=== PATIENT | male | born 1950 | race Caucasian/White ===

== ENCOUNTER 2022-05-02 15:22 | Inpatient (IN) ==
[2022-05-02] MEDS ORDERED: SODIUM CHLORIDE 0.9% 500 ML IV ONE (15:41)
[2022-05-02] MEDS ORDERED: methylPREDNISolone 125 MG/2 ML VIAL IV STA (15:41)
--- NOTE | 2022-05-02 15:44 | Emergency Department Note ---
Impression & Plan Pneumonia, Acute respiratory acidosis, Hypoxia, Acute exacerbation of chronic obstructive pulmonary disease, Hypoglycemia, Hypomagnesemia ED Provider Note NAME: JULIA [id number] JC AGE: 72 SEX: M : 1950 ARRIVES VIA: Walk-In INFORMANT: Patient, ED PROVIDER(S): Marvin Leahy DO CHIEF COMPLAINT: Difficulty breathing HPI: The patient is a 72-year-old male who presented to the emergency department from the halfway for an evaluation of generalized weakness and difficulty breathing. The patient states he has a history of COPD. He has not been able to take his oxygen once he was moved to a different block. He states he has been noticing difficulty breathing and coughing over the course the last few days. He was started on Levaquin according to his documentation from the present. He states he has had a dry cough. He denies having any hemoptysis. He denies having any fever. He has had lower extremity swelling which is not new for him. He denies having any recent trauma. He denies having any chest pain but does complain of some difficulty breathing especially with any ambulation. The patient states his symptoms became moderate to severe. He was also noted to have low blood pressure and low glucose prior to arrival. For this reason he was sent to the emergency department for further evaluation. ROS: See above HPI for pertinent positives & negatives. A total of 10 systems reviewed and were otherwise negative. PAST MEDICAL HISTORY: See Below PAST SURGICAL HISTORY: See Below FAMILY HISTORY: See Below SOCIAL HISTORY: See Below HOME MEDICATIONS: See Below ALLERGIES: See Below VITALS: See Below PHYSICAL EXAMINATION: GENERAL: The patient is awake and alert. He is somewhat anxious appearing. EYES: The conjunctivae are clear. The pupils are round and reactive. EARS, NOSE, MOUTH AND THROAT: The nose is without any evidence of any deformity. NECK: The neck is nontender and supple. RESPIRATORY: Diminished breath sounds are noted throughout. There is faint wheezing both upper lung collins. There was conversational dyspnea and mild tachypnea noted. CARDIOVASCULAR: Regular rate and rhythm noted there no murmurs rubs or gallops normal S1 normal S2. GASTROINTESTINAL: The abdomen is soft. Abdomen is nontender. MUSCULOSKELETAL/EXTREMITIES: There is no evidence of gross deformity full range of motion is noted in the hips and shoulders. SKIN: Venous stasis changes are noted in both lower extremities. Skin is warm and dry. There is pedal edema bilaterally. NEUROLOGIC: Patient is awake alert and oriented x3 MEDICAL DECISION MAKING: The patient is a 72-year-old male who presented to the emergency department from the halfway for an evaluation of difficulty breathing. The patient was treated with Levaquin in the halfway over the last few days. He he states he is having significant shortness of breath and dry cough. He describes no chest pain. He was noted to have low blood sugar as well as low blood pressure prior to arrival. He was treated with IV fluids and IV dextrose. He was reevaluated multiple times. He was treated with IV steroids for presumed COPD but also IV antibiotics after chest x-ray revealed signs of pneumonia. The pneumonia does appear to be more in the right upper lobe. He states he has been tested negative for tuberculosis in the past but given his living situation CT of the chest was ordered. I [facility] the [facility] to evaluate the patient in the emergency department for further management and disposition. He was also treated with IV magnesium. Triage Nursing notes reviewed. Prior medical records reviewed Vital Signs: reviewed and remarkable for hypotension and hypoxia. Differential diagnosis: Reactive airway disease, pneumonia, pneumothorax, COPD, CHF, infections, cardiac ischemia, pulmonary embolism, musculoskeletal, gastrointestinal, as well as other pathologies. ER treatment provided: See below Diagnostics interpreted by me: ECG:EKG was obtained in the emergency department. My interpretation is sinus rhythm at 92 bpm. Poor baseline was noted. Poor R wave progression was noted with a left bundle branch block pattern. No previous tracing was available. Cardiac Monitoring: An order was placed for continuous cardiac monitoring. The monitor shows a rate of 85 bpm with sinus rhythm. Laboratory studies: As stated above and show below. Imaging studies: See below Consultation(s): I discussed this case with G[facility] ED COURSE: Procedures: none Critical Care: I have personally spent greater than 55 minutes of critical care time in the direct management of this patient. This includes bedside care, interpretation of diagnostic studies, and testing, discussion with consultants, patient, and family members, and other required patient management activities. This 55 minutes is in excess of all separately billable procedures. Past Med/Surg History Medical History Chronic obstructive pulmonary disease Dyspnea on exertion Obesity Obstructive sleep apnea Social History Smoking Status: Former smoker Home Meds Home Medications Medication Instructions Recorded Confirmed apremilast 30 mg tablet (Otezla) 30 mg PO BID 08/31/21 08/31/21 aspirin 81 mg tablet,delayed 81 mg PO DAILY 08/31/21 08/31/21 release (Adult Low Dose Aspirin) atorvastatin 40 mg tablet 40 mg PO DAILY 08/31/21 08/31/21 ciclesonide 160 mcg/actuation 2 puff INHALATION DAILY 08/31/21 08/31/21 aerosol inhaler (Alvesco) duloxetine 60 mg capsule,delayed 60 mg PO DAILY 08/31/21 08/31/21 release furosemide 20 mg tablet 20 mg PO DAILY 08/31/21 08/31/21 glipizide 5 mg tablet 5 mg PO DAILY 08/31/21 08/31/21 guaifenesin 200 mg tablet 200 mg PO QID 08/31/21 08/31/21 levalbuterol tartrate 45 2 inh INHALATION Q6H 08/31/21 08/31/21 mcg/actuation aerosol inhaler (Xopenex HFA) lisinopril 20 mg tablet 20 mg PO DAILY 08/31/21 08/31/21 metformin 1,000 mg tablet 1,000 mg PO BID 08/31/21 08/31/21 oxcarbazepine 300 mg tablet 300 mg PO BID 08/31/21 08/31/21 ropinirole 2 mg tablet 2 mg PO DAILY 08/31/21 08/31/21 saliva substitute combo no.9 15 ml MUCOUS MEMBRANE 5XD PRN 08/31/21 08/31/21 (Biotene Dry Mouth Oral Rinse) tiotropium bromide 18 mcg capsule 1 cap INHALATION DAILY 08/31/21 08/31/21 with inhalation device (Spiriva with HandiHaler) triamcinolone acetonide 0.1 % 1 applic TOPICAL DAILY 08/31/21 08/31/21 topical cream Results & Data (ED) Vital Signs Vital Signs - 24 hr 05/02/22 15:27 05/02/22 15:42 05/02/22 15:50 Temperature 36.7 C Temperature Source Oral Pulse Rate 88 90 91 H Pulse Rate [Apical] Pulse Rate from SpO2 Sensor 90 91 H Respiratory Rate 18 26 H 31 H Respiratory Effort / Characteristics Respiratory Depth Respiratory Pattern Blood Pressure 65/45 L Blood Pressure [Left Arm] Blood Pressure Mean 51 Blood Pressure Mean [Left Arm] Pulse Oximetry 98 92 91 Oxygen Delivery Method Nasal Cannula Oxygen Flow Rate 2 Fraction of Inspired Oxygen Sepsis Recent Fever Within 48 Hours No Sepsis New/Unexplained Change in Mental Status No Sepsis Action Taken by Nursing No Action Required 05/02/22 16:00 05/02/22 16:01 05/02/22 16:07 Temperature Temperature Source Pulse Rate 83 83 87 Pulse Rate [Apical] Pulse Rate from SpO2 Sensor 82 84 125 H Respiratory Rate 27 H 28 H 22 Respiratory Effort / Characteristics Respiratory Depth Respiratory Pattern Blood Pressure 78/52 L 101/56 L Blood Pressure [Left Arm] Blood Pressure Mean 60 71 Blood Pressure Mean [Left Arm] Pulse Oximetry 90 90 73 L Oxygen Delivery Method Oxygen Flow Rate Fraction of Inspired Oxygen Sepsis Recent Fever Within 48 Hours Sepsis New/Unexplained Change in Mental Status Sepsis Action Taken by Nursing 05/02/22 16:10 05/02/22 16:11 05/02/22 17:03 Temperature Temperature Source Pulse Rate 82 80 85 Pulse Rate [Apical] 82 85 Pulse Rate from SpO2 Sensor Respiratory Rate 25 H 22 22 Respiratory Effort / Characteristics Spontaneous Respiratory Depth Normal Respiratory Pattern Regular Blood Pressure Blood Pressure [Left Arm] 101/56 L Blood Pressure Mean Blood Pressure Mean [Left Arm] 71 Pulse Oximetry 94 99 Oxygen Delivery Method Nasal Cannula BiPAP Oxygen Flow Rate 2 Fraction of Inspired Oxygen 40 Sepsis Recent Fever Within 48 Hours Sepsis New/Unexplained Change in Mental Status Sepsis Action Taken by [facility] Medications Current Medication List: was personally reviewed by me Laboratory Data Attestation: I reviewed the patient's lab results. Result diagrams: 05/02/22 15:55 05/02/22 15:55 Lab Results 05/02/22 05/02/22 05/02/22 Range/Units 15:31 15:55 15:55 WBC 16.64 H (4.8-10.8) K/uL RBC 5.22 (4.7-6.1) M/uL Hgb 16.7 (14.0-18.0) g/dL Hct 49.4 (42-52) % MCV 94.6 (80-100) fL MCH 32.0 (25-34) pg MCHC 33.8 (32-36) g/dL RDW Std Deviation 46.8 H (36.4-46.3) fL RDW Coeff of Cedric 13.6 (11.5-14.5) % Plt Count 198 (130-400) K/uL MPV 10.7 H (7.4-10.4) fL Immature Gran % (Auto) 0.4 % Neut % (Auto) 87.2 % Lymph % (Auto) 5.7 % Wilkin % (Auto) 6.5 % Eos % (Auto) 0.1 % Baso % (Auto) 0.1 % Neut # (Auto) 14.53 H (1.4-6.5) K/uL Lymph # (Auto) 0.95 L (1.2-3.4) K/uL Wilkin # (Auto) 1.08 H (0.11-0.59) K/uL Eos # (Auto) 0.01 (0-0.5) K/uL Baso # (Auto) 0.01 (0-0.2) K/uL Immature Gran # (Auto) 0.06 H (0.00-0.02) K/uL ESR 93 H (0-20) mm/hr PT (9.0-12.0) Seconds INR (0.9-1.1) APTT (21.0-31.0) Seconds PTT Ratio VBG pH (7.36-7.41) VBG pCO2 (38-50) mmHg VBG pO2 mmHg VBG HCO3 mmol/L VBG O2 Saturation % VBG Base Excess mEq/L Barometric Pressure mm/Hg Sodium (136-145) mmol/L Potassium (3.5-5.1) mmol/L Chloride (98-107) mmol/L Carbon Dioxide (21-32) mmol/L Anion Gap (3-11) BUN (6-23) mg/dl Creatinine (0.6-1.4) mg/dl Est Cr Clr Drug Dosing ml/min Est GFR ( Amer) ml/min Est GFR (Non-Af Amer) ml/min BUN/Creatinine Ratio (10-20) Glucose (70-99(Fasting)) mg/dl POC Glucose 99 (70-99) mg/dl Lactate (0.4-2.0) mmol/L Calcium (8.5-10.1) mg/dl Magnesium (1.7-2.4) mg/dl Total Bilirubin (0.2-1.0) mg/dl AST (13-39) U/L ALT (7-52) U/L Alkaline Phosphatase (34-104) U/L Troponin I High Sens (0-20) pg/ml C-Reactive Protein (0-0.5) mg/dl Total Protein (6.0-8.3) gm/dl Albumin (3.4-5.0) gm/dl Globulin (2.5-4.0) gm/dl Albumin/Globulin Ratio (0.9-2) Procalcitonin (0-0.5) ng/ml 05/02/22 05/02/22 05/02/22 Range/Units 15:55 15:55 15:55 WBC (4.8-10.8) K/uL RBC (4.7-6.1) M/uL Hgb (14.0-18.0) g/dL Hct (42-52) % MCV (80-100) fL MCH (25-34) pg MCHC (32-36) g/dL RDW Std Deviation (36.4-46.3) fL RDW Coeff of Cedric (11.5-14.5) % Plt Count (130-400) K/uL MPV (7.4-10.4) fL Immature Gran % (Auto) % Neut % (Auto) % Lymph % (Auto) % Wilkin % (Auto) % Eos % (Auto) % Baso % (Auto) % Neut # (Auto) (1.4-6.5) K/uL Lymph # (Auto) (1.2-3.4) K/uL Wilkin # (Auto) (0.11-0.59) K/uL Eos # (Auto) (0-0.5) K/uL Baso # (Auto) (0-0.2) K/uL Immature Gran # (Auto) (0.00-0.02) K/uL ESR (0-20) mm/hr PT 13.2 H (9.0-12.0) Seconds INR 1.3 H (0.9-1.1) APTT 30.5 (21.0-31.0) Seconds PTT Ratio 1.1 VBG pH (7.36-7.41) VBG pCO2 (38-50) mmHg VBG pO2 mmHg VBG HCO3 mmol/L VBG O2 Saturation % VBG Base Excess mEq/L Barometric Pressure mm/Hg Sodium 140 (136-145) mmol/L Potassium 4.3 (3.5-5.1) mmol/L Chloride 97 L (98-107) mmol/L Carbon Dioxide 34 H (21-32) mmol/L Anion Gap 9 (3-11) BUN 61 H (6-23) mg/dl Creatinine 1.83 H (0.6-1.4) mg/dl Est Cr Clr Drug Dosing 39.8 ml/min Est GFR ( Amer) 41.2 ml/min Est GFR (Non-Af Amer) 35.6 ml/min BUN/Creatinine Ratio 33.3 H (10-20) Glucose 22 L* (70-99(Fasting)) mg/dl POC Glucose (70-99) mg/dl Lactate 2.0 (0.4-2.0) mmol/L Calcium 9.2 (8.5-10.1) mg/dl Magnesium 1.5 L (1.7-2.4) mg/dl Total Bilirubin 0.8 (0.2-1.0) mg/dl AST 30 (13-39) U/L ALT 18 (7-52) U/L Alkaline Phosphatase 190 H (34-104) U/L Troponin I High Sens 28.4 H (0-20) pg/ml C-Reactive Protein 25.16 H (0-0.5) mg/dl Total Protein 7.2 (6.0-8.3) gm/dl Albumin 3.3 L (3.4-5.0) gm/dl Globulin 3.9 (2.5-4.0) gm/dl Albumin/Globulin Ratio 0.8 L (0.9-2) Procalcitonin (0-0.5) ng/ml 05/02/22 05/02/22 05/02/22 Range/Units 15:55 15:55 16:48 WBC (4.8-10.8) K/uL RBC (4.7-6.1) M/uL Hgb (14.0-18.0) g/dL Hct (42-52) % MCV (80-100) fL MCH (25-34) pg MCHC (32-36) g/dL RDW Std Deviation (36.4-46.3) fL RDW Coeff of Cedric (11.5-14.5) % Plt Count (130-400) K/uL MPV (7.4-10.4) fL Immature Gran % (Auto) % Neut % (Auto) % Lymph % (Auto) % Wilkin % (Auto) % Eos % (Auto) % Baso % (Auto) % Neut # (Auto) (1.4-6.5) K/uL Lymph # (Auto) (1.2-3.4) K/uL Wilkin # (Auto) (0.11-0.59) K/uL Eos # (Auto) (0-0.5) K/uL Baso # (Auto) (0-0.2) K/uL Immature Gran # (Auto) (0.00-0.02) K/uL ESR (0-20) mm/hr PT (9.0-12.0) Seconds INR (0.9-1.1) APTT (21.0-31.0) Seconds PTT Ratio VBG pH 7.26 L (7.36-7.41) VBG pCO2 75 H (38-50) mmHg VBG pO2 53 mmHg VBG HCO3 33 mmol/L VBG O2 Saturation 74.9 % VBG Base Excess 3.0 mEq/L Barometric Pressure 733.5 mm/Hg Sodium (136-145) mmol/L Potassium (3.5-5.1) mmol/L Chloride (98-107) mmol/L Carbon Dioxide (21-32) mmol/L Anion Gap (3-11) BUN (6-23) mg/dl Creatinine (0.6-1.4) mg/dl Est Cr Clr Drug Dosing ml/min Est GFR ( Amer) ml/min Est GFR (Non-Af Amer) ml/min BUN/Creatinine Ratio (10-20) Glucose (70-99(Fasting)) mg/dl POC Glucose 37 L* (70-99) mg/dl Lactate (0.4-2.0) mmol/L Calcium (8.5-10.1) mg/dl Magnesium (1.7-2.4) mg/dl Total Bilirubin (0.2-1.0) mg/dl AST (13-39) U/L ALT (7-52) U/L Alkaline Phosphatase (34-104) U/L Troponin I High Sens (0-20) pg/ml C-Reactive Protein (0-0.5) mg/dl Total Protein (6.0-8.3) gm/dl Albumin (3.4-5.0) gm/dl Globulin (2.5-4.0) gm/dl Albumin/Globulin Ratio (0.9-2) Procalcitonin 1.36 H (0-0.5) ng/ml Administered Medications Sodium Chloride (Nss 1000ml) 1,000 mls @ 999 mls/hr IV .Q1H1M ONE Stop: 05/02/22 17:47 Last Admin: 05/02/22 16:56 Dose: 999 mls/hr Documented by: [id number] Discontinued Medications Albuterol (Albut/Ipratrop 3mg/0.5mg Neb 3 Ml Vial) 12 ml NEB ONE ONE; Protocol Stop: 05/02/22 16:48 Last Admin: 05/02/22 17:03 Dose: 12 ml Documented by: [id number] Dextrose (Dextrose 50% 50 Ml Syringe) 50 ml IV NOW STA Stop: 05/02/22 16:51 Last Admin: 05/02/22 16:55 Dose: 50 ml Documented by: [id number] Dextrose (Dextrose 50% 50 Ml Syringe) Confirm Administered Dose 50 ml IV .STK- MED ONE Stop: 05/02/22 16:52 Last Admin: 05/02/22 16:59 Dose: Not Given Documented by: [id number] Sodium Chloride (Nss) 500 mls @ 999 mls/hr IV .Q31M ONE Stop: 05/02/22 16:11 Last Infusion: 05/02/22 16:37 Dose: 0 mls/hr Documented by: [id number] Admin: 05/02/22 15:52 Dose: 999 mls/hr Documented by: [id number] Cefepime HCl (Maxipime) 2,000 mg in 20 mls @ 5 mls/min IV NOW STA; Protocol Stop: 05/02/22 16:50 Last Admin: 05/02/22 16:55 Dose: 5 mls/min Documented by: [id number] Ioversol (Optiray 320 125ml) 119 ml IV ONCE ONE Stop: 05/02/22 17:18 Last Admin: 05/02/22 17:18 Dose: 119 ml Documented by: [id number] Methylprednisolone (Methylprednisolone 125 Mg/2 Ml Vial) 125 mg IV NOW STA Stop: 05/02/22 15:42 Last Admin: 05/02/22 15:58 Dose: 125 mg Documented by: [id number] Imaging Data Radiologist's Impression: Chest X-Ray 05/02/22 15:41 XR chest 1V portable CLINICAL HISTORY: SEPSIS. COMPARISON STUDY: No previous studies for comparison. TECHNIQUE: 1 view of the chest FINDINGS: Single frontal view of the chest demonstrates the heart to be enlarged. There is a confluent alveolar opacity present within the right upper lobe characteristic of pneumonia. The remainder of the lungs are clear. There is no evidence for pleural effusion. There is no evidence for vascular congestion. There is no acute osseous pathology. IMPRESSION: 1. Right upper lobe alveolar opacity most characteristic of the presence of pneumonia. ACT 112: Negative or not required by law. Electronically signed by: Antwan Meadwos M.D. 05/02/2022 4:37 PM Discharge Plan Visit Data Chief Complaint: Hypoglycemia Stated Complaint: HYPOGLYCEMIC ED Provider: Marvin Leahy Discharge Problem: Pneumonia, Acute respiratory acidosis, Hypoxia, Acute exacerbation of chronic obstructive pulmonary disease, Hypoglycemia, Hypomagnesemia Patient Disposition: Being Evaluated by Hospitalist Forms Stand Alone Forms: My [facility] Prescriptions Prescriptions: No Action Spiriva with HandiHaler 18 mcg capsule, w/inhalation device 1 cap inhalation DAILY RF: 0 Alvesco 160 mcg/actuation HFA aerosol inhaler 2 puff inhalation DAILY RF: 0 aspirin [Adult Low Dose Aspirin] 81 mg tablet,delayed release (DR/EC) 81 mg PO DAILY RF: 0 atorvastatin 40 mg tablet 40 mg PO DAILY RF: 0 duloxetine 60 mg capsule,delayed release(DR/EC) 60 mg PO DAILY RF: 0 furosemide 20 mg tablet 20 mg PO DAILY RF: 0 glipizide 5 mg tablet 5 mg PO DAILY RF: 0 lisinopril 20 mg tablet 20 mg PO DAILY RF: 0 metformin 1,000 mg tablet 1,000 mg PO BID RF: 0 oxcarbazepine 300 mg tablet 300 mg PO BID RF: 0 ropinirole 2 mg tablet 2 mg PO DAILY RF: 0 levalbuterol tartrate [Xopenex HFA] 45 mcg/actuation HFA aerosol inhaler 2 inh inhalation Q6H RF: 0 guaifenesin 200 mg tablet 200 mg PO QID RF: 0 triamcinolone acetonide 0.1 % cream 1 applic topical DAILY RF: 0 Biotene Dry Mouth Oral Rinse Mouthwash 15 ml mucous membrane 5XD PRNRF: 0 Otezla 30 mg tablet 30 mg PO BID RF: 0 Referrals Referrals: Sherry PRICE [Primary Care Provider] -
[2022-05-02 16:29] LABS: Basophils # (auto) 0.01 K/uL (0-0.2); Basophils % (auto) 0.1 %; Eosinophils # (auto) 0.01 K/uL (0-0.5); Eosinophils % (auto) 0.1 %; Hematocrit (blood only) 49.4 % (42-52); Hemoglobin 16.7 g/dL (14.0-18.0); Immature Granulocytes # (auto) 0.06 K/uL (0.00-0.02); Immature Granulocytes % (auto) 0.4 %; Lymphocytes # (auto) 0.95 K/uL (1.2-3.4); Lymphocytes % (auto) 5.7 %; Mean Corpuscular Hgb Conc 33.8 g/dL (32-36); Mean Corpuscular Volume 94.6 fL (80-100); Mean Platelet Volume 10.7 fL (7.4-10.4); Monocytes # (auto) 1.08 K/uL (0.11-0.59); Monocytes % (auto) 6.5 %; Neutrophils # (auto) 14.53 K/uL (1.4-6.5); Neutrophils % (auto) 87.2 %; Oxygen Saturation VBG 74.9 %; Platelet Count 198 K/uL (130-400); RDW Coefficient of Variation 13.6 % (11.5-14.5); RDW Standard Deviation 46.8 fL (36.4-46.3); Red Blood Count 5.22 M/uL (4.7-6.1); White Blood Count 16.64 K/uL (4.8-10.8); pH VBG 7.26 (7.36-7.41)
[2022-05-02 16:35] LABS: INR 1.3 (0.9-1.1); Partial Thromboplastin Ratio 1.1; Partial Thromboplastin Time 30.5 Seconds (21.0-31.0); Prothrombin Time 13.2 Seconds (9.0-12.0)
--- NOTE | 2022-05-02 16:38 | XRay Report ---
XR chest 1V portable CLINICAL HISTORY: SEPSIS. COMPARISON STUDY: No previous studies for comparison. TECHNIQUE: 1 view of the chest FINDINGS: Single frontal view of the chest demonstrates the heart to be enlarged. There is a confluent alveolar opacity present within the right upper lobe characteristic of pneumonia. The remainder of the lungs are clear. There is no evidence for pleural effusion. There is no evidence for vascular congestion. T here is no acute osseous pathology. IMPRESSION: 1. Right upper lobe alveolar opacity most characteristic of the presence of pneumonia. ACT 112: Negative or not required by law. Electronically signed by: Antwan Meadows M.D. 05/02/2022 4:37 PM
[2022-05-02 16:42] LABS: Albumin Globulin Ratio 0.8 (0.9-2); Albumin Level 3.3 gm/dl (3.4-5.0); BUN Creatinine Ratio 33.3 (10-20); Bilirubin,Total 0.8 mg/dl (0.2-1.0); C Reactive Protein 25.16 mg/dl (0-0.5); Calcium 9.2 mg/dl (8.5-10.1); Creatinine Clr Calc Pharmacy 39.8 ml/min; Est GFR (African American) 41.2 ml/min; Est GFR (Non-African American) 35.6 ml/min; Globulin 3.9 gm/dl (2.5-4.0); Magnesium 1.5 mg/dl (1.7-2.4); Potassium 4.3 mmol/L (3.5-5.1); Total Protein 7.2 gm/dl (6.0-8.3)
[2022-05-02] MEDS ORDERED: ALBUT/IPRATROP 3MG/0.5MG NEB 3 ML VIAL NEB ONE (16:47)
[2022-05-02] MEDS ORDERED: CEFEPIME 2,000 MG/20 ML VIAL IV STA (16:47)
[2022-05-02] MEDS ORDERED: SODIUM CHLORIDE 0.9% 1000ML 1,000 ML IV ONE (16:47)
[2022-05-02] MEDS ORDERED: DEXTROSE 50% 50 ML SYRINGE IV STA (16:50)
[2022-05-02] MEDS ORDERED: DEXTROSE 50% 50 ML SYRINGE IV ONE ×2 (16:51→19:27)
[2022-05-02 16:59] LABS: Troponin I High Sensitivity 28.4 pg/ml (0-20)
[2022-05-02] MEDS ORDERED: MAGNESIUM SULFATE / D5W 1 GM/100 ML BAG IV STA (17:15)
[2022-05-02] MEDS ORDERED: OPTIRAY 320 125ml IV ONE (17:17)
[2022-05-02 17:36] LABS: Influenza A virus by PCR Negative (Neg); Influenza B virus by PCR Negative (Neg); RSV by PCR Negative (Neg); SARS CoV2 RNA(COVID-19) InHosp NEGATIVE (Negative)
--- NOTE | 2022-05-02 17:46 | History & Physical Report ---
Date of Service May 02, 2022 Assessment & Plan (1) Acute respiratory failure: Plan: Likely related to right hilar mass with post-obstructive collapse in setting of possible COPD exacerbation +/- pneumonia. Pulm consult requested. Cont abx for now empirically. Cont COPD treatment as outlined below. (2) Acute exacerbation of chronic obstructive pulmonary disease: Plan: Some wheezing on exam--poor description of symptoms despite asking him a couple of different times. Cannot tell if sputum changes or worsening cough present. For now, cont BIPAP support as needed (was able to transition off this once on floor), duonebs, steroids and abx. (3) HOMA (acute kidney injury): Plan: 2/2 dehydration vs ATN in setting of hypotension. Trend daily BMP, give IVF. (4) Pneumonia: Plan: possible but thought to be more consistent with R hilar mass as above. Cont empiric abx with elevated procalcitonin and critical appearance on admission. Consult pulm per plan above. (5) Hypotension: Plan: NSS given in ER with good response, cont overnight. Hold antihypertensives. (6) Hypoglycemia: Plan: resolved, now 147 from 37 on arrival. Glipizide use (and otezla) in context of poor PO intake. Hold oral meds. Cover with correction factor insulin while starting to eat and started on higher dose steroids. Increase insulin coverage as needed, preferably using MDD insulin (basal/bolus) in the hospital. (7) Hypomagnesemia: Plan: Given replacement. Repeat level in am. (8) Chronic steroid use: Plan: chronically placed on steroids by the [facility] several years ago. Has been taking recently (9) DVT prophylaxis: Plan: Heparin Full Code Dispo-PCU, pending pulm evaluation. Incarcerated. DO Verónica Mccollum Hospitalist History of Present Illness Chief Complaint: SOB, hypotension, hypoglycemia Primary Care Provider: ALBERT Powell 72 yo incarcerated man with diabetes on glipizide and Otezla presents with hypotension, hypoglycemia and SOB with hypoxia. He cannot accurately tell me when his breathing became worse and reports coughing with respiratory symptoms for the past 12 years. He denies any fevers/chills, chest pain. He reports not eating anything for the past couple of days 2/2 low appetite. He denies any blood per rectum, diarrhea, urinary symptoms, abdominal pain etc. He was having difficulty giving me responses to questions but was able to answer orientation questions accurately. He was just recently treated for severe hypoglycemia and may be having some difficulty because of this. Per field notes his BSG was 43 nd he was given 4 glucose tabs. BP was 82/60. He appears to have become worse over the past 3-4 days with symptoms above. Allergies Allergy/AdvReac Type Severity Reaction Status Date / Time Penicillins Allergy Unknown Verified 05/02/22 19:11 Home Medications Medication Instructions Recorded Confirmed Type Normal Saline Flush 0.9% 1,000 ml IV DAILY PRN 05/02/22 05/02/22 History albuterol sulfate 90 mcg/actuation 1 puff INHALATION QID PRN 05/02/22 05/02/22 History aerosol inhaler apremilast 30 mg tablet (Otezla) 30 mg PO BID 05/02/22 05/02/22 History aspirin 81 mg chewable tablet 81 mg PO DAILY 05/02/22 05/02/22 History (Children's Aspirin) atorvastatin 40 mg tablet 40 mg PO HS 05/02/22 05/02/22 History fluticasone 500 mcg-salmeterol 50 1 inh INHALATION BID 05/02/22 05/02/22 History mcg/dose blistr powdr for inhalation (Wixela Inhub) furosemide 20 mg tablet (Lasix) 20 mg PO DAILY 05/02/22 05/02/22 History glipizide 5 mg tablet 5 mg PO BID 05/02/22 05/02/22 History guaifenesin 600 mg tablet, 600 mg PO Q12H 05/02/22 05/02/22 History extended release 12 hr (Mucinex) ipratropium 0.5 mg-albuterol 3 mg 0 ml INHALATION QID 05/02/22 05/02/22 History (2.5 mg base)/3 mL nebulization soln levofloxacin 750 mg tablet 750 mg PO DAILY 05/02/22 05/02/22 History lisinopril 20 mg tablet 20 mg PO DAILY 05/02/22 05/02/22 History metformin 1,000 mg tablet 1,000 mg PO BID 05/02/22 05/02/22 History metoprolol tartrate 25 mg tablet 25 mg PO BID 05/02/22 05/02/22 History prednisolone 5 mg tablet 15 mg PO DAILY 05/02/22 05/02/22 History (Millipred) ropinirole 2 mg tablet 4 mg PO BID 05/02/22 05/02/22 History simethicone 125 mg chewable tablet 125 mg PO QID PRN 05/02/22 05/02/22 History (Gas-X Extra Strength) Past Med/Surg History Medical History (Updated 05/02/22 @ 20:50 by Keyanna Rodriguez DO) Allergic rhinitis Atherosclerosis Chronic obstructive pulmonary disease DMII (diabetes mellitus, type 2) Dry mouth Dyspnea on exertion HTN (hypertension) Neuropathy Obesity Obstructive sleep apnea Osteoarthrosis Psoriasis RLS (restless legs syndrome) Surgical History No history of previous surgery Family History Mother Lung cancer Father CHF (congestive heart failure) Social History Smoking Status: Former smoker Years Smoked: 30; Number of Years Since Quit: 20; Second Hand Exposure: No; Do You Dip or Chew Tobacco: No; Tobacco Cessation Education Requested by Patient: No Hx Alcohol Use: No Hx Substance Use: No Preferred Language: Omani [employer] Drill Operator Helper Required: No Beliefs That Will Affect Care: None Current Living Situation: Other Current Living Situation Comment: [facility] Other Information That Helps Us Care for You: No Feels Safe at Home: Yes Assistive Devices: Wheelchair Review of Systems Review of Systems: All systems were reviewed and negative except as indicted on HPI above. Physical Exam Physical Exam: CONSTITUTIONAL: obese, vitals as above, BIPAP in place and appears comfortable. EYES: PERRL, normal conjunctivae, no scleral icterus, ENT: external ear and nose normal, NECK: trachea midline, RESPIRATORY: clear to auscultation bilaterally, no crackles, rales or wheezes, normal respiratory effort CARDIOVASCULAR: tachy rate and rhythm, S1 and 2 heard without murmurs, gallops or rubs, no JVD, no peripheral edema, CHEST: inspection of chest was normal GASTROINTESTINAL: soft, nontender, ND, no guarding MUSCULOSKELETAL: strength 5/5 throughout, difficulty bending knees bilaterally 2/2 pain, also has difficulty moving his left arm 2/2 pain. head is normocephalic and atraumatic, SKIN: warm and dry, dark purple chronic coloration to lower extremities. Nails with fungal destruction, toes are red. Extremities are warm and DP pulses are palpable bilaterally. No open wounds noted on feet. PAtient reports sensation intact to soles of feet bilaterally. NEUROLOGIC: patellar DTRs 2+ bilat. CN 2-12 grossly intact, no sensory deficit, normal cognition, normal speech, PSYCHIATRIC: alert cooperative and oriented to person, place and time. Results & Data Results & Data ([facility]) Vital Signs (Past 12 Hours) Vital Signs Temp Pulse Pulse Resp BP BP Pulse Ox 05/02/22 17:26 37 C 98 H 18 101/68 96 05/02/22 17:03 85 85 22 99 05/02/22 16:41 22 94 05/02/22 16:11 80 82 22 101/56 L 94 05/02/22 16:10 82 25 H 05/02/22 16:07 87 22 101/56 L 73 L 05/02/22 16:01 83 28 H 78/52 L 90 05/02/22 16:00 83 27 H 90 05/02/22 15:50 91 H 31 H 91 05/02/22 15:42 90 26 H 92 05/02/22 15:27 36.7 C 88 18 65/45 L 98 Laboratory Results Short CBC 05/02/22 Range/Units 15:55 WBC 16.64 H (4.8-10.8) K/uL Hgb 16.7 (14.0-18.0) g/dL Hct 49.4 (42-52) % Plt Count 198 (130-400) K/uL BMP 05/02/22 15:55 Sodium 140 Potassium 4.3 Chloride 97 L Carbon Dioxide 34 H BUN 61 H Creatinine 1.83 H Glucose 22 L* Calcium 9.2 Liver Function 05/02/22 Range/Units 15:55 Total Bilirubin 0.8 (0.2-1.0) mg/dl AST 30 (13-39) U/L ALT 18 (7-52) U/L Alkaline Phosphatase 190 H (34-104) U/L Albumin 3.3 L (3.4-5.0) gm/dl Diagnostic Findings Chest X-Ray 05/02/22 15:41 XR chest 1V portable CLINICAL HISTORY: SEPSIS. COMPARISON STUDY: No previous studies for comparison. TECHNIQUE: 1 view of the chest FINDINGS: Single frontal view of the chest demonstrates the heart to be enlarged. There is a confluent alveolar opacity present within the right upper lobe characteristic of pneumonia. The remainder of the lungs are clear. There is no evidence for pleural effusion. There is no evidence for vascular congestion. There is no acute osseous pathology. IMPRESSION: 1. Right upper lobe alveolar opacity most characteristic of the presence of pneumonia. ACT 112: Negative or not required by law. Electronically signed by: Antwan Maedows M.D. 05/02/2022 4:37 PM Medications Administered Current Inpatient Medications Sodium Chloride (Nss 1000ml) 1,000 mls @ 999 mls/hr IV .Q1H1M ONE Stop: 05/02/22 17:47 Last Admin: 05/02/22 16:56 Dose: 999 mls/hr Documented by: Magnesium Sulfate/Dextrose (Magnesium Sulfate / D5w) 1 gm in 100 mls @ 100 mls/hr IV NOW STA Stop: 05/02/22 18:14 Code Status & VTE Plan VTE Prophylaxis Plan VTE Prophylaxis will be ordered: Yes (1) Pneumonia Laterality: right Lung location: upper lobe of lung Pneumonia type: due to unspecified organism Qualified Code(s): J18.9 - Pneumonia, unspecified organism
--- NOTE | 2022-05-02 18:02 | CT Scan Report ---
CT angio chest PE protocol CLINICAL HISTORY: Shortness of breath COMPARISON STUDY: Portable chest from 05/02/2022 CT DOSE: 1050.00 mGy.cm TECHNIQUE: CT Angio of the chest was performed.followed by image post processing with coronal, and s agittal MIP reformats. Contrast Volume: Optiray 320, 119 ml FINDINGS: Vasculature: There is homogeneous perfusion of the pulmonary vasculature bilaterally. No intraluminal filling defects or evidence for pulmonary embolus is seen. Airway: The airway is clear. No endobronchial lesion is identified. Lungs: CT confirms the presence of a large confluent alveolar opacity within the right upper lobe whi ch extends centrally to the right hilum. It is indistinct with the right hilum and the presence of a right hilar mass with postobstructive atelectasis/collapse is suggested. Additionally, there are 3 baker bcentimeter pulmonary nodules within the right lung. Only a few air bronchograms are present and luis e dard pneumonia is considered less likely. However, follow-up will be necessary for further evaluation . The right hemithorax is clear. No pulmonary nodules or alveolar opacities are identified. Pleura: There is no evidence for pleural effusion. There is no evidence for pneumothorax. Mediastinum: There is evidence for paratracheal adenopathy on the right as well with largest measurin g 1.7 x 1.3 cm. There is also right hilar adenopathy measuring 2.1 x 1.7 cm. The heart is enlarged. There is coronary artery calcification The thoracic aorta is within normal li mits. There is no evidence for pericardial effusion. Upper abdomen:The adrenal glands are normal bilaterally. Osseous structures: There is no acute osseous pathology. Impression: 1. No CTA evidence for pulmonary embolus. 2. CT confirms a confluent alveolar opacity involving the right upper lobe extending to the right hil um and indistinct from the right hilum. The findings are more characteristic of right hilar mass with postobstructive atelectasis/collapse rather than pneumonia as described above. 3. 3 subcentimeter pulmonary nodules are also seen within the right lung. 4. Right paratracheal and right hilar adenopathy is present. ACT 112: Negative or not required by law. Electronically signed by: Antwan Meadows M.D. 05/02/2022 6:00 PM
[2022-05-02] MEDS ORDERED: GLUCAGON FOR INJ 1 MG VIAL SQ PRN (20:56)
[2022-05-02] MEDS ORDERED: CARBOHYDRATES FOR HYPOGLYCEMIA PO PRN (20:56)
[2022-05-02] MEDS ORDERED: DEXTROSE 50% 50 ML SYRINGE IV PRN (20:56)
[2022-05-02] MEDS ORDERED: GLUCOSE 10 TAB/TUBE PO PRN (20:56)
[2022-05-02] MEDS ORDERED: ONDANSETRON INJ 2 MG/ML 2 ML VIAL IV PRN (20:56)
[2022-05-02] MEDS ORDERED: GLUCOSE 40% GEL 15 GM TUBE PO PRN (20:56)
[2022-05-02] MEDS ORDERED: FLUTICASONE/SALMETEROL (ADVAIR) 500/50 INH 14 PUFF INH SCH (21:00)
[2022-05-02] MEDS: SODIUM CHLORIDE 0.9% 1000ML 1,000 ML IV SCH (21:13)
[2022-05-02] MEDS ORDERED: AZITHROMYCIN 500 MG in DEXTROSE 5% 250 ML IV ONE (21:15)
[2022-05-02] MEDS: METOPROLOL TARTRATE 25 MG TAB PO SCH (21:23)
[2022-05-02] MEDS: HEPARIN SOD 5,000 UNIT/0.5 ML VIAL SQ SCH (21:24)
[2022-05-02] MEDS: INSULIN ASPART PER UNIT SC SCH (21:24)
[2022-05-02] MEDS: ATORVASTATIN 40 MG TAB PO SCH (21:24)
[2022-05-02] MEDS: rOPINIRole HCL 2 MG TABLET PO SCH (21:38)
[2022-05-03] MEDS ORDERED: cefTRIAXone SODIUM 2,000 MG in DEXTROSE 5% 50 ML IV SCH
[2022-05-03] MEDS: methylPREDNISolone 40 MG in SYRINGE 0 ML IV SCH ×4 (00:30→23:40)
[2022-05-03 01:32] LABS: Appearance Urine Clear (Clear); Bilirubin Urine Negative (Negative); Blood Urine Negative (Negative); Color Urine Yellow; Glucose Urine UA Negative (Negative); Ketones Urine Negative (Negative); Leukocyte Esterase Urine Negative (Negative); Nitrite Urine Negative (Negative); Protein Urine Negative (Negative); Specific Gravity Urine > 1.045 (1.000-1.030); Urobilinogen Urine Negative (Negative)
[2022-05-03 04:01] LABS: Est GFR (African American) 54.6 ml/min; Potassium 5.1 mmol/L (3.5-5.1)
[2022-05-03 04:02] LABS: BUN Creatinine Ratio 41.4 (10-20); Calcium 7.9 mg/dl (8.5-10.1); Creatinine Clr Calc Pharmacy 49.8 ml/min; Est GFR (Non-African American) 47.1 ml/min; Magnesium 1.7 mg/dl (1.7-2.4)
[2022-05-03 04:10] LABS: Hematocrit (blood only) 43.8 % (42-52); Hemoglobin 13.9 g/dL (14.0-18.0); Mean Corpuscular Hgb Conc 31.7 g/dL (32-36); Mean Corpuscular Volume 94.4 fL (80-100); Mean Platelet Volume 11.1 fL (7.4-10.4); Platelet Count 159 K/uL (130-400); RDW Coefficient of Variation 13.7 % (11.5-14.5); RDW Standard Deviation 47.2 fL (36.4-46.3); Red Blood Count 4.64 M/uL (4.7-6.1); White Blood Count 12.02 K/uL (4.8-10.8)
[2022-05-03] MEDS: ACETAMINOPHEN 325 MG TAB PO PRN (05:23)
[2022-05-03] MEDS: SODIUM CHLORIDE 0.9% 1000ML 1,000 ML IV SCH (05:47)
[2022-05-03] MEDS: ALBUT/IPRATROP 3MG/0.5MG NEB 3 ML VIAL NEB SCH ×4 (07:07→19:10)
[2022-05-03 08:07] LABS: Estimated Average Glucose 223 mg/dl; Hemoglobin A1C 9.4 % (4.5-5.6)
[2022-05-03] MEDS: INSULIN ASPART PER UNIT SC SCH ×4 (08:22→21:08)
[2022-05-03] MEDS: rOPINIRole HCL 2 MG TABLET PO SCH ×2 (08:28→21:09)
[2022-05-03] MEDS: ASPIRIN 81 MG CHEW PO SCH (08:28)
[2022-05-03] MEDS: HEPARIN SOD 5,000 UNIT/0.5 ML VIAL SQ SCH ×2 (08:28→15:20)
[2022-05-03] MEDS: METOPROLOL TARTRATE 25 MG TAB PO SCH ×2 (08:28→21:10)
[2022-05-03] MEDS: FLUTICASONE/VILANTEROL 100/25MCG 14 PUFFS/INHALER INH SCH (08:28)
--- NOTE | 2022-05-03 10:29 | Pulmonary Consultation ---
Date of Consultation May 03, 2022 Assessment & Plan (1) Mass of upper lobe of right lung: There appears to be a large necrotic right upper lobe mass with hilar adenopathy. This is highly concerning for malignancy and also formation of an early pulmonary abscess. MRSA screen was negative. We will transition ceftriaxone to meropenem. We will need to obtain cultures either from sputum or bronchoscopy cultures. Unable to do bronchoscopy unless the patient is intubated given his altered mental status and his high risk for decompensation (2) History of tobacco abuse: He has extensive tobacco abuse history. He is certainly at risk for lung cancer. (3) COPD with acute exacerbation: Continue Solu-Medrol and duo nebs. Continue broad-spectrum antibiotics. (4) Acute respiratory acidosis: We will place the patient on BiPAP and obtain an ABG now. (5) Hypoxia: Maintain saturations of 88 to 92%. (6) Altered mental status: Likely secondary to hypercapnic respiratory failure and pneumonia. We will obtain a CT of his head to evaluate for intracranial pathology. Thank you for allowing us participate in care of this patient. History of Present Illness Reason for Consultation: Right upper lobe masslike consolidation Attending Physician: Keyanna Rodriguez, DO History of Present Illness 72-year-old male with a past medical history of tobacco abuse, COPD, hypertension, JEREMI and diabetes mellitus type 2 presenting to the hospital 05/02/2022 due to increasing shortness of breath and cough. Patient was previously seen by me in the pulmonary clinic 08/31/2021. He had PFTs completed 03/03/2022 which revealed an FEV1 of 37%. Air-trapping was noted with an RV of 151%. DLCO was normal. He is currently on Rocephin, azithromycin and methylprednisolone 40 mg every 8 hours. He is also receiving sodium chloride at a rate of 125 cc/h. He had a chest CTA completed yesterday which revealed right upper lobe masslike consolidation and a right paratracheal and right hilar adenopathy. This is compared to an outside CT chest completed 10/14/2021 which revealed findings concerning for possible pneumonitis subpleural pleural-based pulmonary nodule seen with a repeat CT chest recommended in 3 to 6 months. Mild bibasilar cylindrical bronchiectasis was noted. ABG completed yesterday revealed a pH of 7.26. PCO2 of 75. Patient is requiring 4 to 5 L of oxygen with saturations in the low 90s. Patient is unable to participate in the review of systems. He occasionally moans to painful stimuli. Detention guards at bedside noted that he has been largely incoherent today. He appears to be maintaining his airway. Allergies Allergy/AdvReac Type Severity Reaction Status Date / Time Penicillins Allergy Unknown Verified 05/02/22 19:11 Home Medications Medication Instructions Recorded Confirmed Type Normal Saline Flush 0.9% 1,000 ml IV DAILY PRN 05/02/22 05/02/22 History albuterol sulfate 90 mcg/actuation 1 puff INHALATION QID PRN 05/02/22 05/02/22 History aerosol inhaler apremilast 30 mg tablet (Otezla) 30 mg PO BID 05/02/22 05/02/22 History aspirin 81 mg chewable tablet 81 mg PO DAILY 05/02/22 05/02/22 History (Children's Aspirin) atorvastatin 40 mg tablet 40 mg PO HS 05/02/22 05/02/22 History fluticasone 500 mcg-salmeterol 50 1 inh INHALATION BID 05/02/22 05/02/22 History mcg/dose blistr powdr for inhalation (Wixela Inhub) furosemide 20 mg tablet (Lasix) 20 mg PO DAILY 05/02/22 05/02/22 History glipizide 5 mg tablet 5 mg PO BID 05/02/22 05/02/22 History guaifenesin 600 mg tablet, 600 mg PO Q12H 05/02/22 05/02/22 History extended release 12 hr (Mucinex) ipratropium 0.5 mg-albuterol 3 mg 0 ml INHALATION QID 05/02/22 05/02/22 History (2.5 mg base)/3 mL nebulization soln levofloxacin 750 mg tablet 750 mg PO DAILY 05/02/22 05/02/22 History lisinopril 20 mg tablet 20 mg PO DAILY 05/02/22 05/02/22 History metformin 1,000 mg tablet 1,000 mg PO BID 05/02/22 05/02/22 History metoprolol tartrate 25 mg tablet 25 mg PO BID 05/02/22 05/02/22 History prednisolone 5 mg tablet 15 mg PO DAILY 05/02/22 05/02/22 History (Millipred) ropinirole 2 mg tablet 4 mg PO BID 05/02/22 05/02/22 History simethicone 125 mg chewable tablet 125 mg PO QID PRN 05/02/22 05/02/22 History (Gas-X Extra Strength) Patient History Medical History (Updated 05/03/22 @ 10:47 by Lb Plasencia MD) Allergic rhinitis Altered mental status Atherosclerosis Chronic obstructive pulmonary disease COPD with acute exacerbation DMII (diabetes mellitus, type 2) Dry mouth Dyspnea on exertion History of tobacco abuse HTN (hypertension) Mass of upper lobe of right lung Neuropathy Obesity Obstructive sleep apnea Osteoarthrosis Psoriasis RLS (restless legs syndrome) Surgical History No history of previous surgery Family History Mother Lung cancer Father CHF (congestive heart failure) Social History Smoking Status: Former smoker Years Smoked: 30; Number of Years Since Quit: 20; Second Hand Exposure: No; Do You Dip or Chew Tobacco: No; Tobacco Cessation Education Requested by Patient: No Hx Alcohol Use: No Hx Substance Use: No Preferred Language: Burkinan Methods Specialist Required: No Beliefs That Will Affect Care: None Current Living Situation: Other Current Living Situation Comment: [facility] Other Information That Helps Us Care for You: No Feels Safe at Home: Yes Assistive Devices: Wheelchair Review of Systems Review of Systems: All systems reviewed & are unremarkable except as noted in HPI & below Physical Exam Physical Exam: Constitutional: Obese appearing male with nasal cannula in place. Appears encephalopathic. Eyes: Pupils are equal round and reactive to light. Conjunctivae are normal. Anicteric sclera. Ears nose, mouth and throat: Mallampati class 2. Normal posterior oropharynx. Uvula is midline. Neck: Trachea is midline. Visual inspection is normal. Respiratory: Diminished lung sounds bilaterally. No expiratory wheeze heard. Coarse rhonchi in the right upper lobe. Cardiovascular: Regular rate and rhythm. No murmurs. No edema. Gastrointestinal: Normal bowel sounds, soft, nontender and nondistended. No hepatosplenomegaly noted. Musculoskeletal: No cyanosis. Patient is able to move all extremities. Skin: No rashes, warm dry and intact. Neurologic: Moaning. Appears to move all limbs spontaneously. Psychiatric: Unable to assess due to altered mental status. Results & Data Results & Data ([facility]) Vital Signs (Past 12 Hours) Vital Signs Temp Pulse Resp BP Pulse Ox 05/03/22 08:40 37.5 C 75 22 103/65 95 05/03/22 07:07 78 18 95 05/03/22 04:00 36.5 C 79 20 106/67 93 05/03/22 00:00 36.8 C 77 94/50 L 94 PG Care Time/CCT Total # of Minutes Spent Total Time Spent with Patient: Total time spent is greater than 50% in coordination of care (as documented) at patient's floor/unit and/or counseling patient: Coding Level of Care Code 41195 Initial Inpt Care Lvl 3 Diagnoses Mass of upper lobe of right lung R91.8 History of tobacco abuse Z87.891 COPD with acute exacerbation J44.1 Acute respiratory acidosis E87.2 Hypoxia R09.02 Altered mental status R41.82
[2022-05-03 11:19] LABS: iSTAT Allen Test Pass; iSTAT Arterial Blood Gas HCO3 30 meg/L (19-24); iSTAT Arterial Blood Gas pCO2 64 mmHg (35-46); iSTAT Arterial Blood Gas pH 7.28 (7.35-7.45); iSTAT Arterial Blood Gas pO2 54 mmHg (80-95); iSTAT Carbon Dioxide 32 mmol/L (24-31); iSTAT Site L Radial
--- NOTE | 2022-05-03 11:23 | CT Scan Report ---
CT OF THE HEAD WITHOUT CONTRAST CLINICAL HISTORY: Altered mental status. COMPARISON STUDY: No previous studies for comparison. CT DOSE: 906.34 mGycm TECHNIQUE: Helical axial images of the head were obtained without IV contrast. Automated exposure con trol was utilized for the study. A dose lowering technique was utilized adhering to the principles o f ALARA. FINDINGS: This study is mildly compromised by motion artifact. No acute intracranial hemorrhage, midl ine shift or mass effect is present. The ventricular system is unremarkable. The basal cisterns are p atent. No extra-axial collections are present. There are no findings to suggest acute dural sinus thr ombosis or acute territorial infarct. No significant calvarial abnormalities are present. Probable os teoma within the right frontal sinus is incidentally noted. IMPRESSION: No acute intracranial findings. ACT 112: Negative or not required by law. Electronically signed by: Rito Chatterjee M.D. 05/03/2022 11:21 AM
--- NOTE | 2022-05-03 13:38 | Electrocardiogram Report ---
Test Reason : Blood Pressure : / mmHG Vent. Rate : 092 BPM Atrial Rate : 092 BPM P-R Int : 158 ms QRS Dur : 142 ms QT Int : 408 ms P-R-T Axes : 073 159 052 degrees QTc Int : 504 ms Sinus rhythm with occasional Premature ventricular complexes Non-specific intra-ventricular conduction block Possible Anterolateral infarct , age undetermined Abnormal ECG No previous ECGs available Confirmed by Marvin Parada ([id number]) on 05/03/2022 1:37:48 PM Referred By: Sherry PRICE Confirmed By:Marvin Parada
--- NOTE | 2022-05-03 13:59 | Hospitalist Progress Note ---
Date of Service May 03, 2022 Assessment & Plan (1) Acute respiratory failure: Plan: Likely related to right hilar mass that is necrotic with post-obstructive collapse in setting of possible COPD exacerbation. Pulmonology added meropenem to azithromycin this morning to expand coverage. Sputum culture pending however patient is unable to expectorate any sputum. With BiPAP it is hopeful that he will become more clear and be able to consent for bronchoscopy. May need to intubate him for bronchoscopy for purpose of diagnosing pulmonary mass. (2) Acute exacerbation of chronic obstructive pulmonary disease: Plan: No wheezing on exam but exam is poor as patient unable to sit up due to weakness. Continue BiPAP with hypercarbia and respiratory acidosis noted on ABG this morning. Continue steroids, duo nebs, antibiotics. (3) HOMA (acute kidney injury): Plan: 2/2 dehydration vs ATN in setting of hypotension. Creatinine improved to 1.45 from 1.8 after IVF. He is off IVF but is able to eat and drink after some mino miranda the bipap today. Trend daily BMP (4) Pneumonia: Plan: possible but thought to be more consistent with R hilar mass as above. Cont meropenem and azithromycin as above. Noted elevated procalcitonin and critical appearance on admission, now improved. Plan for bronchoscopy per pulmonology in a.m. (5) Hypotension: Plan: Hold antihypertensives as blood pressure still low normal. Patient responded well to IV fluid resuscitation. Continue to monitor on telemetry. (6) Hypoglycemia: Plan: resolved, now 147 from 37 on arrival. Glipizide use (and otezla) in context of poor PO intake. Hold oral meds. Cover with correction factor insulin while starting to eat and started on higher dose steroids. Increase insulin coverage as needed, preferably using MDD insulin (basal/bolus) in the hospital. (7) Hypomagnesemia: Plan: Given replacement. Repeat level in am. (8) Chronic steroid use: Plan: chronically placed on steroids by the [facility] several years ago. Has been taking recently. Cont Solumedrol and wean down to home dose without stopping completely (9) DVT prophylaxis: Plan: Heparin Full Code Dispo-PCU, pending bronch results and clinical recovery Incarcerated. Keyanna Rodriguez DO [facility] Hospitalist Admission and Anticipated Discharge Date Admission Date: May 02, 2022 Subjective 72-year-old man admitted for acute respiratory failure Patient was found to be acidotic and hypercarbic this morning as well as confused by pulmonology Although he is oriented after a couple hours of BiPAP, he does admit to some confusion He denies any chest pain He denies any coughing and if there is any coughing is very dry He reports his mouth is dry and this is bothering him He had some acute urinary retention status post straight cath for 700 cc of urine He has not urinated yet but is reporting having urgency to go Remains generally weak but denies pain in arms or legs today. The assessment and plan was discussed with the patient including the need to consent him for possible bronchoscopy for accurate diagnosis of necrotic mass in his chest. He verbalized understanding Review of Systems Review of Systems: All systems reviewed negative except as indicated above. Physical Exam Physical Exam: CONSTITUTIONAL: obese, vitals as above, BIPAP in place and appears comfortable. EYES: normal conjunctivae, no scleral icterus, ENT: external ear and nose normal, mucous membranes are dry NECK: trachea midline, RESPIRATORY: clear to auscultation bilaterally, no crackles, rales or wheezes, normal respiratory effort CARDIOVASCULAR: Tachycardia has resolved, regular rate and rhythm, S1 and 2 heard without murmurs, gallops or rubs, no JVD, no peripheral edema, CHEST: inspection of chest was normal GASTROINTESTINAL: soft, nontender, ND, no guarding MUSCULOSKELETAL: Generalized weakness SKIN: warm and dry, dark purple chronic coloration to lower extremities. Nails with fungal destruction, toes are red. Extremities are warm and DP pulses are palpable bilaterally. No open wounds noted on feet. NEUROLOGIC: CN 2-12 grossly intact, no sensory deficit, normal cognition, normal speech, PSYCHIATRIC: alert cooperative and answering questions appropriately Results & Data Results & Data ([facility]) Vital Signs (Past 12 Hours) Vital Signs Temp Pulse Pulse Resp BP BP Pulse Ox 05/03/22 13:20 72 21 96/61 L 100 05/03/22 13:10 72 18 100 05/03/22 13:01 71 21 96/61 L 100 05/03/22 13:00 72 19 97 05/03/22 12:30 69 18 100 05/03/22 12:26 66 05/03/22 12:00 66 20 100 05/03/22 11:35 70 25 H 97 05/03/22 11:33 70 25 H 97 05/03/22 11:30 70 19 93 05/03/22 11:26 73 20 89/41 L 05/03/22 11:25 71 29 H 76/48 L 05/03/22 11:00 72 27 H 93 05/03/22 10:30 72 16 93 05/03/22 10:00 73 24 93 05/03/22 08:40 37.5 C 75 22 103/65 95 05/03/22 08:00 75 23 101/63 89 L 05/03/22 07:07 78 18 95 05/03/22 07:00 90 18 108/53 L 94 05/03/22 06:00 75 31 H 106/67 91 05/03/22 05:00 85 29 H 99/54 L 91 05/03/22 04:00 36.5 C 92 H 79 20 106/67 93 05/03/22 03:02 104/50 L 05/03/22 02:00 23 101/77 94 Laboratory Results Short CBC 05/02/22 05/03/22 Range/Units 15:55 03:23 WBC 16.64 H 12.02 H (4.8-10.8) K/uL Hgb 16.7 13.9 L (14.0-18.0) g/dL Hct 49.4 43.8 (42-52) % Plt Count 198 159 (130-400) K/uL BMP 05/02/22 05/03/22 15:55 03:23 Sodium 140 136 Potassium 4.3 5.1 Chloride 97 L 101 Carbon Dioxide 34 H 30 BUN 61 H 60 H Creatinine 1.83 H 1.45 H D Glucose 22 L* 142 H Calcium 9.2 7.9 L Liver Function 05/02/22 Range/Units 15:55 Total Bilirubin 0.8 (0.2-1.0) mg/dl AST 30 (13-39) U/L ALT 18 (7-52) U/L Alkaline Phosphatase 190 H (34-104) U/L Albumin 3.3 L (3.4-5.0) gm/dl Urine 05/03/22 Range/Units 01:15 Urine Color Yellow Urine Appearance Clear (Clear) Urine pH 5.0 (4.5-7.5) Ur Specific [place] > 1.045 H (1.000-1.030) Urine Protein Negative (Negative) Urine Glucose (UA) Negative (Negative) Diagnostic Findings Head CT 05/03/22 10:41 CT OF THE HEAD WITHOUT CONTRAST CLINICAL HISTORY: Altered mental status. COMPARISON STUDY: No previous studies for comparison. CT DOSE: 906.34 mGycm TECHNIQUE: Helical axial images of the head were obtained without IV contrast. Automated exposure control was utilized for the study. A dose lowering technique was utilized adhering to the principles of ALARA. FINDINGS: This study is mildly compromised by motion artifact. No acute intracranial hemorrhage, midline shift or mass effect is present. The ventricular system is unremarkable. The basal cisterns are patent. No extra- axial collections are present. There are no findings to suggest acute dural sinus thrombosis or acute territorial infarct. No significant calvarial abnormalities are present. 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 IMPRESSION: No acute intracranial findings. ACT 112: Negative or not required by law. Electronically signed by: Rito Chatterjee M.D. 05/03/2022 11:21 AM Medications Administered Current Inpatient Medications Acetaminophen (Acetaminophen 325 Mg Tab) 650 mg PO Q6H PRN PRN Reason: fever, headache, pain Stop: 06/01/22 20:55 Last Admin: 05/03/22 05:23 Dose: 650 mg Documented by: Albuterol (Albut/Ipratrop 3mg/0.5mg Neb 3 Ml Vial) 3 ml NEB QIDR JULIA; Protocol Stop: 06/02/22 06:59 Last Admin: 05/03/22 11:33 Dose: 3 ml Documented by: Albuterol (Albut/Ipratrop 3mg/0.5mg Neb 3 Ml Vial) 3 ml NEB Q2H PRN; Protocol PRN Reason: SOB/WHEEZING Stop: 06/01/22 21:05 Aspirin (Aspirin 81 Mg Chew) 81 mg PO DAILY JULIA Stop: 06/02/22 08:59 Last Admin: 05/03/22 08:28 Dose: 81 mg Documented by: Atorvastatin Calcium (Atorvastatin 40 Mg Tab) 40 mg PO HS JULIA Stop: 06/01/22 20:59 Last Admin: 05/02/22 21:24 Dose: 40 mg Documented by: Dextrose (Dextrose 50% 50 Ml Syringe) 25 - 50 ml IV UD PRN; Protocol PRN Reason: Hypoglycemia Protocol Stop: 06/01/22 20:55 Fluticasone/Vilanterol (Fluticasone/Vilanterol 100/25mcg 14 Puffs/Inhaler) 1 puffs INH DAILY [facility] Stop: 06/02/22 08:59 Last Admin: 05/03/22 08:28 Dose: 1 puffs Documented by: Glucagon (Glucagon For Inj 1 Mg Vial) 1 mg SQ UD PRN; Protocol PRN Reason: Hypoglycemia Protocol Stop: 06/01/22 20:55 Glucose (Glucose 10 Tabs/Tube) 4 - 8 tabs PO UD PRN; Protocol PRN Reason: Hypoglycemia Protocol Stop: 06/01/22 20:55 Glucose (Glucose 40% Gel 15 Gm Tube) 15 - 30 gm PO UD PRN; Protocol PRN Reason: Hypoglycemia Protocol Stop: 06/01/22 20:55 Heparin Sodium (Porcine) (Heparin Sod 5,000 Unit/0.5 Ml Vial) 5,000 units SQ Q8 [facility] Stop: 06/01/22 21:59 Last Admin: 05/03/22 08:28 Dose: 5,000 units Documented by: Azithromycin 250 mg/ Dextrose 252.5 mls @ 125 mls/hr IV Q24H [facility] Stop: 05/10/22 20:59 Methylprednisolone 40 mg/ (Syringe) 0.64 mls @ 1.5 mls/min IV Q8H [facility] Stop: 06/02/22 00:00 Last Admin: 05/03/22 08:28 Dose: 1.5 mls/min Documented by: Meropenem 500 mg/ Syringe 10 mls @ 2 mls/min IV Q8H [facility]; Protocol Stop: 05/10/22 11:59 Insulin Aspart (Insulin Aspart Per Unit) 0 units SC ACHS [facility] Stop: 06/01/22 20:59 Last Admin: 05/03/22 11:54 Dose: Not Given Documented by: Metoprolol Tartrate (Metoprolol Tartrate 25 Mg Tab) 25 mg PO BID [facility] Stop: 06/01/22 20:59 Last Admin: 05/03/22 08:28 Dose: 25 mg Documented by: Miscellaneous (Carbohydrates For Hypoglycemia ) 15 - 30 gm PO UD PRN PRN Reason: Hypoglycemia Protocol Stop: 06/01/22 20:55 Ondansetron HCl (Ondansetron Inj 2 Mg/Ml 2 Ml Vial) 4 mg IV Q6H PRN PRN Reason: Nausea Stop: 06/01/22 20:55 Ropinirole HCl (Ropinirole Hcl 2 Mg Tablet) 4 mg PO BID [facility] Stop: 06/01/22 20:59 Last Admin: 05/03/22 08:28 Dose: 4 mg Documented by: (1) Pneumonia Laterality: right Lung location: upper lobe of lung Pneumonia type: due to unspecified organism Qualified Code(s): J18.9 - Pneumonia, unspecified organism
[2022-05-03] MEDS: MEROPENEM 500 MG in SYRINGE 0 ML IV SCH ×2 (14:30→21:07)
[2022-05-03] MEDS: ATORVASTATIN 40 MG TAB PO SCH (21:07)
[2022-05-03] MEDS: AZITHROMYCIN 250 MG in DEXTROSE 5% 250 ML IV SCH (21:07)
[2022-05-04] MEDS: MEROPENEM 500 MG in SYRINGE 0 ML IV SCH ×3 (03:33→21:55)
[2022-05-04 06:03] LABS: Base Excess ABG 5.6 mEq/L (-9-1.8); HCO3 ABG 34 mmol/L (19-24); Oxygen Saturation ABG 97.4 % (90-95); PCO2 ABG 68 mmHg (35-46); PO2 ABG 79 mmHg (80-95); pH ABG 7.31 (7.35-7.45)
[2022-05-04 06:08] LABS: Hematocrit (blood only) 44.7 % (42-52); Hemoglobin 14.4 g/dL (14.0-18.0); Mean Corpuscular Hemoglobin 30.6 pg (25-34); Mean Corpuscular Hgb Conc 32.2 g/dL (32-36); Mean Corpuscular Volume 94.9 fL (80-100); Mean Platelet Volume 10.9 fL (7.4-10.4); Platelet Count 180 K/uL (130-400); RDW Coefficient of Variation 13.7 % (11.5-14.5); RDW Standard Deviation 47.5 fL (36.4-46.3); Red Blood Count 4.71 M/uL (4.7-6.1); White Blood Count 13.35 K/uL (4.8-10.8)
[2022-05-04 06:09] LABS: Allen Test Pos (Pos)
[2022-05-04 06:35] LABS: BUN Creatinine Ratio 53.5 (10-20); Calcium 8.6 mg/dl (8.5-10.1); Est GFR (African American) 49.6 ml/min; Est GFR (Non-African American) 42.8 ml/min; Phosphorus 4.2 mg/dl (2.5-4.9); Potassium 5.5 mmol/L (3.5-5.1)
[2022-05-04] MEDS: ALBUT/IPRATROP 3MG/0.5MG NEB 3 ML VIAL NEB SCH ×3 (06:50→14:50)
[2022-05-04] MEDS: INSULIN ASPART PER UNIT SC SCH ×4 (06:55→22:06)
[2022-05-04] MEDS: FLUTICASONE/VILANTEROL 100/25MCG 14 PUFFS/INHALER INH SCH (08:35)
[2022-05-04] MEDS: METOPROLOL TARTRATE 25 MG TAB PO SCH ×2 (08:35→21:55)
[2022-05-04] MEDS: methylPREDNISolone 40 MG in SYRINGE 0 ML IV SCH ×2 (08:35→17:10)
[2022-05-04] MEDS: ASPIRIN 81 MG CHEW PO SCH (08:35)
[2022-05-04] MEDS: rOPINIRole HCL 2 MG TABLET PO SCH ×2 (08:36→21:56)
--- NOTE | 2022-05-04 10:07 | Pulmonology Progress Note ---
Date of Service May 04, 2022 Assessment & Plan (1) Mass of upper lobe of right lung: Plan: There appears to be a large necrotic right upper lobe mass with hilar adenopathy. This is highly concerning for malignancy and also formation of an early pulmonary abscess. MRSA screen was negative. We will transition ceftriaxone to meropenem. His mentation appears improved compared to yesterday. However, he is not able to consent for bronchoscopy today. We will continue to evaluate the situation and reevaluate tomorrow. (2) History of tobacco abuse: Plan: He has extensive tobacco abuse history. He is certainly at risk for lung cancer. (3) COPD with acute exacerbation: Plan: Continue Solu-Medrol and duo nebs. Continue broad-spectrum antibiotics. (4) Acute respiratory acidosis: Plan: Continue with BiPAP as needed throughout the day and anytime he is sleeping. ABG from this morning reviewed with a pH of 7.31 and a PCO2 of 68. (5) Hypoxia: Plan: Maintain saturations of 88 to 92%. (6) Altered mental status: Plan: Likely secondary to hypercapnic respiratory failure and pneumonia. CT head negative. Plan: Thank you for allowing us participate in care of this patient. Admission and Anticipated Discharge Date Admission Date: May 02, 2022 Subjective Patient seen and examined. He is more alert today, but remains confused. He is not able to tell me where he currently is or his date of . He also goes on tangents quite frequently. He is lethargic, but more arousable than yesterday. Review of Systems Review of Systems: All systems reviewed & are unremarkable except as noted in HPI & below Physical Exam Physical Exam: Constitutional: Obese appearing male with nasal cannula in place. Appears encephalopathic. Eyes: Pupils are equal round and reactive to light. Conjunctivae are normal. Anicteric sclera. Ears nose, mouth and throat: Mallampati class 2. Normal posterior oropharynx. Uvula is midline. Neck: Trachea is midline. Visual inspection is normal. Respiratory: Diminished lung sounds bilaterally. No expiratory wheeze heard. Coarse rhonchi in the right upper lobe. Cardiovascular: Regular rate and rhythm. No murmurs. No edema. Gastrointestinal: Normal bowel sounds, soft, nontender and nondistended. No hepatosplenomegaly noted. Musculoskeletal: No cyanosis. Patient is able to move all extremities. Skin: No rashes, warm dry and intact. Neurologic: Moaning. Appears to move all limbs spontaneously. Psychiatric: Unable to assess due to altered mental status. Results & Data Results & Data ([facility]) Vital Signs (Past 12 Hours) Vital Signs Temp Pulse Pulse Resp BP Pulse Ox 05/04/22 08:00 67 05/04/22 07:00 36.5 C 69 20 92/54 L 91 05/04/22 06:50 78 18 95 05/04/22 03:35 36.6 C 79 24 95/53 L 94 05/03/22 23:41 36.8 C 76 18 85/56 L 94 05/03/22 23:10 72 21 93 PG Care Time/CCT Total # of Minutes Spent Total Time Spent with Patient: Total time spent is greater than 50% in coordination of care (as documented) at patient's floor/unit and/or counseling patient: Coding Level of Care Code 40401 Subseq Hosp Care Lvl 2 Diagnoses Mass of upper lobe of right lung R91.8 History of tobacco abuse Z87.891 COPD with acute exacerbation J44.1 Acute respiratory acidosis E87.2 Hypoxia R09.02 Altered mental status R41.82
[2022-05-04] MEDS: INSULIN GLARGINE SOLOSTAR 100 UNITS/ML 3 ML PEN SC SCH ×2 (11:50→22:06)
[2022-05-04] MEDS: HEPARIN SOD 5,000 UNIT/0.5 ML VIAL SQ SCH ×2 (13:24→21:56)
--- NOTE | 2022-05-04 14:00 | Hospitalist Progress Note ---
Date of Service May 04, 2022 Assessment & Plan (1) Acute respiratory failure: Plan: Likely related to right hilar mass that is necrotic with post-obstructive collapse in setting of possible COPD exacerbation. Cont merrem and azithro. Bronch pending but patient too confused to consent this am. May need to intubate him for bronchoscopy for purpose of diagnosing pulmonary mass. (2) Acute exacerbation of chronic obstructive pulmonary disease: Plan: No wheezing on exam but exam is poor as patient unable to sit up due to weakness. Continue BiPAP with hypercarbia and respiratory acidosis noted on ABG this morning. Continue steroids, duo nebs, antibiotics. Change IV steroids to oral prednisone. Cont to monitor for confusion/delirium (3) HOMA (acute kidney injury): Plan: 2/2 dehydration vs ATN in setting of hypotension. Creatinine improved to 1.5 from 1.8 after IVF. Uncertain baseline. Encourage hydration. (4) Pneumonia: Plan: possible but thought to be more consistent with R hilar mass as above. Cont meropenem and azithromycin as above. Noted elevated procalcitonin and critical appearance on admission, now improved. Plan for bronchoscopy per pulmonology in a.m. (5) Hypotension: Plan: Hold antihypertensives as blood pressure still low normal. Patient responded well to IV fluid resuscitation. Will add additional LR now. BP seems to be responding. Cont overnight. (6) Hypoglycemia: Plan: resolved, 37 on arrival. Glipizide use (and otezla) in context of poor PO intake. Hold oral meds. Now hyperglycemic, added glargine. Cont basal bolus insulin and adjust as needed. (7) Hypomagnesemia: Plan: resolved. (8) Chronic steroid use: Plan: chronically placed on steroids by the [facility] several years ago. Has been taking recently. Cont Solumedrol and wean down to home dose without stopping completely (9) DVT prophylaxis: Plan: Heparin Full Code Dispo-PCU, pending bronch results and clinical recovery Incarcerated. [facility]tic[facility]ated Discharge Date Admission Date: May 02, 2022 Subjective 72-year-old man admitted for acute respiratory failure doing "ok" hungry and asking for food bronch not completed as patient confused and unable to consent I am concerned that steroids are contributing and have switch to PO prednisone Hyperglycemia present--tightened insulin and added glargine this am. Review of Systems Review of Systems: All systems reviewed negative except as indicated above. Physical Exam Physical Exam: CONSTITUTIONAL: obese, vitals as above, BIPAP in place and appears comfortable. EYES: normal conjunctivae, no scleral icterus, ENT: external ear and nose normal, mucous membranes are dry NECK: trachea midline, RESPIRATORY: clear to auscultation bilaterally, no crackles, rales or wheezes, normal respiratory effort CARDIOVASCULAR: regular rate and rhythm, S1 and 2 heard without murmurs, gallops or rubs, no JVD, no peripheral edema, CHEST: inspection of chest was normal GASTROINTESTINAL: soft, nontender, ND, no guarding MUSCULOSKELETAL: Generalized weakness SKIN: warm and dry, dark purple chronic coloration to lower extremities. Nails with fungal destruction, toes are red. Extremities are warm and DP pulses are palpable bilaterally. No open wounds noted on feet. NEUROLOGIC: CN 2-12 grossly intact, no sensory deficit, normal cognition, normal speech, PSYCHIATRIC: alert cooperative and answering questions appropriately Results & Data Results & Data ([facility]) Vital Signs (Past 12 Hours) Vital Signs Temp Pulse Pulse Resp BP Pulse Ox 05/04/22 11:00 36.6 C 62 24 92/46 L 94 05/04/22 10:38 65 18 96 05/04/22 08:00 67 05/04/22 07:00 36.5 C 69 20 92/54 L 91 05/04/22 06:50 78 18 95 05/04/22 03:35 36.6 C 79 24 95/53 L 94 Laboratory Results Short CBC 05/04/22 Range/Units 05:44 WBC 13.35 H (4.8-10.8) K/uL Hgb 14.4 (14.0-18.0) g/dL Hct 44.7 (42-52) % Plt Count 180 (130-400) K/uL BMP 05/04/22 05:33 Sodium 134 L Potassium 5.5 H Chloride 99 Carbon Dioxide 29 BUN 84 H D Creatinine 1.57 H Glucose 303 H* Calcium 8.6 Medications Administered Current Inpatient Medications Acetaminophen (Acetaminophen 325 Mg Tab) 650 mg PO Q6H PRN PRN Reason: fever, headache, pain Stop: 06/01/22 20:55 Last Admin: 05/03/22 05:23 Dose: 650 mg Documented by: Albuterol (Albut/Ipratrop 3mg/0.5mg Neb 3 Ml Vial) 3 ml NEB QIDR [facility]UL[facility]; Protocol Stop: 06/02/22 06:59 Last Admin: 05/04/22 10:37 Dose: 3 ml Documented by: Albuterol (Albut/Ipratrop 3mg/0.5mg Neb 3 Ml Vial) 3 ml NEB Q2H PRN; Protocol PRN Reason: SOB/WHEEZING Stop: 06/01/22 21:05 Aspirin (Aspirin 81 Mg Chew) 81 mg PO DAILY [facility] Stop: 06/02/22 08:59 Last Admin: 05/04/22 08:35 Dose: 81 mg Documented by: Atorvastatin Calcium (Atorvastatin 40 Mg Tab) 40 mg PO HS [facility] Stop: 06/01/22 20:59 Last Admin: 05/03/22 21:07 Dose: 40 mg Documented by: Dextrose (Dextrose 50% 50 Ml Syringe) 25 - 50 ml IV UD PRN; Protocol PRN Reason: Hypoglycemia Protocol Stop: 06/01/22 20:55 Fluticasone/Vilanterol (Fluticasone/Vilanterol 100/25mcg 14 Puffs/Inhaler) 1 puffs INH DAILY [facility] Stop: 06/02/22 08:59 Last Admin: 05/04/22 08:35 Dose: 1 puffs Documented by: Glucagon (Glucagon For Inj 1 Mg Vial) 1 mg SQ UD PRN; Protocol PRN Reason: Hypoglycemia Protocol Stop: 06/01/22 20:55 Glucose (Glucose 10 Tabs/Tube) 4 - 8 tabs PO UD PRN; Protocol PRN Reason: Hypoglycemia Protocol Stop: 06/01/22 20:55 Glucose (Glucose 40% Gel 15 Gm Tube) 15 - 30 gm PO UD PRN; Protocol PRN Reason: Hypoglycemia Protocol Stop: 06/01/22 20:55 Heparin Sodium (Porcine) (Heparin Sod 5,000 Unit/0.5 Ml Vial) 5,000 units SQ Q8 [facility] Stop: 06/01/22 21:59 Last Admin: 05/04/22 13:24 Dose: 5,000 units Documented by: Azithromycin 250 mg/ Dextrose 252.5 mls @ 125 mls/hr IV Q24H [facility] Stop: 05/10/22 20:59 Last Infusion: 05/03/22 23:12 Dose: Infused Documented by: Methylprednisolone 40 mg/ (Syringe) 0.64 mls @ 1.5 mls/min IV Q8H [facility] Stop: 06/02/22 00:00 Last Admin: 05/04/22 08:35 Dose: 1.5 mls/min Documented by: Meropenem 500 mg/ Syringe 10 mls @ 2 mls/min IV Q8H [facility]; Protocol Stop: 05/10/22 11:59 Last Admin: 05/04/22 13:24 Dose: 2 mls/min Documented by: Insulin Aspart (Insulin Aspart Per Unit) 0 units SC ACHS [facility] Stop: 06/01/22 20:59 Last Admin: 05/04/22 11:51 Dose: 1 units Documented by: Insulin Glargine (Insulin Glargine Solostar 100 Units/Ml 3 Ml Pen) 15 units SC BID [facility] Stop: 06/03/22 08:59 Last Admin: 05/04/22 11:50 Dose: 15 units Documented by: Metoprolol Tartrate (Metoprolol Tartrate 25 Mg Tab) 25 mg PO BID [facility] Stop: 06/01/22 20:59 Last Admin: 05/04/22 08:35 Dose: 25 mg Documented by: Miscellaneous (Carbohydrates For Hypoglycemia ) 15 - 30 gm PO UD PRN PRN Reason: Hypoglycemia Protocol Stop: 06/01/22 20:55 Ondansetron HCl (Ondansetron Inj 2 Mg/Ml 2 Ml Vial) 4 mg IV Q6H PRN PRN Reason: Nausea Stop: 06/01/22 20:55 Ropinirole HCl (Ropinirole Hcl 2 Mg Tablet) 4 mg PO BID [facility] Stop: 06/01/22 20:59 Last Admin: 05/04/22 08:36 Dose: 4 mg Documented by: (1) Pneumonia Laterality: right Lung location: upper lobe of lung Pneumonia type: due to unspecified organism Qualified Code(s): J18.9 - Pneumonia, unspecified organism
[2022-05-04] MEDS ORDERED: ALBUT/IPRATROP 3MG/0.5MG NEB 3 ML VIAL NEB PRN (16:15)
[2022-05-04] MEDS ORDERED: LACTATED RINGER'S 1,000 ML IV SCH (16:30)
[2022-05-04] MEDS: ATORVASTATIN 40 MG TAB PO SCH (21:55)
[2022-05-04] MEDS: AZITHROMYCIN 250 MG in DEXTROSE 5% 250 ML IV SCH (22:04)
[2022-05-05] MEDS: MEROPENEM 500 MG in SYRINGE 0 ML IV SCH ×3 (03:07→21:37)
[2022-05-05] MEDS: HEPARIN SOD 5,000 UNIT/0.5 ML VIAL SQ SCH ×3 (06:03→21:43)
[2022-05-05] MEDS ORDERED: ROCURONIUM BROMIDE 10 MG/ML 5 ML VIAL IV ONE (06:25)
[2022-05-05] MEDS ORDERED: ETOMIDATE 2 MG/ML 20 ML VIAL IV ONE ×2 (06:25→18:55)
[2022-05-05 06:59] LABS: Hematocrit (blood only) 46.3 % (42-52); Hemoglobin 14.4 g/dL (14.0-18.0); Mean Corpuscular Hemoglobin 29.9 pg (25-34); Mean Corpuscular Hgb Conc 31.1 g/dL (32-36); Mean Corpuscular Volume 96.3 fL (80-100); Mean Platelet Volume 10.5 fL (7.4-10.4); Platelet Count 172 K/uL (130-400); RDW Coefficient of Variation 13.8 % (11.5-14.5); RDW Standard Deviation 48.9 fL (36.4-46.3); Red Blood Count 4.81 M/uL (4.7-6.1); White Blood Count 12.04 K/uL (4.8-10.8)
[2022-05-05 07:22] LABS: BUN Creatinine Ratio 61.8 (10-20); Creatinine Clr Calc Pharmacy 47.5 ml/min; Est GFR (African American) 51.6 ml/min; Est GFR (Non-African American) 44.5 ml/min; Potassium 5.8 mmol/L (3.5-5.1)
[2022-05-05] MEDS: predniSONE 20 MG TAB PO SCH (08:06)
[2022-05-05] MEDS: FLUTICASONE/VILANTEROL 100/25MCG 14 PUFFS/INHALER INH SCH (08:06)
[2022-05-05] MEDS: INSULIN GLARGINE SOLOSTAR 100 UNITS/ML 3 ML PEN SC SCH ×2 (08:06→21:42)
[2022-05-05] MEDS: rOPINIRole HCL 2 MG TABLET PO SCH ×2 (08:06→21:36)
[2022-05-05] MEDS: METOPROLOL TARTRATE 25 MG TAB PO SCH ×2 (08:06→21:36)
[2022-05-05] MEDS: ASPIRIN 81 MG CHEW PO SCH (08:07)
[2022-05-05] MEDS: INSULIN ASPART PER UNIT SC SCH ×4 (08:10→21:47)
--- NOTE | 2022-05-05 08:36 | XRay Report ---
XR chest 1V portable CLINICAL HISTORY: follow up rul infiltrate TECHNIQUE: Single frontal radiograph of the chest was obtained. Comparison: Comparison is made to chest radiograph 05/02/2022 FINDINGS: No lines and tubes are seen. Cardiomegaly is noted. Prominence and cephalization of the vasculature i s seen. Redemonstration of right upper lung airspace opacity. No evidence of pleural effusion or pneu mothorax. IMPRESSION: 1. Redemonstration right upper lung airspace opacity, compatible with pneumonia. 2. Mild pulmonary edema. ACT 112: Negative or not required by law. Electronically signed by: uJde English M.D. 05/05/2022 8:34 AM
[2022-05-05] MEDS ORDERED: INSULIN HUMAN REGULAR PER UNIT 10 UNITS in SYRINGE 9.9 ML IV STA (08:53)
--- NOTE | 2022-05-05 08:57 | Pulmonology Progress Note ---
Date of Service May 05, 2022 Assessment & Plan (1) Mass of upper lobe of right lung: Plan: There appears to be a large necrotic right upper lobe mass with hilar adenopathy. This is highly concerning for malignancy and also formation of an early pulmonary abscess. MRSA screen was negative. Chest x-ray from today reviewed which reveals a persistent right upper lobe opacity that does appear slightly less dense compared to the admission x-ray. Continue meropenem. We will tentatively plan for bronchoscopy Tuesday. (2) History of tobacco abuse: Plan: He has extensive tobacco abuse history. He is certainly at risk for lung cancer. (3) COPD with acute exacerbation: Plan: Continue prednisone and meropenem. (4) Acute respiratory acidosis: Plan: Continue with BiPAP as needed throughout the day and anytime he is sleeping. (5) Hypoxia: Plan: Maintain saturations of 88 to 92%. (6) Altered mental status: Plan: Likely secondary to hypercapnic respiratory failure and pneumonia. CT head negative. (7) Weakness generalized: Plan: The patient is profoundly weak and has difficulty sitting up in bed. I have placed an order for PT and OT consultation. We will also check a CK level to screen for myopathy. Additionally, his BUN is severely elevated which may be contributing to his weakness and encephalopathy. Agree with decreasing from IV steroids to p.o. prednisone. (8) Hyperkalemia: Plan: Defer treatment to primary service. Plan: Thank you for allowing us participate in care of this patient. Admission and Anticipated Discharge Date Admission Date: May 02, 2022 Subjective Patient seen and examined today. He is definitely more alert and awake, but remains very weak and slow to respond to questions. He notes that he wants to get out of bed and get into a chair. Review of Systems Review of Systems: All systems reviewed & are unremarkable except as noted in HPI & below Physical Exam Physical Exam: Constitutional: Obese appearing male with nasal cannula in place. More alert and awake today. Eyes: Pupils are equal round and reactive to light. Conjunctivae are normal. Anicteric sclera. Ears nose, mouth and throat: Mallampati class 2. Normal posterior oropharynx. Uvula is midline. Neck: Trachea is midline. Visual inspection is normal. Respiratory: Diminished lung sounds bilaterally. No expiratory wheeze heard. Coarse rhonchi in the right upper lobe. Conversational dyspnea. Cardiovascular: Regular rate and rhythm. No murmurs. No edema. Gastrointestinal: Normal bowel sounds, soft, nontender and nondistended. No hepatosplenomegaly noted. Musculoskeletal: No cyanosis. Patient is able to move all extremities. Skin: No rashes, warm dry and intact. Neurologic: Moaning. Appears to move all limbs spontaneously. Psychiatric: Mildly anxious. Alert and oriented. Results & Data Results & Data ([facility]) Vital Signs (Past 12 Hours) Vital Signs Temp Pulse Pulse Resp BP Pulse Ox 05/05/22 07:00 36.8 C 60 18 100/57 L 90 05/05/22 03:08 36.8 C 63 24 96/56 L 95 05/04/22 23:41 68 05/04/22 23:29 36.8 C 64 20 93/46 L 94 PG Care Time/CCT Total # of Minutes Spent Total Time Spent with Patient: Total time spent is greater than 50% in coordination of care (as documented) at patient's floor/unit and/or counseling patient: Coding Level of Care Code 70782 Subseq Hosp Care Lvl 3 Diagnoses Mass of upper lobe of right lung R91.8 History of tobacco abuse Z87.891 COPD with acute exacerbation J44.1 Acute respiratory acidosis E87.2 Hypoxia R09.02 Altered mental status R41.82 Weakness generalized R53.1 Hyperkalemia E87.5
[2022-05-05] MEDS ORDERED: SODIUM POLYSTYRENE SULFONATE 15G/60ML SUSP PO STA (08:58)
[2022-05-05] MEDS ORDERED: DEXTROSE 50% 50 ML SYRINGE IV STA (08:58)
[2022-05-05 09:59] LABS: iSTAT Allen Test Pass; iSTAT Art Bld Gas pCO2 Correct 77 mmHg (35-46); iSTAT Art Bld Gas pH Corrected 7.262 (7.35-7.45); iSTAT Arterial Blood Gas HCO3 34 meg/L (19-24); iSTAT Arterial Blood Gas pCO2 74 mmHg (35-46); iSTAT Arterial Blood Gas pH 7.28 (7.35-7.45); iSTAT Arterial Blood Gas pO2 100 mmHg (80-95); iSTAT Arterial Blood Gas pO2 C 106; iSTAT Carbon Dioxide 36 mmol/L (24-31); iSTAT Hematocrit 46 % (42-52); iSTAT Hemoglobin 15.6 g/dl (14.0-18.0); iSTAT Potassium 5.5 mmol/L (3.3-5.0); iSTAT Site R Radial; iSTAT Sodium 136 mmol/L (135-144)
--- NOTE | 2022-05-05 12:44 | Electrocardiogram Report ---
Test Reason : Blood Pressure : / mmHG Vent. Rate : 059 BPM Atrial Rate : 059 BPM P-R Int : 144 ms QRS Dur : 152 ms QT Int : 472 ms P-R-T Axes : 021 006 118 degrees QTc Int : 467 ms Poor data quality, interpretation may be adversely affected Sinus bradycardia Non-specific intra-ventricular conduction delay Abnormal ECG When compared with ECG of 02-MAY-2022 15:44, Premature ventricular complexes are no longer Present Vent. rate has decreased BY 33 BPM QRS axis Shifted left T wave inversion now evident in Lateral leads Confirmed by Marvin Parada ([id number]) on 05/05/2022 12:43:43 PM Referred By: [facility] Confirmed By:Marvin Parada
--- NOTE | 2022-05-05 13:33 | Hospitalist Progress Note ---
Date of Service May 05, 2022 Assessment & Plan (1) Acute respiratory failure: Plan: Likely related to right hilar mass that is necrotic with post-obstructive collapse in setting of possible COPD exacerbation. Cont merrem. Bronch pending but patient too confused to consent this am. May need to intubate him for bronchoscopy for purpose of diagnosing pulmonary mass. Considering bronch for Tuesday of this week. (2) Acute exacerbation of chronic obstructive pulmonary disease: Plan: No wheezing on exam but exam is poor as patient unable to sit up due to weakness. Continue BiPAP with hypercarbia and respiratory acidosis noted on ABG this morning. He has notably been noncompliant with the BIPAP and now has hyperkalemia likely associated with respiratory acidosis. Continue prednisone, duo nebs, antibiotics. (3) Mass of upper lobe of right lung: Plan: With necrosis-high possibility for malignancy. Awaiting bronch for definitive diagnosis. Cont Merrem. (4) Pneumonia: Plan: possible but thought to be more consistent with R hilar mass as above. Cont meropenem. Noted elevated procalcitonin and critical appearance on admission, now improved. Plan for bronchoscopy per pulmonology in a.m. (5) HOMA (acute kidney injury): Plan: 2/2 dehydration vs ATN in setting of hypotension. Remains around 1.5Uncertain baseline. Encourage hydration. (6) Hypotension: Plan: Hold antihypertensives as blood pressure still low normal. Patient responded well to IV fluid resuscitation. Will add additional LR now. BP seems to be responding. Cont overnight. (7) Hypoglycemia: Plan: resolved, 37 on arrival. Glipizide use (and otezla) in context of poor PO intake. Hold oral meds. Now hyperglycemic, added glargine. Cont basal bolus insulin and adjust as needed. (8) Hypomagnesemia: Plan: resolved. (9) Chronic steroid use: Plan: chronically placed on steroids by the [facility] several years ago. Has been taking recently. Cont Solumedrol and wean down to home dose without stopping completely (10) DVT prophylaxis: Plan: Heparin Full Code Dispo-PCU, pending bronch results and clinical recovery Incarcerated. Keyanna Rodriguez DO [facility] Hospitalist Admission and Anticipated Discharge Date Admission Date: May 02, 2022 Subjective 72-year-old man admitted for acute respiratory failure hungry and asking for food tearful because he loves and misses his family. worsening K likely secondary to acidosis -noncompliance wt BIPAP gave insulin/dextrose/kayexalate for K 5.8 this am. tangential speech--poor insight into his own issues but able to articulate and follow commands. Review of Systems Review of Systems: All systems reviewed negative except as indicated above. Physical Exam Physical Exam: CONSTITUTIONAL: obese, vitals as above, BIPAP in place , NAD EYES: normal conjunctivae, no scleral icterus, ENT: external ear and nose normal, mucous membranes are dry NECK: trachea midline, RESPIRATORY: clear to auscultation bilaterally, no crackles, rales or wheezes, normal respiratory effort CARDIOVASCULAR: regular rate and rhythm, S1 and 2 heard without murmurs, gallops or rubs, no JVD, no peripheral edema, CHEST: inspection of chest was normal GASTROINTESTINAL: soft, nontender, ND, no guarding MUSCULOSKELETAL: Generalized weakness SKIN: warm and dry, dark purple chronic coloration to lower extremities. Nails with fungal destruction, toes are red. Extremities are warm and DP pulses are palpable bilaterally. No open wounds noted on feet. NEUROLOGIC: CN 2-12 grossly intact, no sensory deficit, normal cognition, normal speech, PSYCHIATRIC: alert cooperative and answering questions appropriately Results & Data Results & Data ([facility]) Vital Signs (Past 12 Hours) Vital Signs Temp Pulse Pulse Resp BP Pulse Ox 05/05/22 11:46 36.0 C L 56 L 24 104/61 98 05/05/22 10:12 57 L 20 94 05/05/22 08:52 59 L 05/05/22 07:00 36.8 C 60 18 100/57 L 90 05/05/22 03:08 36.8 C 63 24 96/56 L 95 Laboratory Results Short CBC 05/05/22 Range/Units 06:30 WBC 12.04 H (4.8-10.8) K/uL Hgb 14.4 (14.0-18.0) g/dL Hct 46.3 (42-52) % Plt Count 172 (130-400) K/uL BMP 05/05/22 06:30 Sodium 137 Potassium 5.8 H Chloride 103 Carbon Dioxide 29 BUN 94 H Creatinine 1.52 H Glucose 126 H Calcium 9.0 Cardiac Enzymes 05/05/22 Range/Units 09:37 Total Creatine Kinase 34 (30-223) U/L Diagnostic Findings Chest X-Ray 05/05/22 08:10 XR chest 1V portable CLINICAL HISTORY: follow up rul infiltrate TECHNIQUE: Single frontal radiograph of the chest was obtained. Comparison: Comparison is made to chest radiograph 05/02/2022 FINDINGS: No lines and tubes are seen. Cardiomegaly is noted. Prominence and cephalization of the vasculature is seen. Redemonstration of right upper lung airspace opacity. No evidence of pleural effusion or pneumothorax. IMPRESSION: 1. Redemonstration right upper lung airspace opacity, compatible with pneumonia. 2. Mild pulmonary edema. ACT 112: Negative or not required by law. Electronically signed by: Jude English M.D. 05/05/2022 8:34 AM Medications Administered Current Inpatient Medications Acetaminophen (Acetaminophen 325 Mg Tab) 650 mg PO Q6H PRN PRN Reason: fever, headache, pain Stop: 06/01/22 20:55 Last Admin: 05/03/22 05:23 Dose: 650 mg Documented by: Albuterol (Albut/Ipratrop 3mg/0.5mg Neb 3 Ml Vial) 3 ml NEB Q2H PRN; Protocol PRN Reason: SOB/WHEEZING Stop: 06/01/22 21:05 Aspirin (Aspirin 81 Mg Chew) 81 mg PO DAILY JULIA Stop: 06/02/22 08:59 Last Admin: 05/05/22 08:07 Dose: 81 mg Documented by: Atorvastatin Calcium (Atorvastatin 40 Mg Tab) 40 mg PO HS JULIA Stop: 06/01/22 20:59 Last Admin: 05/04/22 21:55 Dose: 40 mg Documented by: Dextrose (Dextrose 50% 50 Ml Syringe) 25 - 50 ml IV UD PRN; Protocol PRN Reason: Hypoglycemia Protocol Stop: 06/01/22 20:55 Fluticasone/Vilanterol (Fluticasone/Vilanterol 100/25mcg 14 Puffs/Inhaler) 1 puffs INH DAILY JULIA Stop: 06/02/22 08:59 Last Admin: 05/05/22 08:06 Dose: 1 puffs Documented by: Glucagon (Glucagon For Inj 1 Mg Vial) 1 mg SQ UD PRN; Protocol PRN Reason: Hypoglycemia Protocol Stop: 06/01/22 20:55 Glucose (Glucose 10 Tabs/Tube) 4 - 8 tabs PO UD PRN; Protocol PRN Reason: Hypoglycemia Protocol Stop: 06/01/22 20:55 Glucose (Glucose 40% Gel 15 Gm Tube) 15 - 30 gm PO UD PRN; Protocol PRN Reason: Hypoglycemia Protocol Stop: 06/01/22 20:55 Heparin Sodium (Porcine) (Heparin Sod 5,000 Unit/0.5 Ml Vial) 5,000 units SQ Q8 JULIA Stop: 06/01/22 21:59 Last Admin: 05/05/22 06:03 Dose: 5,000 units Documented by: Azithromycin 250 mg/ Dextrose 252.5 mls @ 125 mls/hr IV Q24H JULIA Stop: 05/10/22 20:59 Last Infusion: 05/05/22 00:12 Dose: Infused Documented by: Meropenem 500 mg/ Syringe 10 mls @ 2 mls/min IV Q8H [facility]; Protocol Stop: 05/10/22 11:59 Last Admin: 05/05/22 13:03 Dose: 2 mls/min Documented by: Insulin Aspart (Insulin Aspart Per Unit) 0 units SC ACHS JULIA Stop: 06/01/22 20:59 Last Admin: 05/05/22 12:18 Dose: Not Given Documented by: Insulin Glargine (Insulin Glargine Solostar 100 Units/Ml 3 Ml Pen) 15 units SC BID JULIA Stop: 06/03/22 08:59 Last Admin: 05/05/22 08:06 Dose: 15 units Documented by: Metoprolol Tartrate (Metoprolol Tartrate 25 Mg Tab) 25 mg PO BID JULIA Stop: 06/01/22 20:59 Last Admin: 05/05/22 08:06 Dose: 25 mg Documented by: Miscellaneous (Carbohydrates For Hypoglycemia ) 15 - 30 gm PO UD PRN PRN Reason: Hypoglycemia Protocol Stop: 06/01/22 20:55 Ondansetron HCl (Ondansetron Inj 2 Mg/Ml 2 Ml Vial) 4 mg IV Q6H PRN PRN Reason: Nausea Stop: 06/01/22 20:55 Prednisone (Prednisone 20 Mg Tab) 40 mg PO DAILY JULIA Stop: 06/04/22 08:59 Last Admin: 05/05/22 08:06 Dose: 40 mg Documented by: Ropinirole HCl (Ropinirole Hcl 2 Mg Tablet) 4 mg PO BID [facility] Stop: 06/01/22 20:59 Last Admin: 05/05/22 08:06 Dose: 4 mg Documented by: (1) Pneumonia Laterality: right Lung location: upper lobe of lung Pneumonia type: due to unspecified organism Qualified Code(s): J18.9 - Pneumonia, unspecified organism
[2022-05-05 15:24] LABS: Base Excess ABG 5.4 mEq/L (-9-1.8); HCO3 ABG 36 mmol/L (19-24); Oxygen Saturation ABG > 100.0 % (90-95); PCO2 ABG 81 mmHg (35-46); PO2 ABG 108 mmHg (80-95); pH ABG 7.25 (7.35-7.45)
[2022-05-05 15:52] LABS: BUN Creatinine Ratio 71.9 (10-20); Calcium 9.1 mg/dl (8.5-10.1); Est GFR (African American) 57.5 ml/min; Est GFR (Non-African American) 49.6 ml/min; Potassium 5.9 mmol/L (3.5-5.1)
[2022-05-05 17:07] LABS: Allen Test Pos (Pos)
[2022-05-05] MEDS ORDERED: RAPID SEQUENCE INDUCTION BAG ONE (18:53)
[2022-05-05] MEDS ORDERED: ROCURONIUM BROMIDE 10 MG/ML 5 ML VIAL IV STA (18:55)
[2022-05-05] MEDS ORDERED: PROPOFOL BOLUS FROM BAG IV PRN (18:56)
[2022-05-05] MEDS ORDERED: STAT IV Infusion **Titration per Protocol STA ×2 (18:56→19:49)
[2022-05-05] MEDS ORDERED: ATROPINE SULFATE 0.1 MG/ML 10ML SYR IV ONE (18:58)
[2022-05-05] MEDS ORDERED: propofoL 1,000 MG/100 ML VIAL IV SCH (19:00)
--- NOTE | 2022-05-05 19:02 | Critical Care Consultation ---
Date of Consultation May 05, 2022 Assessment & Plan (1) COPD with acute exacerbation: (2) Altered mental status: (3) Acute hypercapnic respiratory failure: (4) Chronic steroid use: 72-year-old male with a history of COPD presenting to the hospital with altered mental status found to have worsening hypercapnic respiratory failure. Transferred to the ICU 05/05/2022. Neurologic: CTH earlier this admission negative. AMS like from uremic enceph and hypercapnia. Will initiate Versed and fentanyl for sedation purposes. Pulmonary: We will proceed with emergent intubation given the patient's worsening mental status and hypercapnic respiratory failure. Emergency bronchoscopy performed at bedside due to necrotic mass on the right lung. Cultures will be sent. Repeat ABG will be obtained post intubation. Continue with broad-spectrum antibiotics. Will initiate lung protective ventilation strategy. Cardiovascular: Maintain mean arterial pressures above 65. Patient had a brief episode of ventricular tachycardia during the intubation which resolved. We will check an EKG given his hyperkalemia. Troponins will be ordered as well. Gastrointestinal: NPO. Initiate PPI. Renal: Hyperkalemia possibly related to obstructive uropathy. Gay catheter in place. We will repeat a CMP. Infectious disease: Continue meropenem. Bronchial wash culture sent from the right lower lobe. Hematologic: Continue heparin 5000 units 3 times daily. Repeat CBC. Endocrine: Maintain euglycemia. CODE STATUS: Full code Disposition: ICU I have personally spent 39 minutes of critical care time in the direct management of this patient. This is a life/limb threatening event. This includes time spent evaluating patient, direct bedside care, chart review, placing orders, interpretation of diagnostic studies, discussion with consultants, patient, and family members, as well as other required patient management activities. This time is exclusive of all separately billable procedures, and teaching time and separate from and in addition to any other critical care service time. Thank you for allowing us to participate in the care of this patient. History of Present Illness Reason for Consultation: Acute hypercapnic respiratory failure Attending Physician: Keyanna Rodriguez DO History of Present Illness 72-year-old male with a history of COPD, diabetes mellitus type 2 and JEREMI who presented to the hospital several days ago due to worsening mental status and hypoxemic respiratory failure. I was following the patient on the pulmonary service and I was called by the hospitalist this evening due to worsening hypercapnic respiratory failure. The patient was transferred down to the ICU. Upon my evaluation, the patient appears to be in altered mental status and has an increased work of breathing. He has been on BiPAP since 10 AM. Unfortunately, there has been minimal improvement in his ABGs. His most recent gas suggest a worsening hypercapnic respiratory failure with a pH of 7.25 and a PCO2 81. Chest x-ray from earlier today continues to demonstrate right upper lobe collapse/consolidation. Labs from this morning suggest hyperkalemia. CK checked this morning was normal. Allergies Allergy/AdvReac Type Severity Reaction Status Date / Time Penicillins Allergy Unknown Verified 05/02/22 19:11 Home Medications Medication Instructions Recorded Confirmed Type Normal Saline Flush 0.9% 1,000 ml IV DAILY PRN 05/02/22 05/02/22 History albuterol sulfate 90 mcg/actuation 1 puff INHALATION QID PRN 05/02/22 05/02/22 History aerosol inhaler apremilast 30 mg tablet (Otezla) 30 mg PO BID 05/02/22 05/02/22 History aspirin 81 mg chewable tablet 81 mg PO DAILY 05/02/22 05/02/22 History (Children's Aspirin) atorvastatin 40 mg tablet 40 mg PO HS 05/02/22 05/02/22 History fluticasone 500 mcg-salmeterol 50 1 inh INHALATION BID 05/02/22 05/02/22 History mcg/dose blistr powdr for inhalation (Wixela Inhub) furosemide 20 mg tablet (Lasix) 20 mg PO DAILY 05/02/22 05/02/22 History glipizide 5 mg tablet 5 mg PO BID 05/02/22 05/02/22 History guaifenesin 600 mg tablet, 600 mg PO Q12H 05/02/22 05/02/22 History extended release 12 hr (Mucinex) ipratropium 0.5 mg-albuterol 3 mg 0 ml INHALATION QID 05/02/22 05/02/22 History (2.5 mg base)/3 mL nebulization soln levofloxacin 750 mg tablet 750 mg PO DAILY 05/02/22 05/02/22 History lisinopril 20 mg tablet 20 mg PO DAILY 05/02/22 05/02/22 History metformin 1,000 mg tablet 1,000 mg PO BID 05/02/22 05/02/22 History metoprolol tartrate 25 mg tablet 25 mg PO BID 05/02/22 05/02/22 History prednisolone 5 mg tablet 15 mg PO DAILY 05/02/22 05/02/22 History (Millipred) ropinirole 2 mg tablet 4 mg PO BID 05/02/22 05/02/22 History simethicone 125 mg chewable tablet 125 mg PO QID PRN 05/02/22 05/02/22 History (Gas-X Extra Strength) Patient History Medical History (Updated 05/05/22 @ 19:01 by Lb Plasencia MD) Acute hypercapnic respiratory failure Allergic rhinitis Altered mental status Atherosclerosis Chronic obstructive pulmonary disease COPD with acute exacerbation DMII (diabetes mellitus, type 2) Dry mouth Dyspnea on exertion History of tobacco abuse HTN (hypertension) Hyperkalemia Mass of upper lobe of right lung Neuropathy Obesity Obstructive sleep apnea Osteoarthrosis Psoriasis RLS (restless legs syndrome) Weakness generalized Surgical History No history of previous surgery Family History Mother Lung cancer Father CHF (congestive heart failure) Social History Smoking Status: Former smoker Years Smoked: 30; Number of Years Since Quit: 20; Second Hand Exposure: No; Do You Dip or Chew Tobacco: No; Tobacco Cessation Education Requested by Patient: No Hx Alcohol Use: No Hx Substance Use: No Preferred Language: Frisian Unit Receptionist Required: No Beliefs That Will Affect Care: None Current Living Situation: Other Current Living Situation Comment: [facility] Other Information That Helps Us Care for You: No Feels Safe at Home: Yes Assistive Devices: Wheelchair Review of Systems Review of Systems: Unobtainable due to cognitive status Physical Exam Physical Exam: Constitutional: Obese appearing male in moderate respiratory distress. Eyes: Pupils are equal round and reactive to light. Conjunctivae are normal. Anicteric sclera. Ears nose, mouth and throat: Mallampati class 2. Normal posterior oropharynx. Uvula is midline. Neck: Trachea is midline. Visual inspection is normal. Respiratory: Diminished lung sounds bilaterally. Increased work of breathing. On BiPAP. Prolonged phase of exhalation. Cardiovascular: Regular rate and rhythm. No murmurs. No edema. Gastrointestinal: Normal bowel sounds, soft, nontender and nondistended. No hepatosplenomegaly noted. Musculoskeletal: No cyanosis. Patient is able to move all extremities. Skin: No rashes, warm dry and intact. Neurologic: Nonfocal, but lethargic. Psychiatric: Difficult to ascertain given altered mental status. Results & Data Results & Data ([facility]) Vital Signs (Past 12 Hours) Vital Signs Temp Pulse Pulse Resp BP Pulse Ox 05/05/22 15:47 36.6 C 55 L 21 114/62 97 05/05/22 14:12 58 L 16 94 05/05/22 11:46 36.0 C L 56 L 24 104/61 98 05/05/22 10:12 57 L 20 94 05/05/22 08:52 59 L 05/05/22 07:00 36.8 C 60 18 100/57 L 90 Coding Level of Care Code Critical Care 1st 30-74 mins Diagnoses COPD with acute exacerbation J44.1 Altered mental status R41.82 Acute hypercapnic respiratory failure J96.02 Chronic steroid use Time Spent (min) 39
[2022-05-05] MEDS ORDERED: MIDAZOLAM HCL 125MG/250ML D5W ONE (19:14)
--- NOTE | 2022-05-05 19:18 | Procedure Note ---
Procedure Note Date of Service May 05, 2022 Note INTUBATION PROCEDURE NOTE: Dr. Lb Plasencia A time-out was completed verifying correct patient, procedure, site, positioning. Patient was evaluated and required intubation for worsening mental status and acute hypercapnic respiratory failure. Sedative agent used: 25 mg etomidate Paralysis agent used: 40 mg of rocuronium Emergent consent was implied given patients rapidly declining clinical status and need for airway protection. Number of attempts: 1 The patient was prepared in the appropriate fashion. Sedation was achieved utilizing etomidate and rocuronium. The patient was easily ventilated using [id number] to achieve adequate oxygenation. A 8.0 Indonesian endotracheal tube was placed under video laryngoscope guidance to 23 cm at the lip. The stylette was removed and balloon was inflated with 10mL of air. Appropriate Colorimetric change was appreciated. Bilateral breath sounds were heard without air sounds in the abdomen. Post Intubation Chest X-ray ordered. Patient tolerated the procedure well and there were no immediate complications. Coding CPT Codes Resuscitation - Resuscitation: 54257 Endotracheal Intubation, emergency ([id number]) [facility] [place] Procedure Codes (Charges) Resuscitation Resuscitation: 29091 Endotracheal Intubation, emergency
[2022-05-05] MEDS: fentaNYL citrate 2,500 MCG/250 ML BAG IV SCH (19:45)
[2022-05-05 19:51] LABS: Hematocrit (blood only) 49.1 % (42-52); Hemoglobin 15.8 g/dL (14.0-18.0); Immature Granulocytes # (auto) 0.04 K/uL (0.00-0.02); Immature Granulocytes % (auto) 0.4 %; Lymphocytes # (auto) 0.32 K/uL (1.2-3.4); Lymphocytes % (auto) 3.4 %; Mean Corpuscular Hemoglobin 31.5 pg (25-34); Mean Corpuscular Volume 97.8 fL (80-100); Mean Platelet Volume 11.2 fL (7.4-10.4); Monocytes # (auto) 0.45 K/uL (0.11-0.59); Monocytes % (auto) 4.8 %; Neutrophils # (auto) 8.52 K/uL (1.4-6.5); Neutrophils % (auto) 91.4 %; Platelet Count 182 K/uL (130-400); RDW Coefficient of Variation 13.7 % (11.5-14.5); RDW Standard Deviation 48.7 fL (36.4-46.3); Red Blood Count 5.02 M/uL (4.7-6.1); White Blood Count 9.33 K/uL (4.8-10.8)
[2022-05-05 19:52] LABS: Mean Corpuscular Hgb Conc 32.2 g/dL (32-36)
--- NOTE | 2022-05-05 19:52 | Procedure Note ---
Procedure Note Date of Service May 05, 2022 Note Bronchoscopy was performed emergently postintubation due to right upper lobe collapse, hypoxemia and hypercapnia. Emergent consent was implied. The bronchoscope was inserted via the ET tube adapter. Patient was on the ventilator during the procedure. Bilateral tracheobronchial tree inspection was performed. Significant secretions were noted emanating from the right upper lobe and right lower lobe. These were suctioned clear with the aid of saline. Approximately 60 cc of saline was instilled into the right lower lobe and approximately 30 cc of fluid was aspirated back. This will be sent for culture. No obvious lesions or evidence of bleeding was seen. The scope was then completely withdrawn. Patient tolerated the procedure well. Follow cultures and cytology from bronchoscopy. Coding CPT Codes Pulmonary/Thoracic - Pulmonary and Thoracic: 42659 Dx bronchoscopy/wash ([id number]) [facility] [place]odes (Charges) Pulmonary/Thoracic Procedure 1: Pulmonary and Thoracic: 42139 Dx bronchoscopy/wash
--- NOTE | 2022-05-05 19:56 | XRay Report ---
XR chest 1V portable at 7:39 PM CLINICAL HISTORY: follow up intubation and bronch. COMPARISON STUDY: 620 01/05/2020 1:00 AM TECHNIQUE: 1 view of the chest FINDINGS: Single frontal view of the chest demonstrates the heart to again be enlarged. Endotracheal tube has b een placed with its tip approximately 2.8 cm above the peng. There is again asymmetric opacity in t he right upper lobe extending to the right superior hilum. There is no evidence for interval pneumoth orax. There is no evidence for pleural effusion. There is no evidence for vascular congestion. There is no acute osseous pathology. IMPRESSION: 1. Status post intubation with no evidence for pneumothorax. 2. No change in right upper lobe alveolar opacity extending to the superior right hilum. ACT 112: Negative or not required by law. Electronically signed by: Antwan Meadows M.D. 05/05/2022 7:55 PM
[2022-05-05] MEDS: MIDAZOLAM HCL 125 MG/250 ML BAG IV SCH (20:00)
[2022-05-05 20:19] LABS: iSTAT Allen Test Pass; iSTAT Art Bld Gas pCO2 Correct 76 mmHg (35-46); iSTAT Art Bld Gas pH Corrected 7.305 (7.35-7.45); iSTAT Arterial Blood Gas HCO3 38 meg/L (19-24); iSTAT Arterial Blood Gas pCO2 78 mmHg (35-46); iSTAT Arterial Blood Gas pO2 68 mmHg (80-95); iSTAT Arterial Blood Gas pO2 C 66; iSTAT Carbon Dioxide > 40 mmol/L (24-31); iSTAT FiO2 50 %; iSTAT Hematocrit 44 % (42-52); iSTAT Potassium 5.4 mmol/L (3.3-5.0); iSTAT Site R Radial; iSTAT Sodium 140 mmol/L (135-144)
[2022-05-05] MEDS: MIDAZOLAM BOLUS FROM BAG IV PRN ×2 (20:41→21:49)
[2022-05-05 21:33] LABS: Albumin Globulin Ratio 0.9 (0.9-2); Albumin Level 2.9 gm/dl (3.4-5.0); Bilirubin,Total 0.9 mg/dl (0.2-1.0); Calcium 9.3 mg/dl (8.5-10.1); Creatinine Clr Calc Pharmacy 54.8 ml/min; Est GFR (African American) 61.2 ml/min; Est GFR (Non-African American) 52.8 ml/min; Globulin 3.4 gm/dl (2.5-4.0); Potassium 5.4 mmol/L (3.5-5.1); Total Protein 6.3 gm/dl (6.0-8.3)
[2022-05-05] MEDS: NORMOSOL-R 1,000 ML IV SCH (21:35)
[2022-05-05] MEDS: ATORVASTATIN 40 MG TAB PO SCH (21:37)
[2022-05-06] MEDS: MIDAZOLAM BOLUS FROM BAG IV PRN ×2 (02:09→05:28)
[2022-05-06] MEDS: MEROPENEM 500 MG in SYRINGE 0 ML IV SCH ×3 (03:49→19:38)
[2022-05-06 05:11] LABS: INR 1.3 (0.9-1.1); Prothrombin Time 13.2 Seconds (9.0-12.0)
[2022-05-06 05:14] LABS: iSTAT Allen Test Pass; iSTAT Art Bld Gas pCO2 Correct 41 mmHg (35-46); iSTAT Art Bld Gas pH Corrected 7.569 (7.35-7.45); iSTAT Arterial Blood Gas HCO3 38 meg/L (19-24); iSTAT Arterial Blood Gas pCO2 42 mmHg (35-46); iSTAT Arterial Blood Gas pH 7.56 (7.35-7.45); iSTAT Arterial Blood Gas pO2 63 mmHg (80-95); iSTAT Arterial Blood Gas pO2 C 60; iSTAT Carbon Dioxide 39 mmol/L (24-31); iSTAT FiO2 40 %; iSTAT Hematocrit 41 % (42-52); iSTAT Hemoglobin 13.9 g/dl (14.0-18.0); iSTAT Potassium 3.9 mmol/L (3.3-5.0); iSTAT Site L Radial; iSTAT Sodium 143 mmol/L (135-144)
[2022-05-06 05:16] LABS: Hemoglobin 14.6 g/dL (14.0-18.0); Mean Corpuscular Hemoglobin 30.7 pg (25-34); Mean Corpuscular Hgb Conc 32.4 g/dL (32-36); Mean Corpuscular Volume 94.7 fL (80-100); Mean Platelet Volume 10.1 fL (7.4-10.4); Platelet Count 154 K/uL (130-400); RDW Coefficient of Variation 13.4 % (11.5-14.5); RDW Standard Deviation 46.7 fL (36.4-46.3); Red Blood Count 4.75 M/uL (4.7-6.1); White Blood Count 6.06 K/uL (4.8-10.8)
[2022-05-06] MEDS: HEPARIN SOD 5,000 UNIT/0.5 ML VIAL SQ SCH ×2 (05:24→16:01)
[2022-05-06 05:40] LABS: BUN Creatinine Ratio 70.8 (10-20); Calcium 9.1 mg/dl (8.5-10.1); Est GFR (African American) 73.8 ml/min; Est GFR (Non-African American) 63.7 ml/min; Potassium 4.1 mmol/L (3.5-5.1)
[2022-05-06] MEDS: INSULIN ASPART PER UNIT SC SCH ×4 (08:39→19:49)
[2022-05-06] MEDS: NORMOSOL-R 1,000 ML IV SCH (08:49)
[2022-05-06] MEDS: predniSONE 20 MG TAB PO SCH (08:50)
[2022-05-06] MEDS: rOPINIRole HCL 2 MG TABLET PO SCH (08:50)
[2022-05-06] MEDS: METOPROLOL TARTRATE 25 MG TAB PO SCH (08:51)
[2022-05-06] MEDS: ASPIRIN 81 MG CHEW PO SCH (08:52)
--- NOTE | 2022-05-06 09:00 | Critical Care Progress Note ---
Date of Service May 06, 2022 Assessment & Plan (1) COPD with acute exacerbation: (2) Altered mental status: (3) Acute hypercapnic respiratory failure: (4) Chronic steroid use: (5) Consolidation of right upper lobe: Plan: 72-year-old male with a history of COPD presenting to the hospital with altered mental status found to have worsening hypercapnic respiratory failure. Transferred to the ICU 05/05/2022. Neurologic: CTH earlier this admission negative. AMS like from uremic enceph and hypercapnia. Continue Versed and fentanyl to maintain RASS of -1. Pulmonary: Continue lung protective ventilation strategy. Await [facility] cultures. Right upper lobe consolidation noted possibly representing necrotic pneumonia and/or malignancy.. May need to consider repeat bronchoscopy or biopsies of the right upper lobe and biopsy of the mediastinal and hilar lymph nodes. Patient with a history of advanced COPD. Initiate budesonide and Brovana nebs. Initiate DuoNeb as well. Cardiovascular: Maintain mean arterial pressures above 65 millimeters mercury. Patient with asymptomatic sinus bradycardia. Maintain potassium above 4 and magnesium above 2. Hold AV zainab blocking agents. EKG from yesterday reviewed sinus bradycardia left bundle branch block. Troponin mildly elevated. Echo ordered. Gastrointestinal: Start tube feeds today. Initiate PPI. Renal: Hyperkalemia resolved which is likely secondary to obstructive uropathy and possibly acidosis. BUN remains elevated likely related to chronic use of mineralocorticoid IV fluids. Continue Gay cath. Monitor urine output closely. Infectious disease: Continue meropenem. Bronchial wash culture sent from the right lower lobe. QuantiFERON gold pending. Hematologic: Hemoglobin and platelets stable. INR 1.3. Endocrine: Maintain euglycemia. TSH ordered CODE STATUS: Full code Disposition: ICU I have personally spent 42 minutes of critical care time in the direct management of this patient. This is a life/limb threatening event. This includes time spent evaluating patient, direct bedside care, chart review, placing orders, interpretation of diagnostic studies, discussion with consultants, patient, and family members, as well as other required patient management activities. This time is exclusive of all separately billable procedures, and teaching time and separate from and in addition to any other critical care service time. Thank you for allowing us to participate in the care of this patient. Admission and Anticipated Discharge Date Admission Date: May 02, 2022 Subjective Patient seen and examined this AM. Hemodynamically stable. Minimal vent support at this time. Currently on Versed and fentanyl infusions. Review of Systems Review of Systems: Unobtainable due to cognitive status and Unobtainable due to endotracheal tube Physical Exam Physical Exam: Constitutional: Intubated and sedated. Eyes: Pupils are equal round and reactive to light. Conjunctivae are normal. Anicteric sclera. Ears nose, mouth and throat: ET tube is in place. Neck: Trachea is midline. Visual inspection is normal. Respiratory: Intubated and sedated. Diminished lung sounds bilaterally. Cardiovascular: Regular rate and rhythm. No murmurs. No edema. Gastrointestinal: Normal bowel sounds, soft, nontender and nondistended. No hepatosplenomegaly noted. Musculoskeletal: No cyanosis. Patient is able to move all extremities. Skin: No rashes, warm dry and intact. Neurologic: Nonfocal. Psychiatric: Unable to assess given that patient is intubated. Results & Data Results & Data ([facility]) Vital Signs (Past 12 Hours) Vital Signs Temp Pulse Resp BP Pulse Ox 05/06/22 08:24 49 L 18 94 05/06/22 06:00 36.4 C L 48 L 18 112/59 L 93 05/06/22 05:30 36.4 C L 51 L 18 118/59 L 92 05/06/22 05:07 18 05/06/22 05:00 36.4 C L 50 L 18 117/65 94 05/06/22 04:45 50 L 23 93 05/06/22 04:30 36.3 C L 54 L 22 117/66 93 05/06/22 04:00 36.3 C L 48 L 22 110/61 93 05/06/22 03:30 36.3 C L 51 L 22 119/66 94 05/06/22 03:00 36.3 C L 50 L 22 113/65 94 05/06/22 02:30 36.3 C L 48 L 22 120/64 93 05/06/22 02:00 36.2 C L 53 L 22 128/71 93 05/06/22 01:30 36.2 C L 52 L 22 126/69 93 05/06/22 01:00 36.2 C L 51 L 22 124/66 94 05/06/22 00:30 36.1 C L 52 L 22 122/66 93 05/06/22 00:04 53 L 06/23/22 00:00 36.1 C L 51 L 22 119/64 92 05/05/22 23:30 36.2 C L 51 L 22 117/61 93 05/05/22 23:00 36.2 C L 51 L 22 118/63 94 05/05/22 22:55 36.2 C L 51 L 19 118/66 94 05/05/22 22:50 36.2 C L 51 L 22 115/65 94 05/05/22 22:45 36.2 C L 50 L 22 116/64 94 05/05/22 22:40 36.2 C L 52 L 19 120/62 94 05/05/22 22:35 36.2 C L 59 L 22 122/68 95 05/05/22 22:30 36.2 C L 58 L 22 122/58 L 92 05/05/22 22:29 54 L 23 95 05/05/22 22:25 36.2 C L 52 L 19 118/71 93 05/05/22 22:20 36.2 C L 50 L 22 116/62 93 05/05/22 22:15 36.2 C L 51 L 22 115/70 93 05/05/22 22:10 36.2 C L 51 L 19 117/65 94 05/05/22 22:05 36.2 C L 49 L 22 112/65 93 05/05/22 22:00 36.2 C L 51 L 22 114/60 94 05/05/22 21:55 36.3 C L 50 L 19 112/62 94 05/05/22 21:50 36.3 C L 49 L 22 104/58 L 94 05/05/22 21:45 36.3 C L 48 L 22 101/57 L 94 05/05/22 21:40 36.3 C L 47 L 19 110/57 L 05/05/22 21:35 36.3 C L 61 22 117/69 93 05/05/22 21:30 36.3 C L 51 L 22 113/63 99 05/05/22 21:25 36.3 C L 48 L 22 108/61 97 05/05/22 21:20 36.4 C L 50 L 22 108/58 L 96 05/05/22 21:15 36.4 C L 50 L 22 107/56 L 95 05/05/22 21:10 36.4 C L 49 L 22 107/57 L 96 05/05/22 21:05 36.4 C L 58 L 18 122/60 95 05/05/22 21:03 36.4 C L 81 18 122/75 Coding Level of Care Code Critical Care 1st 30-74 mins Diagnoses COPD with acute exacerbation J44.1 Altered mental status R41.82 Acute hypercapnic respiratory failure J96.02 Chronic steroid use Consolidation of right upper lobe J18.1 Time Spent (min) 42
[2022-05-06] MEDS: ALBUT/IPRATROP 3MG/0.5MG NEB 3 ML VIAL NEB PRN ×3 (10:38→23:13)
[2022-05-06 10:47] LABS: Magnesium 2.2 mg/dl (1.7-2.4); Phosphorus 1.5 mg/dl (2.5-4.9)
[2022-05-06] MEDS: FLUTICASONE/VILANTEROL 100/25MCG 14 PUFFS/INHALER INH SCH (11:32)
[2022-05-06] MEDS: INSULIN GLARGINE SOLOSTAR 100 UNITS/ML 3 ML PEN SC SCH (11:32)
--- NOTE | 2022-05-06 11:56 | Ultrasound Report ---
RIGHT LOWER EXTREMITY ARTERIAL DOPPLER ULTRASOUND CLINICAL HISTORY: ischemic changes COMPARISON STUDY: No previous studies for comparison. TECHNIQUE: Color and duplex Doppler sonography of the arterial system of the right lower extremity wa s performed. FINDINGS: Moderate atherosclerotic plaque is noted within the right lower extremity. There is biphasi c flow within the right common femoral artery. No elevated velocities are identified within the right lower extremity. There is monophasic flow within the right superficial femoral, popliteal, anterior tibial, posterior tibial, peroneal and dorsalis pedis vessels. IMPRESSION: 1. Moderate atherosclerotic plaque within the right lower extremity. 2. Monophasic flow within the right superficial femoral, popliteal and right calf vessels, as describ ed above. 3. No evidence for a hemodynamically significant stenosis within the right lower extremity. ACT 112: Negative or not required by law. Electronically signed by: Rito Chatterjee M.D. 05/06/2022 11:53 AM
[2022-05-06] MEDS ORDERED: SODIUM PHOSPHATE 3 MMOL/1 ML INFUSION IV STA (12:36)
[2022-05-06] MEDS: PANTOprazole 40 MG in SYRINGE 0 ML IV SCH (12:44)
[2022-05-06] MEDS ORDERED: SODIUM PHOSPHATE 21 MMOL in DEXTROSE 5% 500 ML IV ONE (13:00)
[2022-05-06] MEDS: TUBE FEEDING WATER FLUSH OG SCH ×3 (15:50→22:01)
[2022-05-06] MEDS: PEPTAMEN INTENSE VHP 1.0 CAL 1,000 ML BAG OG SCH (16:01)
[2022-05-06] MEDS: fentaNYL citrate 2,500 MCG/250 ML BAG IV SCH (17:15)
[2022-05-06] MEDS: ICU ELECTROLYTE REPLACEMENT PROTOCOL SCH (17:20)
--- NOTE | 2022-05-06 17:53 | Hospitalist Progress Note ---
Date of Service May 06, 2022 Assessment & Plan (1) Acute respiratory failure: Plan: Likely related to right hilar mass that is necrotic with post-obstructive collapse in setting of possible COPD exacerbation. Cont merrem. Bronch performed last night when he was intubated for acute hypercapnic respiratory failure. Results pending. (2) Acute exacerbation of chronic obstructive pulmonary disease: Plan: Continue prednisone, duo nebs, antibiotics. No wheezing. Budesonide NEBS added BID, Formoterol Fumarate INH added BID. (3) Mass of upper lobe of right lung: Plan: With necrosis-high possibility for malignancy. Awaiting bronch results for definitive diagnosis. Cont Merrem for coverage of lung abscess. (4) Pneumonia: Plan: possible but thought to be more consistent with R hilar mass as above. Cont meropenem. Noted elevated procalcitonin and critical appearance on admission, now improved. Pulm/ICU following. (5) HOMA (acute kidney injury): Plan: 2/2 dehydration vs ATN in setting of hypotension. Resolved to 1.1 today. Uncertain baseline. (6) Hypotension: Plan: Hold antihypertensives as blood pressure still low normal. Management per ICU as patient is sedated for mechanical ventilation. (7) Hypoglycemia: Plan: resolved, 37 on arrival. Glipizide use (and otezla) in context of poor PO intake. Hold oral meds. Became hyperglycemic with steroids and patient eating, added glargine. Now in ICU and intubated/sedated. Cont basal bolus insulin and adjust as needed. Per ICU protocol. (8) Hyperkalemia: Plan: Resolved, was likely 2/2 respiratory acidosis which is now resolved. Cont to monitor. (9) Chronic steroid use: Plan: chronically placed on steroids by the [facility] several years ago. Has been taking recently. Cont prednisone taper-per pulmonology. (10) DVT prophylaxis: Plan: Heparin Full Code Dispo-ICU, pending bronch results and clinical recovery Incarcerated. Keyanna Rodriguez DO [facility] Hospitalist Admission and Anticipated Discharge Date Admission Date: May 02, 2022 Subjective Patient seen and examined this AM. Hemodynamically stable. Minimal vent support at this time. Currently on Versed and fentanyl infusions. Physical Exam Physical Exam: CONSTITUTIONAL: obese, vitals as above, BIPAP in place , NAD EYES: normal conjunctivae, no scleral icterus, ENT: external ear and nose normal, mucous membranes are dry NECK: trachea midline, RESPIRATORY: clear to auscultation bilaterally, no crackles, rales or wheezes, normal respiratory effort CARDIOVASCULAR: regular rate and rhythm, S1 and 2 heard without murmurs, gallops or rubs, no JVD, no peripheral edema, CHEST: inspection of chest was normal GASTROINTESTINAL: soft, nontender, ND, no guarding MUSCULOSKELETAL: Generalized weakness SKIN: warm and dry, dark purple chronic coloration to lower extremities. Nails with fungal destruction, toes are red. Extremities are warm and DP pulses are palpable bilaterally. No open wounds noted on feet. NEUROLOGIC: CN 2-12 grossly intact, no sensory deficit, normal cognition, n ormal speech, PSYCHIATRIC: alert cooperative and answering questions appropriately Results & Data Results & Data ([facility]) Vital Signs (Past 12 Hours) Vital Signs Temp Pulse Pulse Resp BP Pulse Ox 05/06/22 15:06 53 L 16 93 05/06/22 12:00 36.4 C L 48 L 16 112/59 L 93 05/06/22 11:30 36.4 C L 51 L 16 113/64 94 05/06/22 11:00 36.4 C L 50 L 16 104/57 L 93 05/06/22 10:38 50 L 16 93 05/06/22 10:30 36.4 C L 51 L 16 103/56 L 94 05/06/22 10:00 36.4 C L 51 L 16 102/61 94 05/06/22 09:30 36.4 C L 52 L 16 113/60 93 05/06/22 09:00 36.3 C L 52 L 17 114/64 93 05/06/22 08:30 36.3 C L 49 L 18 112/60 94 05/06/22 08:24 49 L 18 94 05/06/22 08:00 36.4 C L 48 L 18 111/60 93 05/06/22 07:30 36.4 C L 49 L 18 118/63 94 05/06/22 07:00 36.4 C L 48 L 18 113/59 L 93 05/06/22 06:00 36.4 C L 48 L 18 112/59 L 93 Laboratory Results Short CBC 05/05/22 05/06/22 Range/Units 19:38 04:30 WBC 9.33 6.06 (4.8-10.8) K/uL Hgb 15.8 14.6 (14.0-18.0) g/dL Hct 49.1 45.0 (42-52) % Plt Count 182 154 (130-400) K/uL BMP 05/05/22 05/05/22 05/06/22 19:38 20:46 04:30 Sodium Cancelled 143 145 Potassium Cancelled 5.4 H 4.1 D Chloride Cancelled 104 104 Carbon Dioxide Cancelled 34 H 36 H BUN Cancelled 99 H 80 H Creatinine Cancelled 1.32 1.13 Glucose Cancelled 172 H 111 H Calcium Cancelled 9.3 9.1 Liver Function 05/05/22 05/05/22 Range/Units 19:38 20:46 Total Bilirubin Cancelled 0.9 AST Cancelled 39 ALT Cancelled 22 Alkaline Phosphatase Cancelled 195 H Albumin Cancelled 2.9 L Diagnostic Findings Duplex Scan Lower Extremity Artery 05/06/22 10:03 RIGHT LOWER EXTREMITY ARTERIAL DOPPLER ULTRASOUND CLINICAL HISTORY: ischemic changes COMPARISON STUDY: No previous studies for comparison. TECHNIQUE: Color and duplex Doppler sonography of the arterial system of the right lower extremity was performed. FINDINGS: Moderate atherosclerotic plaque is noted within the right lower extremity. There is biphasic flow within the right common femoral artery. No elevated velocities are identified within the right lower extremity. There is monophasic flow within the right superficial femoral, popliteal, anterior tibial, posterior tibial, peroneal and dorsalis pedis vessels. IMPRESSION: 1. Moderate atherosclerotic plaque within the right lower extremity. 2. Monophasic flow within the right superficial femoral, popliteal and right calf vessels, as described above. 3. No evidence for a hemodynamically significant stenosis within the right lower extremity. ACT 112: Negative or not required by law. Electronically signed by: Rito Chatterjee M.D. 05/06/2022 11:53 AM Medications Administered Current Inpatient Medications Acetaminophen (Acetaminophen 325 Mg Tab) 650 mg PO Q6H PRN PRN Reason: fever, headache, pain Stop: 06/01/22 20:55 Last Admin: 05/03/22 05:23 Dose: 650 mg Documented by: Albuterol (Albut/Ipratrop 3mg/0.5mg Neb 3 Ml Vial) 3 ml NEB Q2H PRN; Protocol PRN Reason: SOB/WHEEZING Stop: 06/01/22 21:05 Last Admin: 05/06/22 14:33 Dose: 3 ml Documented by: Aspirin (Aspirin 81 Mg Chew) 81 mg PO DAILY JULIA Stop: 06/02/22 08:59 Last Admin: 05/06/22 08:52 Dose: 81 mg Documented by: Atorvastatin Calcium (Atorvastatin 40 Mg Tab) 40 mg PO HS JULIA Stop: 06/01/22 20:59 Last Admin: 05/05/22 21:37 Dose: 40 mg Documented by: Budesonide (Budesonide 0.25 Mg/2 Ml Vial (Pulmicort)) 0.25 mg NEB BIDR JULIA Stop: 06/05/22 18:59 Dextrose (Dextrose 50% 50 Ml Syringe) 25 - 50 ml IV UD PRN; Protocol PRN Reason: Hypoglycemia Protocol Stop: 06/01/22 20:55 Fentanyl Citrate (Fentanyl Bolus From Bag) 50 mcg IV Q60M PRN PRN Reason: Pain or Agitation Stop: 05/19/22 18:55 Last Admin: 05/06/22 05:28 Dose: 50 mcg Documented by: Formoterol Fumarate (Formoterol 20 Mcg/2 Ml Vial) 20 mcg INH BIDR JULIA Stop: 06/05/22 18:59 Glucagon (Glucagon For Inj 1 Mg Vial) 1 mg SQ UD PRN; Protocol PRN Reason: Hypoglycemia Protocol Stop: 06/01/22 20:55 Glucose (Glucose 10 Tabs/Tube) 4 - 8 tabs PO UD PRN; Protocol PRN Reason: Hypoglycemia Protocol Stop: 06/01/22 20:55 Glucose (Glucose 40% Gel 15 Gm Tube) 15 - 30 gm PO UD PRN; Protocol PRN Reason: Hypoglycemia Protocol Stop: 06/01/22 20:55 Heparin Sodium (Porcine) (Heparin Sod 5,000 Unit/0.5 Ml Vial) 5,000 units SQ Q8 JULIA Stop: 06/01/22 21:59 Last Admin: 05/06/22 16:01 Dose: 5,000 units Documented by: Meropenem 500 mg/ Syringe 10 mls @ 2 mls/min IV Q8H JULIA; Protocol Stop: 05/10/22 11:59 Last Admin: 05/06/22 12:44 Dose: 2 mls/min Documented by: Fentanyl Citrate (Fentanyl Citrate) 2,500 mcg in 250 mls @ 10 mls/hr IV .Q25H JULIA; Protocol Stop: 05/19/22 18:59 Last Admin: 05/06/22 17:15 Dose: 100 mcg/hr, 10 mls/hr Documented by: Midazolam HCl (Versed) 125 mg in 250 mls @ 3 mls/hr IV .[id number] [facility]; Protocol Stop: 06/04/22 19:59 Last Titration: 05/06/22 13:16 Dose: 1.5 mg/hr, 3 mls/hr Documented by: Pantoprazole Sodium 40 mg/ (Syringe) 10 mls @ 5 mls/min IV DAILY@1100 [facility] Stop: 06/05/22 10:59 Last Admin: 05/06/22 12:44 Dose: 5 mls/min Documented by: Sodium Phosphate 21 mmol/ (Dextrose) 507 mls @ 88 mls/hr IV ONE ONE Stop: 05/06/22 18:45 Last Admin: 05/06/22 13:13 Dose: 88 mls/hr Documented by: Insulin Aspart (Insulin Aspart Per Unit) 0 units SC Q4 [facility] Stop: 06/01/22 20:59 Last Admin: 05/06/22 16:34 Dose: 1 units Documented by: Midazolam HCl (Midazolam Bolus From Bag) 2 mg IV Q60M PRN PRN Reason: Sedation Stop: 06/04/22 19:48 Last Admin: 05/06/22 05:28 Dose: 2 mg Documented by: Miscellaneous (Carbohydrates For Hypoglycemia ) 15 - 30 gm PO UD PRN PRN Reason: Hypoglycemia Protocol Stop: 06/01/22 20:55 Miscellaneous (Icu Electrolyte Replacement Protocol) 1 ea N/A BID@ [facility]; Protocol Stop: 05/13/22 17:59 Last Admin: 05/06/22 17:20 Dose: 1 ea Documented by: Multivitamins/Minerals (Multi Vit W/Minerals Liquid 15 Ml Udp) 15 ml NG QAM [facility] Stop: 06/06/22 08:59 Nutritional Formula (Peptamen Intense Vhp 1.0 Miguel 1,000 Ml Bag) 1,000 ml OG UD [facility]; Protocol Stop: 06/05/22 14:14 Last Admin: 05/06/22 16:01 Dose: 1,000 ml Documented by: Ondansetron HCl (Ondansetron Inj 2 Mg/Ml 2 Ml Vial) 4 mg IV Q6H PRN PRN Reason: Nausea Stop: 06/01/22 20:55 Prednisone (Prednisone 10 Mg Tablet) 30 mg PO DAILY JULIA Stop: 06/06/22 08:59 Ropinirole HCl (Ropinirole Hcl 2 Mg Tablet) 4 mg PO BID JULIA Stop: 06/01/22 20:59 Last Admin: 05/06/22 08:50 Dose: 4 mg Documented by: Sterile Water (Tube Feeding Water Flush) 150 ml OG Q4H JULIA Stop: 06/05/22 14:14 Last Admin: 05/06/22 17:21 Dose: 150 ml Documented by: (1) Pneumonia Laterality: right Lung location: upper lobe of lung Pneumonia type: due to unspecified organism Qualified Code(s): J18.9 - Pneumonia, unspecified organism
[2022-05-06] MEDS: FORMOTEROL 20 MCG/2 ML VIAL INH SCH (20:10)
[2022-05-06] MEDS: BUDESONIDE 0.25 MG/2 ML VIAL (PULMICORT) NEB SCH (20:10)
[2022-05-06] MEDS: ATORVASTATIN 40 MG TAB PO SCH (20:34)
[2022-05-07] MEDS: TUBE FEEDING WATER FLUSH OG SCH ×7 (00:10→21:45)
[2022-05-07] MEDS: INSULIN ASPART PER UNIT SC SCH ×6 (00:12→20:17)
[2022-05-07] MEDS: ALBUT/IPRATROP 3MG/0.5MG NEB 3 ML VIAL NEB PRN (03:37)
[2022-05-07] MEDS: MEROPENEM 500 MG in SYRINGE 0 ML IV SCH ×4 (03:45→21:45)
[2022-05-07 04:32] LABS: iSTAT Allen Test Pass; iSTAT Art Bld Gas pCO2 Correct 56 mmHg (35-46); iSTAT Art Bld Gas pH Corrected 7.451 (7.35-7.45); iSTAT Arterial Blood Gas HCO3 39 meg/L (19-24); iSTAT Arterial Blood Gas pCO2 56 mmHg (35-46); iSTAT Arterial Blood Gas pH 7.45 (7.35-7.45); iSTAT Arterial Blood Gas pO2 75 mmHg (80-95); iSTAT Arterial Blood Gas pO2 C 74; iSTAT Carbon Dioxide > 40 mmol/L (24-31); iSTAT FiO2 30 %; iSTAT Hematocrit 44 % (42-52); iSTAT Potassium 4.4 mmol/L (3.3-5.0); iSTAT Site R Radial; iSTAT Sodium 144 mmol/L (135-144)
[2022-05-07 05:18] LABS: Hematocrit (blood only) 47.5 % (42-52); Hemoglobin 15.7 g/dL (14.0-18.0); Immature Granulocytes # (auto) 0.03 K/uL (0.00-0.02); Immature Granulocytes % (auto) 0.5 %; Lymphocytes # (auto) 0.51 K/uL (1.2-3.4); Lymphocytes % (auto) 7.7 %; Mean Corpuscular Hemoglobin 31.2 pg (25-34); Mean Corpuscular Hgb Conc 33.1 g/dL (32-36); Mean Corpuscular Volume 94.2 fL (80-100); Mean Platelet Volume 9.9 fL (7.4-10.4); Monocytes # (auto) 0.52 K/uL (0.11-0.59); Monocytes % (auto) 7.8 %; Platelet Count 136 K/uL (130-400); RDW Coefficient of Variation 13.7 % (11.5-14.5); RDW Standard Deviation 47.3 fL (36.4-46.3); Red Blood Count 5.04 M/uL (4.7-6.1); White Blood Count 6.66 K/uL (4.8-10.8)
[2022-05-07 05:48] LABS: BUN Creatinine Ratio 60.6 (10-20); Calcium 9.1 mg/dl (8.5-10.1); Est GFR (African American) 92.2 ml/min; Est GFR (Non-African American) 79.6 ml/min; Magnesium 1.9 mg/dl (1.7-2.4); Phosphorus 3.7 mg/dl (2.5-4.9); Potassium 4.5 mmol/L (3.5-5.1)
[2022-05-07] MEDS: ICU ELECTROLYTE REPLACEMENT PROTOCOL SCH ×2 (05:53→18:50)
--- NOTE | 2022-05-07 07:05 | Electrocardiogram Report ---
Test Reason : Blood Pressure : / mmHG Vent. Rate : 055 BPM Atrial Rate : 055 BPM P-R Int : 136 ms QRS Dur : 154 ms QT Int : 476 ms P-R-T Axes : 021 005 174 degrees QTc Int : 455 ms Sinus bradycardia with sinus arrhythmia with occasional Premature ventricular complexes Left bundle branch block Abnormal ECG When compared with ECG of 05-MAY-2022 10:05, Premature ventricular complexes are now Present Confirmed by Sen Garces ([id number]) on 05/07/2022 7:05:12 AM Referred By: Sherry PRICE Confirmed By:Sen Garces
[2022-05-07] MEDS: FORMOTEROL 20 MCG/2 ML VIAL INH SCH ×2 (07:26→19:30)
[2022-05-07] MEDS: BUDESONIDE 0.25 MG/2 ML VIAL (PULMICORT) NEB SCH ×2 (07:26→19:30)
[2022-05-07] MEDS ORDERED: PHENYLEPHRINE HCL 20 MG in DEXTROSE 5% 500 ML IV SCH (08:00)
[2022-05-07] MEDS ORDERED: STAT IV Infusion **Titration per Protocol STA (08:00)
[2022-05-07] MEDS: MULTI VIT W/MINERALS LIQUID 15 ML UDP NG SCH (08:29)
[2022-05-07] MEDS: predniSONE 10 MG TABLET PO SCH (08:29)
[2022-05-07] MEDS: ASPIRIN 81 MG CHEW PO SCH (08:32)
--- NOTE | 2022-05-07 09:24 | XRay Report ---
XR chest 1V portable HISTORY: 72 years-old Male follow up rul mass acute respiratory failure COMPARISON: Chest radiograph 05/05/2022, CTA chest 05/02/2022 TECHNIQUE: Portable AP view of the chest FINDINGS: Endotracheal tube overlies the midline, 3.9 cm superior to the peng. The cardiac silhouette is enla rged. Pulmonary vascular congestion. Mildly progressed interstitial coarsening. No pneumothorax or la rge pleural effusion. Blunting of the costophrenic angles. Mildly progressed bibasilar densities. Lar ge masslike right upper lobe opacity redemonstrated. Enteric tube courses into the stomach. Degenerat luz marina changes of the shoulders and spine. IMPRESSION: 1. Lines and tubes as above. 2. Cardiomegaly with suggested pulmonary edema and progressive bibasilar opacities. 3. Right upper lobe masslike opacity is better characterized on the CTA chest study from 05/02/2022. ACT 112: Negative or not required by law. The above report was generated using voice recognition software. It may contain grammatical, syntax o r spelling errors. Electronically signed by: Justice Ghosh M.D. 05/07/2022 9:23 AM
[2022-05-07] MEDS: MAGNESIUM SULFATE / D5W 1 GM/100 ML BAG IV SCH ×2 (10:27→12:30)
[2022-05-07] MEDS: PANTOprazole 40 MG in SYRINGE 0 ML IV SCH (10:29)
--- NOTE | 2022-05-07 12:49 | History & Physical Bridge Note ---
Date of Service May 07, 2022 History & Physical Bridge Note I have examined the patient, reviewed the History & Physical and in the interval since the performance of the History & Physical I have noted the following changes of clinical significance: no changes noted
--- NOTE | 2022-05-07 13:47 | Procedure Note ---
Procedure Note: Bronchoscopy Procedure Bronchoscopy was performed to evaluate the right upper lobe masslike consolidation. Two-physician consent was obtained as the patient is currently incarcerated. We contacted the retirement and case management here. They indicated that there is no next of kin listed. The presenting defer decision to us regarding consent for the bronchoscopy. Dr. Rodriguez and I decided that bronchoscopy is necessary at this time to evaluate the right upper lobe mass. I inserted the bronchoscope via the endotracheal tube adapter. The patient was on 100% oxygen during the bronchoscopy and ventilating well. I did a bilateral bronchial tree inspection. The main Peng appeared sharp. The trachea appeared normal. The endotracheal tube was approximately 3 cm above the peng. No obvious lesions were noted except the right upper lobe orifice did not appear distorted and narrowed. I performed washings of the right upper lobe with approximately 200 cc of saline. Approximately 50 cc of fluid was aspirated back. With the aid of fluoroscopy, we performed microscopy brushings, cytology brushings and transbronchial biopsies of the right upper lobe apical segment. We also performed biopsies of the anterior segment in the posterior segment. There was some bleeding noted from the apical segment of the right upper lobe. Hemostasis was achieved with the use of cold saline. The scope was then withdrawn to the level of the peng. Minimal bleeding was noted. The scope was then completely withdrawn. The patient tolerated procedure well. Impression: Follow cultures, cytology and biopsy results. Repeat chest x-ray post bronchoscopy pending. [facility] Procedure Codes (Charges) Pulmonary/Thoracic Procedure 1: Pulmonary and Thoracic: 03766 Bronchoscopy w/ transbronchial lung bx Procedure 2: Pulmonary and Thoracic: 67027 Dx bronchoscopy/brush Procedure 3: Pulmonary and Thoracic: 42245 Dx bronchoscopy/BAL
--- NOTE | 2022-05-07 13:52 | Critical Care Progress Note ---
Date of Service May 07, 2022 Assessment & Plan (1) COPD with acute exacerbation: (2) Altered mental status: (3) Acute hypercapnic respiratory failure: (4) Chronic steroid use: (5) Consolidation of right upper lobe: (6) Acute systolic CHF (congestive heart failure): Plan: 72-year-old male with a history of COPD presenting to the hospital with altered mental status found to have worsening hypercapnic respiratory failure. Transferred to the ICU 05/05/2022. Neurologic: CTH earlier this admission negative. AMS like from uremic enceph and hypercapnia. Continue Versed and fentanyl to maintain RASS of -1. Pulmonary: Continue lung protective ventilation strategy. Await bronc cultures. Right upper lobe consolidation noted possibly representing necrotic pneumonia and/or malignancy. Repeat bronchoscopy performed under fluoroscopy today. Transbronchial biopsies of the right upper lobe mass, microscopy brushings and cytology brushings were performed. Washings of the right upper lobe performed as well. Patient with a history of advanced COPD. Continue budesonide and Brovana nebs. DuoNebs as needed. Prednisone decreased to 30 mg daily. Cardiovascular: Maintain mean arterial pressures above 65 millimeters mercury. Patient with asymptomatic sinus bradycardia. Maintain potassium above 4 and magnesium above 2. Hold AV zainab blocking agents. Echo with an EF of 20 to 25. Right ventricle is mildly dilated. Mild aortic valve stenosis. The echo findings are new. We will consult cardiology. Gastrointestinal: Restart tube feeds after bronchoscopy. Continue PPI. Renal: BUN and hyperkalemia improved with gentle hydration. Fluids discontinued at this time. Replace electrolytes per protocol. Infectious disease: Continue meropenem. QuantiFERON gold pending. Bronc cultures growing pinpoint growth and reintubating. Await cultures. AFB and fungal culture sent from bronchoscopy as well. Hematologic: Hemoglobin and platelets stable. INR 1.3. Endocrine: Maintain euglycemia. TSH within normal limits CODE STATUS: Full code Disposition: ICU I have personally spent 49 minutes of critical care time in the direct management of this patient. This is a life/limb threatening event. This includes time spent evaluating patient, direct bedside care, chart review, placing orders, interpretation of diagnostic studies, discussion with consultants, patient, and family members, as well as other required patient management activities. This time is exclusive of all separately billable procedures, and teaching time and separate from and in addition to any other critical care service time. Thank you for allowing us to participate in the care of this patient. Admission and Anticipated Discharge Date Admission Date: May 02, 2022 Subjective Patient seen and examined. He remains intubated and on mechanical ventilation. He is getting Versed and fentanyl. No hemodynamic issues overnight. Review of Systems Review of Systems: All systems reviewed & are unremarkable except as noted in HPI & below Physical Exam Physical Exam: Constitutional: Intubated and sedated. Eyes: Pupils are equal round and reactive to light. Conjunctivae are normal. Anicteric sclera. Ears nose, mouth and throat: ET tube is in place. Neck: Trachea is midline. Visual inspection is normal. Respiratory: Intubated and sedated. Diminished lung sounds bilaterally. Cardiovascular: Regular rate and rhythm. No murmurs. No edema. Gastrointestinal: Normal bowel sounds, soft, nontender and nondistended. No hepatosplenomegaly noted. Musculoskeletal: No cyanosis. Patient is able to move all extremities. Skin: No rashes, warm dry and intact. Neurologic: Nonfocal. Psychiatric: Unable to assess given that patient is intubated. Results & Data Results & Data ([facility]) Vital Signs (Past 12 Hours) Vital Signs Temp Pulse Resp BP Pulse Ox 05/07/22 11:23 77 16 92 05/07/22 11:01 36.8 C 80 22 146/84 H 90 05/07/22 11:00 36.8 C 73 19 91 05/07/22 10:00 36.7 C 76 16 161/81 H 92 05/07/22 09:00 36.8 C 96 H 26 H 183/107 H 93 05/07/22 08:18 61 16 93 05/07/22 08:00 36.8 C 61 16 154/81 H 92 05/07/22 07:00 146/77 H 05/07/22 06:00 36.8 C 59 L 16 143/78 H 92 05/07/22 05:00 36.9 C 61 14 155/79 H 90 05/07/22 04:00 36.9 C 58 L 16 113/67 93 05/07/22 03:51 58 L 16 93 05/07/22 03:00 36.9 C 98 H 16 122/65 92 05/07/22 02:00 36.9 C 59 L 31 H 126/61 92 Coding Level of Care Code Critical Care 1st 30-74 mins Diagnoses COPD with acute exacerbation J44.1 Altered mental status R41.82 Acute hypercapnic respiratory failure J96.02 Chronic steroid use Consolidation of right upper lobe J18.1 Acute systolic CHF (congestive heart failure) I50.21 Time Spent (min) 49
[2022-05-07] MEDS: MIDAZOLAM BOLUS FROM BAG IV PRN (14:00)
--- NOTE | 2022-05-07 14:02 | Fluoroscopy Report ---
FL chest 1V frontal CLINICAL HISTORY: BRONCHOSCOPY COMPARISON STUDY: Chest CT May 02, 2022. Chest radiograph May 07, 2022 at 8:56 AM. FLUOROSCOPY TIME: 1 minute and 31 seconds. FLUOROSCOPIC IMAGES: 2 FINDINGS: Fluoroscopy was provided during bronchoscopy of the right upper lobe mass-like abnormality. IMPRESSION: Fluoroscopy provided during bronchoscopy the right upper lobe mass-like abnormality. ACT 112: Negative or not required by law. Electronically signed by: Rito Chatterjee M.D. 05/07/2022 2:01 PM
[2022-05-07] MEDS ORDERED: NORMOSOL-R 250 ML IV ONE (14:39)
--- NOTE | 2022-05-07 14:45 | XRay Report ---
XR chest 1V portable CLINICAL HISTORY: RUL bx via bronch COMPARISON STUDY: Chest CT May 02, 2022. Chest radiograph performed earlier today. FINDINGS: Tip of endotracheal tube is 4 cm above the peng. Tip of nasogastric tube is not well visu alized but at least within the proximal stomach. There is no pneumothorax. Cardiomegaly is again note d. Right pleural density likely reflects extrapleural fat although a small right pleural effusion cou ld appear similar. Right upper lobe airspace opacity with volume loss has increased. This obscures th e known right upper lobe mass-like abnormality. IMPRESSION: 1. Tip of endotracheal tube 4 cm above the peng. 2. Increase in dense right upper lobe airspace opacity with volume loss which obscures the right uppe r lobe mass-like abnormality. 3. No pneumothorax. ACT 112: Negative or not required by law. Electronically signed by: Rito Chatterjee M.D. 05/07/2022 2:42 PM
[2022-05-07] MEDS: fentaNYL citrate 2,500 MCG/250 ML BAG IV SCH (14:53)
[2022-05-07 15:36] LABS: Basophil Body Fluid Man 1 %; Eosinophil Body Fluid Man 1 %; Fluid Mono/Macrophage 69 %; Lymphocyte Body Fluid Man 2 %; Neutrophil Body Fluid Man 27 %
[2022-05-07] MEDS: NORMOSOL-R 1,000 ML IV SCH (15:59)
--- NOTE | 2022-05-07 16:04 | Electrocardiogram Report ---
Test Reason : Blood Pressure : / mmHG Vent. Rate : 097 BPM Atrial Rate : 097 BPM P-R Int : 134 ms QRS Dur : 152 ms QT Int : 390 ms P-R-T Axes : 055 -17 113 degrees QTc Int : 495 ms Normal sinus rhythm Left bundle branch block Abnormal ECG When compared with ECG of 05-MAY-2022 20:34, Premature ventricular complexes are no longer Present Vent. rate has increased BY 42 BPM Nonspecific T wave abnormality no longer evident in Inferior leads Confirmed by Marvin Parada ([id number]) on 05/07/2022 4:04:06 PM Referred By: Sherry PRICE Confirmed By:Marvin Parada
--- NOTE | 2022-05-07 19:15 | Hospitalist Progress Note ---
Date of Service May 07, 2022 Assessment & Plan (1) Acute respiratory failure: Plan: Likely related to right hilar mass that is necrotic with post-obstructive collapse in setting of possible COPD exacerbation. Cont merrem. Complete bronchoscopy to be performed today (2) Acute exacerbation of chronic obstructive pulmonary disease: Plan: Continue prednisone, duo nebs, antibiotics. No wheezing. Budesonide NEBS added BID, Formoterol Fumarate INH added BID. (3) Mass of upper lobe of right lung: Plan: With necrosis-high possibility for malignancy. Awaiting bronch results for definitive diagnosis. Initial results were unrevealing, however, samples were taken urgently and then may have been inadequate. Cont Merrem for coverage of lung abscess. (4) Pneumonia: Plan: possible but thought to be more consistent with R hilar mass as above. Cont meropenem. Noted elevated procalcitonin and critical appearance on admission, now improved. Pulm/ICU following. (5) HOMA (acute kidney injury): Plan: 2/2 dehydration vs ATN in setting of hypotension. Resolved. (6) Hypotension: Plan: Pressor support as needed. (7) Hypoglycemia: Plan: resolved, 37 on arrival. Glipizide use (and otezla) in context of poor PO intake. Hold oral meds. Became hyperglycemic with steroids and patient eating, added glargine. Now in ICU and intubated/sedated. Cont basal bolus insulin and adjust as needed. Per ICU protocol. (8) Hyperkalemia: Plan: Resolved, was likely 2/2 respiratory acidosis which is now resolved. Cont to monitor. (9) Chronic steroid use: Plan: chronically placed on steroids by the [facility] several years ago. Has been taking recently. Cont prednisone taper-per pulmonology. (10) DVT prophylaxis: Plan: Heparin Full Code Dispo-ICU, pending bronch results and clinical recovery Incarcerated. [facility] Admission and Anticipated Discharge Date Admission Date: May 02, 2022 Subjective 72-year-old man admitted for acute respiratory failure Intubated and sedated Bronchoscopy urgently performed the other day and inadequate per pulmonology needs to be redone Patient has no next of kin after discussing with [place] To physician signature was needed for consent for procedure to go forward Weighed risks and benefits with pulmonology and accurate identification of the right hilar mass will help with identifying treatments available. Putting this off may delay care Review of Systems Review of Systems: Intubated sedated, therefore review of systems could not be obtained. Physical Exam Physical Exam: CONSTITUTIONAL: obese, vitals as above, intubated, sedated EYES: normal conjunctivae, no scleral icterus, ENT: external ear and nose normal, NECK: trachea midline, RESPIRATORY: clear to auscultation bilaterally, no crackles, rales or wheezes, normal respiratory effort CARDIOVASCULAR: regular rate and rhythm, S1 and 2 heard without murmurs, gallops or rubs, no JVD, no peripheral edema, CHEST: inspection of chest was normal GASTROINTESTINAL: soft, nontender, ND, no guarding MUSCULOSKELETAL: Generalized weakness SKIN: warm and dry, dark purple chronic coloration to lower extremities. Nails with fungal destruction, toes are red. Extremities are warm and DP pulses are palpable bilaterally. No open wounds noted on feet. NEUROLOGIC: CN 2-12 grossly intact, no sensory deficit, normal cognition, normal speech, PSYCHIATRIC: alert cooperative and answering questions appropriately Results & Data Results & Data ([facility]) Vital Signs (Past 12 Hours) Vital Signs Temp Pulse Resp BP Pulse Ox 05/07/22 17:16 36.6 C 63 16 127/70 92 05/07/22 17:01 36.5 C 62 16 122/60 90 05/07/22 17:00 36.6 C 65 14 93 05/07/22 16:45 36.6 C 62 14 116/73 93 05/07/22 16:30 36.6 C 63 14 112/74 93 05/07/22 16:16 36.6 C 70 16 115/70 91 05/07/22 16:00 36.7 C 91 H 14 117/76 92 05/07/22 15:46 36.6 C 70 16 121/80 05/07/22 15:31 36.7 C 78 16 152/88 H 91 05/07/22 15:22 36.8 C 109 H 16 175/129 H 93 05/07/22 15:01 36.8 C 114 H 16 169/145 H 94 05/07/22 15:00 36.8 C 101 H 16 94 05/07/22 14:23 87 16 94 05/07/22 14:11 94 H 18 152/94 H 05/07/22 14:09 93 H 22 147/102 H 05/07/22 14:01 84 21 93 05/07/22 14:00 74 16 95 05/07/22 13:58 69 16 145/88 H 05/07/22 13:55 75 16 138/97 95 05/07/22 13:53 82 11 L 156/97 H 92 05/07/22 13:51 71 25 H 128/82 90 05/07/22 13:48 72 16 131/77 05/07/22 13:46 69 9 L 125/80 92 05/07/22 13:43 79 7 L 137/81 05/07/22 13:41 86 7 L 154/94 H 92 05/07/22 13:38 84 6 L 148/90 H 92 05/07/22 13:36 93 H 8 L 153/106 H 92 05/07/22 13:33 71 8 L 05/07/22 11:23 77 16 92 05/07/22 11:01 36.8 C 80 22 146/84 H 90 05/07/22 11:00 36.8 C 73 19 91 05/07/22 10:00 36.7 C 76 16 161/81 H 92 05/07/22 09:00 36.8 C 96 H 26 H 183/107 H 93 05/07/22 08:18 61 16 93 05/07/22 08:00 36.8 C 61 16 154/81 H 92 Laboratory Results Short CBC 05/07/22 Range/Units 04:50 WBC 6.66 (4.8-10.8) K/uL Hgb 15.7 (14.0-18.0) g/dL Hct 47.5 (42-52) % Plt Count 136 (130-400) K/uL BMP 05/07/22 04:50 Sodium 144 Potassium 4.5 Chloride 103 Carbon Dioxide 36 H BUN 57 H D Creatinine 0.94 Glucose 141 H Calcium 9.1 Diagnostic Findings Chest X-Ray 05/07/22 07:20 XR chest 1V portable HISTORY: 72 years-old Male follow up rul mass acute respiratory failure COMPARISON: Chest radiograph 05/05/2022, CTA chest 05/02/2022 TECHNIQUE: Portable AP view of the chest FINDINGS: Endotracheal tube overlies the midline, 3.9 cm superior to the peng. The cardiac silhouette is enlarged. Pulmonary vascular congestion. Mildly progressed interstitial coarsening. No pneumothorax or large pleural effusion. Blunting of the costophrenic angles. Mildly progressed bibasilar densities. Large masslike right upper lobe opacity redemonstrated. Enteric tube courses into the stomach. Degenerative changes of the shoulders and spine. IMPRESSION: 1. Lines and tubes as above. 2. Cardiomegaly with suggested pulmonary edema and progressive bibasilar opacities. 3. Right upper lobe masslike opacity is better characterized on the CTA chest study from 05/02/2022. ACT 112: Negative or not required by law. The above report was generated using voice recognition software. It may contain grammatical, syntax or spelling errors. Electronically signed by: Justice Ghosh M.D. 05/07/2022 9:23 AM Chest X-Ray 05/07/22 13:00 FL chest 1V frontal CLINICAL HISTORY: BRONCHOSCOPY COMPARISON STUDY: Chest CT May 02, 2022. Chest radiograph May 07, 2022 at 8:56 AM. FLUOROSCOPY TIME: 1 minute and 31 seconds. FLUOROSCOPIC IMAGES: 2 FINDINGS: Fluoroscopy was provided during bronchoscopy of the right upper lobe mass-like abnormality. IMPRESSION: Fluoroscopy provided during bronchoscopy the right upper lobe mass- like abnormality. ACT 112: Negative or not required by law. Electronically signed by: Rito Chatterjee M.D. 05/07/2022 2:01 PM Chest X-Ray 05/07/22 13:44 XR chest 1V portable CLINICAL HISTORY: RUL bx via bronch COMPARISON STUDY: Chest CT May 02, 2022. Chest radiograph performed earlier today. FINDINGS: Tip of endotracheal tube is 4 cm above the peng. Tip of nasogastric tube is not well visualized but at least within the proximal stomach. There is no pneumothorax. Cardiomegaly is again noted. Right pleural density likely reflects extrapleural fat although a small right pleural effusion could appear similar. Right upper lobe airspace opacity with volume loss has increased. This obscures the known right upper lobe mass-like abnormality. IMPRESSION: 1. Tip of endotracheal tube 4 cm above the peng. 2. Increase in dense right upper lobe airspace opacity with volume loss which obscures the right upper lobe mass-like abnormality. 3. No pneumothorax. ACT 112: Negative or not required by law. Electronically signed by: Rito Chatterjee M.D. 05/07/2022 2:42 PM Medications Administered Current Inpatient Medications Acetaminophen (Acetaminophen 325 Mg Tab) 650 mg PO Q6H PRN PRN Reason: fever, headache, pain Stop: 06/01/22 20:55 Last Admin: 05/03/22 05:23 Dose: 650 mg Documented by: Albuterol (Albut/Ipratrop 3mg/0.5mg Neb 3 Ml Vial) 3 ml NEB Q2H PRN; Protocol PRN Reason: SOB/WHEEZING Stop: 06/01/22 21:05 Last Admin: 05/07/22 03:37 Dose: 3 ml Documented by: Aspirin (Aspirin 81 Mg Chew) 81 mg PO DAILY JULIA Stop: 06/02/22 08:59 Last Admin: 05/07/22 08:32 Dose: 81 mg Documented by: Atorvastatin Calcium (Atorvastatin 40 Mg Tab) 40 mg PO HS JULIA Stop: 06/01/22 20:59 Last Admin: 05/06/22 20:34 Dose: 40 mg Documented by: Budesonide (Budesonide 0.25 Mg/2 Ml Vial (Pulmicort)) 0.25 mg NEB BIDR JULIA Stop: 06/05/22 18:59 Last Admin: 05/07/22 07:26 Dose: 0.25 mg Documented by: Dextrose (Dextrose 50% 50 Ml Syringe) 25 - 50 ml IV UD PRN; Protocol PRN Reason: Hypoglycemia Protocol Stop: 06/01/22 20:55 Fentanyl Citrate (Fentanyl Bolus From Bag) 50 mcg IV Q60M PRN PRN Reason: Pain or Agitation Stop: 05/19/22 18:55 Last Admin: 05/07/22 14:00 Dose: 50 mcg Documented by: Formoterol Fumarate (Formoterol 20 Mcg/2 Ml Vial) 20 mcg INH BIDR JULIA Stop: 06/05/22 18:59 Last Admin: 05/07/22 07:26 Dose: 20 mcg Documented by: Glucagon (Glucagon For Inj 1 Mg Vial) 1 mg SQ UD PRN; Protocol PRN Reason: Hypoglycemia Protocol Stop: 06/01/22 20:55 Glucose (Glucose 10 Tabs/Tube) 4 - 8 tabs PO UD PRN; Protocol PRN Reason: Hypoglycemia Protocol Stop: 06/01/22 20:55 Glucose (Glucose 40% Gel 15 Gm Tube) 15 - 30 gm PO UD PRN; Protocol PRN Reason: Hypoglycemia Protocol Stop: 06/01/22 20:55 Heparin Sodium (Porcine) (Heparin Sod 5,000 Unit/0.5 Ml Vial) 5,000 units SQ Q8 JULIA Stop: 06/01/22 21:59 Last Admin: 05/06/22 16:01 Dose: 5,000 units Documented by: Fentanyl Citrate (Fentanyl Citrate) 2,500 mcg in 250 mls @ 10 mls/hr IV .Q25H [facility]; Protocol Stop: 05/19/22 18:59 Last Titration: 05/07/22 19:18 Dose: 100 mcg/hr, 10 mls/hr Documented by: Midazolam HCl (Versed) 125 mg in 250 mls @ 4 mls/hr IV .[id number] [facility]; Protocol Stop: 06/04/22 19:59 Last Titration: 05/07/22 19:18 Dose: 2 mg/hr, 4 mls/hr Documented by: Pantoprazole Sodium 40 mg/ (Syringe) 10 mls @ 5 mls/min IV DAILY@1100 [facility] Stop: 06/05/22 10:59 Last Admin: 05/07/22 10:29 Dose: 5 mls/min Documented by: Meropenem 500 mg/ Syringe 10 mls @ 2 mls/min IV Q6H [facility]; Protocol Stop: 05/10/22 11:59 Last Admin: 05/07/22 18:15 Dose: 2 mls/min Documented by: Parenteral Electrolytes (Normosol-R) 1,000 mls @ 100 mls/hr IV .Q10H [facility] Stop: 06/06/22 14:44 Last Admin: 05/07/22 15:59 Dose: 100 mls/hr Documented by: Insulin Aspart (Insulin Aspart Per Unit) 0 units SC Q4 [facility] Stop: 06/01/22 20:59 Last Admin: 05/07/22 16:46 Dose: Not Given Documented by: Midazolam HCl (Midazolam Bolus From Bag) 2 mg IV Q60M PRN PRN Reason: Sedation Stop: 06/04/22 19:48 Last Admin: 05/07/22 14:00 Dose: 2 mg Documented by: Miscellaneous (Carbohydrates For Hypoglycemia ) 15 - 30 gm PO UD PRN PRN Reason: Hypoglycemia Protocol Stop: 06/01/22 20:55 Miscellaneous (Icu Electrolyte Replacement Protocol) 1 ea N/A BID@ [facility]; Protocol Stop: 05/13/22 17:59 Last Admin: 05/07/22 18:50 Dose: 1 ea Documented by: Multivitamins/Minerals (Multi Vit W/Minerals Liquid 15 Ml Udp) 15 ml NG QAM [facility] Stop: 06/06/22 08:59 Last Admin: 05/07/22 08:29 Dose: 15 ml Documented by: Nutritional Formula (Peptamen Intense Vhp 1.0 Miguel 1,000 Ml Bag) 1,000 ml OG UD [facility]; Protocol Stop: 06/05/22 14:14 Last Admin: 05/06/22 16:01 Dose: 1,000 ml Documented by: Ondansetron HCl (Ondansetron Inj 2 Mg/Ml 2 Ml Vial) 4 mg IV Q6H PRN PRN Reason: Nausea Stop: 06/01/22 20:55 Prednisone (Prednisone 10 Mg Tablet) 30 mg PO DAILY [facility] Stop: 06/06/22 08:59 Last Admin: 05/07/22 08:29 Dose: 30 mg Documented by: Ropinirole HCl (Ropinirole Hcl 2 Mg Tablet) 4 mg PO BID [facility] Stop: 06/01/22 20:59 Last Admin: 05/06/22 08:50 Dose: 4 mg Documented by: Sterile Water (Tube Feeding Water Flush) 150 ml OG Q4H [facility] Stop: 06/05/22 14:14 Last Admin: 05/07/22 18:16 Dose: 150 ml Documented by: (1) Pneumonia Laterality: right Lung location: upper lobe of lung Pneumonia type: due to unspecified organism Qualified Code(s): J18.9 - Pneumonia, unspecified organism
[2022-05-07] MEDS: ATORVASTATIN 40 MG TAB PO SCH (19:59)
[2022-05-07] MEDS: PEPTAMEN INTENSE VHP 1.0 CAL 1,000 ML BAG OG SCH (19:59)
[2022-05-07] MEDS: MIDAZOLAM HCL 125 MG/250 ML BAG IV SCH (21:45)
[2022-05-08] MEDS: INSULIN ASPART PER UNIT SC SCH ×6 (00:15→20:06)
[2022-05-08] MEDS: NORMOSOL-R 1,000 ML IV SCH ×2 (00:35→11:59)
[2022-05-08] MEDS: TUBE FEEDING WATER FLUSH OG SCH ×6 (03:19→21:38)
[2022-05-08 03:55] LABS: Hematocrit (blood only) 46.8 % (42-52); Hemoglobin 15.2 g/dL (14.0-18.0); Immature Granulocytes # (auto) 0.06 K/uL (0.00-0.02); Immature Granulocytes % (auto) 0.7 %; Lymphocytes # (auto) 0.46 K/uL (1.2-3.4); Lymphocytes % (auto) 5.6 %; Mean Corpuscular Hemoglobin 30.8 pg (25-34); Mean Corpuscular Hgb Conc 32.5 g/dL (32-36); Mean Corpuscular Volume 94.9 fL (80-100); Mean Platelet Volume 10.4 fL (7.4-10.4); Monocytes # (auto) 0.45 K/uL (0.11-0.59); Monocytes % (auto) 5.5 %; Neutrophils % (auto) 88.2 %; Platelet Count 126 K/uL (130-400); RDW Coefficient of Variation 13.6 % (11.5-14.5); RDW Standard Deviation 47.7 fL (36.4-46.3); Red Blood Count 4.93 M/uL (4.7-6.1); White Blood Count 8.17 K/uL (4.8-10.8)
[2022-05-08] MEDS: MEROPENEM 500 MG in SYRINGE 0 ML IV SCH ×4 (04:09→21:37)
[2022-05-08 04:17] LABS: BUN Creatinine Ratio 51.7 (10-20); Calcium 8.7 mg/dl (8.5-10.1); Creatinine Clr Calc Pharmacy 83.5 ml/min; Est GFR (African American) 98.5 ml/min; Magnesium 1.9 mg/dl (1.7-2.4); Phosphorus 4.2 mg/dl (2.5-4.9); Potassium 4.9 mmol/L (3.5-5.1); Troponin I High Sensitivity 35.3 pg/ml (0-20)
[2022-05-08 04:34] LABS: iSTAT Allen Test Pass; iSTAT Art Bld Gas pCO2 Correct 61 mmHg (35-46); iSTAT Art Bld Gas pH Corrected 7.451 (7.35-7.45); iSTAT Arterial Blood Gas HCO3 42 meg/L (19-24); iSTAT Arterial Blood Gas pCO2 60 mmHg (35-46); iSTAT Arterial Blood Gas pH 7.46 (7.35-7.45); iSTAT Arterial Blood Gas pO2 106 mmHg (80-95); iSTAT Arterial Blood Gas pO2 C 109; iSTAT Carbon Dioxide > 40 mmol/L (24-31); iSTAT FiO2 60 %; iSTAT Hematocrit 43 % (42-52); iSTAT Hemoglobin 14.6 g/dl (14.0-18.0); iSTAT Potassium 4.7 mmol/L (3.3-5.0); iSTAT Site L Radial; iSTAT Sodium 142 mmol/L (135-144)
[2022-05-08] MEDS: ICU ELECTROLYTE REPLACEMENT PROTOCOL SCH ×2 (06:59→19:14)
--- NOTE | 2022-05-08 07:38 | XRay Report ---
XR chest 1V portable HISTORY: 72 years-old Male f/u up acute respiratory failure COMPARISON: Chest radiograph 05/07/2022 TECHNIQUE: Portable AP view of the chest FINDINGS: Endotracheal tube overlies the midline, 3.7 cm superior to the peng. Enteric tube distal tip projec ts over the stomach. The patient is side bent which limits the study. Small right greater than left p leural effusions. There is improved aeration of the right upper lung with persistent right upper lung masslike opacity. Right greater left bibasilar densities. No pneumothorax. No acute fracture. IMPRESSION: 1. Lines and tubes as above. 2. Mildly improved aeration of the right upper lung with persistent masslike density. 3. No pneumothorax. ACT 112: Negative or not required by law. The above report was generated using voice recognition software. It may contain grammatical, syntax o r spelling errors. Electronically signed by: Justice Ghosh M.D. 05/08/2022 7:36 AM
[2022-05-08] MEDS: ALBUT/IPRATROP 3MG/0.5MG NEB 3 ML VIAL NEB PRN ×2 (07:39→11:07)
[2022-05-08] MEDS: BUDESONIDE 0.25 MG/2 ML VIAL (PULMICORT) NEB SCH ×2 (07:40→20:12)
[2022-05-08] MEDS: FORMOTEROL 20 MCG/2 ML VIAL INH SCH ×2 (07:40→20:12)
[2022-05-08] MEDS: MAGNESIUM SULFATE / D5W 1 GM/100 ML BAG IV SCH ×2 (08:36→10:51)
[2022-05-08] MEDS: predniSONE 10 MG TABLET PO SCH (08:37)
[2022-05-08] MEDS: MULTI VIT W/MINERALS LIQUID 15 ML UDP NG SCH (08:37)
[2022-05-08] MEDS: ASPIRIN 81 MG CHEW PO SCH (08:37)
--- NOTE | 2022-05-08 10:33 | Critical Care Progress Note ---
Date of Service May 08, 2022 Assessment & Plan (1) COPD with acute exacerbation: (2) Altered mental status: (3) Acute hypercapnic respiratory failure: (4) Chronic steroid use: (5) Consolidation of right upper lobe: (6) Acute systolic CHF (congestive heart failure): Plan: 72-year-old male with a history of COPD presenting to the hospital with altered mental status found to have worsening hypercapnic respiratory failure. Transferred to the ICU 05/05/2022. Neurologic: CTH earlier this admission negative. AMS like from uremic enceph and hypercapnia. Weaning sedation off. Pulmonary: Currently on a spontaneous breathing trial. Await bronc cultures. Right upper lobe consolidation noted possibly representing necrotic pneumonia and/or malignancy. Repeat bronchoscopy performed under fluoroscopy 05/07/2022. Transbronchial biopsies of the right upper lobe mass, microscopy brushings and cytology brushings were performed. Washings of the right upper lobe performed as well. Patient with a history of advanced COPD. Continue budesonide and Brovana nebs. DuoNebs as needed. Prednisone decreased to 30 mg daily. ABG from today reviewed to adjust overcompensation with overventilation. Patient with chronic respiratory acidosis and metabolic alkalosis. Cardiovascular: Maintain mean arterial pressures above 65 millimeters mercury. Patient with asymptomatic sinus bradycardia. Maintain potassium above 4 and magnesium above 2. Hold AV zainab blocking agents. Echo with an EF of 20 to 25. Right ventricle is mildly dilated. Mild aortic valve stenosis. The echo findings are new. Cardiology consult pending. Gastrointestinal: Continue PPI and tube feeds. Renal: BUN and hyperkalemia improved with gentle hydration. Fluids discontinued at this time. Replace electrolytes per protocol. Infectious disease: Continue meropenem. QuantiFERON gold pending. Bronc cultures growing pinpoint growth and reincubating. Await cultures. AFB and fungal culture sent from bronchoscopy as well. Hematologic: Hemoglobin and platelets stable. INR 1.3. Endocrine: Maintain euglycemia. TSH within normal limits CODE STATUS: Full code Disposition: ICU I have personally spent 44 minutes of critical care time in the direct management of this patient. This is a life/limb threatening event. This includes time spent evaluating patient, direct bedside care, chart review, placing orders, interpretation of diagnostic studies, discussion with consultants, p atient, and family members, as well as other required patient management activities. This time is exclusive of all separately billable procedures, and teaching time and separate from and in addition to any other critical care service time. Thank you for allowing us to participate in the care of this patient. Admission and Anticipated Discharge Date Admission Date: May 02, 2022 Subjective Patient seen and examined. Hemodynamically stable. Sedation paused. Patient c urrently on spontaneous breathing trial and doing well. Mentation remains poor. Review of Systems Review of Systems: Unobtainable due to cognitive status and Unobtainable due to endotracheal tube Physical Exam Physical Exam: Constitutional: Intubated and sedated. Eyes: Pupils are equal round and reactive to light. Conjunctivae are normal. Anicteric sclera. Ears nose, mouth and throat: ET tube is in place. Neck: Trachea is midline. Visual inspection is normal. Respiratory: Intubated and sedated. Diminished lung sounds bilaterally. Cardiovascular: Regular rate and rhythm. No murmurs. No edema. Gastrointestinal: Normal bowel sounds, soft, nontender and nondistended. No hepatosplenomegaly noted. Musculoskeletal: No cyanosis. Patient is able to move all extremities. Skin: No rashes, warm dry and intact. Neurologic: Nonfocal. Psychiatric: Unable to assess given that patient is intubated. Results & Data Results & Data ([facility]) Vital Signs (Past 12 Hours) Vital Signs Temp Pulse Pulse Resp BP BP Pulse Ox 05/08/22 09:00 37.4 C 62 16 109/63 94 05/08/22 08:00 37.5 C 58 L 63 16 111/66 92 05/08/22 07:30 57 L 16 95 05/08/22 07:00 37.5 C 57 L 16 103/60 94 05/08/22 06:15 37.5 C 57 L 16 117/61 94 05/08/22 05:00 37.5 C 55 L 18 115/65 94 05/08/22 04:20 16 05/08/22 04:04 37.5 C 58 L 16 111/65 95 05/08/22 03:30 56 L 16 95 05/08/22 03:00 37.5 C 59 L 16 120/64 92 05/08/22 02:00 37.4 C 59 L 16 113/65 95 05/08/22 01:00 37.3 C 60 16 122/65 95 05/08/22 00:00 37.2 C 59 L 16 122/64 95 05/07/22 23:20 59 L 16 94 05/07/22 23:00 37.1 C 60 16 126/67 95 Coding Level of Care Code Critical Care 1st 30-74 mins Diagnoses COPD with acute exacerbation J44.1 Altered mental status R41.82 Acute hypercapnic respiratory failure J96.02 Chronic steroid use Consolidation of right upper lobe J18.1 Acute systolic CHF (congestive heart failure) I50.21 Time Spent (min) 44
--- NOTE | 2022-05-08 10:47 | Cardiology Consultation ---
Date of Consultation May 08, 2022 Assessment & Plan (1) Dilated cardiomyopathy: (2) Left bundle branch block: (3) Acute hypercapnic respiratory failure: (4) Consolidation of right upper lobe: Patient is a critically ill intubated male who was admitted with hypercapnic and hypoxic respiratory failure with new findings of right upper lobe collapse and possible mass. Course of evaluation patient found to have a dilated cardiomyopathy with diffuse LV dysfunction and severe LV impairment EF 5%. EKGs reflect left bundle branch block of uncertain duration raising question of chronicity of LV dysfunction. Troponin pattern does not suggest acute myocardial infarction as etiology. Underlying ischemic heart disease suspected by risk factors but diffuse cardiomyopathy, paraneoplastic or stress mediated cardiomyopathy not excluded Thyroid function is normal Plan: Resting bradycardia precludes the use of beta-elmira. Ultimate goal is to resume KAY inhibitor as blood pressure allows. We will check iron studies, immuno protein electrophoresis. Exam does not reflect significant volume overload. Ins and outs appear well matched. Patient at risk for further congestive heart failure or atrial arrhythmias Would consider findings as a reflection of reduced prognosis History of Present Illness Reason for Consultation: Cardiomyopathy, respiratory failure Requesting Physician: Dr. Rodriguez Attending Physician: Keyanna Rodriguez, DO History of Present Illness Patient is a 72-year-old [facility] inmate currently sedated and intubated after presenting on 05/02/2022 with hypoxic and hypercapnic respiratory failure ultimately requiring intubation. Findings of right upper lobe mass and consolidation on chest x-ray and CT scan. As course of evaluation patient underwent echocardiography which demonstrated dilated cardiomyopathy with global hypokinesis EF 20-25%. Chronicity uncertain. Patient referred for further evaluation. No additional historical information available. EKG since admission left bundle branch block pattern. Troponins with mild elevation but without rise and fall to suggest significant myocardial injury that would account for LV dysfunction Allergies Allergy/AdvReac Type Severity Reaction Status Date / Time Penicillins Allergy Unknown Verified 05/02/22 19:11 Home Medications Medication Instructions Recorded Confirmed Type Normal Saline Flush 0.9% 1,000 ml IV DAILY PRN 05/02/22 05/02/22 History albuterol sulfate 90 mcg/actuation 1 puff INHALATION QID PRN 05/02/22 05/02/22 History aerosol inhaler apremilast 30 mg tablet (Otezla) 30 mg PO BID 05/02/22 05/02/22 History aspirin 81 mg chewable tablet 81 mg PO DAILY 05/02/22 05/02/22 History (Children's Aspirin) atorvastatin 40 mg tablet 40 mg PO HS 05/02/22 05/02/22 History fluticasone 500 mcg-salmeterol 50 1 inh INHALATION BID 05/02/22 05/02/22 History mcg/dose blistr powdr for inhalation (Wixela Inhub) furosemide 20 mg tablet (Lasix) 20 mg PO DAILY 05/02/22 05/02/22 History glipizide 5 mg tablet 5 mg PO BID 05/02/22 05/02/22 History guaifenesin 600 mg tablet, 600 mg PO Q12H 05/02/22 05/02/22 History extended release 12 hr (Mucinex) ipratropium 0.5 mg-albuterol 3 mg 0 ml INHALATION QID 05/02/22 05/02/22 History (2.5 mg base)/3 mL nebulization soln levofloxacin 750 mg tablet 750 mg PO DAILY 05/02/22 05/02/22 History lisinopril 20 mg tablet 20 mg PO DAILY 05/02/22 05/02/22 History metformin 1,000 mg tablet 1,000 mg PO BID 05/02/22 05/02/22 History metoprolol tartrate 25 mg tablet 25 mg PO BID 05/02/22 05/02/22 History prednisolone 5 mg tablet 15 mg PO DAILY 05/02/22 05/02/22 History (Millipred) ropinirole 2 mg tablet 4 mg PO BID 05/02/22 05/02/22 History simethicone 125 mg chewable tablet 125 mg PO QID PRN 05/02/22 05/02/22 History (Gas-X Extra Strength) Patient History Medical History Acute hypercapnic respiratory failure Acute systolic CHF (congestive heart failure) Allergic rhinitis Altered mental status Atherosclerosis Chronic obstructive pulmonary disease Consolidation of right upper lobe COPD with acute exacerbation DMII (diabetes mellitus, type 2) Dry mouth Dyspnea on exertion History of tobacco abuse HTN (hypertension) Hyperkalemia Mass of upper lobe of right lung Neuropathy Obesity Obstructive sleep apnea Osteoarthrosis Psoriasis RLS (restless legs syndrome) Weakness generalized Surgical History No history of previous surgery Family History Mother Lung cancer Father CHF (congestive heart failure) Social History Smoking Status: Former smoker Years Smoked: 30; Number of Years Since Quit: 20; Second Hand Exposure: No; Do You Dip or Chew Tobacco: No; Tobacco Cessation Education Requested by Patient: No Hx Alcohol Use: No Hx Substance Use: No Preferred Language: [place] [employer] Required: No Beliefs That Will Affect Care: None Current Living Situation: Other Current Living Situation Comment: [facility] Other Information That Helps Us Care for You: No Feels Safe at Home: Yes Assistive Devices: Wheelchair Review of Systems Review of Systems: Unobtainable due to endotracheal tube Physical Exam Constitutional: + mechanically ventilated Neck: trachea midline, no thyromegaly Respiratory: Auscultation: + diminished lung sounds and + crackles Cardiovascular: Rate/Rhythm: regular rate and regular rhythm Heart Sounds: no murmur Vessels: no JVD Extremities: + edema (Mild upper extremity edema) Chest (Breasts): normal inspection/palpation of breasts Gastrointestinal (Abdomen): Percussion/Palpation: abdomen soft Results & Data ([facility]) Vital Signs (Past 12 Hours) Vital Signs Temp Pulse Pulse Resp BP BP Pulse Ox 05/08/22 10:17 57 L 16 95 05/08/22 09:00 37.4 C 62 16 109/63 94 05/08/22 08:00 37.5 C 58 L 63 16 111/66 92 05/08/22 07:30 57 L 16 95 05/08/22 07:00 37.5 C 57 L 16 103/60 94 05/08/22 06:15 37.5 C 57 L 16 117/61 94 05/08/22 05:00 37.5 C 55 L 18 115/65 94 05/08/22 04:20 16 05/08/22 04:04 37.5 C 58 L 16 111/65 95 05/08/22 03:30 56 L 16 95 05/08/22 03:00 37.5 C 59 L 16 120/64 92 05/08/22 02:00 37.4 C 59 L 16 113/65 95 05/08/22 01:00 37.3 C 60 16 122/65 95 05/08/22 00:00 37.2 C 59 L 16 122/64 95 05/07/22 23:20 59 L 16 94 05/07/22 23:00 37.1 C 60 16 126/67 95 Laboratory Results Laboratory Results - last 24 hr 05/07/22 05/07/22 05/07/22 12:56 14:00 14:00 WBC RBC Hgb POC Hgb Hct POC Hct MCV MCH MCHC RDW Std Deviation RDW Coeff of Cedric Plt Count MPV Immature Gran % (Auto) Neut % (Auto) Lymph % (Auto) Chaves % (Auto) Eos % (Auto) Baso % (Auto) Neut # (Auto) Lymph # (Auto) Chaves # (Auto) Eos # (Auto) Baso # (Auto) Immature Gran # (Auto) Sample Site POC pH POC pCO2 POC pO2 POC HCO3 POC Total CO2 POC Base Excess ABG pH (Temp Correct) ABG pCO2 (Temp Corrct POC ABG pO2 at Pt Temp POC ABG O2 Sat Chetan Test O2 Delivery Device POC O2 Rate Minute Ventilation POC FiO2 Tidal Volume PEEP POC Sodium Sodium POC Potassium Potassium Chloride Carbon Dioxide Anion Gap BUN Creatinine Est Cr Clr Drug Dosing Est GFR ( Amer) Est GFR (Non-Af Amer) BUN/Creatinine Ratio Glucose POC Glucose 115 H Calcium Phosphorus Magnesium Troponin I High Sens Fluid Neutrophils % 27 Fluid Lymphocytes % 2 Fluid Eosinophils % 1 Fluid Basophils % 1 Fl Monocyt/Macrophag % 69 Fluid Comment Legionella Source Pending Legionella Culture Pending 05/07/22 05/07/22 05/07/22 15:03 15:44 20:02 WBC RBC Hgb POC Hgb Hct POC Hct MCV MCH MCHC RDW Std Deviation RDW Coeff of Cedric Plt Count MPV Immature Gran % (Auto) Neut % (Auto) Lymph % (Auto) Chaves % (Auto) Eos % (Auto) Baso % (Auto) Neut # (Auto) Lymph # (Auto) Chaves # (Auto) Eos # (Auto) Baso # (Auto) Immature Gran # (Auto) Sample Site POC pH POC pCO2 POC pO2 POC HCO3 POC Total CO2 POC Base Excess ABG pH (Temp Correct) ABG pCO2 (Temp Corrct POC ABG pO2 at Pt Temp POC ABG O2 Sat Chetan Test O2 Delivery Device POC O2 Rate Minute Ventilation POC FiO2 Tidal Volume PEEP POC Sodium Sodium POC Potassium Potassium Chloride Carbon Dioxide Anion Gap BUN Creatinine Est Cr Clr Drug Dosing Est GFR ( Amer) Est GFR (Non-Af Amer) BUN/Creatinine Ratio Glucose POC Glucose 124 H 160 H Calcium Phosphorus Magnesium Troponin I High Sens 44.6 H D Fluid Neutrophils % Fluid Lymphocytes % Fluid Eosinophils % Fluid Basophils % Fl Monocyt/Macrophag % Fluid Comment Legionella Source Legionella Culture 05/07/22 05/08/22 05/08/22 21:26 00:08 03:22 WBC RBC Hgb POC Hgb Hct POC Hct MCV MCH MCHC RDW Std Deviation RDW Coeff of Cedric Plt Count MPV Immature Gran % (Auto) Neut % (Auto) Lymph % (Auto) Chaves % (Auto) Eos % (Auto) Baso % (Auto) Neut # (Auto) Lymph # (Auto) Chaves # (Auto) Eos # (Auto) Baso # (Auto) Immature Gran # (Auto) Sample Site POC pH POC pCO2 POC pO2 POC HCO3 POC Total CO2 POC Base Excess ABG pH (Temp Correct) ABG pCO2 (Temp Corrct POC ABG pO2 at Pt Temp POC ABG O2 Sat Chetan Test O2 Delivery Device POC O2 Rate Minute Ventilation POC FiO2 Tidal Volume PEEP POC Sodium Sodium 145 POC Potassium Potassium 4.9 Chloride 104 Carbon Dioxide 38 H Anion Gap 3 BUN 45 H Creatinine 0.87 Est Cr Clr Drug Dosing 83.5 Est GFR ( Amer) 98.5 Est GFR (Non-Af Amer) 85.0 BUN/Creatinine Ratio 51.7 H Glucose 170 H POC Glucose 179 H Calcium 8.7 Phosphorus 4.2 Magnesium 1.9 Troponin I High Sens 42.2 H 35.3 H Fluid Neutrophils % Fluid Lymphocytes % Fluid Eosinophils % Fluid Basophils % Fl Monocyt/Macrophag % Fluid Comment Legionella Source Legionella Culture 05/08/22 05/08/22 05/08/22 03:22 04:13 04:19 WBC 8.17 RBC 4.93 Hgb 15.2 POC Hgb 14.6 Hct 46.8 POC Hct 43 MCV 94.9 MCH 30.8 MCHC 32.5 RDW Std Deviation 47.7 H RDW Coeff of Cedric 13.6 Plt Count 126 L MPV 10.4 Immature Gran % (Auto) 0.7 Neut % (Auto) 88.2 Lymph % (Auto) 5.6 Chaves % (Auto) 5.5 Eos % (Auto) 0.0 Baso % (Auto) 0.0 Neut # (Auto) 7.20 H Lymph # (Auto) 0.46 L Chaves # (Auto) 0.45 Eos # (Auto) 0.00 Baso # (Auto) 0.00 Immature Gran # (Auto) 0.06 H Sample Site L Radial POC pH 7.46 H POC pCO2 60 H POC pO2 106 H POC HCO3 42 H POC Total CO2 > 40 H* POC Base Excess 18.0 H ABG pH (Temp Correct) 7.451 H ABG pCO2 (Temp Corrct 61 H POC ABG pO2 at Pt Temp 109 POC ABG O2 Sat 98.0 H Chetan Test Pass O2 Delivery Device Ventilator POC O2 Rate 16 Minute Ventilation 6.4 POC FiO2 60 Tidal Volume 400 PEEP 5 POC Sodium 142 Sodium POC Potassium 4.7 Potassium Chloride Carbon Dioxide Anion Gap BUN Creatinine Est Cr Clr Drug Dosing Est GFR ( Amer) Est GFR (Non-Af Amer) BUN/Creatinine Ratio Glucose POC Glucose 151 H Calcium Phosphorus Magnesium Troponin I High Sens Fluid Neutrophils % Fluid Lymphocytes % Fluid Eosinophils % Fluid Basophils % Fl Monocyt/Macrophag % Fluid Comment Legionella Source Legionella Culture 05/08/22 08:43 WBC RBC Hgb POC Hgb Hct POC Hct MCV MCH MCHC RDW Std Deviation RDW Coeff of Cedric Plt Count MPV Immature Gran % (Auto) Neut % (Auto) Lymph % (Auto) Chaves % (Auto) Eos % (Auto) Baso % (Auto) Neut # (Auto) Lymph # (Auto) Chaves # (Auto) Eos # (Auto) Baso # (Auto) Immature Gran # (Auto) Sample Site POC pH POC pCO2 POC pO2 POC HCO3 POC Total CO2 POC Base Excess ABG pH (Temp Correct) ABG pCO2 (Temp Corrct POC ABG pO2 at Pt Temp POC ABG O2 Sat Chetan Test O2 Delivery Device POC O2 Rate Minute Ventilation POC FiO2 Tidal Volume PEEP POC Sodium Sodium POC Potassium Potassium Chloride Carbon Dioxide Anion Gap BUN Creatinine Est Cr Clr Drug Dosing Est GFR ( Amer) Est GFR (Non-Af Amer) BUN/Creatinine Ratio Glucose POC Glucose 129 H Calcium Phosphorus Magnesium Troponin I High Sens Fluid Neutrophils % Fluid Lymphocytes % Fluid Eosinophils % Fluid Basophils % Fl Monocyt/Macrophag % Fluid Comment Legionella Source Legionella Culture
[2022-05-08] MEDS: PANTOprazole 40 MG in SYRINGE 0 ML IV SCH (10:51)
[2022-05-08] MEDS: fentaNYL citrate 2,500 MCG/250 ML BAG IV SCH (19:28)
[2022-05-08] MEDS: ATORVASTATIN 40 MG TAB PO SCH (20:03)
[2022-05-08] MEDS ORDERED: MIDAZOLAM HCL 1 MG/ML 2ML VIAL IV PRN (21:23)
[2022-05-08] MEDS ORDERED: fentaNYL citrate 100 MCG/2 ML VIAL IV PRN (21:23)
[2022-05-08] MEDS: HEPARIN SOD 5,000 UNIT/0.5 ML VIAL SQ SCH (22:13)
--- NOTE | 2022-05-08 22:47 | Hospitalist Progress Note ---
Date of Service May 08, 2022 Assessment & Plan (1) Acute respiratory failure: Plan: Likely related to right hilar mass that is necrotic with post-obstructive collapse in setting of possible COPD exacerbation. Cont merrem. Recent [facility] results are pending. (2) Acute exacerbation of chronic obstructive pulmonary disease: Plan: Continue prednisone, duo nebs, antibiotics. No wheezing. Budesonide NEBS added BID, Formoterol Fumarate INH added BID. (3) Mass of upper lobe of right lung: Plan: With necrosis-high possibility for malignancy. Awaiting bronch results for definitive diagnosis. Initial results were unrevealing, however, samples were taken urgently and then may have been inadequate. Cont Merrem for coverage of l verito abscess. (4) Pneumonia: Plan: possible but thought to be more consistent with R hilar mass as above. Cont meropenem. Noted elevated procalcitonin and critical appearance on admission, now improved. Pulm/ICU following. (5) HOMA (acute kidney injury): Plan: 2/2 dehydration vs ATN in setting of hypotension. Resolved. (6) Hypotension: Plan: Pressor support as needed. (7) Hypoglycemia: Plan: resolved, 37 on arrival. Glipizide use (and otezla) in context of poor PO intake. Hold oral meds. Became hyperglycemic with steroids and patient eating, added glargine. Now in ICU and intubated/sedated. Cont basal bolus insulin and adjust as needed. Per ICU protocol. (8) Hyperkalemia: Plan: Resolved, was likely 2/2 respiratory acidosis which is now resolved. Cont to monitor. (9) Chronic steroid use: Plan: chronically placed on steroids by the [facility] several years ago. Has been taking recently. Cont prednisone taper-per pulmonology. (10) DVT prophylaxis: Plan: Heparin Full Code Dispo-ICU, pending bronch results and clinical recovery, failed SBT this am. Incarcerated. Keyanna Rodriguez DO [facility] Hospitalist Admission and Anticipated Discharge Date Admission Date: May 02, 2022 Subjective 72-year-old man admitted for acute respiratory failure Intubated and sedated, failed SBT this am. Review of Systems Review of Systems: Unobtainable due to cognitive status and Unobtainable due to endotracheal tube Physical Exam Physical Exam: CONSTITUTIONAL: obese, vitals as above, intubated, sedated EYES: normal conjunctivae, no scleral icterus, ENT: external ear and nose normal, NECK: trachea midline, RESPIRATORY: clear to auscultation bilaterally, no crackles, rales or wheezes, normal respiratory effort CARDIOVASCULAR: regular rate and rhythm, S1 and 2 heard without murmurs, gallops or rubs, no JVD, no peripheral edema, CHEST: inspection of chest was normal GASTROINTESTINAL: soft, nontender, ND, no guarding MUSCULOSKELETAL: Generalized weakness SKIN: warm and dry, dark purple chronic coloration to lower extremities. Nails with fungal destruction, toes are red. Extremities are warm and DP pulses are palpable bilaterally. No open wounds noted on feet. NEUROLOGIC: CN 2-12 grossly intact, no sensory deficit, normal cognition, normal speech, PSYCHIATRIC: alert cooperative and answering questions appropriately Results & Data Results & Data ([facility] [place]) Vital Signs (Past 12 Hours) Vital Signs Temp Pulse Pulse Resp BP Pulse Ox 05/08/22 22:00 37.7 C H 62 16 120/64 92 05/08/22 21:00 37.7 C H 59 L 16 124/63 92 05/08/22 20:12 64 94 05/08/22 20:04 64 16 94 05/08/22 20:00 37.7 C H 73 18 139/79 93 05/08/22 19:00 37.6 C H 61 16 117/61 93 05/08/22 18:00 37.5 C 70 16 145/81 H 94 05/08/22 17:00 37.5 C 73 16 136/86 93 05/08/22 16:00 37.5 C 62 16 127/68 93 05/08/22 15:10 64 16 93 05/08/22 15:00 37.4 C 61 14 125/70 92 05/08/22 14:00 37.4 C 67 14 140/72 92 05/08/22 13:00 37.3 C 81 14 155/91 H 93 05/08/22 12:00 37.4 C 61 16 127/69 93 05/08/22 11:17 65 16 93 05/08/22 11:08 65 16 93 05/08/22 11:00 37.4 C 63 16 144/75 H 93 Laboratory Results Short CBC 05/08/22 Range/Units 03:22 WBC 8.17 (4.8-10.8) K/uL Hgb 15.2 (14.0-18.0) g/dL Hct 46.8 (42-52) % Plt Count 126 L (130-400) K/uL [facility] 05/08/22 03:22 Sodium 145 Potassium 4.9 Chloride 104 Carbon Dioxide 38 H BUN 45 H Creatinine 0.87 Glucose 170 H Calcium 8.7 Medications Administered Current Inpatient Medications Acetaminophen (Acetaminophen 325 Mg Tab) 650 mg PO Q6H PRN PRN Reason: fever, headache, pain Stop: 06/01/22 20:55 Last Admin: 05/03/22 05:23 Dose: 650 mg Documented by: Albuterol (Albut/Ipratrop 3mg/0.5mg Neb 3 Ml Vial) 3 ml NEB Q2H PRN; Protocol PRN Reason: SOB/WHEEZING Stop: 06/01/22 21:05 Last Admin: 05/08/22 11:07 Dose: 3 ml Documented by: Aspirin (Aspirin 81 Mg Chew) 81 mg PO DAILY JULIA Stop: 06/02/22 08:59 Last Admin: 05/08/22 08:37 Dose: 81 mg Documented by: Atorvastatin Calcium (Atorvastatin 40 Mg Tab) 40 mg PO HS [facility] Stop: 06/01/22 20:59 Last Admin: 05/08/22 20:03 Dose: 40 mg Documented by: Budesonide (Budesonide 0.25 Mg/2 Ml Vial (Pulmicort)) 0.25 mg NEB BIDR JULIA Stop: 06/05/22 18:59 Last Admin: 05/08/22 20:12 Dose: 0.25 mg Documented by: Dextrose (Dextrose 50% 50 Ml Syringe) 25 - 50 ml IV UD PRN; Protocol PRN Reason: Hypoglycemia Protocol Stop: 06/01/22 20:55 Fentanyl Citrate (Fentanyl Citrate 100 Mcg/2 Ml Vial) 50 mcg IV Q2H PRN PRN Reason: Moderate Pain (4,5,6) on NRS Stop: 05/22/22 21:22 Formoterol Fumarate (Formoterol 20 Mcg/2 Ml Vial) 20 mcg INH BIDR JULIA Stop: 06/05/22 18:59 Last Admin: 05/08/22 20:12 Dose: 20 mcg Documented by: Glucagon (Glucagon For Inj 1 Mg Vial) 1 mg SQ UD PRN; Protocol PRN Reason: Hypoglycemia Protocol Stop: 06/01/22 20:55 Glucose (Glucose 10 Tabs/Tube) 4 - 8 tabs PO UD PRN; Protocol PRN Reason: Hypoglycemia Protocol Stop: 06/01/22 20:55 Glucose (Glucose 40% Gel 15 Gm Tube) 15 - 30 gm PO UD PRN; Protocol PRN Reason: Hypoglycemia Protocol Stop: 06/01/22 20:55 Heparin Sodium (Porcine) (Heparin Sod 5,000 Unit/0.5 Ml Vial) 5,000 units SQ Q8 JULIA Stop: 06/01/22 21:59 Last Admin: 05/08/22 22:13 Dose: 5,000 units Documented by: Pantoprazole Sodium 40 mg/ (Syringe) 10 mls @ 5 mls/min IV DAILY@1100 JULIA Stop: 06/05/22 10:59 Last Admin: 05/08/22 10:51 Dose: 5 mls/min Documented by: Meropenem 500 mg/ Syringe 10 mls @ 2 mls/min IV Q6H JULIA; Protocol Stop: 05/10/22 11:59 Last Admin: 05/08/22 21:37 Dose: 2 mls/min Documented by: Insulin Aspart (Insulin Aspart Per Unit) 0 units SC Q4 JULIA Stop: 06/01/22 20:59 Last Admin: 05/08/22 20:06 Dose: 3 units Documented by: Midazolam HCl (Midazolam Hcl 1 Mg/Ml 2ml Vial) 2 mg IV Q2H PRN PRN Reason: RASS goal -1 Stop: 06/07/22 21:22 Miscellaneous (Carbohydrates For Hypoglycemia ) 15 - 30 gm PO UD PRN PRN Reason: Hypoglycemia Protocol Stop: 06/01/22 20:55 Miscellaneous (Icu Electrolyte Replacement Protocol) 1 ea N/A BID@ [facility]; Pr otocol Stop: 05/13/22 17:59 Last Admin: 05/08/22 19:14 Dose: 1 ea Documented by: Multivitamins/Minerals (Multi Vit W/Minerals Liquid 15 Ml Udp) 15 ml NG QAM JULIA Stop: 06/06/22 08:59 Last Admin: 05/08/22 08:37 Dose: 15 ml Documented by: Nutritional Formula (Peptamen Intense Vhp 1.0 Miguel 1,000 Ml Bag) 1,000 ml OG UD JULIA; Protocol Stop: 06/05/22 14:14 Last Admin: 05/07/22 19:59 Dose: 1,000 ml Documented by: Ondansetron HCl (Ondansetron Inj 2 Mg/Ml 2 Ml Vial) 4 mg IV Q6H PRN PRN Reason: Nausea Stop: 06/01/22 20:55 Prednisone (Prednisone 10 Mg Tablet) 30 mg PO DAILY JULIA Stop: 06/06/22 08:59 Last Admin: 05/08/22 08:37 Dose: 30 mg Documented by: Ropinirole HCl (Ropinirole Hcl 2 Mg Tablet) 4 mg PO BID JULIA Stop: 06/01/22 20:59 Last Admin: 05/06/22 08:50 Dose: 4 mg Documented by: Sterile Water (Tube Feeding Water Flush) 150 ml OG Q4H JULIA Stop: 06/05/22 14:14 Last Admin: 05/08/22 21:38 Dose: 150 ml Documented by: (1) Pneumonia Laterality: right Lung location: upper lobe of lung Pneumonia type: due to unspecified organism Qualified Code(s): J18.9 - Pneumonia, unspecified organism
[2022-05-09] MEDS: INSULIN ASPART PER UNIT SC SCH ×6 (00:08→20:15)
[2022-05-09] MEDS: ACETAMINOPHEN 325 MG TAB PO PRN (01:32)
[2022-05-09] MEDS: TUBE FEEDING WATER FLUSH OG SCH ×4 (02:31→14:28)
[2022-05-09] MEDS: MEROPENEM 500 MG in SYRINGE 0 ML IV SCH ×4 (03:59→20:16)
[2022-05-09 04:57] LABS: Appearance Urine Turbid (Clear); Bacteria Urine Automated Negative (Negative); Bilirubin Urine Negative (Negative); Blood Urine 3+ (Negative); Color Urine Orange; Glucose Urine UA Negative (Negative); Ketones Urine Negative (Negative); Leukocyte Esterase Urine 2+ (Negative); Nitrite Urine Negative (Negative); Protein Urine 1+ (Negative); Specific Gravity Urine 1.021 (1.000-1.030); Urobilinogen Urine Negative (Negative); WBC Urine Automated >30 /hpf (0-5); pH Urine 5.5 (4.5-7.5)
[2022-05-09 05:19] LABS: Mucus Urine Present (None Prsent)
[2022-05-09 05:20] LABS: Uric Acid Crystals Urine Present (None Prsent)
[2022-05-09 05:26] LABS: Cast Urine Automated 0 /lpf (0-5)
[2022-05-09 05:54] LABS: Eosinophils # (auto) 0.07 K/uL (0-0.5); Eosinophils % (auto) 0.5 %; Hematocrit (blood only) 48.7 % (42-52); Hemoglobin 15.8 g/dL (14.0-18.0); Immature Granulocytes # (auto) 0.09 K/uL (0.00-0.02); Immature Granulocytes % (auto) 0.6 %; Lymphocytes # (auto) 1.11 K/uL (1.2-3.4); Mean Corpuscular Hemoglobin 31.2 pg (25-34); Mean Corpuscular Hgb Conc 32.4 g/dL (32-36); Mean Corpuscular Volume 96.1 fL (80-100); Mean Platelet Volume 10.5 fL (7.4-10.4); Monocytes # (auto) 0.82 K/uL (0.11-0.59); Monocytes % (auto) 5.9 %; Neutrophils # (auto) 11.87 K/uL (1.4-6.5); Platelet Count 119 K/uL (130-400); RDW Coefficient of Variation 13.7 % (11.5-14.5); RDW Standard Deviation 48.5 fL (36.4-46.3); Red Blood Count 5.07 M/uL (4.7-6.1); White Blood Count 13.96 K/uL (4.8-10.8)
[2022-05-09] MEDS: HEPARIN SOD 5,000 UNIT/0.5 ML VIAL SQ SCH ×3 (06:08→21:03)
[2022-05-09 06:16] LABS: iSTAT Allen Test Pass; iSTAT Art Bld Gas pCO2 Correct 68 mmHg (35-46); iSTAT Arterial Blood Gas HCO3 43 meg/L (19-24); iSTAT Arterial Blood Gas pCO2 66 mmHg (35-46); iSTAT Arterial Blood Gas pH 7.42 (7.35-7.45); iSTAT Arterial Blood Gas pO2 88 mmHg (80-95); iSTAT Arterial Blood Gas pO2 C 93; iSTAT Carbon Dioxide > 40 mmol/L (24-31); iSTAT FiO2 45 %; iSTAT Hematocrit 46 % (42-52); iSTAT Hemoglobin 15.6 g/dl (14.0-18.0); iSTAT Potassium 4.8 mmol/L (3.3-5.0); iSTAT Site L Radial; iSTAT Sodium 141 mmol/L (135-144)
[2022-05-09] MEDS: ICU ELECTROLYTE REPLACEMENT PROTOCOL SCH ×3 (06:39→17:55)
[2022-05-09 07:51] LABS: BUN Creatinine Ratio 53.1 (10-20); Calcium 8.9 mg/dl (8.5-10.1); Creatinine Clr Calc Pharmacy 89.2 ml/min; Est GFR (African American) 101.5 ml/min; Est GFR (Non-African American) 87.6 ml/min; Magnesium 1.8 mg/dl (1.7-2.4); Phosphorus 2.8 mg/dl (2.5-4.9); Potassium 4.8 mmol/L (3.5-5.1)
[2022-05-09] MEDS: FORMOTEROL 20 MCG/2 ML VIAL INH SCH ×2 (07:51→19:43)
[2022-05-09] MEDS: BUDESONIDE 0.25 MG/2 ML VIAL (PULMICORT) NEB SCH ×2 (07:52→19:43)
[2022-05-09 08:08] LABS: Ferritin 593.1 ng/ml (8-388)
--- NOTE | 2022-05-09 08:46 | Critical Care Progress Note ---
Date of Service May 09, 2022 Assessment & Plan (1) COPD with acute exacerbation: (2) Altered mental status: (3) Acute hypercapnic respiratory failure: (4) Chronic steroid use: (5) Consolidation of right upper lobe: (6) Acute systolic CHF (congestive heart failure): Plan: 72-year-old male with a history of COPD presenting to the hospital with altered mental status found to have worsening hypercapnic respiratory failure. Transferred to the ICU 05/05/2022. Neurologic: CTH earlier this admission negative. Patient extubated and following commands. Pulmonary: [facility] cultures. Right upper lobe consolidation noted possibly representing necrotic pneumonia and/or malignancy. Repeat bronchoscopy performed under fluoroscopy 05/07/2022. Transbronchial biopsies of the right upper lobe mass, microscopy brushings and cytology brushings were performed. Wa shings of the right upper lobe performed as well. Patient with a history of advanced COPD. Continue budesonide and Brovana nebs. DuoNebs as needed. Prednisone decreased to 20 mg daily. Continue BiPAP. Cardiovascular: Maintain mean arterial pressures above 65 millimeters mercury. Patient with asymptomatic sinus bradycardia which appears improved.. Maintain potassium above 4 and magnesium above 2. Echo with an EF of 20 to 25. Right ventricle is mildly dilated. Mild aortic valve stenosis. The echo findings are new. Appreciate cardiology input and work-up. We will consider restarting metoprolol later today or tomorrow. Gastrointestinal: Continue PPI and tube feeds. Renal: BUN and hyperkalemia improved with gentle hydration. Fluids discontinued at this time. Replace electrolytes per protocol. We will give 2 doses of acetazolamide given the metabolic alkalosis. Infectious disease: Continue meropenem. QuantiFERON gold pending. Bron cultures growing pinpoint growth and reincubating. Await cultures. AFB and fungal culture sent from bronchoscopy as well. Hematologic: Hemoglobin and platelets stable. INR 1.3. Endocrine: Maintain euglycemia. TSH within normal limits CODE STATUS: Full code Disposition: May be stable for downgrade later today he remained stable on BiPAP. I have personally spent 37 minutes of critical care time in the direct management of this patient. This is a life/limb threatening event. This includes time spent evaluating patient, direct bedside care, chart review, placing orders, interpretation of diagnostic studies, discussion with consultants, patient, and family members, as well as other required patient management activities. This time is exclusive of all separately billable procedures, and teaching time and separate from and in addition to any other critical care service time. Thank you for allowing us to participate in the care of this patient. Admission and Anticipated Discharge Date Admission Date: May 02, 2022 Subjective Patient seen and examined. Following commands on spontaneous breathing trial. He was extubated to BiPAP and is currently doing well. Review of Systems Review of Systems: All systems reviewed & are unremarkable except as noted in HPI & below Physical Exam Physical Exam: Constitutional: Currently on BiPAP and following commands. Eyes: Pupils are equal round and reactive to light. Conjunctivae are normal. Anicteric sclera. Ears nose, mouth and throat: BiPAP mask in place. Neck: Trachea is midline. Visual inspection is normal. Respiratory: Intubated and sedated. Diminished lung sounds bilaterally. Cardiovascular: Regular rate and rhythm. No murmurs. No edema. Gastrointestinal: Normal bowel sounds, soft, nontender and nondistended. No hepatosplenomegaly noted. Musculoskeletal: No cyanosis. Patient is able to move all extremities. Skin: No rashes, warm dry and intact. Neurologic: Nonfocal. Psychiatric: Mildly anxious. Alert. Results & Data Results & Data ([facility]) Vital Signs (Past 12 Hours) Vital Signs Temp Pulse Resp BP Pulse Ox 05/09/22 06:00 37.8 C H 68 16 123/67 93 05/09/22 05:00 37.9 C H 63 16 127/67 91 05/09/22 04:37 60 16 94 05/09/22 04:00 37.9 C H 63 16 116/61 95 05/09/22 03:00 38.0 C H 70 16 140/73 91 05/09/22 02:00 38.0 C H 63 16 131/65 92 05/09/22 01:30 38.0 C H 74 14 94 05/09/22 01:00 37.9 C H 66 14 135/57 L 91 05/09/22 00:30 37.9 C H 68 14 94 05/09/22 00:00 37.8 C H 86 16 151/80 H 92 05/08/22 23:24 63 16 93 05/08/22 23:00 37.9 C H 62 16 136/67 91 05/08/22 22:00 37.7 C H 62 16 120/64 92 05/08/22 21:00 37.7 C H 59 L 16 124/63 92 Coding Level of Care Code Critical Care 1st 30-74 mins Diagnoses COPD with acute exacerbation J44.1 Altered mental status R41.82 Acute hypercapnic respiratory failure J96.02 Chronic steroid use Consolidation of right upper lobe J18.1 Acute systolic CHF (congestive heart failure) I50.21 Time Spent (min) 37
[2022-05-09] MEDS ORDERED: acetaZOLAMIDE 250 MG TAB PO SCH (09:00)
[2022-05-09] MEDS: acetaZOLAMIDE 250 MG in DEXTROSE 5% 100 ML IV SCH ×2 (10:02→20:15)
--- NOTE | 2022-05-09 10:56 | Cardiology Progress Note ---
Date of Service May 09, 2022 Assessment & Plan (1) Dilated cardiomyopathy: (2) Left bundle branch block: (3) Acute hypercapnic respiratory failure: (4) Consolidation of right upper lobe: Plan: Patient is a critically ill intubated male who was admitted with hypercapnic and hypoxic respiratory failure with new findings of right upper lobe collapse and possible mass. Course of evaluation patient found to have a dilated cardiomyopathy with diffuse LV dysfunction and severe LV impairment EF 5%. EKGs reflect left bundle branch block of uncertain duration raising question of chronicity of LV dysfunction. Troponin pattern does not suggest acute myocardial infarction as etiology. Underlying ischemic heart disease suspected by risk factors but diffuse cardiomyopathy, paraneoplastic or stress mediated cardiomyopathy not excluded Thyroid function is normal Plan: Resting bradycardia precludes the use of beta-elmira. Ultimate goal is to resume KAY inhibitor as blood pressure allows. We will check iron studies, immuno protein electrophoresis. Exam does not reflect significant volume overload. Ins and outs appear well matched. Patient at risk for further congestive heart failure or atrial arrhythmias Would consider findings as a reflection of reduced prognosis 05/10/2022. Patient extubated on BiPAP currently. Diagnosis of newly observed dilated cardiomyopathy, left bundle branch block in addition to acute pulmonary issues. Heart rates have increased ultimate goal would be to add low-dose heart failure indicated beta-elmira i.e. Toprol 12.5 mg daily and KAY or ARB as blood pressure and renal function allows. Currently without findings of acute congestive heart failure Admission and Anticipated Discharge Date Admission Date: May 02, 2022 Subjective Patient seen and examined, chart, medications, telemetry reviewed. Patient extubated earlier today. Heart rates now climbing but no cardiac complaints with patient remaining confused Review of Systems Review of Systems: All systems reviewed & are unremarkable except as noted in Subjective Physical Exam Constitutional: + ill appearing; no acute distress Eyes: PERRL, conjunctivae normal, anicteric sclerae Neck: trachea midline, no thyromegaly Respiratory: Auscultation: + diminished lung sounds and + crackles Cardiovascular: Rate/Rhythm: regular rate and regular rhythm Heart Sounds: no murmur Vessels: no JVD Extremities: + edema (Mild upper extremity edema) Chest (Breasts): normal inspection/palpation of breasts Gastrointestinal (Abdomen): Percussion/Palpation: abdomen soft [facility] Vital Signs (Past 12 Hours) Vital Signs Temp Pulse Resp BP Pulse Ox 05/09/22 09:00 37.3 C 109 H 23 132/89 91 05/09/22 08:00 37.8 C H 104 H 19 134/86 90 05/09/22 07:45 117 H 16 92 05/09/22 07:15 78 16 93 05/09/22 07:00 37.8 C H 79 14 148/77 H 90 05/09/22 06:00 37.8 C H 68 16 123/67 93 05/09/22 05:00 37.9 C H 63 16 127/67 91 05/09/22 04:37 60 16 94 05/09/22 04:00 37.9 C H 63 16 116/61 95 05/09/22 03:00 38.0 C H 70 16 140/73 91 05/09/22 02:00 38.0 C H 63 16 131/65 92 05/09/22 01:30 38.0 C H 74 14 94 05/09/22 01:00 37.9 C H 66 14 135/57 L 91 05/09/22 00:30 37.9 C H 68 14 94 05/09/22 00:00 37.8 C H 86 16 151/80 H 92 05/08/22 23:24 63 16 93 05/08/22 23:00 37.9 C H 62 16 136/67 91 Laboratory Results Laboratory Results - last 24 hr 05/08/22 05/08/22 05/08/22 12:39 18:07 19:58 WBC RBC Hgb POC Hgb Hct POC Hct MCV MCH MCHC RDW Std Deviation RDW Coeff of Cedric Plt Count MPV Immature Gran % (Auto) Neut % (Auto) Lymph % (Auto) [place] % (Auto) Eos % (Auto) Baso % (Auto) Neut # (Auto) Lymph # (Auto) [place] # (Auto) Eos # (Auto) Baso # (Auto) Immature Gran # (Auto) Sample Site POC pH POC pCO2 POC pO2 POC HCO3 POC Total CO2 POC Base Excess ABG pH (Temp Correct) ABG pCO2 (Temp Corrct POC ABG pO2 at Pt Temp POC ABG O2 Sat Chetan Test O2 Delivery Device POC O2 Rate Minute Ventilation POC FiO2 Tidal Volume PEEP POC Sodium Sodium POC Potassium Potassium Chloride Carbon Dioxide Anion Gap BUN Creatinine Est Cr Clr Drug Dosing Est GFR ( Amer) Est GFR (Non-Af Amer) BUN/Creatinine Ratio Glucose POC Glucose 194 H 190 H 168 H Calcium Phosphorus Magnesium Transferrin Ferritin Urine Color Urine Appearance Urine pH Ur Specific [place] Urine Protein Urine Glucose (UA) Urine Ketones Urine Blood Urine Nitrite Urine Bilirubin Urine Urobilinogen Ur Leukocyte Esterase Urine WBC (Auto) Urine RBC (Auto) U Hyaline Cast (Auto) U Epithel Cells (Auto) Urine Bacteria (Auto) Uric Acid Crystals Urine Mucus Urine Yeast Serum Immunofixation 05/09/22 05/09/22 05/09/22 00:02 03:55 04:00 WBC RBC Hgb POC Hgb Hct POC Hct MCV MCH MCHC RDW Std Deviation RDW Coeff of Cedric Plt Count MPV Immature Gran % (Auto) Neut % (Auto) Lymph % (Auto) [place] % (Auto) Eos % (Auto) Baso % (Auto) Neut # (Auto) Lymph # (Auto) [place] # (Auto) Eos # (Auto) Baso # (Auto) Immature Gran # (Auto) Sample Site POC pH POC pCO2 POC pO2 POC HCO3 POC Total CO2 POC Base Excess ABG pH (Temp Correct) ABG pCO2 (Temp Corrct POC ABG pO2 at Pt Temp POC ABG O2 Sat Chetan Test O2 Delivery Device POC O2 Rate Minute Ventilation POC FiO2 Tidal Volume PEEP POC Sodium Sodium POC Potassium Potassium Chloride Carbon Dioxide Anion Gap BUN Creatinine Est Cr Clr Drug Dosing Est GFR ( Amer) Est GFR (Non-Af Amer) BUN/Creatinine Ratio Glucose POC Glucose 171 H 134 H Calcium Phosphorus Magnesium Transferrin Ferritin Urine Color [place] Urine Appearance Turbid A Urine pH 5.5 Ur Specific [place] 1.021 Urine Protein 1+ H Urine Glucose (UA) Negative Urine Ketones Negative Urine Blood 3+ H Urine Nitrite Negative Urine Bilirubin Negative Urine Urobilinogen Negative Ur Leukocyte Esterase 2+ H Urine WBC (Auto) >30 H Urine RBC (Auto) 10-30 H U Hyaline Cast (Auto) 0 U Epithel Cells (Auto) 10-20 H Urine Bacteria (Auto) Negative Uric Acid Crystals Present A Urine Mucus Present A Urine Yeast Not Reportable Serum Immunofixation 05/09/22 05/09/22 05/09/22 05:18 05:37 05:37 WBC RBC Hgb POC Hgb 15.6 Hct POC Hct 46 MCV MCH MCHC RDW Std Deviation RDW Coeff of Cedric Plt Count MPV Immature Gran % (Auto) Neut % (Auto) Lymph % (Auto) [place] % (Auto) Eos % (Auto) Baso % (Auto) Neut # (Auto) Lymph # (Auto) [place] # (Auto) Eos # (Auto) Baso # (Auto) Immature Gran # (Auto) Sample Site L Radial POC pH 7.42 POC pCO2 66 H POC pO2 88 POC HCO3 43 H POC Total CO2 > 40 H* POC Base Excess 18.0 H ABG pH (Temp Correct) 7.410 ABG pCO2 (Temp Corrct 68 H POC ABG pO2 at Pt Temp 93 POC ABG O2 Sat 96.0 H Chetan Test Pass O2 Delivery Device Ventilator POC O2 Rate 16 Minute Ventilation 6.4 POC FiO2 45 Tidal Volume 400 PEEP 5 POC Sodium 141 Sodium 141 POC Potassium 4.8 Potassium 4.8 Chloride 100 Carbon Dioxide 37 H Anion Gap 4 BUN 43 H Creatinine 0.81 Est Cr Clr Drug Dosing 89.2 Est GFR ( Amer) 101.5 Est GFR (Non-Af Amer) 87.6 BUN/Creatinine Ratio 53.1 H Glucose 162 H POC Glucose Calcium 8.9 Phosphorus 2.8 D Magnesium 1.8 Transferrin 134 L Ferritin 593.1 H Urine Color Urine Appearance Urine pH Ur Specific [place] Urine Protein Urine Glucose (UA) Urine Ketones Urine Blood Urine Nitrite Urine Bilirubin Urine Urobilinogen Ur Leukocyte Esterase Urine WBC (Auto) Urine RBC (Auto) U Hyaline Cast (Auto) U Epithel Cells (Auto) Urine Bacteria (Auto) Uric Acid Crystals Urine Mucus Urine Yeast Serum Immunofixation Pending 05/09/22 05/09/22 05:37 07:49 WBC 13.96 H RBC 5.07 Hgb 15.8 POC Hgb Hct 48.7 POC Hct MCV 96.1 MCH 31.2 MCHC 32.4 RDW Std Deviation 48.5 H RDW Coeff of Cedric 13.7 Plt Count 119 L MPV 10.5 H Immature Gran % (Auto) 0.6 Neut % (Auto) 85.0 Lymph % (Auto) 8.0 [place] % (Auto) 5.9 Eos % (Auto) 0.5 Baso % (Auto) 0.0 Neut # (Auto) 11.87 H Lymph # (Auto) 1.11 L [place] # (Auto) 0.82 H Eos # (Auto) 0.07 Baso # (Auto) 0.00 Immature Gran # (Auto) 0.09 H Sample Site POC pH POC pCO2 POC pO2 POC HCO3 POC Total CO2 POC Base Excess ABG pH (Temp Correct) ABG pCO2 (Temp Corrct POC ABG pO2 at Pt Temp POC ABG O2 Sat Chetan Test O2 Delivery Device POC O2 Rate Minute Ventilation POC FiO2 Tidal Volume PEEP POC Sodium Sodium POC Potassium Potassium Chloride Carbon Dioxide Anion Gap BUN Creatinine Est Cr Clr Drug Dosing Est GFR ( Amer) Est GFR (Non-Af Amer) BUN/Creatinine Ratio Glucose POC Glucose 131 H Calcium Phosphorus Magnesium Transferrin Ferritin Urine Color Urine Appearance Urine pH Ur Specific [place] Urine Protein Urine Glucose (UA) Urine Ketones Urine Blood Urine Nitrite Urine Bilirubin Urine Urobilinogen Ur Leukocyte Esterase Urine WBC (Auto) Urine RBC (Auto) U Hyaline Cast (Auto) U Epithel Cells (Auto) Urine Bacteria (Auto) Uric Acid Crystals Urine Mucus Urine Yeast Serum Immunofixation
--- NOTE | 2022-05-09 11:08 | XRay Report ---
XR chest 1V portable CLINICAL HISTORY: Acute respiratory failure TECHNIQUE: Single frontal radiograph of the chest was obtained. Comparison: Comparison is made to chest radiograph 05/08/2022 FINDINGS: Lines and tubes are stable. Cardiomegaly is noted. Interval worsening of right airspace opacity. No e vidence of pleural effusion or pneumothorax. IMPRESSION: Interval worsening of right-sided airspace opacity which may represent atelectasis or worsening pneum onia and/or aspiration. ACT 112: Negative or not required by law. Electronically signed by: Jude English M.D. 05/09/2022 11:07 AM
[2022-05-09] MEDS ORDERED: METOPROLOL TARTRATE 1 MG/ML VIAL IV PRN (11:34)
[2022-05-09] MEDS ORDERED: METOPROLOL TARTRATE 1 MG/ML VIAL IV STA (11:34)
[2022-05-09] MEDS: MAGNESIUM SULFATE / D5W 1 GM/100 ML BAG IV SCH ×2 (11:45→14:19)
[2022-05-09] MEDS: MULTI VIT W/MINERALS LIQUID 15 ML UDP NG SCH (11:51)
[2022-05-09] MEDS: PANTOprazole 40 MG in SYRINGE 0 ML IV SCH (12:21)
[2022-05-09] MEDS: predniSONE 20 MG TAB PO SCH (14:25)
[2022-05-09] MEDS: ASPIRIN 81 MG CHEW PO SCH (14:26)
--- NOTE | 2022-05-09 14:30 | Hospitalist Progress Note ---
Date of Service May 09, 2022 Assessment & Plan (1) Consolidation of right upper lobe: Plan: 72 yo incarcerated man with diabetes on glipizide and Otezla presented 05/02 with hypotension, hypoglycemia and SOB with hypoxia. He denied any fevers/chills, chest pain. Per field notes his BSG was 43 nd he was given 4 glucose tabs. BP was 82/60.He is being managed for the following: #. Acute respiratory failure #. Mass of upper lobe of right lung #. Concern for pneumonia #. Acute exacerbation of COPD Presenting symptoms as above. Admitting CTA chest: No evidence for PE, suggestive of right hilar mass with postobstructive atelectasis/collapse rather than pneumonia. 3 subcentimeter pulmonary nodules within the right lung. Right paratracheal and right hilar adenopathy. Elevated Pro-Miguel and WBC at presentation. Admitting blood culture 05/02 negative. Patient underwent emergent bronchoscopy on 05/05, results were unrevealing. Concern for the sample being inadequate. 05/07 status post bronchoscopy: RUL washing performed. RUL transbronchial biopsy taken. 05/07 bronchial washing cultures: Reviewed, follow-up final 05/07 post bronchoscopy HPE: Pending Acute respiratory failure likely related to right hilar mass with postobstructive collapse in setting of possible COPD exacerbation. Continue meropenem 05/07, continue prednisone/DuoNeb/budesonide nebs twice daily/formoterol twice daily No wheezing on exam, occasional crackles and diminished lung sounds. Patient extubated today a.m., on BiPAP, drowsy, follows commands minimally. Being monitored in ICU. #. Dilated cardiomyopathy: 05/07 echo with ejection fraction 20 to 25%, severely reduced LV systolic function. EKG with LBBB, troponins not reflective of acute OK. TSH wnl. Cardiology on board, appreciate recommendation Monitor and replete electrolytes. #. HOMA/hypotension: Status post pressor support, blood pressure better. HOMA secondary to dehydration versus ATN in setting of hypotension. Resolved. #. Hypoglycemia: 37 on arrival, resolved. Likely secondary to glipizide and Otezla use in the context of poor p.o. intake immediately prior to arrival. Continue with sliding scale. #. Hyperkalemia: Resolved. Continue to monitor #. Chronic steroid use: Chronically placed on a steroid by [facility] several years ago. Cont prednisone taper per Pulm. #. DVT prophylaxis: Heparin Full Code Dispo-ICU, extubated, pt drowsy/tachycardic, follows command minimally. Admission and Anticipated Discharge Date Admission Date: May 02, 2022 Subjective Patient seen and examined at bedside as a follow-up of acute respiratory failure, right hilar mass, acute exacerbation of COPD, pneumonia, HOMA. Patient was lying in bed, extubated around an hour ago [approximately 7:45 AM per RN], appears lethargic on BiPAP, not able to vocalize, appears mildly restless/moving extremities during exam, on limb restraint, follows simple commands. ROS n/a due to lethargy/falling back to sleep frequently. Physical Exam Physical Exam: GENERAL: Mild distress, on limb restraints, on BPAP, follows commands minimally. Drowsy. HEENT: No pallor, no icterus. Pupils equal, round and reactive to light. Oral mucosa dry. NECK: No JVD, no neck masses. HEART: S1 and S2 heard. Tachycardic. No murmur, no gallop. RESPIRATORY SYSTEM: Normal AP diameter. No accessory muscle use. No wheezing, occasional b/l crackles. Diminished breath sounds. ABDOMEN: Soft, bowel sounds present, no grimmacing, no distention. CENTRAL NERVOUS SYSTEM: No facial droop. -O-h-p-[id number]-c-h- -i-s- -c-l-e-a-r-.- Obeys simple commands. Moves extremities. EXTREMITIES: No edema, no erythema seen. SCDs in place. BUE 1 + edema. Results & Data Results & Data ([facility]) Vital Signs (Past 12 Hours) Vital Signs Temp Pulse Resp BP Pulse Ox 05/09/22 12:21 118 H 126/79 05/09/22 12:00 37.4 C 116 H 16 126/79 91 05/09/22 11:15 114 H 16 93 05/09/22 11:00 37.5 C 116 H 19 142/81 H 91 05/09/22 10:00 37.3 C 109 H 16 139/81 90 05/09/22 09:00 37.3 C 109 H 23 132/89 91 05/09/22 08:00 37.8 C H 80 19 134/86 90 05/09/22 07:45 117 H 16 92 05/09/22 07:15 78 16 93 05/09/22 07:00 37.8 C H 79 14 148/77 H 90 05/09/22 06:00 37.8 C H 68 16 123/67 93 05/09/22 05:00 37.9 C H 63 16 127/67 91 05/09/22 04:37 60 16 94 05/09/22 04:00 37.9 C H 63 16 116/61 95 05/09/22 03:00 38.0 C H 70 16 140/73 91
[2022-05-09 16:42] LABS: Quantiferon Mitogen-NIL 8.79 IU/mL; Quantiferon NIL 0.03 IU/mL; Quantiferon TB Gold Plus NEGATIVE (NEGATIVE); Quantiferon TB1-NIL <0.00 IU/mL
[2022-05-09] MEDS: ATORVASTATIN 40 MG TAB PO SCH (21:02)
[2022-05-09] MEDS: ALBUT/IPRATROP 3MG/0.5MG NEB 3 ML VIAL NEB PRN (22:55)
[2022-05-10] MEDS: INSULIN ASPART PER UNIT SC SCH ×6 (00:30→20:42)
[2022-05-10] MEDS: MEROPENEM 500 MG in SYRINGE 0 ML IV SCH ×2 (04:02→10:43)
[2022-05-10 06:06] LABS: Basophils # (auto) 0.01 K/uL (0-0.2); Basophils % (auto) 0.1 %; Eosinophils # (auto) 0.02 K/uL (0-0.5); Eosinophils % (auto) 0.2 %; Hematocrit (blood only) 49.6 % (42-52); Hemoglobin 16.5 g/dL (14.0-18.0); Immature Granulocytes # (auto) 0.12 K/uL (0.00-0.02); Immature Granulocytes % (auto) 0.9 %; Lymphocytes # (auto) 0.69 K/uL (1.2-3.4); Lymphocytes % (auto) 5.2 %; Mean Corpuscular Hemoglobin 31.5 pg (25-34); Mean Corpuscular Hgb Conc 33.3 g/dL (32-36); Mean Corpuscular Volume 94.7 fL (80-100); Mean Platelet Volume 10.9 fL (7.4-10.4); Monocytes # (auto) 0.68 K/uL (0.11-0.59); Monocytes % (auto) 5.1 %; Neutrophils # (auto) 11.75 K/uL (1.4-6.5); Neutrophils % (auto) 88.5 %; Platelet Count 108 K/uL (130-400); RDW Coefficient of Variation 13.8 % (11.5-14.5); RDW Standard Deviation 47.9 fL (36.4-46.3); Red Blood Count 5.24 M/uL (4.7-6.1); White Blood Count 13.27 K/uL (4.8-10.8)
[2022-05-10] MEDS: HEPARIN SOD 5,000 UNIT/0.5 ML VIAL SQ SCH ×3 (06:12→22:38)
[2022-05-10] MEDS: ICU ELECTROLYTE REPLACEMENT PROTOCOL SCH ×2 (06:30→23:40)
[2022-05-10 06:48] LABS: Anion Gap 5 (3-11); BUN Creatinine Ratio 44.7 (10-20); Blood Urea Nitrogen 34 mg/dl (6-23); Carbon Dioxide 37 mmol/L (21-32); Chloride 97 mmol/L (98-107); Creatinine Clr Calc Pharmacy 95.2 ml/min; Est GFR (African American) 104.2 ml/min; Est GFR (Non-African American) 89.9 ml/min; Glucose 134 mg/dl (70-99(Fasting)); Magnesium 1.7 mg/dl (1.7-2.4); Phosphorus 4.1 mg/dl (2.5-4.9); Sodium 139 mmol/L (136-145)
[2022-05-10] MEDS: FORMOTEROL 20 MCG/2 ML VIAL INH SCH ×2 (07:14→18:55)
[2022-05-10] MEDS: BUDESONIDE 0.25 MG/2 ML VIAL (PULMICORT) NEB SCH ×2 (07:14→18:55)
[2022-05-10] MEDS: MULTI VIT W/MINERALS LIQUID 15 ML UDP NG SCH (08:27)
[2022-05-10] MEDS: predniSONE 20 MG TAB PO SCH (08:27)
[2022-05-10] MEDS: ASPIRIN 81 MG CHEW PO SCH (08:29)
[2022-05-10] MEDS ORDERED: ALBUT/IPRATROP 3MG/0.5MG NEB 3 ML VIAL NEB PRN (09:00)
--- NOTE | 2022-05-10 10:14 | Critical Care Progress Note ---
Date of Service May 10, 2022 Assessment & Plan (1) COPD with acute exacerbation: (2) Altered mental status: (3) Acute hypercapnic respiratory failure: (4) Chronic steroid use: (5) Consolidation of right upper lobe: (6) Acute systolic CHF (congestive heart failure): Plan: 72-year-old male with a history of COPD presenting to the hospital with altered mental status found to have worsening hypercapnic respiratory failure. Transferred to the ICU 05/05/2022. Pulmonary: Await [facility] cultures. Right upper lobe consolidation noted possibly representing necrotic pneumonia and/or malignancy. Repeat bronchoscopy performed under fluoroscopy 05/07/2022. Transbronchial biopsies of the right upper lobe mass, microscopy brushings and cytology brushings were performed. Washings of the right upper lobe performed as well. Patient with a history of advanced COPD. Continue budesonide and Brovana nebs. DuoNebs as needed. Prednisone decreased to 20 mg daily. Cardiovascular: Maintain mean arterial pressures above 65 millimeters mercury. Patient with asymptomatic sinus bradycardia which appears improved.. Maintain potassium above 4 and magnesium above 2. Echo with an EF of 20 to 25. Right ventricle is mildly dilated. Mild aortic valve stenosis. The echo findings are new. Appreciate cardiology input and work-up. Restart oral metoprolol. Gastrointestinal: Continue PPI and tube feeds. Infectious disease: Discontinue meropenem: finished 8 days of therapy. QuantiFERON gold pending. AFB and fungal culture sent from bronchoscopy as well. Hematologic: Hemoglobin and platelets stable. INR 1.3. Endocrine: Maintain euglycemia. TSH within normal limits CODE STATUS: Full code Disposition: Stable for downgrade Admission and Anticipated Discharge Date Admission Date: May 02, 2022 Subjective No complaints, feels improved. Was able to eat lunch. Physical Exam Physical Exam: General: Alert. nontoxic. Skin: Warm, dry, Head: Atraumatic Ears, nose, mouth and throat: airway patent Cardiovascular: Normal peripheral perfusion Respiratory: no respiratory distress Gastrointestinal: Non distended Musculoskeletal: No deformity Results & Data Results & Data ([facility]) Vital Signs (Past 12 Hours) Vital Signs Temp Pulse Pulse Resp BP Pulse Ox 05/10/22 08:00 71 05/10/22 07:14 65 18 95 05/10/22 06:00 36.0 C L 71 15 131/78 91 05/10/22 05:00 36.1 C L 65 20 122/75 05/10/22 04:15 73 17 97 05/10/22 04:00 36 C L 65 18 123/83 92 05/10/22 03:00 36.0 C L 78 15 122/68 05/10/22 02:00 36.1 C L 70 18 130/72 94 05/10/22 01:00 36.3 C L 66 18 92 05/10/22 00:00 36.3 C L 80 20 142/74 H 93 05/09/22 23:00 36.4 C L 69 17 123/76 93 05/09/22 22:55 77 77 16 94 Critical Care Results & Data Vital Signs (Past 12 Hours) Vital Signs Temp Pulse Pulse Resp BP Pulse Ox 05/10/22 08:00 71 05/10/22 07:14 65 18 95 05/10/22 06:00 36.0 C L 71 15 131/78 91 05/10/22 05:00 36.1 C L 65 20 122/75 05/10/22 04:15 73 17 97 05/10/22 04:00 36 C L 65 18 123/83 92 05/10/22 03:00 36.0 C L 78 15 122/68 05/10/22 02:00 36.1 C L 70 18 130/72 94 05/10/22 01:00 36.3 C L 66 18 92 05/10/22 00:00 36.3 C L 80 20 142/74 H 93 05/09/22 23:00 36.4 C L 69 17 123/76 93 05/09/22 22:55 77 77 16 94 Lab & Micro Results (Past 24 Hours) RBC 5.24 M/uL (4.7-6.1) 05/10/22 WBC 13.27 K/uL (4.8-10.8) H 05/10/22 Hgb 16.5 g/dL (14.0-18.0) 05/10/22 Hct 49.6 % (42-52) 05/10/22 MCV 94.7 fL (80-100) 05/10/22 MCH 31.5 pg (25-34) 05/10/22 MCHC 33.3 g/dL (32-36) 05/10/22 RDW Standard Deviation 47.9 fL (36.4-46.3) H 05/10/22 RDW Coefficient of Variation 13.8 % (11.5-14.5) 05/10/22 Plt Count 108 K/uL (130-400) L 05/10/22 MPV 10.9 fL (7.4-10.4) H 05/10/22 Neutrophils (%) (Auto) 88.5 % 05/10/22 Lymphocytes (%) (Auto) 5.2 % 05/10/22 Monocytes # (Auto) 0.68 K/uL (0.11-0.59) H 05/10/22 Eosinophils # (Auto) 0.02 K/uL (0-0.5) 05/10/22 Immature Granulocyte % (Auto) 0.9 % 05/10/22 Neutrophils # (Auto) 11.75 K/uL (1.4-6.5) H 05/10/22 Lymphocytes # (Auto) 0.69 K/uL (1.2-3.4) L 05/10/22 Monocytes # (Auto) 0.68 K/uL (0.11-0.59) H 05/10/22 Eosinophils # (Auto) 0.02 K/uL (0-0.5) 05/10/22 Basophils # (Auto) 0.01 K/uL (0-0.2) 05/10/22 Immature Granulocyte # (Auto) 0.12 K/uL (0.00-0.02) H 05/10/22 Na 139 mmol/L (136-145) 05/10/22 K 4.6 mmol/L (3.5-5.1) 05/10/22 Cl 97 mmol/L (98-107) L 05/10/22 CO2 37 mmol/L (21-32) H 05/10/22 Anion Gap 5 (3-11) 05/10/22 BUN 34 mg/dl (6-23) H 05/10/22 Creatinine 0.76 mg/dl (0.6-1.4) 05/10/22 Estimated GFR ( Amer) 104.2 ml/min 05/10/22 Estimated GFR (Non-Af Amer) 89.9 ml/min 05/10/22 BUN/Creatinine Ratio 44.7 (10-20) H 05/10/22 Glu 134 mg/dl (70-99(Fasting)) H 05/10/22 Ca 9.0 mg/dl (8.5-10.1) 05/10/22 Phosphorus Level 4.1 mg/dl (2.5-4.9) 05/10/22 Mg 1.7 mg/dl (1.7-2.4) 05/10/22 05:17 05/10/22 Calcium Level 9.0 mg/dl (8.5-10.1) 05/10/22 05:17 05/10/22 Microbiology 05/09/22 05:37 Aerobic Blood Culture - Preliminary Blood No growth in Aerobic bottle after 24 hours. 05/09/22 05:37 Aerobic Blood Culture - Preliminary Blood No growth in Aerobic bottle after 24 hours. 05/07/22 14:00 Fungal Smear - Final Bronch Power, Right Upper Lobe Fungal Culture - Preliminary Yani albicans/dubliniensis 05/07/22 14:00 Fungal Smear - Final Bronch Wash,Right Upper Lobe Fungal Culture - Preliminary Yani albicans/dubliniensis 05/07/22 14:00 Gram Stain - Final Bronch Power, Right Upper Lobe Bronchial Culture - Final Yani albicans/dubliniensis 05/07/22 14:00 Gram Stain - Final Bronch Wash,Right Upper Lobe Bronchial Culture - Final Yani albicans/dubliniensis 05/07/22 14:00 Acid Fast Bacilli Smear - Final Bronch Power, Right Upper Lobe 05/07/22 14:00 Acid Fast Bacilli Smear - Final Bronch Wash,Right Upper Lobe Diagnostic Findings (Past 24 Hours) Chest X-Ray 05/09/22 07:00 XR chest 1V portable CLINICAL HISTORY: Acute respiratory failure TECHNIQUE: Single frontal radiograph of the chest was obtained. Comparison: Comparison is made to chest radiograph 05/08/2022 FINDINGS: Lines and tubes are stable. Cardiomegaly is noted. Interval worsening of right airspace opacity. No evidence of pleural effusion or pneumothorax. IMPRESSION: Interval worsening of right-sided airspace opacity which may represent atelectasis or worsening pneumonia and/or aspiration. ACT 112: Negative or not required by law. Electronically signed by: Jude English M.D. 05/09/2022 11:07 AM I & O Totals 24 Hours 05/09/22 05/10/22 05/11/22 06:59 06:59 06:59 Intake Total 1205.833 / 1205.833 505.0 / 505.0 Output Total 1600 / 1600 2300 / 2300 Balance -394.167 / -394.167 -1795.0 / -1795.0 Cumulative 05/02/22 15:22 thru 05/10/22 06:00 Intake Total 31258.909 Output Total 11733 Balance 2272.909 RT Ventilator Mngmt (Last Documented) Ventilator Ordered Settings Ventilator Support Mode Assist Control 05/09/22 07:15 Respiratory Rate 18 05/10/22 07:14 Ventilator Tidal Volume 400 05/09/22 07:15 Setting Minute Ventilation 6.4 05/09/22 07:15 Ventilator Positive Pressure 7 05/09/22 07:00 Support Setting Positive End Expiratory 5 05/09/22 07:15 Pressure Fraction of Inspired Oxygen 40 05/10/22 06:00 Machine Comment changes post ABG 05/08/22 04:20 Ventilator - PT Measurements Respiratory Rate 18 Exhaled Tidal Volume 400 Minute Ventilation 6.4 Peak Inspiratory Airway 21 Pressure Plateau Pressure 15 Respiratory Cycle Inspiratory: 1:4.4 Expiratory Ratio Inspiratory Phase Time 0.7 End-Tidal CO2 49 Static Lung Compliance 40.00 Dynamic Lung Compliance 25.00 Normal Static Lung Compliance 46.00 Patient Measurements Comment Patient extubated per verbal order from Dr. Plasencia (At Bedside). Patient suctioned and extubated. Patient tolerated extubation well. Placed patient on BiPAP per Dr. Plasencia. Coding Level of Care Code 04633 Subseq Hosp Care Lvl 3 Diagnoses COPD with acute exacerbation J44.1 Altered mental status R41.82 Acute hypercapnic respiratory failure J96.02 Chronic steroid use Consolidation of right upper lobe J18.1 Acute systolic CHF (congestive heart failure) I50.21
[2022-05-10] MEDS: PANTOprazole 40 MG in SYRINGE 0 ML IV SCH (10:43)
[2022-05-10] MEDS ORDERED: Nursing to Pharmacy Communication SCH (13:15)
--- NOTE | 2022-05-10 15:31 | Cardiology Progress Note ---
Date of Service May 10, 2022 Assessment & Plan (1) Dilated cardiomyopathy: (2) Left bundle branch block: (3) Acute hypercapnic respiratory failure: (4) Consolidation of right upper lobe: Plan: The patient is clinically stable. It would appear that the lung biopsies are negative for malignancy. He has had some high heart rates today and was started on metoprolol. Currently he is in a sinus rhythm with an occasional PVC. Admission and Anticipated Discharge Date Admission Date: May 02, 2022 Subjective The patient had an uneventful night. Expresses no complaints. Review of Systems Review of Systems: Review of Systems: See HPI for pertinent positives. All other 10 point review of systems are negative. Physical Exam Physical Exam: General: no acute distress and stated age Head: normocephalic, no masses, lesions, tenderness or abnormalities Eyes: conjunctiva are pink and non-injected, sclera clear Neck: supple, no adenopathy, no bruits, normal jugular venous pulse, no hepatojugular reflux Chest: normal shape and normal respiratory effort Lungs: clear to auscultation and percussion Cardiac Exam: - regular rate & rhythm, no murmurs gallops or rubs - normal S1, normal S2 Pulses: 2(+) throughout Abdomen: abdomen soft, non-tender, no abnormal masses and no hepatosplenomegaly Musculoskeletal: no gait disturbance, no joint inflammation, no deforming arthritis Extremities: no edema and no cyanosis Neuro: grossly normal exam Results & Data ([facility]) Vital Signs (Past 12 Hours) Vital Signs Temp Pulse Pulse Resp BP Pulse Ox 05/10/22 14:40 36.8 C 92 H 20 130/70 96 05/10/22 14:01 36.4 C L 108 H 21 05/10/22 14:00 36.4 C L 92 H 21 05/10/22 13:55 36.3 C L 86 19 143/86 H 91 05/10/22 13:00 36.9 C 81 24 124/71 95 05/10/22 12:30 37.0 C 101 H 19 96 05/10/22 12:00 36.8 C 106 H 25 H 125/85 92 05/10/22 11:30 36.6 C 78 19 94 05/10/22 11:00 36.4 C L 69 15 114/52 L 96 05/10/22 10:30 36.4 C L 69 18 95 05/10/22 10:01 36.4 C L 77 15 107/73 97 05/10/22 10:00 36.4 C L 68 14 96 05/10/22 09:30 36.4 C L 72 24 96 05/10/22 09:01 36.4 C L 74 14 120/65 94 05/10/22 09:00 36.4 C L 77 24 90 05/10/22 08:30 36.3 C L 76 25 H 91 05/10/22 08:00 36.2 C L 71 19 130/65 96 05/10/22 07:30 36.1 C L 76 15 95 05/10/22 07:14 65 18 95 05/10/22 07:02 36.0 C L 82 21 109/68 94 05/10/22 07:00 36.0 C L 75 22 94 05/10/22 06:30 36.0 C L 68 21 92 05/10/22 06:00 36.0 C L 71 15 131/78 91 05/10/22 05:00 36.1 C L 65 20 122/75 05/10/22 04:15 73 17 97 05/10/22 04:00 36 C L 65 18 123/83 92 Laboratory Results Laboratory Results - last 24 hr 05/07/22 05/09/22 05/09/22 09:26 16:39 20:08 WBC RBC Hgb Hct MCV MCH MCHC RDW Std Deviation RDW Coeff of Cedric Plt Count MPV Immature Gran % (Auto) Neut % (Auto) Lymph % (Auto) Emmet % (Auto) Eos % (Auto) Baso % (Auto) Neut # (Auto) Lymph # (Auto) Emmet # (Auto) Eos # (Auto) Baso # (Auto) Immature Gran # (Auto) Sodium Potassium Chloride Carbon Dioxide Anion Gap BUN Creatinine Est Cr Clr Drug Dosing Est GFR ( Amer) Est GFR (Non-Af Amer) BUN/Creatinine Ratio Glucose POC Glucose 160 H 159 H Calcium Phosphorus Magnesium TB Test (QFT) Gold Plus NEGATIVE TB Test (QFT) Nil 0.03 TB Test Mitogen - Nil 8.79 TB Test Ag - Nil 1 <0.00 TB Test Ag - Nil 2 0.00 05/10/22 05/10/22 05/10/22 00:25 03:40 05:17 WBC RBC Hgb Hct MCV MCH MCHC RDW Std Deviation RDW Coeff of Cedric Plt Count MPV Immature Gran % (Auto) Neut % (Auto) Lymph % (Auto) Emmet % (Auto) Eos % (Auto) Baso % (Auto) Neut # (Auto) Lymph # (Auto) Emmet # (Auto) Eos # (Auto) Baso # (Auto) Immature Gran # (Auto) Sodium 139 Potassium TNP Chloride 97 L Carbon Dioxide 37 H Anion Gap 5 BUN 34 H Creatinine 0.76 Est Cr Clr Drug Dosing 95.2 Est GFR ( Amer) 104.2 Est GFR (Non-Af Amer) 89.9 BUN/Creatinine Ratio 44.7 H Glucose 134 H POC Glucose 159 H 125 H Calcium 9.0 Phosphorus 4.1 D Magnesium 1.7 TB Test (QFT) Gold Plus TB Test (QFT) Nil TB Test Mitogen - Nil TB Test Ag - Nil 1 TB Test Ag - Nil 2 05/10/22 05/10/22 05/10/22 05:17 07:01 07:51 WBC 13.27 H RBC 5.24 Hgb 16.5 Hct 49.6 MCV 94.7 MCH 31.5 MCHC 33.3 RDW Std Deviation 47.9 H RDW Coeff of Cedric 13.8 Plt Count 108 L MPV 10.9 H Immature Gran % (Auto) 0.9 Neut % (Auto) 88.5 Lymph % (Auto) 5.2 Emmet % (Auto) 5.1 Eos % (Auto) 0.2 Baso % (Auto) 0.1 Neut # (Auto) 11.75 H Lymph # (Auto) 0.69 L Emmet # (Auto) 0.68 H Eos # (Auto) 0.02 Baso # (Auto) 0.01 Immature Gran # (Auto) 0.12 H Sodium Potassium Cancelled Chloride Carbon Dioxide Anion Gap BUN Creatinine Est Cr Clr Drug Dosing Est GFR ( Amer) Est GFR (Non-Af Amer) BUN/Creatinine Ratio Glucose POC Glucose 111 H Calcium Phosphorus Magnesium TB Test (QFT) Gold Plus TB Test (QFT) Nil TB Test Mitogen - Nil TB Test Ag - Nil 1 TB Test Ag - Nil 2 05/10/22 05/10/22 08:27 11:28 WBC RBC Hgb Hct MCV MCH MCHC RDW Std Deviation RDW Coeff of Cedric Plt Count MPV Immature Gran % (Auto) Neut % (Auto) Lymph % (Auto) Emmet % (Auto) Eos % (Auto) Baso % (Auto) Neut # (Auto) Lymph # (Auto) Emmet # (Auto) Eos # (Auto) Baso # (Auto) Immature Gran # (Auto) Sodium Potassium 4.6 Chloride Carbon Dioxide Anion Gap BUN Creatinine Est Cr Clr Drug Dosing Est GFR ( Amer) Est GFR (Non-Af Amer) BUN/Creatinine Ratio Glucose POC Glucose 164 H Calcium Phosphorus Magnesium TB Test (QFT) Gold Plus TB Test (QFT) Nil TB Test Mitogen - Nil TB Test Ag - Nil 1 TB Test Ag - Nil 2 Medications Administered Current Inpatient Medications Acetaminophen (Acetaminophen 325 Mg Tab) 650 mg PO Q6H PRN PRN Reason: fever, headache, pain Stop: 06/01/22 20:55 Last Admin: 05/09/22 01:32 Dose: 650 mg Documented by: Albuterol (Albut/Ipratrop 3mg/0.5mg Neb 3 Ml Vial) 3 ml NEB Q2R PRN; Protocol PRN Reason: SOB/WHEEZING Stop: 06/01/22 21:05 Aspirin (Aspirin 81 Mg Chew) 81 mg PO DAILY JULIA Stop: 06/02/22 08:59 Last Admin: 05/10/22 08:29 Dose: 81 mg Documented by: Atorvastatin Calcium (Atorvastatin 40 Mg Tab) 40 mg PO HS JULIA Stop: 06/01/22 20:59 Last Admin: 05/09/22 21:02 Dose: 40 mg Documented by: Budesonide (Budesonide 0.25 Mg/2 Ml Vial (Pulmicort)) 0.25 mg NEB BIDR JULIA Stop: 06/05/22 18:59 Last Admin: 05/10/22 07:14 Dose: 0.25 mg Documented by: Dextrose (Dextrose 50% 50 Ml Syringe) 25 - 50 ml IV UD PRN; Protocol PRN Reason: Hypoglycemia Protocol Stop: 06/01/22 20:55 Formoterol Fumarate (Formoterol 20 Mcg/2 Ml Vial) 20 mcg INH BIDR JULIA Stop: 06/05/22 18:59 Last Admin: 05/10/22 07:14 Dose: 20 mcg Documented by: Glucagon (Glucagon For Inj 1 Mg Vial) 1 mg SQ UD PRN; Protocol PRN Reason: Hypoglycemia Protocol Stop: 06/01/22 20:55 Glucose (Glucose 10 Tabs/Tube) 4 - 8 tabs PO UD PRN; Protocol PRN Reason: Hypoglycemia Protocol Stop: 06/01/22 20:55 Glucose (Glucose 40% Gel 15 Gm Tube) 15 - 30 gm PO UD PRN; Protocol PRN Reason: Hypoglycemia Protocol Stop: 06/01/22 20:55 Heparin Sodium (Porcine) (Heparin Sod 5,000 Unit/0.5 Ml Vial) 5,000 units SQ Q8 JULIA Stop: 06/01/22 21:59 Last Admin: 05/10/22 13:45 Dose: 5,000 units Documented by: Insulin Aspart (Insulin Aspart Per Unit) 0 units SC ACHS [facility] Stop: 06/09/22 16:29 Metoprolol Tartrate (Metoprolol Tartrate 25 Mg Tab) 25 mg PO BID [facility] Stop: 06/09/22 20:59 Miscellaneous (Carbohydrates For Hypoglycemia ) 15 - 30 gm PO UD PRN PRN Reason: Hypoglycemia Protocol Stop: 06/01/22 20:55 Miscellaneous (Icu Electrolyte Replacement Protocol) 1 ea N/A BID@ [facility]; Protocol Stop: 05/13/22 17:59 Last Admin: 05/10/22 06:30 Dose: Not Given Documented by: Multivitamins/Minerals (Multi Vit W/Minerals Liquid 15 Ml Udp) 15 ml NG QAM [facility] Stop: 06/06/22 08:59 Last Admin: 05/10/22 08:27 Dose: 15 ml Documented by: Ondansetron HCl (Ondansetron Inj 2 Mg/Ml 2 Ml Vial) 4 mg IV Q6H PRN PRN Reason: Nausea Stop: 06/01/22 20:55 Pantoprazole Sodium (Pantoprazole 40 Mg Tab) 40 mg PO DAILY [facility]; Protocol Stop: 06/10/22 08:59 Prednisone (Prednisone 20 Mg Tab) 20 mg PO DAILY [facility] Stop: 06/08/22 08:59 Last Admin: 05/10/22 08:27 Dose: 20 mg Documented by: Ropinirole HCl (Ropinirole Hcl 2 Mg Tablet) 4 mg PO BID [facility] Stop: 06/01/22 20:59 Last Admin: 05/06/22 08:50 Dose: 4 mg Documented by:
--- NOTE | 2022-05-10 17:09 | Hospitalist Progress Note ---
Date of Service May 10, 2022 Assessment & Plan (1) Consolidation of right upper lobe: Plan: 72 yo incarcerated man with diabetes on glipizide and Otezla presented 05/02 with hypotension, hypoglycemia and SOB with hypoxia. He denied any fevers/chills, chest pain. Per field notes his BSG was 43 nd he was given 4 glucose tabs. BP was 82/60.He is being managed for the following: #. Acute respiratory failure #. Mass of upper lobe of right lung #. Concern for pneumonia #. Acute exacerbation of COPD Presenting symptoms as above. Admitting CTA chest: No evidence for PE, suggestive of right hilar mass with postobstructive atelectasis/collapse rather than pneumonia. 3 subcentimeter pulmonary nodules within the right lung. Right paratracheal and right hilar adenopathy. Elevated Pro-Miguel and WBC at presentation. Admitting blood culture 05/02 negative. Patient underwent emergent bronchoscopy on 05/05, results were unrevealing. Concern for the sample being inadequate. 05/07 status post bronchoscopy: RUL washing performed. RUL transbronchial biopsy taken. 05/07 bronchial washing cultures: Reviewed, follow-up final 05/07 post bronchoscopy HPE: Inflammatory cells seen, negative for malignancy. Acute respiratory failure likely related to right hilar mass with postobstructive collapse in setting of possible COPD exacerbation. Patient extubated 05/09/2020 2 AM to BiPAP. s/p 8 days of antibiotics, continue prednisone/DuoNeb/budesonide nebs twice daily/formoterol twice daily No wheezing on exam, occasional crackles and improving lung sounds. Patient on 4 .5 L oxygen by oxygen mask. #. Dilated cardiomyopathy: 05/07 echo with ejection fraction 20 to 25%, severely reduced LV systolic function. EKG with LBBB, troponins not reflective of acute CT. TSH wnl. Cardiology on board, appreciate recommendation, started on metoprolol 05/10. Monitor and replete electrolytes. Maintain potassium level 4.0 and magnesium above 2.0. #. HOMA/hypotension: Status post pressor support, blood pressure better. HOMA secondary to dehydration versus ATN in setting of hypotension. Resolved. #. Hypoglycemia: 37 on arrival, resolved. Likely secondary to glipizide and Otezla use in the context of poor p.o. intake immediately prior to arrival. Continue with sliding scale. #. Hyperkalemia: Resolved. Continue to monitor #. Chronic steroid use: Chronically placed on a steroid by [facility] several years ago. Cont prednisone taper per Pulm. #. DVT prophylaxis: Heparin Full Code Dispo-to PCU. Admission and Anticipated Discharge Date Admission Date: May 02, 2022 Subjective Patient seen and examined at bedside as a follow-up of acute respiratory failure, right hilar mass, acute exacerbation of COPD, pneumonia, HOMA. Extubated early a.m. 05/09/2022. Patient was lying in bed, on 4.5 L oxygen by oxygen mask, NAD, AOx3, denies any new events overnight, denies any headache/dizziness/chest pain/shortness of breath/belly pain/feeling of heart racing/other review of symptoms. Per RN, no new acute events overnight, patient had a small bowel movement yesterday. Physical Exam Physical Exam: GENERAL: NAD, on 4.5 L oxygen by oxygen mask, AOx3 HEENT: No pallor, no icterus. Pupils equal, round and reactive to light. Oral mucosa moist. NECK: No JVD, no neck masses. HEART: S1 and S2 heard. Tachycardic. No murmur, no gallop. RESPIRATORY SYSTEM: Normal AP diameter. No accessory muscle use. No wheezing, occasional b/l crackles - improving. ABDOMEN: Soft, bowel sounds present, non tender, no distention. CENTRAL NERVOUS SYSTEM: No facial droop. Speech is clear. Obeys simple commands. Moves extremities. EXTREMITIES: No ble edema/ble chronic skin changes noted, Lt heel blister x 2noted. no erythema seen. SCDs in place. RUE 1 + edema. Results & Data Results & Data ([facility]) Vital Signs (Past 12 Hours) Vital Signs Temp Pulse Pulse Resp BP Pulse Ox 05/10/22 16:00 92 H 05/10/22 15:07 97 05/10/22 14:40 36.8 C 92 H 20 130/70 96 05/10/22 14:01 36.4 C L 108 H 21 05/10/22 14:00 36.4 C L 92 H 21 05/10/22 13:55 36.3 C L 86 19 143/86 H 91 05/10/22 13:00 36.9 C 81 24 124/71 95 05/10/22 12:30 37.0 C 101 H 19 96 05/10/22 12:00 36.8 C 106 H 25 H 125/85 92 05/10/22 11:30 36.6 C 78 19 94 05/10/22 11:00 36.4 C L 69 15 114/52 L 96 05/10/22 10:30 36.4 C L 69 18 95 05/10/22 10:01 36.4 C L 77 15 107/73 97 05/10/22 10:00 36.4 C L 68 14 96 05/10/22 09:30 36.4 C L 72 24 96 05/10/22 09:01 36.4 C L 74 14 120/65 94 05/10/22 09:00 36.4 C L 77 24 90 05/10/22 08:30 36.3 C L 76 25 H 91 05/10/22 08:00 36.2 C L 71 19 130/65 96 05/10/22 07:30 36.1 C L 76 15 95 05/10/22 07:14 65 18 95 05/10/22 07:02 36.0 C L 82 21 109/68 94 05/10/22 07:00 36.0 C L 75 22 94 05/10/22 06:30 36.0 C L 68 21 92 05/10/22 06:00 36.0 C L 71 15 131/78 91 05/10/22 05:00 36.1 C L 65 20 122/75
[2022-05-10] MEDS: MAGNESIUM SULFATE / D5W 1 GM/100 ML BAG IV SCH ×3 (17:24→19:54)
[2022-05-10] MEDS: MAGNESIUM OXIDE 400 MG TAB PO SCH (20:45)
[2022-05-10] MEDS: ATORVASTATIN 40 MG TAB PO SCH (20:45)
[2022-05-10] MEDS: METOPROLOL TARTRATE 25 MG TAB PO SCH (20:45)
[2022-05-10] MEDS: ACETAMINOPHEN 325 MG TAB PO PRN (20:46)
[2022-05-11] MEDS ORDERED: MAGNESIUM SULFATE / D5W 1 GM/100 ML BAG IV ONE (05:45)
[2022-05-11] MEDS: HEPARIN SOD 5,000 UNIT/0.5 ML VIAL SQ SCH ×3 (06:12→21:11)
[2022-05-11 06:13] LABS: Hematocrit (blood only) 50.4 % (42-52); Hemoglobin 16.4 g/dL (14.0-18.0); Mean Corpuscular Hemoglobin 30.2 pg (25-34); Mean Corpuscular Hgb Conc 32.5 g/dL (32-36); Mean Corpuscular Volume 92.8 fL (80-100); Mean Platelet Volume 11.6 fL (7.4-10.4); Platelet Count 126 K/uL (130-400); RDW Coefficient of Variation 13.5 % (11.5-14.5); RDW Standard Deviation 45.8 fL (36.4-46.3); Red Blood Count 5.43 M/uL (4.7-6.1)
[2022-05-11 06:24] LABS: Calcium 9.1 mg/dl (8.5-10.1); Creatinine Clr Calc Pharmacy 108.9 ml/min; Est GFR (African American) 111.1 ml/min; Est GFR (Non-African American) 95.8 ml/min; Magnesium 1.6 mg/dl (1.7-2.4); Phosphorus 2.9 mg/dl (2.5-4.9); Potassium 4.5 mmol/L (3.5-5.1)
[2022-05-11] MEDS: FORMOTEROL 20 MCG/2 ML VIAL INH SCH ×2 (07:12→19:19)
[2022-05-11] MEDS: BUDESONIDE 0.25 MG/2 ML VIAL (PULMICORT) NEB SCH ×2 (07:12→19:18)
[2022-05-11] MEDS: MAGNESIUM SULFATE / D5W 1 GM/100 ML BAG IV SCH ×2 (08:27→10:45)
[2022-05-11] MEDS: INSULIN ASPART PER UNIT SC SCH ×4 (08:30→21:08)
[2022-05-11] MEDS: MAGNESIUM OXIDE 400 MG TAB PO SCH ×2 (08:31→21:09)
[2022-05-11] MEDS: PANTOprazole 40 MG TAB PO SCH (08:31)
[2022-05-11] MEDS: METOPROLOL TARTRATE 25 MG TAB PO SCH (08:31)
[2022-05-11] MEDS: predniSONE 20 MG TAB PO SCH (08:31)
[2022-05-11] MEDS: ASPIRIN 81 MG CHEW PO SCH (08:34)
[2022-05-11] MEDS: CEROVITE ADV FORMULA TAB PO SCH (10:45)
--- NOTE | 2022-05-11 11:38 | Cardiology Progress Note ---
Date of Service May 11, 2022 Assessment & Plan (1) Dilated cardiomyopathy: (2) Left bundle branch block: (3) Acute hypercapnic respiratory failure: (4) Consolidation of right upper lobe: Plan: Adjusting for guideline directed medications. The patient is having frequent unifocal PVCs and short runs of nonsustained V. tach. He was given magnesium last night. We need to consider the final results of his bronchoscopy. It does not appear that it is a malignancy. What we need to know is whether or not the patient's life expectancy will change from the results as sometime in the future if his LV function does not improve he is going to require an ICD and possibly a BiV device. I switched the patient to metoprolol succinate 25 mg twice daily and added Entresto. Continue other supportive care for now. Admission and Anticipated Discharge Date Admission Date: May 02, 2022 Subjective The patient has no new cardiac complaints. He remains extubated. Review of Systems Review of Systems: Review of Systems: See HPI for pertinent positives. All other 10 point review of systems are negative. Physical Exam Physical Exam: General: no acute distress and stated age Head: normocephalic, no masses, lesions, tenderness or abnormalities Eyes: conjunctiva are pink and non-injected, sclera clear Neck: supple, no adenopathy, no bruits, normal jugular venous pulse, no hepatojugular reflux Chest: normal shape and normal respiratory effort Lungs: clear to auscultation and percussion Cardiac Exam: - regular rate & rhythm, no murmurs gallops or rubs - normal S1, normal S2 Pulses: 2(+) throughout Abdomen: abdomen soft, non-tender, no abnormal masses and no hepatosplenomegaly Musculoskeletal: no gait disturbance, no joint inflammation, no deforming arthritis Extremities: no edema and no cyanosis Neuro: grossly normal exam Results & Data ([facility]) Vital Signs (Past 12 Hours) Vital Signs Temp Pulse Pulse Resp BP BP Pulse Ox 05/11/22 08:00 37.2 C 80 24 125/69 95 05/11/22 07:30 37.1 C 75 19 95 05/11/22 07:16 68 21 92 05/11/22 07:00 37.1 C 77 22 94 05/11/22 04:00 36.5 C 59 L 16 129/81 94 05/11/22 02:55 61 20 97 05/11/22 02:44 60 05/11/22 00:00 36.9 C 56 L 14 108/66 99 05/10/22 23:55 58 L 19 96 Laboratory Results Laboratory Results - last 24 hr 05/10/22 05/10/22 05/11/22 16:22 20:13 05:28 WBC RBC Hgb Hct MCV MCH MCHC RDW Std Deviation RDW Coeff of Cedric Plt Count MPV Sodium 137 Potassium 4.5 Chloride 97 L Carbon Dioxide 35 H Anion Gap 5 BUN 26 H Creatinine 0.65 Est Cr Clr Drug Dosing 108.9 Est GFR ( Amer) 111.1 Est GFR (Non-Af Amer) 95.8 BUN/Creatinine Ratio 40.0 H Glucose 103 H POC Glucose 154 H 176 H Calcium 9.1 Phosphorus 2.9 D Magnesium 1.6 L 05/11/22 05/11/22 05/11/22 05:28 07:24 11:29 WBC 13.80 H RBC 5.43 Hgb 16.4 Hct 50.4 MCV 92.8 MCH 30.2 MCHC 32.5 RDW Std Deviation 45.8 RDW Coeff of Cedric 13.5 Plt Count 126 L MPV 11.6 H Sodium Potassium Chloride Carbon Dioxide Anion Gap BUN Creatinine Est Cr Clr Drug Dosing Est GFR ( Amer) Est GFR (Non-Af Amer) BUN/Creatinine Ratio Glucose POC Glucose 92 191 H Calcium Phosphorus Magnesium Medications Administered Current Inpatient Medications Acetaminophen (Acetaminophen 325 Mg Tab) 650 mg PO Q6H PRN PRN Reason: fever, headache, pain Stop: 06/01/22 20:55 Last Admin: 05/10/22 20:46 Dose: 650 mg Documented by: Albuterol (Albut/Ipratrop 3mg/0.5mg Neb 3 Ml Vial) 3 ml NEB Q2R PRN; Protocol PRN Reason: SOB/WHEEZING Stop: 06/01/22 21:05 Aspirin (Aspirin 81 Mg Chew) 81 mg PO DAILY JULIA Stop: 06/02/22 08:59 Last Admin: 05/11/22 08:34 Dose: 81 mg Documented by: Atorvastatin Calcium (Atorvastatin 40 Mg Tab) 40 mg PO HS JULIA Stop: 06/01/22 20:59 Last Admin: 05/10/22 20:45 Dose: 40 mg Documented by: Budesonide (Budesonide 0.25 Mg/2 Ml Vial (Pulmicort)) 0.25 mg NEB BIDR [facility] Stop: 06/05/22 18:59 Last Admin: 05/11/22 07:12 Dose: 0.25 mg Documented by: Dextrose (Dextrose 50% 50 Ml Syringe) 25 - 50 ml IV UD PRN; Protocol PRN Reason: Hypoglycemia Protocol Stop: 06/01/22 20:55 Formoterol Fumarate (Formoterol 20 Mcg/2 Ml Vial) 20 mcg INH BIDR JULIA Stop: 06/05/22 18:59 Last Admin: 05/11/22 07:12 Dose: 20 mcg Documented by: Glucagon (Glucagon For Inj 1 Mg Vial) 1 mg SQ UD PRN; Protocol PRN Reason: Hypoglycemia Protocol Stop: 06/01/22 20:55 Glucose (Glucose 10 Tabs/Tube) 4 - 8 tabs PO UD PRN; Protocol PRN Reason: Hypoglycemia Protocol Stop: 06/01/22 20:55 Glucose (Glucose 40% Gel 15 Gm Tube) 15 - 30 gm PO UD PRN; Protocol PRN Reason: Hypoglycemia Protocol Stop: 06/01/22 20:55 Heparin Sodium (Porcine) (Heparin Sod 5,000 Unit/0.5 Ml Vial) 5,000 units SQ Q8 JULIA Stop: 06/01/22 21:59 Last Admin: 05/11/22 06:12 Dose: 5,000 units Documented by: Magnesium Sulfate/Dextrose (Magnesium Sulfate / D5w) 1 gm in 100 mls @ 50 mls/hr IV Q2H JULIA Stop: 05/11/22 12:44 Last Admin: 05/11/22 10:45 Dose: 50 mls/hr Documented by: Insulin Aspart (Insulin Aspart Per Unit) 0 units SC ACHS JULIA Stop: 06/09/22 16:29 Last Admin: 05/11/22 08:30 Dose: 8 units Documented by: Magnesium Oxide (Magnesium Oxide 400 Mg Tab) 400 mg PO BID JULIA Stop: 05/13/22 21:01 Last Admin: 05/11/22 08:31 Dose: 400 mg Documented by: Metoprolol Succinate (Metoprolol Succ 25mg Ext Rel Tab) 25 mg PO BID [facility] Stop: 06/10/22 20:59 Miscellaneous (Carbohydrates For Hypoglycemia ) 15 - 30 gm PO UD PRN PRN Reason: Hypoglycemia Protocol Stop: 06/01/22 20:55 Multivitamins/Minerals (Cerovite Adv Formula Tab) 1 tab PO QAM [facility] Stop: 06/10/22 08:59 Last Admin: 05/11/22 10:45 Dose: 1 tab Documented by: Ondansetron HCl (Ondansetron Inj 2 Mg/Ml 2 Ml Vial) 4 mg IV Q6H PRN PRN Reason: Nausea Stop: 06/01/22 20:55 Pantoprazole Sodium (Pantoprazole 40 Mg Tab) 40 mg PO DAILY [facility]; Protocol Stop: 06/10/22 08:59 Last Admin: 05/11/22 08:31 Dose: 40 mg Documented by: Prednisone (Prednisone 20 Mg Tab) 20 mg PO DAILY [facility] Stop: 06/08/22 08:59 Last Admin: 05/11/22 08:31 Dose: 20 mg Documented by: Ropinirole HCl (Ropinirole Hcl 2 Mg Tablet) 4 mg PO BID [facility] Stop: 06/01/22 20:59 Last Admin: 05/06/22 08:50 Dose: 4 mg Documented by: Sacubitril/Valsartan (Valsartan/Sacubitril 26/24mg Tab) 1 tab PO BID [facility] Stop: 06/10/22 11:29
[2022-05-11] MEDS: VALSARTAN/SACUBITRIL 26/24MG TAB PO SCH ×2 (12:22→21:11)
--- NOTE | 2022-05-11 16:46 | Hospitalist Progress Note ---
Date of Service May 11, 2022 Assessment & Plan (1) Consolidation of right upper lobe: Plan: 72 yo incarcerated man with diabetes on glipizide and Otezla presented 05/02 with hypotension, hypoglycemia and SOB with hypoxia. He denied any fevers/chills, chest pain. Per field notes his BSG was 43 nd he was given 4 glucose tabs. BP was 82/60.He is being managed for the following: #. Acute respiratory failure #. Mass of upper lobe of right lung #. Concern for pneumonia #. Acute exacerbation of COPD Presenting symptoms as above. Admitting CTA chest: No evidence for PE, suggestive of right hilar mass with postobstructive atelectasis/collapse rather than pneumonia. 3 subcentimeter pulmonary nodules within the right lung. Right paratracheal and right hilar adenopathy. Elevated Pro-Miguel and WBC at presentation. Admitting blood culture 05/02 negative. Patient underwent emergent bronchoscopy on 05/05, results were unrevealing. Concern for the sample being inadequate. 05/07 status post bronchoscopy: RUL washing performed. RUL transbronchial biopsy taken. 05/07 bronchial washing cultures: Reviewed, follow-up final 05/07 post bronchoscopy HPE: Inflammatory cells seen, negative for malignancy. Acute respiratory failure likely related to right hilar mass with postobstructive collapse in setting of possible COPD exacerbation --> Patient extubated 05/09/2020 2 AM to BiPAP. Resolving, on 2L NC O2 (not on chronic O2) s/p 8 days of antibiotics, continue prednisone/DuoNeb/budesonide nebs twice daily/formoterol twice daily No wheezing on exam, occasional crackles and improving lung sounds. Requested Pulmonology service 05/11 afternoon for re-evaluation of the patient now that bronchoscopy studies are out, for consolidating advanced COPD Mx plan and for new onset of Hemoptysis. #. Dilated cardiomyopathy: 05/07 echo with ejection fraction 20 to 25%, severely reduced LV systolic function. EKG with LBBB, troponins not reflective of acute RI. TSH wnl. Cardiology on board, appreciate recommendation, on metoprolol succinate and entresto. Monitor and replete electrolytes. Maintain potassium level 4.0 and magnesium above 2.0. Patient will need cardiology follow-up upon discharge. Need for ongoing evaluation for ICD and possibly BiV device. #. HOMA/hypotension: Status post pressor support, blood pressure better. HOMA secondary to dehydration versus ATN in setting of hypotension. Resolved. #. Hypoglycemia: 37 on arrival, resolved. Likely secondary to glipizide and Otezla use in the context of poor p.o. intake immediately prior to arrival. Continue with sliding scale. In future, if with poor p.o. intake, avoid glipizide. #. Hyperkalemia: Resolved. Continue to monitor #. Chronic steroid use: Chronically placed on a steroid by [facility] several years ago. Cont prednisone taper per Pulm. #. DVT prophylaxis: Heparin Full Code Dispo-to PCU. Admission and Anticipated Discharge Date Admission Date: May 02, 2022 Subjective Patient seen and examined at bedside as a follow-up of acute respiratory failure, right hilar mass, acute exacerbation of COPD, pneumonia, HOMA. Extubated early a.m. 05/09/2022. Patient was sitting up in bed, eating his lunch, on 2 L oxygen by NC, NAD, AOx3, reports blood tinged sputum since 2-3 days (likely post bronch and biopsy of rul mass), denies any new events overnight, denies any headache/dizziness/chest pain/shortness of breath/belly pain/feeling of heart racing/other review of symptoms. Per RN, had two loose BM overnight, eating ok, had short run of NSVT overnight. Physical Exam Physical Exam: GENERAL: NAD, on 2L NC O2, AOx3 HEENT: No pallor, no icterus. Pupils equal, round and reactive to light. Oral mucosa moist. NECK: No JVD, no neck masses. HEART: S1 and S2 heard. Tachycardic. No murmur, no gallop. RESPIRATORY SYSTEM: Normal AP diameter. No accessory muscle use. No wheezing, occasional b/l crackles - improving. ABDOMEN: Soft, bowel sounds present, non tender, no distention. CENTRAL NERVOUS SYSTEM: No facial droop. Speech is clear. Obeys simple commands. Moves extremities. EXTREMITIES: No ble edema/ble chronic skin changes noted, Lt heel blister x clean dressing. no erythema seen. SCDs in place. RLE cold, dorsalis pedis pulses palpable, leg discoloration noted (pt reports such cold legs w/ leg discoloration going on for 6-8 years, denies any changes in coloration or denies pain). Results & Data Results & Data ([facility]) Vital Signs (Past 12 Hours) Vital Signs Temp Pulse Pulse Resp BP Pulse Ox 05/11/22 12:00 37.4 C 79 17 122/81 92 05/11/22 11:30 37.2 C 79 21 122/81 94 05/11/22 08:00 37.2 C 80 24 125/69 95 05/11/22 07:30 37.1 C 75 19 95 05/11/22 07:16 68 21 92 05/11/22 07:00 37.1 C 77 22 94
--- NOTE | 2022-05-11 17:47 | Pulmonology Progress Note ---
Date of Service May 11, 2022 Assessment & Plan (1) COPD with acute exacerbation: (2) History of tobacco abuse: (3) Mass of upper lobe of right lung: (4) Pneumonia: Laterality: right Lung location: upper lobe of lung Pneumonia type: due to unspecified organism Qualified Code(s): J18.9 - Pneumonia, unspecified organism (5) Obstructive sleep apnea: Plan: Attending: Dr. Schneider Impression: 72-year-old inmate with history of COPD presented to hospital with altered mental status and found to be worsening with hypercapnic respiratory failure. Transfer to the intensive care unit 05/05/2022 and intubated and placed on mechanical ventilation. Patient was then extubated 05/09/2022. During his time in the intensive care unit he had bronchoscopy to rule out malignancy. Pathology findings were negative. Patient currently reports history of COPD, sleep apnea, tobacco abuse. Previous service and currently follows with the [facility]. Medications provided by the half-way include prednisone 20 mg p.o. daily, formoterol twice daily, budesonide nebulizer treatment twice daily, albuterol rescue inhaler as needed. Recommendations: 1. COPD with exacerbation: * [facility] * Would discontinue outpatient inhalers and start patient on Trelegy Ellipta 1 puff daily * Last PFT was February 2022. Which were reviewed * Past tobacco abuse history. Patient states that he quit smoking 24 years ago * Maintain SaO2 between 88 and 92% 2. Obstructive sleep apnea: * Patient presents with hypercapnic respiratory failure on admission * Improved with use of BiPAP while inpatient * Would discharge patient on BiPAP at 12/6 with a backup rate of 14 * Patient will need outpatient polysomnography exam 3. Right upper lobe pneumonia: * Bronchoscopy performed on 05/07/2022 shows no evidence of malignancy * Patient has undergone greater than 10 days of antibiotics while inpatient * Would not discharge on any further antibiotics at this time * Patient will need follow-up CT scan of the chest without contrast in 3 months to follow right upper lobe lesion to resolution 4. History of tobacco abuse: * Patient reports greater than [id number] smoking history and states that he quit smoking at age 48 * Continue to encourage complete abstention of tobacco products * Vaping should also be encouraged to be avoided Thank you for including us in the care of this patient. We will sign off at this time. Please feel free to call or reconsult as needed Admission and Anticipated Discharge Date Admission Date: May 02, 2022 Supervising Physician Co-Signing Physician Notes I saw and evaluated the patient with Jason Hernandez, and agree with findings and plan as documented in the note. 72-year-old male who was admitted to hospital because of altered mental status with hypercapnic respiratory failure He was intubated on admission and extubated on 05/09/2022 Pulmonary consulted for plan of care going forward as they are planning to discharge At the time of examination patient was saturating 96% on 2 L I went down to 1 L nasal cannula. He does have [id number]-kzyz-year smoking history quit around age of [age]. 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 Constitutional: No acute distress HEENT: EOMI, PERRLA Respiratory system: Decreased air entry bilaterally, no wheeze, no rhonchi positive crackles appreciated bilateral lower lobes as well as right lobe anteriorly CVS: S1-S2 positive, distant heart sounds Abdomen: Soft, nontender, nondistended, positive bowel sounds x4 Extremities: +2 pulses bilaterally radialis/ dorsalis pedis, no cyanosis, +1 pitting edema bilateral lower extremity, stasis dermatitis bilateral lower extremity Neuro: Awake alert oriented x3 Psych: Normal mood and affect G/U: Positive Gay Plan: Patient did come in with hypercapnic respiratory failure requiring intubation There is a possibility that the patient has JEREMI/OHS as well as central apneas given the decreased EF, patient will benefit from BiPAP with a backup rate. Tentatively we will start him on 10/19 or 10/21 with backup rate of 14 Given the decreased EF that he has I would recommend the patient to have polysomnography done as an outpatient to figure out exactly what pressures are needed. Would recommend Trelegy inhaler to be used on a daily basis along with as needed albuterol Try to keep O2 saturation between 88-92%. Would recommend to start prior to discharge He will need repeat CT chest done 3 months from the previous 1 to make sure the right upper lobe opacity is improving Case was discussed with MIRTHA Whitney as well as hospitalist and Jason Hernandez No further recommendation from pulmonary perspective. Please call with any person Please note the above document was generated using voice recognition software. It may contain grammatical, syntax or spelling errors.Any formal questions or concerns about the content, text or information contained within the body of this dictation should be directly addressed to the provider for clarification. Subjective Attending: Dr. Schneider Patient previously seen by Dr. Plasencia when he was in the intensive care unit. Patient did receive bronchoscopy. All results are negative for malignancy. Patient does report a smoking history of 40 pack years and states that he quit smoking when he was 48 years old. Patient states that he has [facility]. He has never seen a hardware trainer. He denies any history of pulmonary function testing. Since his bronchoscopy in the hospital, he states he has had some blood-tinged mucus. He denies any linda hemoptysis or clots. Overall, the patient states that he feels improved. The patient has been on BiPAP at night and is tolerating this. The patient has no other acute complaints at this time. He is very talkative. He has no observed conversational dyspnea. Review of Systems Review of Systems: A total of 10 systems is reviewed and is negative other than as listed above in the HPI Physical Exam Physical Exam: GENERAL : No acute distress EYES: No icterus, gaze conjugate NOSE: No evidence of epistaxis MOUTH: No lesions or candidiasis NECK: Supple LUNGS: Scattered wheezes. Distant breath sounds. HEART: Regular, rate controlled ABDOMEN: Soft, NT, ND, BS Present EXTREMITIES: No LE edema, pedal pulses intact NEURO: A&OX3 Results & Data Results & Data ([facility]) Vital Signs (Past 12 Hours) Vital Signs Temp Pulse Pulse Resp BP Pulse Ox 05/11/22 17:23 66 05/11/22 17:13 37.0 C 65 19 107/68 95 05/11/22 16:00 66 05/11/22 12:00 37.4 C 79 17 122/81 92 05/11/22 11:30 37.2 C 79 21 122/81 94 05/11/22 08:00 37.2 C 80 24 125/69 95 05/11/22 07:30 37.1 C 75 19 95 05/11/22 07:16 68 21 92 05/11/22 07:00 37.1 C 77 22 94 Critical Care Results & Data Vital Signs (Past 12 Hours) Vital Signs Temp Pulse Pulse Resp BP Pulse Ox 05/11/22 17:23 66 05/11/22 17:13 37.0 C 65 19 107/68 95 05/11/22 16:00 66 05/11/22 12:00 37.4 C 79 17 122/81 92 05/11/22 11:30 37.2 C 79 21 122/81 94 05/11/22 08:00 37.2 C 80 24 125/69 95 05/11/22 07:30 37.1 C 75 19 95 05/11/22 07:16 68 21 92 05/11/22 07:00 37.1 C 77 22 94 Lab & Micro Results (Past 24 Hours) RBC 5.43 M/uL (4.7-6.1) 05/11/22 WBC 13.80 K/uL (4.8-10.8) H 05/11/22 Hgb 16.4 g/dL (14.0-18.0) 05/11/22 Hct 50.4 % (42-52) 05/11/22 MCV 92.8 fL (80-100) 05/11/22 MCH 30.2 pg (25-34) 05/11/22 MCHC 32.5 g/dL (32-36) 05/11/22 RDW Standard Deviation 45.8 fL (36.4-46.3) 05/11/22 RDW Coefficient of Variation 13.5 % (11.5-14.5) 05/11/22 Plt Count 126 K/uL (130-400) L 05/11/22 MPV 11.6 fL (7.4-10.4) H 05/11/22 Na 137 mmol/L (136-145) 05/11/22 K 4.5 mmol/L (3.5-5.1) 05/11/22 Cl 97 mmol/L (98-107) L 05/11/22 CO2 35 mmol/L (21-32) H 05/11/22 Anion Gap 5 (3-11) 05/11/22 BUN 26 mg/dl (6-23) H 05/11/22 Creatinine 0.65 mg/dl (0.6-1.4) 05/11/22 Estimated GFR ( Amer) 111.1 ml/min 05/11/22 Estimated GFR (Non-Af Amer) 95.8 ml/min 05/11/22 BUN/Creatinine Ratio 40.0 (10-20) H 05/11/22 Glu 103 mg/dl (70-99(Fasting)) H 05/11/22 Ca 9.1 mg/dl (8.5-10.1) 05/11/22 Phosphorus Level 2.9 mg/dl (2.5-4.9) 05/11/22 Mg 1.6 mg/dl (1.7-2.4) L 05/11/22 05:28 05/11/22 Calcium Level 9.1 mg/dl (8.5-10.1) 05/11/22 05:28 05/11/22 Microbiology 05/09/22 04:00 Urine Culture - Final Urine,Clean Catch No growth - less than 1,000 colonies/mL. 05/09/22 05:37 Aerobic Blood Culture - Preliminary Blood No growth in Aerobic bottle after 48 hours. Anaerobic Blood Culture - Final 05/09/22 05:37 Aerobic Blood Culture - Preliminary Blood No growth in Aerobic bottle after 48 hours. Anaerobic Blood Culture - Final I & O Totals 24 Hours 05/10/22 05/11/22 05/12/22 06:59 06:59 06:59 Intake Total 505.0 / 505.0 842.5 / 842.5 300 / 300 Output Total 2300 / 2300 2551 / 2551 850 / 850 Balance -1795.0 / -1795.0 -1708.5 / -1708.5 -550 / -550 Cumulative 05/02/22 15:22 thru 05/11/22 15:54 Intake Total 29249.409 Output Total 34813 Balance 14.409 RT Ventilator Mngmt (Last Documented) Ventilator Ordered Settings Ventilator Support Mode Assist Control 05/09/22 07 :15 Respiratory Rate 19 05/11/22 17:13 Ventilator Tidal Volume 400 05/09/22 07:15 Setting Minute Ventilation 6.4 05/09/22 07:15 Ventilator Positive Pressure 7 05/09/22 07:00 Support Setting Positive End Expiratory 5 05/09/22 07:15 Pressure Fraction of Inspired Oxygen 40 05/11/22 04:00 Machine Comment changes post ABG 05/08/22 04:20 Ventilator - PT Measurements Respiratory Rate 19 Exhaled Tidal Volume 400 Minute Ventilation 6.4 Peak Inspiratory Airway 21 Pressure Plateau Pressure 15 Respiratory Cycle Inspiratory: 1:4.4 Expiratory Ratio Inspiratory Phase Time 0.7 End-Tidal CO2 49 Static Lung Compliance 40.00 Dynamic Lung Compliance 25.00 Normal Static Lung Compliance 46.00 Patient Measurements Comment Patient extubated per verbal order from Dr. Plasencia (At Bedside). Patient suctioned and extubated. Patient tolerated extubation well. Placed patient on BiPAP per Dr. Plasencia. PG Care Time/CCT Total # of Minutes Spent Total Time Spent with Patient: Total time spent is greater than 50% in coordination of care (as documented) at patient's floor/unit and/or counseling patient: 25 Coding Level of Care Code 66488 Subseq Hosp Care Lvl 3 Diagnoses COPD with acute exacerbation J44.1 History of tobacco abuse Z87.891 Mass of upper lobe of right lung R91.8 Pneumonia J18.9 Laterality: right Lung location: upper lobe of lung Pneumonia type: due to unspecified organism Obstructive sleep apnea G47.33
[2022-05-11] MEDS: ADVANCED PROBIOTIC 1250 MG CAPSULE PO SCH (18:23)
[2022-05-11] MEDS: ATORVASTATIN 40 MG TAB PO SCH (21:10)
[2022-05-11] MEDS: METOPROLOL SUCC 25MG EXT REL TAB PO SCH (21:10)
[2022-05-11] MEDS ORDERED: ALBUMIN 25% 12.5 GM/50 ML VIAL IV ONE (23:45)
[2022-05-12] MEDS: rOPINIRole HCL 2 MG TABLET PO SCH ×3 (01:45→21:52)
[2022-05-12] MEDS: HEPARIN SOD 5,000 UNIT/0.5 ML VIAL SQ SCH ×3 (06:17→21:51)
[2022-05-12 06:49] LABS: Hematocrit (blood only) 47.3 % (42-52); Hemoglobin 15.6 g/dL (14.0-18.0); Mean Corpuscular Hemoglobin 30.4 pg (25-34); Mean Platelet Volume 11.6 fL (7.4-10.4); Platelet Count 129 K/uL (130-400); RDW Coefficient of Variation 13.3 % (11.5-14.5); RDW Standard Deviation 44.5 fL (36.4-46.3); Red Blood Count 5.14 M/uL (4.7-6.1); White Blood Count 11.35 K/uL (4.8-10.8)
[2022-05-12] MEDS: BUDESONIDE 0.25 MG/2 ML VIAL (PULMICORT) NEB SCH ×2 (07:03→19:25)
[2022-05-12] MEDS: FORMOTEROL 20 MCG/2 ML VIAL INH SCH ×2 (07:03→19:25)
[2022-05-12 07:08] LABS: BUN Creatinine Ratio 34.3 (10-20); Calcium 8.7 mg/dl (8.5-10.1); Creatinine Clr Calc Pharmacy 69.9 ml/min; Est GFR (African American) 86.6 ml/min; Est GFR (Non-African American) 74.7 ml/min; Potassium 4.5 mmol/L (3.5-5.1)
[2022-05-12] MEDS: INSULIN ASPART PER UNIT SC SCH ×4 (09:01→21:50)
[2022-05-12] MEDS: ADVANCED PROBIOTIC 1250 MG CAPSULE PO SCH (09:06)
[2022-05-12] MEDS: ASPIRIN 81 MG CHEW PO SCH (09:06)
[2022-05-12] MEDS: CEROVITE ADV FORMULA TAB PO SCH (09:07)
[2022-05-12] MEDS: METOPROLOL SUCC 25MG EXT REL TAB PO SCH ×2 (09:07→21:51)
[2022-05-12] MEDS: predniSONE 20 MG TAB PO SCH (09:07)
[2022-05-12] MEDS: PANTOprazole 40 MG TAB PO SCH (09:07)
[2022-05-12] MEDS: VALSARTAN/SACUBITRIL 26/24MG TAB PO SCH ×2 (09:07→21:52)
[2022-05-12] MEDS: MAGNESIUM OXIDE 400 MG TAB PO SCH ×2 (09:07→21:51)
--- NOTE | 2022-05-12 12:21 | Cardiology Progress Note ---
Date of Service May 12, 2022 Assessment & Plan (1) Dilated cardiomyopathy: (2) Left bundle branch block: (3) Acute hypercapnic respiratory failure: (4) Consolidation of right upper lobe: Plan: The patient is clinically stable. Believe by tomorrow he should be able to be [facility] the [facility]. I guess [facility]? He needs follow-up with the [facility]. A few months he should have a follow-up echocardiogram to evaluate LV function. If there is no improvement after starting guideline directed medications then consideration needs to be given for a BiV/ICD. Admission and Anticipated Discharge Date Admission Date: May 02, 2022 Subjective The patient has no new cardiac complaints. Review of Systems Review of Systems: Review of Systems: See HPI for pertinent positives. All other 10 point review of systems are negative. Physical Exam Physical Exam: General: no acute distress and stated age Head: normocephalic, no masses, lesions, tenderness or abnormalities Eyes: conjunctiva are pink and non-injected, sclera clear Neck: supple, no adenopathy, no bruits, normal jugular venous pulse, no hepatojugular reflux Chest: normal shape and normal respiratory effort Lungs: clear to auscultation and percussion Cardiac Exam: - regular rate & rhythm, no murmurs gallops or rubs - normal S1, normal S2 Pulses: 2(+) throughout Abdomen: abdomen soft, non-tender, no abnormal masses and no hepatosplenomegaly Musculoskeletal: no gait disturbance, no joint inflammation, no deforming arthritis Extremities: no edema and no cyanosis Neuro: grossly normal exam Results & Data ([facility]) Vital Signs (Past 12 Hours) Vital Signs Temp Pulse Pulse Pulse Resp BP BP 05/12/22 08:00 64 05/12/22 07:51 36.7 C 66 20 100/62 170/149 H 05/12/22 07:05 71 18 05/12/22 03:53 36.7 C 58 L 16 100/62 05/12/22 01:45 36.6 C 69 18 100/50 L Pulse Ox 05/12/22 08:00 05/12/22 07:51 96 05/12/22 07:05 92 05/12/22 03:53 94 05/12/22 01:45 91 Laboratory Results Laboratory Results - last 24 hr 05/09/22 05/11/22 05/11/22 05:37 16:27 20:21 WBC RBC Hgb Hct MCV MCH MCHC RDW Std Deviation RDW Coeff of Cedric Plt Count MPV Sodium Potassium Chloride Carbon Dioxide Anion Gap BUN Creatinine Est Cr Clr Drug Dosing Est GFR ( Amer) Est GFR (Non-Af Amer) BUN/Creatinine Ratio Glucose POC Glucose 156 H 177 H Calcium Magnesium Serum Immunofixation SEE NOTE 05/12/22 05/12/22 05/12/22 06:18 06:18 07:48 WBC 11.35 H RBC 5.14 Hgb 15.6 Hct 47.3 MCV 92.0 MCH 30.4 MCHC 33.0 RDW Std Deviation 44.5 RDW Coeff of Cedric 13.3 Plt Count 129 L MPV 11.6 H Sodium 137 Potassium 4.5 Chloride 96 L Carbon Dioxide 38 H Anion Gap 3 BUN 34 H Creatinine 0.99 D Est Cr Clr Drug Dosing 69.9 Est GFR ( Amer) 86.6 Est GFR (Non-Af Amer) 74.7 BUN/Creatinine Ratio 34.3 H Glucose 138 H POC Glucose 122 H Calcium 8.7 Magnesium 2.0 Serum Immunofixation 05/12/22 11:43 WBC RBC Hgb Hct MCV MCH MCHC RDW Std Deviation RDW Coeff of Cedric Plt Count MPV Sodium Potassium Chloride Carbon Dioxide Anion Gap BUN Creatinine Est Cr Clr Drug Dosing Est GFR ( Amer) Est GFR (Non-Af Amer) BUN/Creatinine Ratio Glucose POC Glucose 195 H Calcium Magnesium Serum Immunofixation Medications Administered Current Inpatient Medications Acetaminophen (Acetaminophen 325 Mg Tab) 650 mg PO Q6H PRN PRN Reason: fever, headache, pain Stop: 06/01/22 20:55 Last Admin: 05/10/22 20:46 Dose: 650 mg Documented by: Albuterol (Albut/Ipratrop 3mg/0.5mg Neb 3 Ml Vial) 3 ml NEB Q2R PRN; Protocol PRN Reason: SOB/WHEEZING Stop: 06/01/22 21:05 Aspirin (Aspirin 81 Mg Chew) 81 mg PO DAILY JULIA Stop: 06/02/22 08:59 Last Admin: 05/12/22 09:06 Dose: 81 mg Documented by: Atorvastatin Calcium (Atorvastatin 40 Mg Tab) 40 mg PO HS JULIA Stop: 06/01/22 20:59 Last Admin: 05/11/22 21:10 Dose: 40 mg Documented by: Budesonide (Budesonide 0.25 Mg/2 Ml Vial (Pulmicort)) 0.25 mg NEB BIDR [facility] Stop: 06/05/22 18:59 Last Admin: 05/12/22 07:03 Dose: Not Given Documented by: Dextrose (Dextrose 50% 50 Ml Syringe) 25 - 50 ml IV UD PRN; Protocol PRN Reason: Hypoglycemia Protocol Stop: 06/01/22 20:55 Formoterol Fumarate (Formoterol 20 Mcg/2 Ml Vial) 20 mcg INH BIDR [facility]UL[facility] Stop: 06/05/22 18:59 Last Admin: 05/12/22 07:03 Dose: 20 mcg Documented by: Glucagon (Glucagon For Inj 1 Mg Vial) 1 mg SQ UD PRN; Protocol PRN Reason: Hypoglycemia Protocol Stop: 06/01/22 20:55 Glucose (Glucose 10 Tabs/Tube) 4 - 8 tabs PO UD PRN; Protocol PRN Reason: Hypoglycemia Protocol Stop: 06/01/22 20:55 Glucose (Glucose 40% Gel 15 Gm Tube) 15 - 30 gm PO UD PRN; Protocol PRN Reason: Hypoglycemia Protocol Stop: 06/01/22 20:55 Heparin Sodium (Porcine) (Heparin Sod 5,000 Unit/0.5 Ml Vial) 5,000 units SQ Q8 JULIA Stop: 06/01/22 21:59 Last Admin: 05/12/22 06:17 Dose: 5,000 units Documented by: Insulin Aspart (Insulin Aspart Per Unit) 0 units SC ACHS JULIA Stop: 06/09/22 16:29 Last Admin: 05/12/22 09:01 Dose: Not Given Documented by: Lactobacillus Acidophilus (Advanced Probiotic 1250 Mg Capsule) 2 cap PO DAILY JULIA Stop: 06/10/22 16:44 Last Admin: 05/12/22 09:06 Dose: 2 cap Documented by: Magnesium Oxide (Magnesium Oxide 400 Mg Tab) 400 mg PO BID [facility] Stop: 05/13/22 21:01 Last Admin: 05/12/22 09:07 Dose: 400 mg Documented by: Metoprolol Succinate (Metoprolol Succ 25mg Ext Rel Tab) 25 mg PO BID [facility] Stop: 06/10/22 20:59 Last Admin: 05/12/22 09:07 Dose: 25 mg Documented by: Miscellaneous (Carbohydrates For Hypoglycemia ) 15 - 30 gm PO UD PRN PRN Reason: Hypoglycemia Protocol Stop: 06/01/22 20:55 Multivitamins/Minerals (Cerovite Adv Formula Tab) 1 tab PO QAM [facility] Stop: 06/10/22 08:59 Last Admin: 05/12/22 09:07 Dose: 1 tab Documented by: Ondansetron HCl (Ondansetron Inj 2 Mg/Ml 2 Ml Vial) 4 mg IV Q6H PRN PRN Reason: Nausea Stop: 06/01/22 20:55 Pantoprazole Sodium (Pantoprazole 40 Mg Tab) 40 mg PO DAILY [facility]; Protocol Stop: 06/10/22 08:59 Last Admin: 05/12/22 09:07 Dose: 40 mg Documented by: Prednisone (Prednisone 20 Mg Tab) 20 mg PO DAILY [facility] Stop: 06/08/22 08:59 Last Admin: 05/12/22 09:07 Dose: 20 mg Documented by: Ropinirole HCl (Ropinirole Hcl 2 Mg Tablet) 4 mg PO BID [facility] Stop: 06/01/22 20:59 Last Admin: 05/12/22 09:06 Dose: 4 mg Documented by: Sacubitril/Valsartan (Valsartan/Sacubitril 26/24mg Tab) 1 tab PO BID [facility] Stop: 06/10/22 11:29 Last Admin: 05/12/22 09:07 Dose: 1 tab Documented by:
--- NOTE | 2022-05-12 12:42 | Hospitalist Progress Note ---
Date of Service May 12, 2022 Assessment & Plan (1) Consolidation of right upper lobe: Plan: 72 yo incarcerated man with diabetes on glipizide and Otezla presented 05/02 with hypotension, hypoglycemia and SOB with hypoxia. He denied any fevers/chills, chest pain. Per field notes his BSG was 43 nd he was given 4 glucose tabs. BP was 82/60.He is being managed for the following: #. Acute respiratory failure #. Mass of upper lobe of right lung #. Concern for pneumonia #. Acute exacerbation of COPD Presenting symptoms as above. Admitting CTA chest: No evidence for PE, suggestive of right hilar mass with postobstructive atelectasis/collapse rather than pneumonia. 3 subcentimeter pulmonary nodules within the right lung. Right paratracheal and right hilar adenopathy. Elevated Pro-Miguel and WBC at presentation. Admitting blood culture 05/02 negative. Patient underwent emergent bronchoscopy on 05/05, results were unrevealing. Concern for the sample being inadequate. 05/07 status post bronchoscopy: RUL washing performed. RUL transbronchial biopsy taken. 05/07 bronchial washing cultures: Reviewed, follow-up final 05/07 post bronchoscopy HPE: Inflammatory cells seen, negative for malignancy. Acute respiratory failure likely related to right hilar mass with postobstructive collapse in setting of possible COPD exacerbation --> Patient extubated 05/09/2020 2 AM to BiPAP. Resolving, on 3L NC O2 (not on prior chronic O2) s/p 8 days of antibiotics, continue prednisone/DuoNeb/budesonide nebs twice daily/formoterol twice daily No wheezing on exam, no crackles and improving lung sounds. Pulm re-evaled 05/11: start Trelegy Ellipata 1 puff daily w/ prn rescue inhaler, BPAP (10/19, r = 14) at DC w/ rec for OP PSG, f/u CT scan w/o con in 3 months to f/u RUL lesion to resolution, #. Dilated cardiomyopathy: 05/07 echo with ejection fraction 20 to 25%, severely reduced LV systolic function. EKG with LBBB, troponins not reflective of acute AL. TSH wnl. Cardiology on board, appreciate recommendation, on metoprolol succinate and entresto. Monitor and replete electrolytes. Maintain potassium level 4.0 and magnesium above 2.0. Patient will need cardiology follow-up upon discharge. ECHO to eval EF in 2-3 months of GDT. Need for ongoing evaluation for ICD and possibly BiV device. D/w cardio, monitor overnight, likely DC johnathon, meds being optimized. #. HOMA/hypotension: Status post pressor support, blood pressure better. HOMA secondary to dehydration versus ATN in setting of hypotension. Resolved. #. Hypoglycemia: 37 on arrival, resolved. Likely secondary to glipizide and Otezla use in the context of poor p.o. intake immediately prior to arrival. Continue with sliding scale. In future, if with poor p.o. intake, avoid glipizide. #. Hyperkalemia: Resolved. Continue to monitor #. Chronic steroid use: Chronically placed on a steroid by [facility] several years ago. Cont prednisone taper per Pulm. #. DVT prophylaxis: Heparin Full Code Dispo - likely DC johnathon. Needs PCP/Pulm/Cardio f/u. BPAP (I:E 10/19, r=14), OP PSG, CT chest in 3 mo, ECHO in 2-3 months, labs in a week, Trelegy. Also needs Vasc Sx f/u ? PVD. Admission and Anticipated Discharge Date Admission Date: May 02, 2022 Subjective Patient seen and examined at bedside as a follow-up of acute respiratory failure, right hilar mass, acute exacerbation of COPD, pneumonia, HOMA. Extubated early a.m. 05/09/2022. Patient was lying in bed, on 3 L oxygen by NC, NAD, AOx3, reports blood tinged clear sputum since 2-3 days (clearing up now)/cough at baseline, denies any new events overnight, denies any headache/dizziness/chest pain/shortness of breath/belly pain/feeling of heart racing/other review of symptoms. Reports eating less and having loose BM which are getting better formed lately. Physical Exam Physical Exam: GENERAL: NAD, on 3L NC O2, AOx3 HEENT: No pallor, no icterus. Pupils equal, round and reactive to light. Oral mucosa moist. NECK: No JVD, no neck masses. HEART: S1 and S2 heard. Reg rate and rhythm. No murmur, no gallop. RESPIRATORY SYSTEM: Normal AP diameter. No accessory muscle use. No wheezing, occasional b/l crackles - improving. ABDOMEN: Soft, bowel sounds present, non tender, no distention. CENTRAL NERVOUS SYSTEM: No facial droop. Speech is clear. Obeys simple commands. Moves extremities. EXTREMITIES: No ble edema/ble chronic skin changes noted, Lt heel blister x clean dressing. no erythema seen. SCDs in place. RLE cold, dorsalis pedis pulses palpable, leg discoloration noted (pt reports such cold legs w/ leg discoloration going on for 6-8 years, denies any changes in coloration or denies pain). Results & Data Results & Data ([facility]) Vital Signs (Past 12 Hours) Vital Signs Temp Pulse Pulse Pulse Resp BP BP 05/12/22 12:19 36.2 C L 62 20 100/60 05/12/22 08:00 64 05/12/22 07:51 36.7 C 66 20 100/62 170/149 H 05/12/22 07:05 71 18 05/12/22 03:53 36.7 C 58 L 16 100/62 05/12/22 01:45 36.6 C 69 18 100/50 L Pulse Ox 05/12/22 12:19 95 05/12/22 08:00 05/12/22 07:51 96 05/12/22 07:05 92 05/12/22 03:53 94 05/12/22 01:45 91
[2022-05-12] MEDS: ATORVASTATIN 40 MG TAB PO SCH (21:51)
[2022-05-13] MEDS: HEPARIN SOD 5,000 UNIT/0.5 ML VIAL SQ SCH ×3 (05:34→21:37)
[2022-05-13 06:16] LABS: Hematocrit (blood only) 43.1 % (42-52); Hemoglobin 14.4 g/dL (14.0-18.0); Mean Corpuscular Hgb Conc 33.4 g/dL (32-36); Mean Corpuscular Volume 92.9 fL (80-100); Mean Platelet Volume 11.8 fL (7.4-10.4); Platelet Count 155 K/uL (130-400); RDW Coefficient of Variation 13.7 % (11.5-14.5); RDW Standard Deviation 46.3 fL (36.4-46.3); Red Blood Count 4.64 M/uL (4.7-6.1); White Blood Count 10.78 K/uL (4.8-10.8)
[2022-05-13 06:35] LABS: BUN Creatinine Ratio 46.4 (10-20); Blood Urea Nitrogen 52 mg/dl (6-23); Calcium 8.4 mg/dl (8.5-10.1); Carbon Dioxide 38 mmol/L (21-32); Chloride 99 mmol/L (98-107); Creatinine Clr Calc Pharmacy 61.8 ml/min; Est GFR (African American) 74.6 ml/min; Est GFR (Non-African American) 64.4 ml/min; Glucose 123 mg/dl (70-99(Fasting))
[2022-05-13] MEDS: FORMOTEROL 20 MCG/2 ML VIAL INH SCH ×2 (07:01→19:10)
[2022-05-13] MEDS: BUDESONIDE 0.25 MG/2 ML VIAL (PULMICORT) NEB SCH ×2 (07:01→19:10)
[2022-05-13 07:36] LABS: Magnesium 2.1 mg/dl (1.7-2.4); Potassium 3.9 mmol/L (3.5-5.1)
[2022-05-13] MEDS: predniSONE 20 MG TAB PO SCH (09:23)
[2022-05-13] MEDS: ADVANCED PROBIOTIC 1250 MG CAPSULE PO SCH (09:23)
[2022-05-13] MEDS: PANTOprazole 40 MG TAB PO SCH (09:23)
[2022-05-13] MEDS: ASPIRIN 81 MG CHEW PO SCH (09:24)
[2022-05-13] MEDS: rOPINIRole HCL 2 MG TABLET PO SCH ×2 (09:24→21:36)
[2022-05-13] MEDS: FUROSEMIDE 20 MG TAB PO SCH (09:24)
[2022-05-13] MEDS: METOPROLOL SUCC 25MG EXT REL TAB PO SCH ×2 (09:25→20:36)
[2022-05-13] MEDS: VALSARTAN/SACUBITRIL 26/24MG TAB PO SCH ×2 (09:25→21:36)
[2022-05-13] MEDS: MAGNESIUM OXIDE 400 MG TAB PO SCH ×2 (09:26→21:36)
[2022-05-13] MEDS: INSULIN ASPART PER UNIT SC SCH ×4 (09:26→21:30)
[2022-05-13] MEDS: CEROVITE ADV FORMULA TAB PO SCH (09:26)
--- NOTE | 2022-05-13 11:19 | Cardiology Progress Note ---
Date of Service May 13, 2022 Assessment & Plan (1) Dilated cardiomyopathy: (2) Left bundle branch block: (3) Acute hypercapnic respiratory failure: (4) Consolidation of right upper lobe: Plan: The patient is clinically stable from a cardiac standpoint. He is on a good medical regimen and. I think he can be returned to the intermediate per the hospitalist however I do note that he still has a Gay catheter in which will have to come out and the patient will have to be able to demonstrate that he is able to void prior to being discharged. Admission and Anticipated Discharge Date Admission Date: May 02, 2022 Subjective The patient has no new complaints. Review of Systems Review of Systems: Review of Systems: See HPI for pertinent positives. All other 10 point review of systems are negative. Physical Exam Physical Exam: General: no acute distress and stated age Head: normocephalic, no masses, lesions, tenderness or abnormalities Eyes: conjunctiva are pink and non-injected, sclera clear Neck: supple, no adenopathy, no bruits, normal jugular venous pulse, no hepatojugular reflux Chest: normal shape and normal respiratory effort Lungs: clear to auscultation and percussion Cardiac Exam: - regular rate & rhythm, no murmurs gallops or rubs - normal S1, normal S2 Pulses: 2(+) throughout Abdomen: abdomen soft, non-tender, no abnormal masses and no hepatosplenomegaly Musculoskeletal: no gait disturbance, no joint inflammation, no deforming arthritis Extremities: no edema and no cyanosis Neuro: grossly normal exam Results & Data ([facility]) Vital Signs (Past 12 Hours) Vital Signs Temp Pulse Pulse Pulse Pulse Pulse Resp 05/13/22 10:56 62 64 64 05/13/22 07:01 57 L 20 05/13/22 04:04 55 L 18 05/13/22 04:00 36.3 C L 55 L 20 05/12/22 23:20 72 18 Resp Resp Resp BP Pulse Ox Pulse Ox Pulse Ox 05/13/22 10:56 18 18 18 90 93 05/13/22 07:01 97 05/13/22 04:04 90 05/13/22 04:00 92/54 L 100 05/12/22 23:20 95 Pulse Ox 05/13/22 10:56 81 L 05/13/22 07:01 05/13/22 04:04 05/13/22 04:00 05/12/22 23:20 Laboratory Results Laboratory Results - last 24 hr 05/12/22 05/12/22 05/12/22 11:43 16:31 20:25 WBC RBC Hgb Hct MCV MCH MCHC RDW Std Deviation RDW Coeff of Cedric Plt Count MPV Sodium Potassium Chloride Carbon Dioxide Anion Gap BUN Creatinine Est Cr Clr Drug Dosing Est GFR ( Amer) Est GFR (Non-Af Amer) BUN/Creatinine Ratio Glucose POC Glucose 195 H 241 H 203 H Calcium Magnesium 05/13/22 05/13/22 05/13/22 05:54 05:54 06:49 WBC 10.78 RBC 4.64 L Hgb 14.4 Hct 43.1 MCV 92.9 MCH 31.0 MCHC 33.4 RDW Std Deviation 46.3 RDW Coeff of Cedric 13.7 Plt Count 155 MPV 11.8 H Sodium TNP 140 Potassium TNP 3.9 Chloride 99 Carbon Dioxide 38 H Anion Gap TNP BUN 52 H Creatinine 1.12 Est Cr Clr Drug Dosing 61.8 Est GFR ( Amer) 74.6 Est GFR (Non-Af Amer) 64.4 BUN/Creatinine Ratio 46.4 H Glucose 123 H POC Glucose Calcium 8.4 L Magnesium TNP 2.1 05/13/22 05/13/22 07:27 11:12 WBC RBC Hgb Hct MCV MCH MCHC RDW Std Deviation RDW Coeff of Cedric Plt Count MPV Sodium Potassium Chloride Carbon Dioxide Anion Gap BUN Creatinine Est Cr Clr Drug Dosing Est GFR ( Amer) Est GFR (Non-Af Amer) BUN/Creatinine Ratio Glucose POC Glucose 102 H 276 H Calcium Magnesium Medications Administered Current Inpatient Medications Acetaminophen (Acetaminophen 325 Mg Tab) 650 mg PO Q6H PRN PRN Reason: fever, headache, pain Stop: 06/01/22 20:55 Last Admin: 05/10/22 20:46 Dose: 650 mg Documented by: Albuterol (Albut/Ipratrop 3mg/0.5mg Neb 3 Ml Vial) 3 ml NEB Q2R PRN; Protocol PRN Reason: SOB/WHEEZING Stop: 06/01/22 21:05 Aspirin (Aspirin 81 Mg Chew) 81 mg PO DAILY JULIA Stop: 06/02/22 08:59 Last Admin: 05/13/22 09:24 Dose: 81 mg Documented by: Atorvastatin Calcium (Atorvastatin 40 Mg Tab) 40 mg PO HS [facility] Stop: 06/01/22 20:59 Last Admin: 05/12/22 21:51 Dose: 40 mg Documented by: Budesonide (Budesonide 0.25 Mg/2 Ml Vial (Pulmicort)) 0.25 mg NEB BIDR [facility] Stop: 06/05/22 18:59 Last Admin: 05/13/22 07:01 Dose: 0.25 mg Documented by: Dextrose (Dextrose 50% 50 Ml Syringe) 25 - 50 ml IV UD PRN; Protocol PRN Reason: Hypoglycemia Protocol Stop: 06/01/22 20:55 Formoterol Fumarate (Formoterol 20 Mcg/2 Ml Vial) 20 mcg INH BIDR JULIA Stop: 06/05/22 18:59 Last Admin: 05/13/22 07:01 Dose: 20 mcg Documented by: Furosemide (Furosemide 20 Mg Tab) 20 mg PO QAM JULIA Stop: 06/12/22 08:59 Last Admin: 05/13/22 09:24 Dose: 20 mg Documented by: Glucagon (Glucagon For Inj 1 Mg Vial) 1 mg SQ UD PRN; Protocol PRN Reason: Hypoglycemia Protocol Stop: 06/01/22 20:55 Glucose (Glucose 10 Tabs/Tube) 4 - 8 tabs PO UD PRN; Protocol PRN Reason: Hypoglycemia Protocol Stop: 06/01/22 20:55 Glucose (Glucose 40% Gel 15 Gm Tube) 15 - 30 gm PO UD PRN; Protocol PRN Reason: Hypoglycemia Protocol Stop: 06/01/22 20:55 Heparin Sodium (Porcine) (Heparin Sod 5,000 Unit/0.5 Ml Vial) 5,000 units SQ Q8 JULIA Stop: 06/01/22 21:59 Last Admin: 05/13/22 05:34 Dose: 5,000 units Documented by: Insulin Aspart (Insulin Aspart Per Unit) 0 units SC ACHS JULIA Stop: 06/09/22 16:29 Last Admin: 05/13/22 09:26 Dose: 7 units Documented by: Lactobacillus Acidophilus (Advanced Probiotic 1250 Mg Capsule) 2 cap PO DAILY JULIA Stop: 06/10/22 16:44 Last Admin: 05/13/22 09:23 Dose: 2 cap Documented by: Magnesium Oxide (Magnesium Oxide 400 Mg Tab) 400 mg PO BID [facility] Stop: 05/13/22 21:01 Last Admin: 05/13/22 09:26 Dose: 400 mg Documented by: Metoprolol Succinate (Metoprolol Succ 25mg Ext Rel Tab) 25 mg PO BID [facility] Stop: 06/10/22 20:59 Last Admin: 05/13/22 09:25 Dose: Not Given Documented by: Miscellaneous (Carbohydrates For Hypoglycemia ) 15 - 30 gm PO UD PRN PRN Reason: Hypoglycemia Protocol Stop: 06/01/22 20:55 Multivitamins/Minerals (Cerovite Adv Formula Tab) 1 tab PO QAM [facility] Stop: 06/10/22 08:59 Last Admin: 05/13/22 09:26 Dose: 1 tab Documented by: Ondansetron HCl (Ondansetron Inj 2 Mg/Ml 2 Ml Vial) 4 mg IV Q6H PRN PRN Reason: Nausea Stop: 06/01/22 20:55 Pantoprazole Sodium (Pantoprazole 40 Mg Tab) 40 mg PO DAILY [facility]; Protocol Stop: 06/10/22 08:59 Last Admin: 05/13/22 09:23 Dose: 40 mg Documented by: Prednisone (Prednisone 20 Mg Tab) 20 mg PO DAILY [facility] Stop: 06/08/22 08:59 Last Admin: 05/13/22 09:23 Dose: 20 mg Documented by: Ropinirole HCl (Ropinirole Hcl 2 Mg Tablet) 4 mg PO BID [facility] Stop: 06/01/22 20:59 Last Admin: 05/13/22 09:24 Dose: 4 mg Documented by: Sacubitril/Valsartan (Valsartan/Sacubitril 26/24mg Tab) 1 tab PO BID [facility] Stop: 06/10/22 11:29 Last Admin: 05/13/22 09:25 Dose: 1 tab Documented by:
--- NOTE | 2022-05-13 17:03 | Hospitalist Progress Note ---
Date of Service May 13, 2022 Assessment & Plan (1) Consolidation of right upper lobe: Plan: 72 yo incarcerated man with diabetes on glipizide and Otezla presented 05/02 with hypotension, hypoglycemia and SOB with hypoxia. He denied any fevers/chills, chest pain. Per field notes his BSG was 43 nd he was given 4 glucose tabs. BP was 82/60.He is being managed for the following: #. Acute respiratory failure #. Mass of upper lobe of right lung #. Concern for pneumonia #. Acute exacerbation of COPD Presenting symptoms as above. Admitting CTA chest: No evidence for PE, suggestive of right hilar mass with postobstructive atelectasis/collapse rather than pneumonia. 3 subcentimeter pulmonary nodules within the right lung. Right paratracheal and right hilar adenopathy. Elevated Pro-Miguel and WBC at presentation. Admitting blood culture 05/02 negative. Patient underwent emergent bronchoscopy on 05/05, results were unrevealing. Concern for the sample being inadequate. 05/07 status post bronchoscopy: RUL washing performed. RUL transbronchial biopsy taken. 05/07 bronchial washing cultures: Reviewed, follow-up final 05/07 post bronchoscopy HPE: Inflammatory cells seen, negative for malignancy. Acute respiratory failure likely related to right hilar mass with postobstructive collapse in setting of possible COPD exacerbation --> Patient extubated 05/09/2020 2 AM to BiPAP. Resolving, on 2L NC O2 (not on prior chronic O2) s/p 8 days of antibiotics, continue prednisone/DuoNeb/budesonide nebs twice daily/formoterol twice daily No wheezing on exam, no crackles and improving lung sounds. Pulm re-evaled 05/11: Trelegy Ellipata 1 puff daily w/ prn rescue inhaler, BPAP (10/19, r = 14) at [place] w/ rec for OP PSG, f/u CT scan w/o con in 3 months to f/u RUL lesion to resolution 2 step test: 2L O2 all the time Needs BPAP at [place], communicated w/ at [facility] 05/13 #. Dilated cardiomyopathy: 05/07 echo with ejection fraction 20 to 25%, severely reduced LV systolic function. EKG with LBBB, troponins not reflective of acute OH. TSH wnl. Cardiology on board, appreciate recommendation, on metoprolol succinate and entresto. Monitor and replete electrolytes. Maintain potassium level 4.0 and magnesium above 2.0. Patient will need cardiology follow-up upon discharge. ECHO to eval EF in 2-3 months of GDT. Need for ongoing evaluation for ICD and possibly BiV device. Cardio ok w/ DC from their POV. #. HOMA/hypotension: Status post pressor support, blood pressure better. HOMA secondary to dehydration versus ATN in setting of hypotension. Resolved. #. Hypoglycemia: 37 on arrival, resolved. Likely secondary to glipizide and Otezla use in the context of poor p.o. intake immediately prior to arrival. Continue with sliding scale. In future, if with poor p.o. intake, avoid glipizide. #. Hyperkalemia: Resolved. Continue to monitor #. Chronic steroid use: Chronically placed on a steroid by [facility] several years ago. Cont prednisone taper per Pulm. #. DVT prophylaxis: Heparin Full Code Dispo - likely DC johnathon. Needs PCP/Pulm/Cardio f/u. BPAP (I:E 10/19, r=14), OP PSG, CT chest in 3 mo, ECHO in 2-3 months, labs in a week, Trelegy. Also needs Vasc Sx f/u ? PVD. Admission and Anticipated Discharge Date Admission Date: May 02, 2022 Subjective Patient seen and examined at bedside as a follow-up of acute respiratory failure, right hilar mass, acute exacerbation of COPD, pneumonia, HOMA. Extubated early a.m. 05/09/2022. Patient was lying in bed, on 2 L oxygen by NC, NAD, AOx3, reports clear sputum, no more blood tinged/cough at baseline, denies any new events overnight, denies any headache/dizziness/chest pain/shortness of breath/belly pain/feeling of heart racing/other review of symptoms. Reports eating better and stool forming up. Physical Exam Physical Exam: GENERAL: NAD, on 2L NC O2, AOx3 HEENT: No pallor, no icterus. Pupils equal, round and reactive to light. Oral mucosa moist. NECK: No JVD, no neck masses. HEART: S1 and S2 heard. Reg rate and rhythm. No murmur, no gallop. RESPIRATORY SYSTEM: Normal AP diameter. No accessory muscle use. No wheezing, no crackles, decreased breath sounds. ABDOMEN: Soft, bowel sounds present, non tender, no distention. CENTRAL NERVOUS SYSTEM: No facial droop. Speech is clear. Obeys simple commands. Moves extremities. EXTREMITIES: No ble edema/ble chronic skin changes noted, Lt heel blister x clean dressing. no erythema seen. RLE cold, dorsalis pedis pulses palpable, leg discoloration noted (pt reports such cold legs w/ leg discoloration going on for 6-8 years, denies any changes in coloration or denies pain). Results & Data Results & Data ([facility]) Vital Signs (Past 12 Hours) Vital Signs Temp Pulse Pulse Pulse Pulse Pulse Resp 05/13/22 14:54 63 05/13/22 12:24 36.7 C 52 L 22 05/13/22 10:56 62 64 64 05/13/22 09:00 61 05/13/22 07:01 57 L 20 Resp Resp Resp BP Pulse Ox Pulse Ox Pulse Ox 05/13/22 14:54 05/13/22 12:24 95/51 L 90 05/13/22 10:56 18 18 18 90 93 05/13/22 09:00 05/13/22 07:01 97 Pulse Ox 05/13/22 14:54 05/13/22 12:24 05/13/22 10:56 81 L 05/13/22 09:00 05/13/22 07:01
[2022-05-13] MEDS: ATORVASTATIN 40 MG TAB PO SCH (21:36)
[2022-05-14] MEDS: HEPARIN SOD 5,000 UNIT/0.5 ML VIAL SQ SCH ×3 (05:07→21:14)
[2022-05-14 07:32] LABS: BUN Creatinine Ratio 68.6 (10-20); Calcium 8.8 mg/dl (8.5-10.1); Creatinine Clr Calc Pharmacy 98.9 ml/min; Est GFR (African American) 107.8 ml/min; Magnesium 2.1 mg/dl (1.7-2.4); Potassium 4.2 mmol/L (3.5-5.1)
[2022-05-14] MEDS: BUDESONIDE 0.25 MG/2 ML VIAL (PULMICORT) NEB SCH ×2 (07:39→20:07)
[2022-05-14] MEDS: FORMOTEROL 20 MCG/2 ML VIAL INH SCH ×2 (07:39→20:07)
[2022-05-14] MEDS: rOPINIRole HCL 2 MG TABLET PO SCH ×2 (08:25→20:25)
[2022-05-14] MEDS: VALSARTAN/SACUBITRIL 26/24MG TAB PO SCH ×2 (08:25→20:25)
[2022-05-14] MEDS: ADVANCED PROBIOTIC 1250 MG CAPSULE PO SCH (08:26)
[2022-05-14] MEDS: METOPROLOL SUCC 25MG EXT REL TAB PO SCH ×2 (08:26→20:26)
[2022-05-14] MEDS: ASPIRIN 81 MG CHEW PO SCH (08:27)
[2022-05-14] MEDS: FUROSEMIDE 20 MG TAB PO SCH (08:27)
[2022-05-14] MEDS: PANTOprazole 40 MG TAB PO SCH (08:28)
[2022-05-14] MEDS: CEROVITE ADV FORMULA TAB PO SCH (08:28)
[2022-05-14] MEDS: predniSONE 20 MG TAB PO SCH (08:28)
[2022-05-14] MEDS: INSULIN ASPART PER UNIT SC SCH ×4 (08:29→20:26)
--- NOTE | 2022-05-14 17:59 | Hospitalist Progress Note ---
Date of Service May 14, 2022 Assessment & Plan (1) Consolidation of right upper lobe: Plan: 72 yo incarcerated man with diabetes on glipizide and Otezla presented 05/02 with hypotension, hypoglycemia and SOB with hypoxia. He denied any fevers/chills, chest pain. Per field notes his BSG was 43 nd he was given 4 glucose tabs. BP was 82/60.He is being managed for the following: #. Acute respiratory failure #. Mass of upper lobe of right lung #. Concern for pneumonia #. Acute exacerbation of COPD Presenting symptoms as above. Admitting CTA chest: No evidence for PE, suggestive of right hilar mass with postobstructive atelectasis/collapse rather than pneumonia. 3 subcentimeter pulmonary nodules within the right lung. Right paratracheal and right hilar adenopathy. Elevated Pro-Miguel and WBC at presentation. Admitting blood culture 05/02 negative. Patient underwent emergent bronchoscopy on 05/05, results were unrevealing. Concern for the sample being inadequate. 05/07 status post bronchoscopy: RUL washing performed. RUL transbronchial biopsy taken. 05/07 bronchial washing cultures: Reviewed, follow-up final 05/07 post bronchoscopy HPE: Inflammatory cells seen, negative for malignancy. Acute respiratory failure likely related to right hilar mass with postobstructive collapse in setting of possible COPD exacerbation --> Patient extubated 05/09/2020 2 AM to BiPAP. Resolving, on 2L NC O2 (not on prior chronic O2) s/p 8 days of antibiotics, continue prednisone/DuoNeb/budesonide nebs twice daily/formoterol twice daily No wheezing on exam, occ crackles and decreased lung sounds. Pulm re-evaled 05/11: Trelegy Ellipata 1 puff daily w/ prn rescue inhaler, BPAP (10/19, r = 14) at [facility] w/ rec for OP PSG, f/u CT scan w/o con in 3 months to f/u RUL lesion to resolution 2 step test: 2L O2 all the time Needs BPAP at [place], communicated w/ at [facility] 05/13 #. Dilated cardiomyopathy: 05/07 echo with ejection fraction 20 to 25%, severely reduced LV systolic function. EKG with LBBB, troponins not reflective of acute RI. TSH wnl. Cardiology on board, appreciate recommendation, on metoprolol succinate and entresto. Monitor and replete electrolytes. Maintain potassium level 4.0 and magnesium above 2.0. Patient will need cardiology follow-up upon discharge. ECHO to eval EF in 2-3 months of GDT. Need for ongoing evaluation for ICD and possibly BiV device. Cardio ok w/ DC from their POV. #. HOMA/hypotension: Status post pressor support, blood pressure better. HOMA secondary to dehydration versus ATN in setting of hypotension. Resolved. #. Hypoglycemia: 37 on arrival, resolved. Likely secondary to glipizide and Otezla use in the context of poor p.o. intake immediately prior to arrival. Continue with sliding scale. In future, if with poor p.o. intake, avoid glipizide. #. Hyperkalemia: Resolved. Continue to monitor #. Chronic steroid use: Chronically placed on a steroid by [facility] several years ago. Cont prednisone taper per Pulm. #. DVT prophylaxis: Heparin Full Code Dispo - Needs PCP/Pulm/Cardio f/u. BPAP (I:E 10/19, r=14), OP PSG, CT chest in 3 mo, ECHO in 2-3 months, labs in a week, Trelegy. Also needs Vasc Sx f/u ? PVD. Awaiting Placement. Stable for DC. Admission and Anticipated Discharge Date Admission Date: May 02, 2022 Subjective Patient seen and examined at bedside as a follow-up of acute respiratory failure, right hilar mass, acute exacerbation of COPD, pneumonia, HOMA. Extubated early a.m. 05/09/2022. Patient was lying in bed, on 3 L oxygen by NC, NAD, AOx3, reports clear sputum/cough at baseline, denies any new events overnight, denies any headache/dizziness/chest pain/shortness of breath/belly pain/feeling of heart racing/other review of symptoms. Reports eating better and moving bowels ok. Physical Exam Physical Exam: GENERAL: NAD, on 3L NC O2, AOx3 HEENT: No pallor, no icterus. Pupils equal, round and reactive to light. Oral mucosa moist. NECK: No JVD, no neck masses. HEART: S1 and S2 heard. Reg rate and rhythm. No murmur, no gallop. RESPIRATORY SYSTEM: Normal AP diameter. No accessory muscle use. No wheezing, occ crackles, decreased breath sounds. ABDOMEN: Soft, bowel sounds present, non tender, no distention. CENTRAL NERVOUS SYSTEM: No facial droop. Speech is clear. Obeys simple commands. Moves extremities. EXTREMITIES: No ble edema/ble chronic skin changes noted, Lt heel blister x clean dressing. no erythema seen. RLE cold, dorsalis pedis pulses palpable, leg discoloration noted (pt reports such cold legs w/ leg discoloration going on for 6-8 years, denies any changes in coloration or denies pain). Results & Data Results & Data ([facility]) Vital Signs (Past 12 Hours) Vital Signs Temp Pulse Pulse Resp BP Pulse Ox 05/14/22 15:14 36.6 C 75 20 100/61 95 05/14/22 14:00 61 05/14/22 07:39 36.4 C L 54 L 20 125/72 99 05/14/22 06:00 55 L
[2022-05-14] MEDS: ATORVASTATIN 40 MG TAB PO SCH (20:26)
[2022-05-15] MEDS: HEPARIN SOD 5,000 UNIT/0.5 ML VIAL SQ SCH ×3 (05:55→21:08)
[2022-05-15] MEDS: FORMOTEROL 20 MCG/2 ML VIAL INH SCH (06:55)
[2022-05-15] MEDS: BUDESONIDE 0.25 MG/2 ML VIAL (PULMICORT) NEB SCH (06:55)
[2022-05-15 08:06] LABS: BUN Creatinine Ratio 51.4 (10-20); Creatinine Clr Calc Pharmacy 96.3 ml/min; Est GFR (African American) 106.5 ml/min; Est GFR (Non-African American) 91.9 ml/min; Magnesium 1.8 mg/dl (1.7-2.4); Potassium 3.7 mmol/L (3.5-5.1)
[2022-05-15] MEDS: METOPROLOL SUCC 25MG EXT REL TAB PO SCH ×2 (08:22→21:08)
[2022-05-15] MEDS: rOPINIRole HCL 2 MG TABLET PO SCH ×2 (08:23→21:07)
[2022-05-15] MEDS: ASPIRIN 81 MG CHEW PO SCH (08:23)
[2022-05-15] MEDS: VALSARTAN/SACUBITRIL 26/24MG TAB PO SCH ×2 (08:23→21:08)
[2022-05-15] MEDS: PANTOprazole 40 MG TAB PO SCH (08:23)
[2022-05-15] MEDS: CEROVITE ADV FORMULA TAB PO SCH (08:23)
[2022-05-15] MEDS: ADVANCED PROBIOTIC 1250 MG CAPSULE PO SCH (08:23)
[2022-05-15] MEDS: predniSONE 20 MG TAB PO SCH (08:23)
[2022-05-15] MEDS: FUROSEMIDE 20 MG TAB PO SCH (08:23)
[2022-05-15] MEDS: INSULIN ASPART PER UNIT SC SCH ×4 (08:24→21:09)
[2022-05-15] MEDS: FLUTICASONE FUROATE 100MCG 14 PUFFS/INHALER INH SCH (10:46)
[2022-05-15] MEDS: UMECLIDINIUM/VILANTEROL 62.5/25MCG 7 PUFFS/INHALER INH SCH (10:46)
--- NOTE | 2022-05-15 12:34 | Cardiology Progress Note ---
Date of Service May 15, 2022 Assessment & Plan (1) Dilated cardiomyopathy: (2) Left bundle branch block: (3) Acute hypercapnic respiratory failure: (4) Consolidation of right upper lobe: Plan: Pt noted to have a 12 beat run of nonsustained ventricular tachycardia last night 05/14/22 at 20:51 without any symptoms. Echo this admission LVEF 20-25% Pt describes having had a cardiac catheterization 10 years ago at [facility] in [place] and describes having been told he had no significant blockages then. Continue ASA, atorvastatin, metoprolol, Entresto. Pt with right upper lobe pneumonia. Bronchoscopy performed 05/07/22 negative for malignancy. Continue present treatment. Admission and Anticipated Discharge Date Admission Date: May 02, 2022 Subjective Patient is seen in follow up. Pt without complaints. Physical Exam Constitutional: no acute distress, chronically ill in appearance Respiratory: normal respiratory effort, lungs clear to auscultation Cardiovascular: Rate/Rhythm: regular rate Heart Sounds: no murmur Extremities: no edema Gastrointestinal (Abdomen): normal bowel sounds, soft, nontender, no hepatosplenomegaly Musculoskeletal: chronic left ankle wound, dressed Neurologic: PERRL, EOMI, accommodation nl, no face palsy, no dysarthria Results & Data ([facility]) Vital Signs (Past 12 Hours) Vital Signs Temp Pulse Pulse Resp BP Pulse Ox 05/15/22 11:44 36.4 C L 59 L 19 109/71 97 05/15/22 10:53 58 L 17 97 05/15/22 08:00 60 05/15/22 07:51 36.3 C L 56 L 19 99/62 L 97 05/15/22 06:55 58 L 18 92 05/15/22 03:08 36.5 C 52 L 18 100/56 L 98 Laboratory Results Comprehensive Metabolic Panel 05/15/22 Range/Units 06:52 Sodium 143 (136-145) mmol/L Potassium 3.7 (3.5-5.1) mmol/L Chloride 99 (98-107) mmol/L Carbon Dioxide 42 H* (21-32) mmol/L BUN 37 H (6-23) mg/dl Creatinine 0.72 (0.6-1.4) mg/dl Glucose 80 (70-99(Fasting)) mg/dl Calcium 9.0 (8.5-10.1) mg/dl Intake and Output 05/14/22 05/15/22 05/15/22 22:59 06:59 14:59 Intake Total 520 / 620 100 / 620 Output Total 200 / 325 125 / 325 300 / 300 Balance 320 / 295 -25 / 295 -300 / -300 Intake: Oral 520 / 620 100 / 620 Output: Urine 200 / 325 125 / 325 300 / 300 Other: # Unmeasured Voids 1 Weight 93.3 kg Weight Measurement Method Built in [facility] Diagnostic Findings EKG 05/07/22: SR at 97, with LBBB, QRS duration 152 ms.
--- NOTE | 2022-05-15 17:43 | Hospitalist Progress Note ---
Date of Service May 15, 2022 Assessment & Plan (1) Consolidation of right upper lobe: Plan: 72 yo incarcerated man with diabetes on glipizide and Otezla presented 05/02 with hypotension, hypoglycemia and SOB with hypoxia. He denied any fevers/chills, chest pain. Per field notes his BSG was 43 nd he was given 4 glucose tabs. BP was 82/60.He is being managed for the following: #. Acute respiratory failure #. Mass of upper lobe of right lung #. Concern for pneumonia #. Acute exacerbation of COPD Presenting symptoms as above. Admitting CTA chest: No evidence for PE, suggestive of right hilar mass with postobstructive atelectasis/collapse rather than pneumonia. 3 subcentimeter pulmonary nodules within the right lung. Right paratracheal and right hilar adenopathy. Elevated Pro-Miguel and WBC at presentation. Admitting blood culture 05/02 negative. Patient underwent emergent bronchoscopy on 05/05, results were unrevealing. Concern for the sample being inadequate. 05/07 status post bronchoscopy: RUL washing performed. RUL transbronchial biopsy taken. 05/07 bronchial washing cultures: Reviewed, follow-up final 05/07 post bronchoscopy HPE: Inflammatory cells seen, negative for malignancy. Acute respiratory failure likely related to right hilar mass with postobstructive collapse in setting of possible COPD exacerbation --> Patient extubated 05/09/2020 2 AM to BiPAP. Resolving, on 2L NC O2 (not on prior chronic O2) s/p 8 days of antibiotics, continue prednisone/DuoNeb/budesonide nebs twice daily/formoterol twice daily No wheezing on exam, occ crackles and decreased lung sounds. Pulm re-evaled 05/11: Trelegy Ellipata 1 puff daily w/ prn rescue inhaler, BPAP (10/19, r = 14) at [place] w/ rec for OP PSG, f/u CT scan w/o con in 3 months to f/u RUL lesion to resolution 2 step test: 2L O2 all the time Needs BPAP at [place], communicated w/ at [facility] 05/13 #. Dilated cardiomyopathy: 05/07 echo with ejection fraction 20 to 25%, severely reduced LV systolic function. EKG with LBBB, troponins not reflective of acute OR. TSH wnl. Cardiology on board, appreciate recommendation, on metoprolol succinate and entresto. Monitor and replete electrolytes. Maintain potassium level 4.0 and magnesium above 2.0. Patient will need cardiology follow-up upon discharge. ECHO to eval EF in 2-3 months of GDT. Need for ongoing evaluation for ICD and possibly BiV device. Cardio ok w/ DC from their POV. #. HOMA/hypotension: Status post pressor support, blood pressure better. HOMA secondary to dehydration versus ATN in setting of hypotension. Resolved. #. Hypoglycemia: 37 on arrival, resolved. Likely secondary to glipizide and Otezla use in the context of poor p.o. intake immediately prior to arrival. Continue with sliding scale. In future, if with poor p.o. intake, avoid glipizide. #. Hyperkalemia: Resolved. Continue to monitor #. Chronic steroid use: Chronically placed on a steroid by [facility] several years ago. Cont prednisone taper per Pulm. #. DVT prophylaxis: Heparin Full Code Dispo - Needs PCP/Pulm/Cardio f/u. BPAP (I:E 10/19, r=14), OP PSG, CT chest in 3 mo, ECHO in 2-3 months, labs in a week, Trelegy. Also needs Vasc Sx f/u ? PVD. Awaiting Placement. Stable for DC. Admission and Anticipated Discharge Date Admission Date: May 02, 2022 Subjective Patient seen and examined at bedside as a follow-up of acute respiratory failure, right hilar mass, acute exacerbation of COPD, pneumonia, HOMA. Extubated early a.m. 05/09/2022. Patient was lying in bed, on 3 L oxygen by NC, NAD, AOx3, reports clear sputum/cough at baseline, denies any new events overnight, per RN patient denied BPAP overnight, reports having sore over nasal bridge d/t mask, d/w RT if they can provide more comfortable mask, denies any headache/dizziness/chest pain/shortness of breath/belly pain/feeling of heart racing/other review of symptoms. Reports eating better and moving bowels ok. Physical Exam Physical Exam: GENERAL: NAD, on 3L NC O2, AOx3 HEENT: No pallor, no icterus. Pupils equal, round and reactive to light. Oral mucosa moist. NECK: No JVD, no neck masses. HEART: S1 and S2 heard. Reg rate and rhythm. No murmur, no gallop. RESPIRATORY SYSTEM: Normal AP diameter. No accessory muscle use. No wheezing, occ crackles, decreased breath sounds. ABDOMEN: Soft, bowel sounds present, non tender, no distention. CENTRAL NERVOUS SYSTEM: No facial droop. Speech is clear. Obeys simple commands. Moves extremities. EXTREMITIES: No ble edema/ble chronic skin changes noted, Lt heel blister x clean dressing. no erythema seen. RLE cold, dorsalis pedis pulses palpable, leg discoloration noted (pt reports such cold legs w/ leg discoloration going on for 6-8 years, denies any changes in coloration or denies pain). Results & Data Results & Data ([facility]) Vital Signs (Past 12 Hours) Vital Signs Temp Pulse Pulse Resp BP Pulse Ox 05/15/22 15:28 62 05/15/22 15:27 36.4 C L 60 19 153/68 H 99 05/15/22 11:44 36.4 C L 59 L 19 109/71 97 05/15/22 10:53 58 L 17 97 05/15/22 08:00 60 05/15/22 07:51 36.3 C L 56 L 19 99/62 L 97 05/15/22 06:55 58 L 18 92
[2022-05-15] MEDS: ATORVASTATIN 40 MG TAB PO SCH (21:08)
[2022-05-16] MEDS: HEPARIN SOD 5,000 UNIT/0.5 ML VIAL SQ SCH ×3 (06:24→21:00)
[2022-05-16] MEDS: UMECLIDINIUM/VILANTEROL 62.5/25MCG 7 PUFFS/INHALER INH SCH (07:14)
[2022-05-16] MEDS: FLUTICASONE FUROATE 100MCG 14 PUFFS/INHALER INH SCH (07:14)
[2022-05-16] MEDS: FUROSEMIDE 20 MG TAB PO SCH (07:15)
[2022-05-16] MEDS: ADVANCED PROBIOTIC 1250 MG CAPSULE PO SCH (07:15)
[2022-05-16] MEDS: rOPINIRole HCL 2 MG TABLET PO SCH ×2 (07:15→20:58)
[2022-05-16] MEDS: predniSONE 20 MG TAB PO SCH (07:15)
[2022-05-16] MEDS: VALSARTAN/SACUBITRIL 26/24MG TAB PO SCH ×2 (07:15→20:59)
[2022-05-16] MEDS: ASPIRIN 81 MG CHEW PO SCH (07:15)
[2022-05-16] MEDS: PANTOprazole 40 MG TAB PO SCH (07:16)
[2022-05-16] MEDS: CEROVITE ADV FORMULA TAB PO SCH (07:16)
[2022-05-16 07:21] LABS: Hematocrit (blood only) 45.5 % (42-52); Hemoglobin 14.7 g/dL (14.0-18.0); Mean Corpuscular Hemoglobin 30.8 pg (25-34); Mean Corpuscular Hgb Conc 32.3 g/dL (32-36); Mean Corpuscular Volume 95.4 fL (80-100); Mean Platelet Volume 11.1 fL (7.4-10.4); Platelet Count 148 K/uL (130-400); RDW Coefficient of Variation 13.7 % (11.5-14.5); RDW Standard Deviation 47.4 fL (36.4-46.3); Red Blood Count 4.77 M/uL (4.7-6.1); White Blood Count 8.14 K/uL (4.8-10.8)
[2022-05-16 07:30] LABS: BUN Creatinine Ratio 55.6 (10-20); Calcium 8.8 mg/dl (8.5-10.1); Creatinine Clr Calc Pharmacy 109.9 ml/min; Est GFR (African American) 112.5 ml/min; Est GFR (Non-African American) 97.1 ml/min; Magnesium 1.6 mg/dl (1.7-2.4); Phosphorus 3.7 mg/dl (2.5-4.9)
[2022-05-16] MEDS: METOPROLOL SUCC 25MG EXT REL TAB PO SCH ×2 (08:22→20:56)
[2022-05-16] MEDS: INSULIN ASPART PER UNIT SC SCH ×4 (08:34→20:55)
[2022-05-16] MEDS: MAGNESIUM SULFATE / D5W 1 GM/100 ML BAG IV SCH ×2 (08:42→10:46)
[2022-05-16] MEDS: guaiFENesin 600 MG TABCR PO SCH ×2 (10:51→20:59)
--- NOTE | 2022-05-16 12:13 | Cardiology Progress Note ---
Date of Service May 16, 2022 Assessment & Plan (1) Dilated cardiomyopathy: (2) Left bundle branch block: (3) Acute hypercapnic respiratory failure: (4) Consolidation of right upper lobe: Plan: Echo this admission LVEF 20-25% Pt describes having had a cardiac catheterization 10 years ago at [facility] in [place] and describes having been told he had no significant blockages then. He does not recall having been diagnosed with a low ejection fraction in the past. Continue ASA, atorvastatin, metoprolol, Entresto. Pt with right upper lobe pneumonia. Bronchoscopy performed 05/07/22 negative for malignancy. Patient with chronic left heel wound, draining of serosanguineous fluid. He describes having been diagnosed with "cellulitis "a little over a year ago. The dressing was removed today, inspected, I have significant concerns with regards to the patient's candidacy for invasive cardiology intervention such as cardiac catheterization or consideration of AICD due to infection risk. Proceed with bilateral LE arterial duplex for evaluation of PAD. Admission and Anticipated Discharge Date Admission Date: May 02, 2022 Subjective Patient seen in cardiology follow-up. No complaints noted from a cardiology perspective. Telemetry reveals sinus bradycardia in sinus rhythm in the range of 50 to 60 bpm with left bundle branch block. No ventricular arrhythmias overnight. Physical Exam Constitutional: No acute distress, chronically ill in appearance Respiratory: normal respiratory effort, lungs clear to auscultation Cardiovascular: Rate/Rhythm: regular rate Heart Sounds: no murmur Extremities: no edema Gastrointestinal (Abdomen): normal bowel sounds, soft, nontender, no hepatosplenomegaly Skin: Left lower leg/heel, large ulceration draining of serosanguineous fluid. Neurologic: PERRL, EOMI, accommodation nl, no face palsy, no dysarthria Results & Data ([facility]) Vital Signs (Past 12 Hours) Vital Signs Temp Pulse Pulse Resp BP Pulse Ox 05/16/22 08:02 36.4 C L 56 L 20 119/76 97 05/16/22 07:44 54 L 05/16/22 03:34 58 L 22 98 05/16/22 03:00 37.0 C 51 L 22 101/59 L 99 Laboratory Results CBC 05/16/22 Range/Units 06:24 WBC 8.14 (4.8-10.8) K/uL RBC 4.77 (4.7-6.1) M/uL Hgb 14.7 (14.0-18.0) g/dL Hct 45.5 (42-52) % Plt Count 148 (130-400) K/uL Comprehensive Metabolic Panel 05/16/22 Range/Units 06:24 Sodium 144 (136-145) mmol/L Potassium 4.0 (3.5-5.1) mmol/L Chloride 101 (98-107) mmol/L Carbon Dioxide 42 H* (21-32) mmol/L BUN 35 H (6-23) mg/dl Creatinine 0.63 (0.6-1.4) mg/dl Glucose 87 (70-99(Fasting)) mg/dl Calcium 8.8 (8.5-10.1) mg/dl Intake and Output 05/15/22 05/16/22 05/16/22 22:59 06:59 14:59 Intake Total 240 / 720 100 / 100 Output Total Balance 239 / 419 100 / 100 Intake: IV 100 / 100 Magnesium Sulfate / D5w 1 gm In 100 / 100 100 ml @ 50 mls/hr IV Q2H JULIA Rx#:[id number] Oral 240 / 720 Output: # Bowel Movements Other: # Unmeasured Voids 1 Weight 93.2 kg Weight Measurement Method Built in [facility]
--- NOTE | 2022-05-16 14:17 | Ultrasound Report ---
LEFT LOWER EXTREMITY ARTERIAL DOPPLER ULTRASOUND CLINICAL HISTORY: left heel wound COMPARISON STUDY: No previous studies for comparison. TECHNIQUE: Color and duplex Doppler sonography of the arterial system of the left lower extremity was performed. Ankle to brachial indices could not be performed in this patient. FINDINGS: Note is made of an elevated peak systolic velocity of 237 cm/s within the left common femor al artery. No additional elevated velocities within the left lower extremity are noted. There is mode rate plaque within the left lower extremity. There is biphasic flow within left common femoral, super ficial femoral, posterior tibial and anterior tibial arteries. There is predominantly monophasic flow within the left posterior tibial, peroneal and dorsalis pedis vessels. IMPRESSION: 1. Moderate atherosclerotic plaque within left lower extremity. Patent vessels. 2. Mildly elevated peak systolic velocity within the left common femoral artery which may reflect a s tenosis. 3. Predominantly monophasic flow within the left posterior tibial, peroneal and dorsalis pedis vessel s. ACT 112: Negative or not required by law. Electronically signed by: Rito Chatterjee M.D. 05/16/2022 2:15 PM
--- NOTE | 2022-05-16 16:32 | Hospitalist Progress Note ---
Date of Service May 16, 2022 Assessment & Plan (1) Consolidation of right upper lobe: Plan: 72 yo incarcerated man with diabetes on glipizide and Otezla presented 05/02 with hypotension, hypoglycemia and SOB with hypoxia. He denied any fevers/chills, chest pain. Per field notes his BSG was 43 nd he was given 4 glucose tabs. BP was 82/60.He is being managed for the following: #. Acute respiratory failure #. Mass of upper lobe of right lung #. Concern for pneumonia #. Acute exacerbation of COPD Presenting symptoms as above. Admitting CTA chest: No evidence for PE, suggestive of right hilar mass with postobstructive atelectasis/collapse rather than pneumonia. 3 subcentimeter pulmonary nodules within the right lung. Right paratracheal and right hilar adenopathy. Elevated Pro-Miguel and WBC at presentation. Admitting blood culture 05/02 negative. Patient underwent emergent bronchoscopy on 05/05, results were unrevealing. Concern for the sample being inadequate. 05/07 status post bronchoscopy: RUL washing performed. RUL transbronchial biopsy taken. 05/07 bronchial washing cultures: Reviewed, follow-up final 05/07 post bronchoscopy HPE: Inflammatory cells seen, negative for malignancy. Acute respiratory failure likely related to right hilar mass with postobstructive collapse in setting of possible COPD exacerbation --> Patient extubated 05/09/2020 2 AM to BiPAP. Resolving, on 2L NC O2 (not on prior chronic O2) s/p 8 days of antibiotics, continue prednisone/Trelegy ellipta daily/prn albuterol No wheezing on exam, no crackles and decreased lung sounds. Pulm re-evaled 05/11: Trelegy Ellipata 1 puff daily w/ prn rescue inhaler, BPAP (10/19, r = 14) at [place] w/ rec for OP PSG, f/u CT scan w/o con in 3 months to f/u RUL lesion to resolution 2 step test: 2L O2 all the time Needs BPAP at [place], communicated w/ at [facility] 05/13 #. Dilated cardiomyopathy: 05/07 echo with ejection fraction 20 to 25%, severely reduced LV systolic function. EKG with LBBB, troponins not reflective of acute PR. TSH wnl. Cardiology on board, appreciate recommendation, on metoprolol succinate and entresto. Monitor and replete electrolytes. Maintain potassium level 4.0 and magnesium above 2.0. Patient will need cardiology follow-up upon discharge. ECHO to eval EF in 2-3 months of GDT. Need for ongoing evaluation for ICD and possibly BiV device. Cardio ok w/ DC from their POV. #. PVD: arterial duplex LE w/ PAD, f/u vascular surgery as OP. #. HOMA/hypotension: Status post pressor support, blood pressure better. HOMA secondary to dehydration versus ATN in setting of hypotension. Resolved. #. Hypoglycemia: 37 on arrival, resolved. Likely secondary to glipizide and Otezla use in the context of poor p.o. intake immediately prior to arrival. Continue with sliding scale. In future, if with poor p.o. intake, avoid glipizide. #. Hyperkalemia: Resolved. Continue to monitor #. Chronic steroid use: Chronically placed on a steroid by [facility] several years ago. Cont prednisone taper per Pulm. #. DVT prophylaxis: Heparin Full Code Dispo - Needs PCP/Pulm/Cardio f/u. BPAP (I:E 10/19, r=14), OP PSG, CT chest in 3 mo, ECHO in 2-3 months, labs in a week, Trelegy. Also needs Vasc Sx f/u ? PVD. Awaiting Placement. Stable for DC. Admission and Anticipated Discharge Date Admission Date: May 02, 2022 Subjective Patient seen and examined at bedside as a follow-up of acute respiratory failure, right hilar mass, acute exacerbation of COPD, pneumonia, HOMA. Extubated early a.m. 05/09/2022. Patient was lying in bed, on 2 L oxygen by NC, NAD, AOx3, reports clear sputum/cough at baseline, denies any new events overnight, now wearing BPAP overnight, denies any headache/dizziness/chest pain/shortness of breath/belly pain/feeling of heart racing/other review of symptoms. Telemetry reviewed, sinus che in 50s w/ occ PVCs. Reports eating better and moving bowels ok. Physical Exam Physical Exam: GENERAL: NAD, on 2L NC O2, AOx3 HEENT: No pallor, no icterus. Pupils equal, round and reactive to light. Oral mucosa moist. NECK: No JVD, no neck masses. HEART: S1 and S2 heard. Reg rate and rhythm. No murmur, no gallop. RESPIRATORY SYSTEM: Normal AP diameter. No accessory muscle use. No wheezing, no crackles, decreased breath sounds. ABDOMEN: Soft, bowel sounds present, non tender, no distention. CENTRAL NERVOUS SYSTEM: No facial droop. Speech is clear. Obeys simple commands. Moves extremities. EXTREMITIES: No ble edema/ble chronic skin changes noted, Lt heel blister x clean dressing. no erythema seen. RLE cold, dorsalis pedis pulses palpable, leg discoloration noted (pt reports such cold legs w/ leg discoloration going on for 6-8 years, denies any changes in coloration or denies pain). Results & Data Results & Data ([facility]) Vital Signs (Past 12 Hours) Vital Signs Temp Pulse Pulse Resp BP Pulse Ox 05/16/22 15:55 36.5 C 51 L 20 95/58 L 94 05/16/22 08:02 36.4 C L 56 L 20 119/76 97 05/16/22 07:44 54 L
[2022-05-16] MEDS: ATORVASTATIN 40 MG TAB PO SCH (20:59)
[2022-05-17] MEDS: HEPARIN SOD 5,000 UNIT/0.5 ML VIAL SQ SCH ×3 (05:21→22:00)
[2022-05-17] MEDS: INSULIN ASPART PER UNIT SC SCH ×4 (08:42→20:39)
[2022-05-17] MEDS: UMECLIDINIUM/VILANTEROL 62.5/25MCG 7 PUFFS/INHALER INH SCH (08:46)
[2022-05-17] MEDS: FLUTICASONE FUROATE 100MCG 14 PUFFS/INHALER INH SCH (08:46)
[2022-05-17] MEDS: predniSONE 20 MG TAB PO SCH (08:49)
[2022-05-17] MEDS: rOPINIRole HCL 2 MG TABLET PO SCH ×2 (08:49→20:38)
[2022-05-17] MEDS: FUROSEMIDE 20 MG TAB PO SCH (08:49)
[2022-05-17] MEDS: ADVANCED PROBIOTIC 1250 MG CAPSULE PO SCH (08:49)
[2022-05-17] MEDS: guaiFENesin 600 MG TABCR PO SCH ×2 (08:49→20:37)
[2022-05-17] MEDS: ASPIRIN 81 MG CHEW PO SCH (08:50)
[2022-05-17] MEDS: METOPROLOL SUCC 25MG EXT REL TAB PO SCH ×2 (08:50→20:38)
[2022-05-17] MEDS: PANTOprazole 40 MG TAB PO SCH (08:51)
[2022-05-17] MEDS: CEROVITE ADV FORMULA TAB PO SCH (08:51)
[2022-05-17] MEDS: VALSARTAN/SACUBITRIL 26/24MG TAB PO SCH ×2 (08:51→20:38)
[2022-05-17 08:52] LABS: Hematocrit (blood only) 46.5 % (42-52); Mean Corpuscular Hemoglobin 30.3 pg (25-34); Mean Corpuscular Hgb Conc 32.3 g/dL (32-36); Mean Corpuscular Volume 93.9 fL (80-100); Platelet Count 177 K/uL (130-400); RDW Standard Deviation 47.6 fL (36.4-46.3); Red Blood Count 4.95 M/uL (4.7-6.1); White Blood Count 11.66 K/uL (4.8-10.8)
[2022-05-17 09:16] LABS: BUN Creatinine Ratio 41.4 (10-20); Calcium 9.1 mg/dl (8.5-10.1); Creatinine Clr Calc Pharmacy 98.9 ml/min; Est GFR (African American) 107.8 ml/min; Magnesium 1.6 mg/dl (1.7-2.4); Phosphorus 3.2 mg/dl (2.5-4.9); Troponin I High Sensitivity 26.7 pg/ml (0-20)
--- NOTE | 2022-05-17 13:04 | Cardiology Progress Note ---
Date of Service May 17, 2022 Assessment & Plan (1) Dilated cardiomyopathy: (2) Left bundle branch block: (3) Acute hypercapnic respiratory failure: (4) Consolidation of right upper lobe: Plan: Echo this admission LVEF 20-25% Pt describes having had a cardiac catheterization 10 years ago at [facility] in [place] and describes having been told he had no significant blockages then. He does not recall having been diagnosed with a low ejection fraction in the past. Continue ASA, atorvastatin, metoprolol, Entresto. Pt with right upper lobe pneumonia. Bronchoscopy performed 05/07/22 negative for malignancy. Patient with chronic left heel wound, draining of serosanguineous fluid. He describes having been diagnosed with "cellulitis "a little over a year ago. Arterial duplex of the left lower extremity performed 05/16/2022 does not suggest culprit occlusive disease. Having an ongoing open skin wound does have her preclude implantation of an AICD from concerns of infection. With regards to best treatment for this is a 72-year-old inmate with recent infectious issues with regards to right upper lobe pneumonia, chronic left lower leg wound, ongoing medication therapy may be the best available option. This admission, patient has been started on appropriate treatment including aspirin, atorvastatin, Entresto, metoprolol succinate, furosemide. He is not clinically volume overloaded. Dose escalation of Entresto limited by relative low blood pr essure. I think we have him on as much beta-elmira as prudent given underlying left bundle branch block. Upon transfer back to the [facility], follow-up to be pursued with the [facility]. Admission and Anticipated Discharge Date Admission Date: May 02, 2022 Subjective Patient seen in cardiology follow-up. More lethargic today than he had been, and the guards tell me that he had difficulty sleeping last night. Telemetry reveals sinus rhythm in the range of 50 to 60 bpm with left bundle branch block, a 5 beat run of nonsustained ventricular tachycardia observed this morning 05/17/2022 at 8:04 AM. Physical Exam Constitutional: Chronically ill in appearance without acute distress Respiratory: normal respiratory effort, lungs clear to auscultation Cardiovascular: Rate/Rhythm: regular rate Heart Sounds: no murmur Extremities: no edema Gastrointestinal (Abdomen): normal bowel sounds, soft, nontender, no hepatosplenomegaly Musculoskeletal: Left lower leg/ankle wound dressed. Less drainage today. Neurologic: PERRL, EOMI, accommodation nl, no face palsy, no dysarthria Results & Data ([facility]) Vital Signs (Past 12 Hours) Vital Signs Temp Pulse Pulse Pulse Resp BP Pulse Ox 05/17/22 12:38 37.0 C 65 19 108/57 L 93 05/17/22 08:45 81 99/53 L 05/17/22 07:11 36.7 C 67 19 90/54 L 95 05/17/22 03:51 36.6 C 58 L 20 97/52 L 97 05/17/22 03:26 54 L 19 96
--- NOTE | 2022-05-17 17:45 | Hospitalist Progress Note ---
Date of Service May 17, 2022 Assessment & Plan (1) Consolidation of right upper lobe: Plan: 72 yo incarcerated man with diabetes on glipizide and Otezla presented 05/02 with hypotension, hypoglycemia and SOB with hypoxia. He denied any fevers/chills, chest pain. Per field notes his BSG was 43 nd he was given 4 glucose tabs. BP was 82/60.He is being managed for the following: # Acute respiratory failure likely related to right hilar mass with postobstructive collapse in setting of possible COPD exacerbation - s/p extubation 05/09 AM to BiPAP. Resolving, on 2L [place] O2 (not on prior chronic O2) # RUL PNA- S/p empiric ABx course. - CTA chest: No evidence for PE, suggestive of right hilar mass with postobstructive atelectasis/collapse rather than pneumonia. 3 subcentimeter pulmonary nodules within the right lung. Right paratracheal and right hilar adenopathy. - Elevated Pro-Miguel and WBC at presentation. Admitting blood culture 05/02 negative. - S/p emergent bronchoscopy on 05/05, results were unrevealing. Concern for the sample being inadequate. - S/p bronchoscopy 05/07- cultures negative but negative for malignancy. # NSVT- seen in tele- asymptomatic- Will replete electrolytes to keep K >4 and Mg>2. Echo reviewed. # Dilated Cardiomyopathy- EF 20-25%. Not in clinical HF. Euvolemic. - Echo 05/07 with ejection fraction 20 to 25%, severely reduced LV systolic function. - On GDMT with Juan Miguel Mina. Might benefit from addition of aldactone down the road if her renal function and electrolytes can be monitored and if allowed by BP - Discussed with cardio- unable to have AICD placed with the open wound of left heel as very high risk of infection - Upon [facility] to [facility]- f/u with [place] cardio clinic - Recommend repeat echo in 3 months of GDMT # Acute COPD exacerbation- resolved, no wheezing. Continue prednisone taper, continue Trelegy ellipta daily/prn albuterol Pulm re-evaluated 05/11: Trelegy Ellipata 1 puff daily w/ prn rescue inhaler, BPAP (10/19, r = 14) at DC w/ rec for OP PSG, f/u CT scan w/o con in 3 months to f/u RUL lesion to resolution 2 step test: 2L O2 all the time Needs BIPAP at [place], communicated w/ at [facility] 05/13 #. HOMA- resolved. Status post pressor support, blood pressure better. HOMA secondary to dehydration versus ATN in setting of hypotension. #. Hypoglycemia: 37 on arrival, resolved. Likely secondary to glipizide and Otezla use in the context of poor p.o. intake immediately prior to arrival. Now with hyperglycemia on SSI, will add some lantus. In future, if with poor p.o. intake, avoid glipizide. #. Hypomagnesemia- repleted, recheck in am #. Chronic steroid use: Chronically placed on a steroid by [facility] several years ago. Cont prednisone taper per Pulm. #. DVT prophylaxis: sq Heparin Dispo - Needs BIPAP at discharge at the correction facility- awaiting arran kay (I:E 10/19, r=14) otherwise medically stable for discharge Recommend OP PSG, CT chest in 3 mo, ECHO in 2-3 months, labs in a week, Trelegy. Needs PCP/Pulm/Cardio f/u. Admission and Anticipated Discharge Date Admission Date: May 02, 2022 Subjective Feels okay. Denies any issues. Had NSVT but asymptomatic. Denies any chest pain, shortness of breath, N/V. No dizziness. Physical Exam Physical Exam: General: Lying comfortably in bed, not in distress, on NC HEENT: EOMI, ROSA, MMM Chest: Clear breath sounds bilaterally, no wheezes or crackles CVS: Regular rate and rhythm, normal heart sounds, no murmur Abdomen: Soft, non tender, not distended, normal bowel sounds Neuro: Awake, alert, oriented, conversing well, non focal Extremities: Chronic LE pigmentation. Left heel covered with dressing. Results & Data Results & Data ([facility]) Vital Signs (Past 12 Hours) Vital Signs Temp Pulse Pulse Resp BP Pulse Ox 05/17/22 16:07 36.6 C 62 19 105/65 92 05/17/22 12:38 37.0 C 65 19 108/57 L 93 05/17/22 08:45 81 99/53 L 05/17/22 07:11 36.7 C 67 19 90/54 L 95 Laboratory Results Short CBC 05/17/22 Range/Units 08:25 WBC 11.66 H (4.8-10.8) K/uL Hgb 15.0 (14.0-18.0) g/dL Hct 46.5 (42-52) % Plt Count 177 (130-400) K/uL BMP 05/17/22 08:25 Sodium 142 Potassium 4.0 Chloride 97 L Carbon Dioxide 40 H BUN 29 H Creatinine 0.70 Glucose 149 H Calcium 9.1 Medications Administered Current Inpatient Medications Acetaminophen (Acetaminophen 325 Mg Tab) 650 mg PO Q6H PRN PRN Reason: fever, headache, pain Stop: 06/01/22 20:55 Last Admin: 05/10/22 20:46 Dose: 650 mg Documented by: Albuterol (Albut/Ipratrop 3mg/0.5mg Neb 3 Ml Vial) 3 ml NEB Q2R PRN; Protocol PRN Reason: SOB/WHEEZING Stop: 06/01/22 21:05 Aspirin (Aspirin 81 Mg Chew) 81 mg PO DAILY JULIA Stop: 06/02/22 08:59 Last Admin: 05/17/22 08:50 Dose: 81 mg Documented by: Atorvastatin Calcium (Atorvastatin 40 Mg Tab) 40 mg PO HS JULIA Stop: 06/01/22 20:59 Last Admin: 05/16/22 20:59 Dose: 40 mg Documented by: Dextrose (Dextrose 50% 50 Ml Syringe) 25 - 50 ml IV UD PRN; Protocol PRN Reason: Hypoglycemia Protocol Stop: 06/01/22 20:55 Fluticasone Furoate (Fluticasone Furoate 100mcg 14 Puffs/Inhaler) 1 puffs INH DAILY JULIA Stop: 06/14/22 08:59 Last Admin: 05/17/22 08:46 Dose: 1 puffs Documented by: Furosemide (Furosemide 20 Mg Tab) 20 mg PO QAM JULIA Stop: 06/12/22 08:59 Last Admin: 05/17/22 08:49 Dose: 20 mg Documented by: Glucagon (Glucagon For Inj 1 Mg Vial) 1 mg SQ UD PRN; Protocol PRN Reason: Hypoglycemia Protocol Stop: 06/01/22 20:55 Glucose (Glucose 10 Tabs/Tube) 4 - 8 tabs PO UD PRN; Protocol PRN Reason: Hypoglycemia Protocol Stop: 06/01/22 20:55 Glucose (Glucose 40% Gel 15 Gm Tube) 15 - 30 gm PO UD PRN; Protocol PRN Reason: Hypoglycemia Protocol Stop: 06/01/22 20:55 Guaifenesin (Guaifenesin 600 Mg Tabcr) 1,200 mg PO Q12 JULIA Stop: 06/15/22 10:34 Last Admin: 05/17/22 08:49 Dose: 1,200 mg Documented by: Heparin Sodium (Porcine) (Heparin Sod 5,000 Unit/0.5 Ml Vial) 5,000 units SQ Q8 JULIA Stop: 06/01/22 21:59 Last Admin: 05/17/22 14:38 Dose: 5,000 units Documented by: Magnesium Sulfate/Dextrose (Magnesium Sulfate / D5w) 1 gm in 100 mls @ 50 mls/hr IV Q2H JULIA Stop: 05/17/22 21:29 Last Admin: 05/17/22 17:49 Dose: 50 mls/hr Documented by: Insulin Aspart (Insulin Aspart Per Unit) 0 units SC ACHS JULIA Stop: 06/09/22 16:29 Last Admin: 05/17/22 17:39 Dose: 13 units Documented by: Lactobacillus Acidophilus (Advanced Probiotic 1250 Mg Capsule) 2 cap PO DAILY JULIA Stop: 06/10/22 16:44 Last Admin: 05/17/22 08:49 Dose: 2 cap Documented by: Magnesium Oxide (Magnesium Oxide 400 Mg Tab) 400 mg PO BID JULIA Stop: 06/16/22 20:59 Metoprolol Succinate (Metoprolol Succ 25mg Ext Rel Tab) 25 mg PO BID JULIA Stop: 06/10/22 20:59 Last Admin: 05/17/22 08:50 Dose: 25 mg Documented by: Miscellaneous (Carbohydrates For Hypoglycemia ) 15 - 30 gm PO UD PRN PRN Reason: Hypoglycemia Protocol Stop: 06/01/22 20:55 Multivitamins/Minerals (Cerovite Adv Formula Tab) 1 tab PO QAM JULIA Stop: 06/10/22 08:59 Last Admin: 05/17/22 08:51 Dose: 1 tab Documented by: Ondansetron HCl (Ondansetron Inj 2 Mg/Ml 2 Ml Vial) 4 mg IV Q6H PRN PRN Reason: Nausea Stop: 06/01/22 20:55 Pantoprazole Sodium (Pantoprazole 40 Mg Tab) 40 mg PO DAILY JULIA; Protocol Stop: 06/10/22 08:59 Last Admin: 05/17/22 08:51 Dose: 40 mg Documented by: Prednisone (Prednisone 20 Mg Tab) 20 mg PO DAILY JULIA Stop: 06/08/22 08:59 Last Admin: 05/17/22 08:49 Dose: 20 mg Documented by: Ropinirole HCl (Ropinirole Hcl 2 Mg Tablet) 4 mg PO BID JULIA Stop: 06/01/22 20:59 Last Admin: 05/17/22 08:49 Dose: 4 mg Documented by: Sacubitril/Valsartan (Valsartan/Sacubitril 26/24mg Tab) 1 tab PO BID JULIA Stop: 06/10/22 11:29 Last Admin: 05/17/22 08:51 Dose: Not Given Documented by: Umeclidinium/Vilanterol (Umeclidinium/Vilanterol 62.5/25mcg 7 Puffs/Inhaler) 1 puffs INH DAILY JULIA Stop: 06/14/22 08:59 Last Admin: 05/17/22 08:46 Dose: 1 puffs Documented by:
[2022-05-17] MEDS: MAGNESIUM SULFATE / D5W 1 GM/100 ML BAG IV SCH ×2 (17:49→19:37)
[2022-05-17] MEDS: ATORVASTATIN 40 MG TAB PO SCH (20:36)
[2022-05-17] MEDS: MAGNESIUM OXIDE 400 MG TAB PO SCH (20:37)
[2022-05-17] MEDS ORDERED: LANTUS PER UNIT CHARGE SQ SCH (21:00)
[2022-05-18] MEDS: HEPARIN SOD 5,000 UNIT/0.5 ML VIAL SQ SCH ×3 (05:17→21:40)
[2022-05-18 06:33] LABS: Hemoglobin 13.4 g/dL (14.0-18.0); Mean Corpuscular Hemoglobin 29.9 pg (25-34); Mean Corpuscular Hgb Conc 31.9 g/dL (32-36); Mean Corpuscular Volume 93.8 fL (80-100); Mean Platelet Volume 10.7 fL (7.4-10.4); Platelet Count 155 K/uL (130-400); RDW Coefficient of Variation 14.2 % (11.5-14.5); RDW Standard Deviation 48.3 fL (36.4-46.3); Red Blood Count 4.48 M/uL (4.7-6.1); White Blood Count 10.84 K/uL (4.8-10.8)
[2022-05-18 07:09] LABS: BUN Creatinine Ratio 44.3 (10-20); Creatinine Clr Calc Pharmacy 98.8 ml/min; Est GFR (African American) 107.8 ml/min; Potassium 3.8 mmol/L (3.5-5.1)
[2022-05-18] MEDS: UMECLIDINIUM/VILANTEROL 62.5/25MCG 7 PUFFS/INHALER INH SCH (08:59)
[2022-05-18] MEDS: ASPIRIN 81 MG CHEW PO SCH (08:59)
[2022-05-18] MEDS: FLUTICASONE FUROATE 100MCG 14 PUFFS/INHALER INH SCH (08:59)
[2022-05-18] MEDS: FUROSEMIDE 20 MG TAB PO SCH (09:01)
[2022-05-18] MEDS: guaiFENesin 600 MG TABCR PO SCH ×2 (09:01→21:38)
[2022-05-18] MEDS: CEROVITE ADV FORMULA TAB PO SCH (09:02)
[2022-05-18] MEDS: ADVANCED PROBIOTIC 1250 MG CAPSULE PO SCH (09:02)
[2022-05-18] MEDS: METOPROLOL SUCC 25MG EXT REL TAB PO SCH ×2 (09:02→21:38)
[2022-05-18] MEDS: MAGNESIUM OXIDE 400 MG TAB PO SCH ×2 (09:02→21:39)
[2022-05-18] MEDS: predniSONE 20 MG TAB PO SCH (09:03)
[2022-05-18] MEDS: POTASSIUM CHLORIDE CRTAB 20 MEQ TABCR PO SCH (09:03)
[2022-05-18] MEDS: PANTOprazole 40 MG TAB PO SCH (09:03)
[2022-05-18] MEDS: rOPINIRole HCL 2 MG TABLET PO SCH ×2 (09:04→21:39)
[2022-05-18] MEDS: VALSARTAN/SACUBITRIL 26/24MG TAB PO SCH ×2 (09:04→21:39)
[2022-05-18] MEDS: INSULIN ASPART PER UNIT SC SCH ×4 (09:25→21:24)
--- NOTE | 2022-05-18 13:41 | Hospitalist Progress Note ---
Date of Service May 18, 2022 Assessment & Plan (1) Consolidation of right upper lobe: Plan: 72 yo incarcerated man with diabetes on glipizide and Otezla presented 05/02 with hypotension, hypoglycemia and SOB with hypoxia. He denied any fevers/chills, chest pain. Per field notes his BSG was 43 nd he was given 4 glucose tabs. BP was 82/60.He is being managed for the following: # Acute respiratory failure likely related to right hilar mass with postobstructive collapse in setting of possible COPD exacerbation - s/p extubation 05/09 AM to BiPAP. Resolving, on 2L [place] O2 (not on prior chronic O2) # Left heel wound with bulla- left heel wound with bulla now gaping and bleeding with soaking of dressing and bedsheet overnight. No signs of infection currently. WOCN evaluation pending. Local wound care for now. # RUL PNA- S/p empiric ABx course. - CTA chest: No evidence for PE, suggestive of right hilar mass with postobstructive atelectasis/collapse rather than pneumonia. 3 subcentimeter pulmonary nodules within the right lung. Right paratracheal and right hilar adenopathy. - Elevated Pro-Miguel and WBC at presentation. Admitting blood culture 05/02 negative. - S/p emergent bronchoscopy on 05/05, results were unrevealing. Concern for the sample being inadequate. - S/p bronchoscopy 05/07- cultures negative but negative for malignancy. # NSVT- seen in tele 05/17- asymptomatic- Keep electrolytes to keep K >4 and Mg>2. Echo reviewed. Seen by cardiology # Dilated Cardiomyopathy- EF 20-25%. Not in clinical HF. Euvolemic. - Echo 05/07 with ejection fraction 20 to 25%, severely reduced LV systolic function. - On GDMT with Toprol Entresto. Might benefit from addition of aldactone down the road if her renal function and electrolytes can be monitored and if allowed by BP - Discussed with cardio- unable to have AICD placed with the open wound of left heel as very high risk of infection - Upon transfer back to [facility]- f/u with [place] cardio clinic - Recommend repeat echo in 3 months of GDMT # Acute COPD exacerbation- resolved, no wheezing. Continue prednisone taper, continue Trelegy ellipta daily/prn albuterol Pulm re-evaluated 05/11: Carlosleeric Ellipata 1 puff daily w/ prn rescue inhaler, BPAP (10/19, r = 14) at DC w/ rec for OP PSG, f/u CT scan w/o con in 3 months to f/u RUL lesion to resolution 2 step test: 2L O2 all the time #. HOMA- resolved. Status post pressor support, blood pressure better. HOMA secondary to dehydration versus ATN in setting of hypotension. #. Hypoglycemia: resolved. BG was 37 on arrival which was likely secondary to glipizide and Otezla use in the context of poor p.o. intake. Now with post prandial hyperglycemia likely from steroids, no fasting hyperglycemia. Continue SSI for now. Consider holding glipizide in future if poor oral intake. #. Hypomagnesemia- resolved #. Chronic steroid use: Chronically placed on a steroid by [facility] several years ago. Cont prednisone taper per Pulm. #. DVT prophylaxis: sq Heparin Dispo - WOCN eval for the bleeding left heel wound with bulla. BIPAP has been arranged at the correction facility- (I:E 10/19, r=14). Recommend OP PSG, CT chest in 3 mo, ECHO in 2-3 months, labs in a week, Trelegy. Needs PCP/Pulm/Cardio f/u. Admission and Anticipated Discharge Date Admission Date: May 02, 2022 Subjective His left heel wound dressing was soaked with blood overnight- denies any trauma. Has some pain at the wound. No fever or chills. No chest pain or shortness of breath. Physical Exam Physical Exam: General: Lying comfortably in bed, not in distress, on NC HEENT: EOMI, ROSA, MMM Chest: Fair breath sounds bilaterally CVS: Regular rate and rhythm, normal heart sounds, no murmur Abdomen: Soft, non tender, not distended, normal bowel sounds Neuro: Awake, alert, oriented, conversing well, non focal Extremities: Left heel wound with gaping bulla with some clot and bleeding- no signs of infection or purulence Results & Data Results & Data ([facility]) Vital Signs (Past 12 Hours) Vital Signs Temp Pulse Pulse Resp BP Pulse Ox 05/18/22 12:43 36.7 C 79 21 92/52 L 93 05/18/22 07:33 36.8 C 56 L 20 95/54 L 96 05/18/22 07:00 64 05/18/22 02:52 36.5 C 54 L 20 101/66 96 Laboratory Results Short CBC 05/18/22 Range/Units 06:07 WBC 10.84 H (4.8-10.8) K/uL Hgb 13.4 L (14.0-18.0) g/dL Hct 42.0 (42-52) % Plt Count 155 (130-400) K/uL BMP 05/18/22 06:07 Sodium 141 Potassium 3.8 Chloride 98 Carbon Dioxide 38 H BUN 31 H Creatinine 0.70 Glucose 110 H Calcium 9.0 Medications Administered Current Inpatient Medications Acetaminophen (Acetaminophen 325 Mg Tab) 650 mg PO Q6H PRN PRN Reason: fever, headache, pain Stop: 06/01/22 20:55 Last Admin: 05/10/22 20:46 Dose: 650 mg Documented by: Albuterol (Albut/Ipratrop 3mg/0.5mg Neb 3 Ml Vial) 3 ml NEB Q2R PRN; Protocol PRN Reason: SOB/WHEEZING Stop: 06/01/22 21:05 Aspirin (Aspirin 81 Mg Chew) 81 mg PO DAILY JULIA Stop: 06/02/22 08:59 Last Admin: 05/18/22 08:59 Dose: 81 mg Documented by: Atorvastatin Calcium (Atorvastatin 40 Mg Tab) 40 mg PO HS JULIA Stop: 06/01/22 20:59 Last Admin: 05/17/22 20:36 Dose: 40 mg Documented by: Dextrose (Dextrose 50% 50 Ml Syringe) 25 - 50 ml IV UD PRN; Protocol PRN Reason: Hypoglycemia Protocol Stop: 06/01/22 20:55 Fluticasone Furoate (Fluticasone Furoate 100mcg 14 Puffs/Inhaler) 1 puffs INH DAILY JULIA Stop: 06/14/22 08:59 Last Admin: 05/18/22 08:59 Dose: 1 puffs Documented by: Furosemide (Furosemide 20 Mg Tab) 20 mg PO QAM JULIA Stop: 06/12/22 08:59 Last Admin: 05/18/22 09:01 Dose: 20 mg Documented by: Glucagon (Glucagon For Inj 1 Mg Vial) 1 mg SQ UD PRN; Protocol PRN Reason: Hypoglycemia Protocol Stop: 06/01/22 20:55 Glucose (Glucose 10 Tabs/Tube) 4 - 8 tabs PO UD PRN; Protocol PRN Reason: Hypoglycemia Protocol Stop: 06/01/22 20:55 Glucose (Glucose 40% Gel 15 Gm Tube) 15 - 30 gm PO UD PRN; Protocol PRN Reason: Hypoglycemia Protocol Stop: 06/01/22 20:55 Guaifenesin (Guaifenesin 600 Mg Tabcr) 1,200 mg PO Q12 JULIA Stop: 06/15/22 10:34 Last Admin: 05/18/22 09:01 Dose: 1,200 mg Documented by: Heparin Sodium (Porcine) (Heparin Sod 5,000 Unit/0.5 Ml Vial) 5,000 units SQ Q8 JULIA Stop: 06/01/22 21:59 Last Admin: 05/18/22 05:17 Dose: 5,000 units Documented by: Insulin Aspart (Insulin Aspart Per Unit) 0 units SC ACHS JULIA Stop: 06/09/22 16:29 Last Admin: 05/18/22 12:28 Dose: 10 units Documented by: Lactobacillus Acidophilus (Advanced Probiotic 1250 Mg Capsule) 2 cap PO DAILY JULIA Stop: 06/10/22 16:44 Last Admin: 05/18/22 09:02 Dose: 2 cap Documented by: Magnesium Oxide (Magnesium Oxide 400 Mg Tab) 400 mg PO BID JULIA Stop: 06/16/22 20:59 Last Admin: 05/18/22 09:02 Dose: 400 mg Documented by: Metoprolol Succinate (Metoprolol Succ 25mg Ext Rel Tab) 12.5 mg PO BID JULIA Stop: 06/17/22 08:59 Last Admin: 05/18/22 09:02 Dose: Not Given Documented by: Miscellaneous (Carbohydrates For Hypoglycemia ) 15 - 30 gm PO UD PRN PRN Reason: Hypoglycemia Protocol Stop: 06/01/22 20:55 Multivitamins/Minerals (Cerovite Adv Formula Tab) 1 tab PO QAM JULIA Stop: 06/10/22 08:59 Last Admin: 05/18/22 09:02 Dose: 1 tab Documented by: Ondansetron HCl (Ondansetron Inj 2 Mg/Ml 2 Ml Vial) 4 mg IV Q6H PRN PRN Reason: Nausea Stop: 06/01/22 20:55 Pantoprazole Sodium (Pantoprazole 40 Mg Tab) 40 mg PO DAILY [facility]; Protocol Stop: 06/10/22 08:59 Last Admin: 05/18/22 09:03 Dose: 40 mg Documented by: Potassium Chloride (Potassium Chloride Crtab 20 Meq Tabcr) 20 meq PO DAILY JULIA Stop: 06/17/22 08:59 Last Admin: 05/18/22 09:03 Dose: 20 meq Documented by: Prednisone (Prednisone 20 Mg Tab) 20 mg PO DAILY JULIA Stop: 06/08/22 08:59 Last Admin: 05/18/22 09:03 Dose: 20 mg Documented by: Ropinirole HCl (Ropinirole Hcl 2 Mg Tablet) 4 mg PO BID JULIA Stop: 06/01/22 20:59 Last Admin: 05/18/22 09:04 Dose: 4 mg Documented by: Sacubitril/Valsartan (Valsartan/Sacubitril 26/24mg Tab) 1 tab PO BID JULIA Stop: 06/10/22 11:29 Last Admin: 05/18/22 09:04 Dose: 1 tab Documented by: Umeclidinium/Vilanterol (Umeclidinium/Vilanterol 62.5/25mcg 7 Puffs/Inhaler) 1 puffs INH DAILY JULIA Stop: 06/14/22 08:59 Last Admin: 05/18/22 08:59 Dose: 1 puffs Documented by:
--- NOTE | 2022-05-18 16:42 | Cardiology Progress Note ---
Date of Service May 18, 2022 Assessment & Plan (1) Dilated cardiomyopathy: (2) Left bundle branch block: (3) Acute hypercapnic respiratory failure: (4) Consolidation of right upper lobe: Plan: Echo this admission LVEF 20-25% Pt describes having had a cardiac catheterization 10 years ago at [facility] in [place] and describes having been told he had no significant blockages then. He does not recall having been diagnosed with a low ejection fraction in the past. Continue ASA, atorvastatin, metoprolol, Entresto. Pt with right upper lobe pneumonia. Bronchoscopy performed 05/07/22 negative for malignancy. Patient with chronic left heel wound, draining of serosanguineous fluid. He describes having been diagnosed with "cellulitis "a little over a year ago. Arterial duplex of the left lower extremity performed 05/16/2022 does not suggest culprit occlusive disease. Having an ongoing open skin wound does have her preclude implantation of an AICD from concerns of infection. This admission, patient has been started on appropriate treatment including aspirin, atorvastatin, Entresto, metoprolol succinate, furosemide. He is not clinically volume overloaded. Dose escalation of Entresto limited by relative low blood pressure. I think we have him on as much beta-elmira as prudent given underlying left bundle branch block. Upon transfer back to the [facility] institution, follow-up to be pursued with the [place] cardiology clinic. Admission and Anticipated Discharge Date Admission Date: May 02, 2022 Subjective Patient seen in cardiology follow-up. More alert today. Physical Exam Constitutional: Chronically ill in appearance, no acute distress. Respiratory: normal respiratory effort, lungs clear to auscultation Cardiovascular: Rate/Rhythm: regular rate Heart Sounds: no murmur Extremities: no edema Gastrointestinal (Abdomen): normal bowel sounds, soft, nontender, no hepatosplenomegaly Neurologic: PERRL, EOMI, accommodation nl, no face palsy, no dysarthria Results & Data ([facility]) Vital Signs (Past 12 Hours) Vital Signs Temp Pulse Pulse Resp BP Pulse Ox 05/18/22 15:26 36.5 C 63 20 106/65 93 05/18/22 12:43 36.7 C 79 21 92/52 L 93 05/18/22 07:33 36.8 C 56 L 20 95/54 L 96 05/18/22 07:00 64
--- NOTE | 2022-05-18 20:50 | XRay Report ---
XR chest 2V PA/lateral CLINICAL HISTORY: follow up right upper lobe consolidation/pneumonia. COMPARISON STUDY: CTA chest from 05/02/2022 and portable chest from 05/09/2022 TECHNIQUE: 2 views of the chest FINDINGS: Frontal and lateral radiographs of the chest demonstrate the cardiomediastinal silhouette to be withi n normal limits. Compared to the previous examinations, there is no change in right upper lobe consol idation. The findings are again most suspicious for right hilar mass with postobstructive atelectasis /pneumonitis of the right upper lobe.. The remainder of the lungs are clear. There is evidence for very small bilateral pleural effusions on the lateral radiograph. There is no evidence for vascular congestion. There is no acute osseous path ology. IMPRESSION: 1. Persistent consolidation of the right upper lobe again most characteristic of postobstructive atel ectasis/pneumonitis as seen on previous CT. 2. The remainder of the lungs are clear. 3. Very small bilateral pleural effusions are now present posteriorly on the lateral radiograph. ACT 112: Negative or not required by law. Electronically signed by: Antwan Meadows M.D. 05/18/2022 8:48 PM
[2022-05-18] MEDS: ATORVASTATIN 40 MG TAB PO SCH (21:39)
[2022-05-19] MEDS: HEPARIN SOD 5,000 UNIT/0.5 ML VIAL SQ SCH ×3 (06:09→20:42)
[2022-05-19 07:24] LABS: Basophils # (auto) 0.01 K/uL (0-0.2); Basophils % (auto) 0.1 %; Eosinophils # (auto) 0.08 K/uL (0-0.5); Eosinophils % (auto) 0.9 %; Hematocrit (blood only) 40.1 % (42-52); Hemoglobin 13.1 g/dL (14.0-18.0); Immature Granulocytes # (auto) 0.08 K/uL (0.00-0.02); Immature Granulocytes % (auto) 0.9 %; Lymphocytes # (auto) 0.79 K/uL (1.2-3.4); Lymphocytes % (auto) 8.6 %; Mean Corpuscular Hemoglobin 30.5 pg (25-34); Mean Corpuscular Hgb Conc 32.7 g/dL (32-36); Mean Corpuscular Volume 93.3 fL (80-100); Mean Platelet Volume 11.1 fL (7.4-10.4); Monocytes # (auto) 0.51 K/uL (0.11-0.59); Monocytes % (auto) 5.5 %; Neutrophils # (auto) 7.73 K/uL (1.4-6.5); Platelet Count 160 K/uL (130-400); RDW Coefficient of Variation 14.3 % (11.5-14.5); RDW Standard Deviation 48.3 fL (36.4-46.3)
[2022-05-19] MEDS: INSULIN ASPART PER UNIT SC SCH ×4 (07:33→20:49)
[2022-05-19 07:48] LABS: C Reactive Protein 8.52 mg/dl (0-0.5); Creatinine Clr Calc Pharmacy 94.8 ml/min; Est GFR (African American) 105.9 ml/min; Est GFR (Non-African American) 91.4 ml/min; Magnesium 1.6 mg/dl (1.7-2.4); Potassium 4.4 mmol/L (3.5-5.1)
[2022-05-19] MEDS: UMECLIDINIUM/VILANTEROL 62.5/25MCG 7 PUFFS/INHALER INH SCH (08:30)
[2022-05-19] MEDS: FLUTICASONE FUROATE 100MCG 14 PUFFS/INHALER INH SCH (08:30)
[2022-05-19] MEDS: MAGNESIUM OXIDE 400 MG TAB PO SCH ×2 (08:31→20:40)
[2022-05-19] MEDS: ADVANCED PROBIOTIC 1250 MG CAPSULE PO SCH (08:31)
[2022-05-19] MEDS: ASPIRIN 81 MG CHEW PO SCH (08:31)
[2022-05-19] MEDS: POTASSIUM CHLORIDE CRTAB 20 MEQ TABCR PO SCH (08:31)
[2022-05-19] MEDS: FUROSEMIDE 20 MG TAB PO SCH (08:31)
[2022-05-19] MEDS: CEROVITE ADV FORMULA TAB PO SCH (08:31)
[2022-05-19] MEDS: rOPINIRole HCL 2 MG TABLET PO SCH ×2 (08:31→20:42)
[2022-05-19] MEDS: guaiFENesin 600 MG TABCR PO SCH ×2 (08:31→20:40)
[2022-05-19] MEDS: VALSARTAN/SACUBITRIL 26/24MG TAB PO SCH ×2 (08:31→20:42)
[2022-05-19] MEDS: PANTOprazole 40 MG TAB PO SCH (08:31)
[2022-05-19] MEDS: predniSONE 20 MG TAB PO SCH (08:31)
[2022-05-19] MEDS: METOPROLOL SUCC 25MG EXT REL TAB PO SCH ×2 (08:32→20:41)
[2022-05-19 12:06] LABS: Legionella Culture Source RUL
--- NOTE | 2022-05-19 13:41 | Cardiology Progress Note ---
Date of Service May 19, 2022 Assessment & Plan (1) Dilated cardiomyopathy: (2) Left bundle branch block: (3) Acute hypercapnic respiratory failure: (4) Consolidation of right upper lobe: Plan: Echo this admission LVEF 20-25% Pt describes having had a cardiac catheterization 10 years ago at [facility] in [place] and describes having been told he had no significant blockages then. He does not recall having been diagnosed with a low ejection fraction in the past. Continue ASA, atorvastatin, metoprolol, Entresto. Pt with right upper lobe pneumonia. Bronchoscopy performed 05/07/22 negative for malignancy. Patient with chronic left heel wound, draining of serosanguineous fluid. He describes having been diagnosed with "cellulitis "a little over a year ago. Arterial duplex of the left lower extremity performed 05/16/2022 does not suggest culprit occlusive disease. Having an ongoing open skin wound does have her preclude implantation of an AICD from concerns of infection. This admission, patient has been started on appropriate treatment including aspirin, atorvastatin, Entresto, metoprolol succinate, furosemide. He is not clinically volume overloaded. Dose escalation of Entresto limited by relative low blood pressure. I think we have him on as much beta-elmira as prudent given underlying left bundle branch block. Upon transfer back to the [facility], follow-up to be pursued with the [place] cardiology clinic. Admission and Anticipated Discharge Date Admission Date: May 02, 2022 Subjective Pt seen in follow up. Denies any acute cardiac complaint. Telemetry reveals SR in the 50s to 60s with occasional PVCs. Physical Exam Physical Exam: Temp Pulse Resp BP Pulse Ox 36.7 C 59 L 19 117/65 91 05/19/22 11:33 05/19/22 11:33 05/19/22 11:33 05/19/22 11:33 05/19/22 11:33 Constitutional:J Chronically ill in appearance withou t acute distress Respiratory: normal respiratory effort, lungs aristides ar to auscultation Cardiovascular:J Rate/Rhythm: regul ar rate Heart Jolie nds: no murmur Ex tremities: no natasha a Gastrointestinal ( Abdomen): normal bowel sound s, soft, nontender , no hepatosplenom egaly Musculoskeletal: Left lower leg/ank le wound dressed. Less drainage tod ay. Neurologic: PERRL, EOMI, accom modation nl, no fa ce palsy, no dysar thria Results & Data ([facility]) Vital Signs (Past 12 Hours) Vital Signs Temp Pulse Pulse Resp BP Pulse Ox 05/19/22 11:33 36.7 C 59 L 19 117/65 91 05/19/22 07:23 36.5 C 59 L 16 97/62 L 94 05/19/22 07:00 65 05/19/22 02:59 36.4 C L 71 18 105/52 L 93
--- NOTE | 2022-05-19 15:38 | Hospitalist Progress Note ---
Date of Service May 19, 2022 Assessment & Plan (1) Consolidation of right upper lobe: Plan: 72 yo incarcerated man with diabetes on glipizide and Otezla presented 05/02 with hypotension, hypoglycemia and SOB with hypoxia. He denied any fevers/chills, chest pain. Per field notes his BSG was 43 nd he was given 4 glucose tabs. BP was 82/60.He is being managed for the following: # Acute respiratory failure likely related to right hilar mass with postobstructive collapse in setting of possible COPD exacerbation - s/p extubation 05/09 AM to BiPAP. Resolving, on 2L NC O2 (not on prior chronic O2) # Left heel wound with bulla- left heel wound with bulla now gaping with clot with intermittent bleeding and soaking. Seen by [facility] and recommended surgical evaluation. Consulted ortho- pending evaluation. Does not look infected. Procal negative, normal WBC, CRP improving from before. # RUL PNA- S/p empiric ABx course. - CTA chest: No evidence for PE, suggestive of right hilar mass with p ostobstructive atelectasis/collapse rather than pneumonia. 3 subcentimeter pulmonary nodules within the right lung. Right paratracheal and right hilar adenopathy. - Elevated Pro-Miguel and WBC at presentation. Admitting blood culture 05/02 negative. - S/p emergent bronchoscopy on 05/05, results were unrevealing. Concern for the sample being inadequate. - S/p bronchoscopy 05/07- cultures negative but negative for malignancy. # NSVT- seen in tele 05/17- asymptomatic- Keep electrolytes to keep K >4 and Mg>2. Echo reviewed. Seen by cardiology # Dilated Cardiomyopathy- EF 20-25%. Not in clinical HF. Euvolemic. - Echo 05/07 with ejection fraction 20 to 25%, severely reduced LV systolic function. - On GDMT with Juan Miguel Mina. Might benefit from addition of aldactone down the road if her renal function and electrolytes can be monitored and if allowed by BP - Discussed with cardio- unable to have AICD placed with the open wound of left heel as very high risk of infection - [facility]- f/u with [facility] - Recommend repeat echo in 3 months of GDMT # Acute COPD exacerbation- resolved, no wheezing. Continue prednisone taper, continue Trelegy ellipta daily/prn albuterol Pulm re-evaluated 05/11: Trelegy Ellipata 1 puff daily w/ prn rescue inhaler, BPAP (10/19, r = 14) at [facility] w/ rec for [facility] PSG, f/u CT scan w/o con in 3 months to f/u RUL lesion to resolution 2 step test: 2L O2 all the time #. HOMA- resolved. #. Labile blood sugar, steroid associated hyperglycemia- hypoglycemia on presentation (BG 37) is resolved. Now with post prandial hyperglycemia likely from steroids, no fasting hyperglycemia. Expect improvement with tapering steroids. Continue SSI for now. Consider holding glipizide in future if poor oral intake. #. Hypomagnesemia- repleted. #. Chronic steroid use: Chronically placed on a steroid by [facility] several years ago. Now on pred taper- will cut down to 10 mg from tomorrow #. DVT prophylaxis: sq heparin Dispo - Pending ortho evaluation for definitive management of the left heel wound prior to transfer. BIPAP has been arranged at the correction facility- (I:E 10/19, r=14). Recommend OP PSG, CT chest in 3 mo, ECHO in 2-3 months, labs in a week, Trelegy. Needs PCP/Pulm/Cardio f/u. Admission and Anticipated Discharge Date Admission Date: May 02, 2022 Subjective No new issues. Has pain in left heel when touched or moved, otherwise no pain. Denies any chest pain, shortness of breath, N/V. No fever or chills. Physical Exam Physical Exam: General: Lying comfortably in bed, not in distress, on NC HEENT: EOMI, ROSA, MMM Chest: Fair breath sounds bilaterally CVS: Regular rate and rhythm, normal heart sounds, no murmur Abdomen: Soft, non tender, not distended, normal bowel sounds Neuro: Awake, alert, oriented, conversing well, non focal Extremities: Left heel wound with gaping bulla with clot and bleeding- no signs of infection or purulence. Chronic LE skin changes. Results & Data Results & Data ([facility]) Vital Signs (Past 12 Hours) Vital Signs Temp Pulse Pulse Resp BP Pulse Ox 05/19/22 11:33 36.7 C 59 L 19 117/65 91 05/19/22 07:23 36.5 C 59 L 16 97/62 L 94 05/19/22 07:00 65 Laboratory Results Short CBC 05/02/22 05/03/22 05/04/22 Range/Units 15:55 03:23 05:33 WBC (4.8-10.8) K/uL Hgb (14.0-18.0) g/dL Hct (42-52) % Plt Count (130-400) K/uL Carbon Dioxide 34 H 30 29 (21-32) mmol/L 05/05/22 05/05/22 05/05/22 Range/Units 06:30 15:05 19:38 WBC (4.8-10.8) K/uL Hgb (14.0-18.0) g/dL Hct (42-52) % Plt Count (130-400) K/uL Carbon Dioxide 29 33 H Cancelled (21-32) mmol/L 05/05/22 05/06/22 05/07/22 Range/Units 20:46 04:30 04:50 WBC (4.8-10.8) K/uL Hgb (14.0-18.0) g/dL Hct (42-52) % Plt Count (130-400) K/uL Carbon Dioxide 34 H 36 H 36 H (21-32) mmol/L 05/08/22 05/09/22 05/10/22 Range/Units 03:22 05:37 05:17 WBC (4.8-10.8) K/uL Hgb (14.0-18.0) g/dL Hct (42-52) % Plt Count (130-400) K/uL Carbon Dioxide 38 H 37 H 37 H (21-32) mmol/L 05/11/22 05/12/22 05/13/22 Range/Units 05:28 06:18 05:54 WBC (4.8-10.8) K/uL Hgb (14.0-18.0) g/dL Hct (42-52) % Plt Count (130-400) K/uL Carbon Dioxide 35 H 38 H 38 H (21-32) mmol/L 05/14/22 05/15/22 05/16/22 Range/Units 06:30 06:52 06:24 WBC (4.8-10.8) K/uL Hgb (14.0-18.0) g/dL Hct (42-52) % Plt Count (130-400) K/uL Carbon Dioxide 37 H 42 H* 42 H* (21-32) mmol/L 05/17/22 05/18/22 05/19/22 Range/Units 08:25 06:07 06:52 WBC 9.20 (4.8-10.8) K/uL Hgb 13.1 L (14.0-18.0) g/dL Hct 40.1 L (42-52) % Plt Count 160 (130-400) K/uL Carbon Dioxide 40 H 38 H (21-32) mmol/L 05/19/22 Range/Units 06:52 WBC (4.8-10.8) K/uL Hgb (14.0-18.0) g/dL Hct (42-52) % Plt Count (130-400) K/uL Carbon Dioxide 43 H* (21-32) mmol/L BMP 05/19/22 06:52 Sodium 142 Potassium 4.4 Chloride 97 L Carbon Dioxide 43 H* BUN 27 H Creatinine 0.73 Glucose 107 H Calcium 9.0 Medications Administered Current Inpatient Medications Acetaminophen (Acetaminophen 325 Mg Tab) 650 mg PO Q6H PRN PRN Reason: fever, headache, pain Stop: 06/01/22 20:55 Last Admin: 05/10/22 20:46 Dose: 650 mg Documented by: Albuterol (Albut/Ipratrop 3mg/0.5mg Neb 3 Ml Vial) 3 ml NEB Q2R PRN; Protocol PRN Reason: SOB/WHEEZING Stop: 06/01/22 21:05 Aspirin (Aspirin 81 Mg Chew) 81 mg PO DAILY JULIA Stop: 06/02/22 08:59 Last Admin: 05/19/22 08:31 Dose: 81 mg Documented by: Atorvastatin Calcium (Atorvastatin 40 Mg Tab) 40 mg PO HS JULIA Stop: 06/01/22 20:59 Last Admin: 05/18/22 21:39 Dose: 40 mg Documented by: Dextrose (Dextrose 50% 50 Ml Syringe) 25 - 50 ml IV UD PRN; Protocol PRN Reason: Hypoglycemia Protocol Stop: 06/01/22 20:55 Fluticasone Furoate (Fluticasone Furoate 100mcg 14 Puffs/Inhaler) 1 puffs INH DAILY JULIA Stop: 06/14/22 08:59 Last Admin: 05/19/22 08:30 Dose: 1 puffs Documented by: Furosemide (Furosemide 20 Mg Tab) 20 mg PO QAM JULIA Stop: 06/12/22 08:59 Last Admin: 05/19/22 08:31 Dose: 20 mg Documented by: Glucagon (Glucagon For Inj 1 Mg Vial) 1 mg SQ UD PRN; Protocol PRN Reason: Hypoglycemia Protocol Stop: 06/01/22 20:55 Glucose (Glucose 10 Tabs/Tube) 4 - 8 tabs PO UD PRN; Protocol PRN Reason: Hypoglycemia Protocol Stop: 06/01/22 20:55 Glucose (Glucose 40% Gel 15 Gm Tube) 15 - 30 gm PO UD PRN; Protocol PRN Reason: Hypoglycemia Protocol Stop: 06/01/22 20:55 Guaifenesin (Guaifenesin 600 Mg Tabcr) 1,200 mg PO Q12 JULIA Stop: 06/15/22 10:34 Last Admin: 05/19/22 08:31 Dose: 1,200 mg Documented by: Heparin Sodium (Porcine) (Heparin Sod 5,000 Unit/0.5 Ml Vial) 5,000 units SQ Q8 JULIA Stop: 06/01/22 21:59 Last Admin: 05/19/22 06:09 Dose: 5,000 units Documented by: Magnesium Sulfate/Dextrose (Magnesium Sulfate / D5w) 1 gm in 100 mls @ 50 mls/hr IV Q2H JULIA Stop: 05/19/22 19:29 Insulin Aspart (Insulin Aspart Per Unit) 0 units SC ACHS JULIA Stop: 06/09/22 16:29 Last Admin: 05/19/22 12:14 Dose: 9 units Documented by: Lactobacillus Acidophilus (Advanced Probiotic 1250 Mg Capsule) 2 cap PO DAILY JULIA Stop: 06/10/22 16:44 Last Admin: 05/19/22 08:31 Dose: 2 cap Documented by: Magnesium Oxide (Magnesium Oxide 400 Mg Tab) 400 mg PO BID JULIA Stop: 06/16/22 20:59 Last Admin: 05/19/22 08:31 Dose: 400 mg Documented by: Metoprolol Succinate (Metoprolol Succ 25mg Ext Rel Tab) 12.5 mg PO BID JULIA Stop: 06/17/22 08:59 Last Admin: 05/19/22 08:32 Dose: 12.5 mg Documented by: Miscellaneous (Carbohydrates For Hypoglycemia ) 15 - 30 gm PO UD PRN PRN Reason: Hypoglycemia Protocol Stop: 06/01/22 20:55 Multivitamins/Minerals (Cerovite Adv Formula Tab) 1 tab PO QAM JULIA Stop: 06/10/22 08:59 Last Admin: 05/19/22 08:31 Dose: 1 tab Documented by: Ondansetron HCl (Ondansetron Inj 2 Mg/Ml 2 Ml Vial) 4 mg IV Q6H PRN PRN Reason: Nausea Stop: 06/01/22 20:55 Pantoprazole Sodium (Pantoprazole 40 Mg Tab) 40 mg PO DAILY [facility]; Protocol Stop: 06/10/22 08:59 Last Admin: 05/19/22 08:31 Dose: 40 mg Documented by: Potassium Chloride (Potassium Chloride Crtab 20 Meq Tabcr) 20 meq PO DAILY [facility] Stop: 06/17/22 08:59 Last Admin: 05/19/22 08:31 Dose: 20 meq Documented by: Prednisone (Prednisone 20 Mg Tab) 20 mg PO DAILY [facility] Stop: 06/08/22 08:59 Last Admin: 05/19/22 08:31 Dose: 20 mg Documented by: Ropinirole HCl (Ropinirole Hcl 2 Mg Tablet) 4 mg PO BID [facility] Stop: 06/01/22 20:59 Last Admin: 05/19/22 08:31 Dose: 4 mg Documented by: Sacubitril/Valsartan (Valsartan/Sacubitril 26/24mg Tab) 1 tab PO BID [facility] Stop: 06/10/22 11:29 Last Admin: 05/19/22 08:31 Dose: 1 tab Documented by: Umeclidinium/Vilanterol (Umeclidinium/Vilanterol 62.5/25mcg 7 Puffs/Inhaler) 1 puffs INH DAILY [facility] Stop: 06/14/22 08:59 Last Admin: 05/19/22 08:30 Dose: 1 puffs Documented by:
[2022-05-19] MEDS: MAGNESIUM SULFATE / D5W 1 GM/100 ML BAG IV SCH ×2 (16:30→18:30)
--- NOTE | 2022-05-19 17:26 | Orthopedic Consultation ---
Date of Consultation May 19, 2022 Assessment & Plan (1) Skin bulla: Patient seen and evaluated today by Dr. Conway, please see his note also. Recommend removal of the hematoma, peeling skin and applied a pressure dressing. Patient tolerated well. Would recommend offloading left heel. Local wound care, may need skin graft in the future, no plans for orthopedic surgery. Will continue to follow. Continue with wound care nurse. Patient understands and agrees with the plan. History of Present Illness Reason for Consultation: left heel blister/wound Attending Physician: Wali Holloway MD History of Present Illness Patient is a pleasant 72 year old male. States that he's been in the hospital for about 2 weeks, he's unsure when the blister started. He states that he thinks it's been here his whole admission, denies pain or injury. Orthopedic consult place 05/18/22 without evaluation, Dr. Conway consulted today for evaluation. He's on SQ heparin for DVT prophylaxis. Left foot elevated with pillow. Seen by wound care yesterday and they recommended ortho surgery evaluation. Allergies Allergy/AdvReac Type Severity Reaction Status Date / Time Penicillins Allergy Unknown Verified 05/02/22 19:11 Home Medications Medication Instructions Recorded Confirmed Type Normal Saline Flush 0.9% 1,000 ml IV DAILY PRN 05/02/22 05/02/22 History albuterol sulfate 90 mcg/actuation 1 puff INHALATION QID PRN 05/02/22 05/02/22 History aerosol inhaler apremilast 30 mg tablet (Otezla) 30 mg PO BID 05/02/22 05/02/22 History aspirin 81 mg chewable tablet 81 mg PO DAILY 05/02/22 05/02/22 History (Children's Aspirin) atorvastatin 40 mg tablet 40 mg PO HS 05/02/22 05/02/22 History fluticasone 500 mcg-salmeterol 50 1 inh INHALATION BID 05/02/22 05/02/22 History mcg/dose blistr powdr for inhalation (Wixela Inhub) furosemide 20 mg tablet (Lasix) 20 mg PO DAILY 05/02/22 05/02/22 History glipizide 5 mg tablet 5 mg PO BID 05/02/22 05/02/22 History guaifenesin 600 mg tablet, 600 mg PO Q12H 05/02/22 05/02/22 History extended release 12 hr (Mucinex) ipratropium 0.5 mg-albuterol 3 mg 0 ml INHALATION QID 05/02/22 05/02/22 History (2.5 mg base)/3 mL nebulization soln levofloxacin 750 mg tablet 750 mg PO DAILY 05/02/22 05/02/22 History lisinopril 20 mg tablet 20 mg PO DAILY 05/02/22 05/02/22 History metformin 1,000 mg tablet 1,000 mg PO BID 05/02/22 05/02/22 History metoprolol tartrate 25 mg tablet 25 mg PO BID 05/02/22 05/02/22 History prednisolone 5 mg tablet 15 mg PO DAILY 05/02/22 05/02/22 History (Millipred) ropinirole 2 mg tablet 4 mg PO BID 05/02/22 05/02/22 History simethicone 125 mg chewable tablet 125 mg PO QID PRN 05/02/22 05/02/22 History (Gas-X Extra Strength) Patient History Medical History Acute hypercapnic respiratory failure Acute systolic CHF (congestive heart failure) Allergic rhinitis Altered mental status Atherosclerosis Chronic obstructive pulmonary disease Consolidation of right upper lobe COPD with acute exacerbation DMII (diabetes mellitus, type 2) Dry mouth Dyspnea on exertion History of tobacco abuse HTN (hypertension) Hyperkalemia Mass of upper lobe of right lung Neuropathy Obesity Obstructive sleep apnea Osteoarthrosis Psoriasis RLS (restless legs syndrome) Weakness generalized Surgical History No history of previous surgery Family History Mother Lung cancer Father CHF (congestive heart failure) Social History Smoking Status: Former smoker Years Smoked: 30; Number of Years Since Quit: 20; Second Hand Exposure: No; Do You Dip or Chew Tobacco: No; Tobacco Cessation Education Requested by Patient: No Hx Alcohol Use: No Hx Substance Use: No Preferred Language: [place] Medical Collections Required: No Beliefs That Will Affect Care: None Current Living Situation: Other Current Living Situation Comment: [facility] Other Information That Helps Us Care for You: No Feels Safe at Home: Yes Assistive Devices: Wheelchair Physical Exam Musculoskeletal: exam of left heel: Large approximately 11x19 hemorrhagic bullae on left heel. Part of it is falling off and the rest was removed with sterile sharp scissors, this was just the epidermal layer and left the dermis exposed. Some mild active bleeding from heel, but controlled with pressure. Distal pulses 1+, distal sensation normal, full ROM left ankle. No calf tenderness. New pressure dressing applied. Results & Data ([facility]) Vital Signs (Past 12 Hours) Vital Signs Temp Pulse Pulse Resp BP Pulse Ox 05/19/22 15:56 36.5 C 71 17 96/59 L 94 05/19/22 11:33 36.7 C 59 L 19 117/65 91 05/19/22 07:23 36.5 C 59 L 16 97/62 L 94 05/19/22 07:00 65 Laboratory Results 05/19/22 05/19/22 05/19/22 Range/Units 16:10 11:34 07:20 WBC (4.8-10.8) K/uL RBC (4.7-6.1) M/uL Hgb (14.0-18.0) g/dL Hct (42-52) % MCV (80-100) fL MCH (25-34) pg MCHC (32-36) g/dL RDW Std Deviation (36.4-46.3) fL RDW Coeff of Cedric (11.5-14.5) % Plt Count (130-400) K/uL MPV (7.4-10.4) fL Immature Gran % (Auto) % Neut % (Auto) % Lymph % (Auto) % [place] % (Auto) % Eos % (Auto) % Baso % (Auto) % Neut # (Auto) (1.4-6.5) K/uL Lymph # (Auto) (1.2-3.4) K/uL [place] # (Auto) (0.11-0.59) K/uL Eos # (Auto) (0-0.5) K/uL Baso # (Auto) (0-0.2) K/uL Immature Gran # (Auto) (0.00-0.02) K/uL Sodium (136-145) mmol/L Potassium (3.5-5.1) mmol/L Chloride (98-107) mmol/L Carbon Dioxide (21-32) mmol/L Anion Gap (3-11) BUN (6-23) mg/dl Creatinine (0.6-1.4) mg/dl Est Cr Clr Drug Dosing ml/min Est GFR ( Amer) ml/min Est GFR (Non-Af Amer) ml/min BUN/Creatinine Ratio (10-20) Glucose (70-99(Fasting)) mg/dl POC Glucose 246 H 249 H 85 (70-99) mg/dl Calcium (8.5-10.1) mg/dl Magnesium (1.7-2.4) mg/dl C-Reactive Protein (0-0.5) mg/dl Procalcitonin (0-0.5) ng/ml Legionella Source Legionella Culture 05/19/22 05/19/22 05/19/22 Range/Units 06:52 06:52 06:52 WBC 9.20 (4.8-10.8) K/uL RBC 4.30 L (4.7-6.1) M/uL Hgb 13.1 L (14.0-18.0) g/dL Hct 40.1 L (42-52) % MCV 93.3 (80-100) fL MCH 30.5 (25-34) pg MCHC 32.7 (32-36) g/dL RDW Std Deviation 48.3 H (36.4-46.3) fL RDW Coeff of Cedric 14.3 (11.5-14.5) % Plt Count 160 (130-400) K/uL MPV 11.1 H (7.4-10.4) fL Immature Gran % (Auto) 0.9 % Neut % (Auto) 84.0 % Lymph % (Auto) 8.6 % [place] % (Auto) 5.5 % Eos % (Auto) 0.9 % Baso % (Auto) 0.1 % Neut # (Auto) 7.73 H (1.4-6.5) K/uL Lymph # (Auto) 0.79 L (1.2-3.4) K/uL [place] # (Auto) 0.51 (0.11-0.59) K/uL Eos # (Auto) 0.08 (0-0.5) K/uL Baso # (Auto) 0.01 (0-0.2) K/uL Immature Gran # (Auto) 0.08 H (0.00-0.02) K/uL Sodium 142 (136-145) mmol/L Potassium 4.4 (3.5-5.1) mmol/L Chloride 97 L (98-107) mmol/L Carbon Dioxide 43 H* (21-32) mmol/L Anion Gap 2 L (3-11) BUN 27 H (6-23) mg/dl Creatinine 0.73 (0.6-1.4) mg/dl Est Cr Clr Drug Dosing 94.8 ml/min Est GFR ( Amer) 105.9 ml/min Est GFR (Non-Af Amer) 91.4 ml/min BUN/Creatinine Ratio 37.0 H (10-20) Glucose 107 H (70-99(Fasting)) mg/dl POC Glucose (70-99) mg/dl Calcium 9.0 (8.5-10.1) mg/dl Magnesium 1.6 L (1.7-2.4) mg/dl C-Reactive Protein 8.52 H (0-0.5) mg/dl Procalcitonin 0.29 (0-0.5) ng/ml Legionella Source Legionella Culture 05/18/22 05/07/22 Range/Units 20:08 14:00 WBC (4.8-10.8) K/uL RBC (4.7-6.1) M/uL Hgb (14.0-18.0) g/dL Hct (42-52) % MCV (80-100) fL MCH (25-34) pg MCHC (32-36) g/dL RDW Std Deviation (36.4-46.3) fL RDW Coeff of Cedric (11.5-14.5) % Plt Count (130-400) K/uL MPV (7.4-10.4) fL Immature Gran % (Auto) % Neut % (Auto) % Lymph % (Auto) % [place] % (Auto) % Eos % (Auto) % Baso % (Auto) % Neut # (Auto) (1.4-6.5) K/uL Lymph # (Auto) (1.2-3.4) K/uL [place] # (Auto) (0.11-0.59) K/uL Eos # (Auto) (0-0.5) K/uL Baso # (Auto) (0-0.2) K/uL Immature Gran # (Auto) (0.00-0.02) K/uL Sodium (136-145) mmol/L Potassium (3.5-5.1) mmol/L Chloride (98-107) mmol/L Carbon Dioxide (21-32) mmol/L Anion Gap (3-11) BUN (6-23) mg/dl Creatinine (0.6-1.4) mg/dl Est Cr Clr Drug Dosing ml/min Est GFR ( Amer) ml/min Est GFR (Non-Af Amer) ml/min BUN/Creatinine Ratio (10-20) Glucose (70-99(Fasting)) mg/dl POC Glucose 269 H (70-99) mg/dl Calcium (8.5-10.1) mg/dl Magnesium (1.7-2.4) mg/dl C-Reactive Protein (0-0.5) mg/dl Procalcitonin (0-0.5) ng/ml Legionella Source RUL Legionella Culture see note
--- NOTE | 2022-05-19 18:11 | Progress Notes ---
DATE OF SERVICE: 05/19/2022. The patient is seen in conjunction with Neha Rhoades; for further details, refer to her dictation . She and I saw and evaluated this patient together. I am in agreement with the plan. The patient has a large hemorrhagic bulla on his left heel. He is not quite sure how long that has been there, b ut seems like it developed over the weekend. There has not been a known injury. He is neurovascular ly intact. There is a large blood clot hemorrhagic bulla over the heel and posterior ankle extending medially and laterally. Part of this is hanging off, the rest is debrided with his permission, warren meyer sharp scissors to remove the epidermis like unroofing a blister. Beneath this was exposed dermal t issue with good capillary refill bleeding and circulation. A nonadherent dressing was applied. We w ill go ahead and offload. I do not think any further surgery is necessary, but he may need wound car e/skin grafting. He is on subcutaneous heparin. Job ID: [id number]
[2022-05-19] MEDS: ATORVASTATIN 40 MG TAB PO SCH (20:40)
[2022-05-20] MEDS: HEPARIN SOD 5,000 UNIT/0.5 ML VIAL SQ SCH ×3 (07:10→20:57)
[2022-05-20 07:56] LABS: Hematocrit (blood only) 39.3 % (40.1-51.0); Hemoglobin 12.6 g/dl (14.0-18.0); Mean Corpuscular Hemoglobin 29.6 pg (25.0-34.0); Mean Corpuscular Hgb Conc 32.1 g/dL (32.0-36.0); Mean Corpuscular Volume 92.5 fL (80.0-100.0); Mean Platelet Volume 11.2 fL (9.4-12.4); Platelet Count 157 K/uL (130-400); RDW Standard Deviation 46.8 fL (36.4-46.3); Red Blood Count 4.25 M/uL (4.63-6.08); White Blood Count 9.33 K/ul (4.8-10.8)
[2022-05-20] MEDS: INSULIN ASPART PER UNIT SC SCH ×4 (08:17→21:01)
[2022-05-20 08:20] LABS: BUN Creatinine Ratio 40.7 (10-20); Creatinine Clr Calc Pharmacy 85.1 ml/min; Est GFR (African American) 101.5 ml/min; Est GFR (Non-African American) 87.6 ml/min; Magnesium 1.9 mg/dl (1.7-2.4); Potassium 4.5 mmol/L (3.5-5.1)
[2022-05-20] MEDS: POTASSIUM CHLORIDE CRTAB 20 MEQ TABCR PO SCH (08:36)
[2022-05-20] MEDS: predniSONE 10 MG TABLET PO SCH (08:36)
[2022-05-20] MEDS: PANTOprazole 40 MG TAB PO SCH (08:36)
[2022-05-20] MEDS: ASPIRIN 81 MG CHEW PO SCH (08:36)
[2022-05-20] MEDS: FUROSEMIDE 20 MG TAB PO SCH (08:36)
[2022-05-20] MEDS: rOPINIRole HCL 2 MG TABLET PO SCH ×2 (08:36→20:56)
[2022-05-20] MEDS: MAGNESIUM OXIDE 400 MG TAB PO SCH ×2 (08:36→20:57)
[2022-05-20] MEDS: ADVANCED PROBIOTIC 1250 MG CAPSULE PO SCH (08:36)
[2022-05-20] MEDS: VALSARTAN/SACUBITRIL 26/24MG TAB PO SCH ×2 (08:37→20:56)
[2022-05-20] MEDS: METOPROLOL SUCC 25MG EXT REL TAB PO SCH ×2 (08:37→20:50)
[2022-05-20] MEDS: FLUTICASONE FUROATE 100MCG 14 PUFFS/INHALER INH SCH (08:37)
[2022-05-20] MEDS: CEROVITE ADV FORMULA TAB PO SCH (08:37)
[2022-05-20] MEDS: UMECLIDINIUM/VILANTEROL 62.5/25MCG 7 PUFFS/INHALER INH SCH (08:37)
[2022-05-20] MEDS: guaiFENesin 600 MG TABCR PO SCH ×2 (08:37→20:57)
--- NOTE | 2022-05-20 14:24 | Cardiology Progress Note ---
Date of Service May 20, 2022 Assessment & Plan (1) Dilated cardiomyopathy: (2) Left bundle branch block: (3) Acute hypercapnic respiratory failure: (4) Consolidation of right upper lobe: Plan: Echo this admission LVEF 20-25% Continue ASA, atorvastatin, metoprolol, Entresto. Pt with right upper lobe pneumonia. Bronchoscopy performed 05/07/22 negative for malignancy. Orthopedics input noted and appreciated with regards to the hemorrhagic bulla of the left heel. Upon transfer back to the [facility] institution, follow-up to be pursued with the [place] cardiology clinic. Admission and Anticipated Discharge Date Admission Date: May 02, 2022 Subjective Patient seen in cardiology follow-up. Denies complaints. Telemetry reveals sinus rhythm with left bundle branch block and occasional PACs PVCs, no sustained arrhythmia. Physical Exam Constitutional: + frail appearing Respiratory: normal respiratory effort, lungs clear to auscultation Cardiovascular: Rate/Rhythm: regular rate Heart Sounds: no murmur Extremities: no edema Gastrointestinal (Abdomen): normal bowel sounds, soft, nontender, no hepatosplenomegaly Neurologic: PERRL, EOMI, accommodation nl, no face palsy, no dysarthria Results & Data ([facility]) Vital Signs (Past 12 Hours) Vital Signs Temp Pulse Pulse Pulse Resp BP Pulse Ox 05/20/22 11:59 36.6 C 53 L 20 91/51 L 95 05/20/22 09:00 60 05/20/22 07:21 36.4 C L 58 L 17 92/50 L 98 05/20/22 04:30 36.5 C 59 L 22 100/63 97 Diagnostic Findings CBC 05/20/22 Range/Units 06:49 WBC 9.33 (4.8-10.8) K/ul RBC 4.25 L (4.63-6.08) M/uL Hgb 12.6 L (14.0-18.0) g/dl Hct 39.3 L (40.1-51.0) % Plt Count 157 (130-400) K/uL Comprehensive Metabolic Panel 05/20/22 Range/Units 06:49 Sodium 142 (136-145) mmol/L Potassium 4.5 (3.5-5.1) mmol/L Chloride 97 L (98-107) mmol/L Carbon Dioxide 42 H* (21-32) mmol/L BUN 33 H (6-23) mg/dl Creatinine 0.81 (0.6-1.4) mg/dl Glucose 100 H (70-99(Fasting)) mg/dl Calcium 9.0 (8.5-10.1) mg/dl Intake and Output 05/19/22 05/20/22 05/20/22 22:59 06:59 14:59 Intake Total 440 / 920 180 / 920 420 / 420 Output Total 851 / 1151 375 / 375 Balance 440 / -231 -671 / -231 45 / 45 Intake: IV 200 / 200 Magnesium Sulfate / D5w 1 gm In 200 / 200 100 ml @ 50 mls/hr IV Q2H PENDING SALE TO [facility] Rx#:[id number] Oral 240 / 720 180 / 720 420 / 420 Output: Urine 850 / 1150 375 / 375 # Bowel Movements Other: Other Intake Source ice chips Weight 92.2 kg Weight Measurement Method Built in [facility]
--- NOTE | 2022-05-20 15:42 | Orthopedic Progress Note ---
Date of Service May 20, 2022 Assessment & Plan (1) Skin bulla: Plan: Offloading. Wound care eval and treat. Etiology unclear. May weight-bear as tolerated. Admission and Anticipated Discharge Date Admission Date: May 02, 2022 Subjective Apparently there was some bleeding on the dressing earlier today which required to be changed. Otherwise he is reporting no problems. Reinforced keeping the heel elevated up off of the bed. Physical Exam Physical Exam: Dressing clean dry and intact. Full movement of toes and ankle. Results & Data ([facility]) Vital Signs (Past 12 Hours) Vital Signs Temp Pulse Pulse Pulse Resp BP Pulse Ox 05/20/22 15:15 36.7 C 64 18 112/58 L 95 05/20/22 11:59 36.6 C 53 L 20 91/51 L 95 05/20/22 09:00 60 05/20/22 07:21 36.4 C L 58 L 17 92/50 L 98 05/20/22 04:30 36.5 C 59 L 22 100/63 97
--- NOTE | 2022-05-20 16:06 | Hospitalist Progress Note ---
Date of Service May 20, 2022 Assessment & Plan (1) Consolidation of right upper lobe: Plan: 72 yo incarcerated man with diabetes on glipizide and Otezla presented 05/02 with hypotension, hypoglycemia and SOB with hypoxia. He denied any fevers/chills, chest pain. Per field notes his BSG was 43 nd he was given 4 glucose tabs. BP was 82/60.He is being managed for the following: # Acute respiratory failure likely related to right hilar mass with postobstructive collapse in setting of possible COPD exacerbation - s/p extubation 05/09 AM to BiPAP. Resolving, on 2L NC O2 (not on prior chronic O2) # Left heel wound with hemorrhagic bulla- unclear etiology. - s/p debridement at bedside by ortho 05/20. Ortho and WOCN following- dressing changed today - Offload left heel- continue wound care- WBAT - OP follow up with wound clinic 06/01. Might need skin grafting if does not heal in follow up # Acute COPD exacerbation- resolved, no wheezing. Continue prednisone taper, continue Trelegy ellipta daily/prn albuterol Pulm re-evaluated 05/11: Trelegy Ellipata 1 puff daily w/ prn rescue inhaler, BPAP (10/19, r = 14) at DC w/ rec for OP PSG, f/u CT scan w/o con in 3 months to f/u RUL lesion to resolution 2 step test done wean down oxygen as tolerated. # RUL PNA- S/p empiric ABx course. - CTA chest: No evidence for PE, suggestive of right hilar mass with postobstructive atelectasis/collapse rather than pneumonia. 3 subcentimeter pulmonary nodules within the right lung. Right paratracheal and right hilar adenopathy. - Elevated Pro-Miguel and WBC at presentation. Admitting blood culture 05/02 negative. - S/p emergent bronchoscopy on 05/05, results were unrevealing. Concern for the sample being inadequate. - S/p bronchoscopy 05/07- cultures negative but negative for malignancy. # NSVT- seen in tele 05/17- asymptomatic- Keep electrolytes to keep K >4 and Mg>2. Echo reviewed. Seen by cardiology # Dilated Cardiomyopathy- EF 20-25%. Not in clinical HF. Euvolemic. - Echo 05/07 with ejection fraction 20 to 25%, severely reduced LV systolic function. - On GDMT with ToprolPeggysto. Might benefit from addition of aldactone down the road if her renal function and electrolytes can be monitored and if allowed by BP - Discussed with cardio- unable to have AICD placed with the open wound of left heel as very high risk of infection - [facility]- f/u with [place] cardio clinic - Recommend repeat echo in 3 months of GDMT #. HOMA- resolved. #. Labile blood sugar, steroid associated hyperglycemia- hypoglycemia on presentation (BG 37) is resolved. Now with post prandial hyperglycemia likely from steroids, no fasting hyperglycemia. Expect improvement with tapering steroids. Continue SSI for now. Consider holding glipizide in future if poor oral intake. #. Hypomagnesemia- resolved #. Chronic steroid use: Chronically placed on a steroid by [facility] several years ago. Now on pred taper- will cut down to 10 mg from tomorrow #. DVT prophylaxis: sq heparin Dispo - Monitoring the left heel wound and bleeding- Anticipate discharge in 1-2 days back to [facility] if stable . BIPAP has been arranged at the correction facility- (I:E 10/19, r=14). Recommend OP PSG, CT chest in 3 mo, ECHO in 2-3 months, labs in a week, Trelegy. Needs PCP/Pulm/Cardio f/u. Admission and Anticipated Discharge Date Admission Date: May 02, 2022 Subjective Feels fine. No new issues. Denies any pain. Had some bleeding through the dressing. No chest pain, fever, chills, nausea, vomiting. Physical Exam Physical Exam: General: Lying comfortably in bed, not in distress, on NC HEENT: EOMI, ROSA, MMM Chest: Fair breath sounds bilaterally CVS: Regular rate and rhythm, normal heart sounds, no murmur Abdomen: Soft, non tender, not distended, normal bowel sounds Neuro: Awake, alert, oriented, conversing well, non focal Extremities: Left heel wound clean, dry with some bleeding- Dressing was removed- no evidence of infection or purulence. Chronic LE skin changes. Results & Data Results & Data ([facility]) Vital Signs (Past 12 Hours) Vital Signs Temp Pulse Pulse Pulse Resp BP Pulse Ox 05/20/22 15:15 36.7 C 64 18 112/58 L 95 05/20/22 11:59 36.6 C 53 L 20 91/51 L 95 05/20/22 09:00 60 05/20/22 07:21 36.4 C L 58 L 17 92/50 L 98 05/20/22 04:30 36.5 C 59 L 22 100/63 97 Laboratory Results Short CBC 05/20/22 Range/Units 06:49 WBC 9.33 (4.8-10.8) K/ul Hgb 12.6 L (14.0-18.0) g/dl Hct 39.3 L (40.1-51.0) % Plt Count 157 (130-400) K/uL BMP 05/20/22 06:49 Sodium 142 Potassium 4.5 Chloride 97 L Carbon Dioxide 42 H* BUN 33 H Creatinine 0.81 Glucose 100 H Calcium 9.0 Medications Administered Current Inpatient Medications Acetaminophen (Acetaminophen 325 Mg Tab) 650 mg PO Q6H PRN PRN Reason: fever, headache, pain Stop: 06/01/22 20:55 Last Admin: 05/10/22 20:46 Dose: 650 mg Documented by: Albuterol (Albut/Ipratrop 3mg/0.5mg Neb 3 Ml Vial) 3 ml NEB Q2R PRN; Protocol PRN Reason: SOB/WHEEZING Stop: 06/01/22 21:05 Aspirin (Aspirin 81 Mg Chew) 81 mg PO DAILY JULIA Stop: 06/02/22 08:59 Last Admin: 05/20/22 08:36 Dose: 81 mg Documented by: Atorvastatin Calcium (Atorvastatin 40 Mg Tab) 40 mg PO HS JULIA Stop: 06/01/22 20:59 Last Admin: 05/19/22 20:40 Dose: 40 mg Documented by: Dextrose (Dextrose 50% 50 Ml Syringe) 25 - 50 ml IV UD PRN; Protocol PRN Reason: Hypoglycemia Protocol Stop: 06/01/22 20:55 Fluticasone Furoate (Fluticasone Furoate 100mcg 14 Puffs/Inhaler) 1 puffs INH DAILY JULIA Stop: 06/14/22 08:59 Last Admin: 05/20/22 08:37 Dose: 1 puffs Documented by: Furosemide (Furosemide 20 Mg Tab) 20 mg PO QAM JULIA Stop: 06/12/22 08:59 Last Admin: 05/20/22 08:36 Dose: 20 mg Documented by: Glucagon (Glucagon For Inj 1 Mg Vial) 1 mg SQ UD PRN; Protocol PRN Reason: Hypoglycemia Protocol Stop: 06/01/22 20:55 Glucose (Glucose 10 Tabs/Tube) 4 - 8 tabs PO UD PRN; Protocol PRN Reason: Hypoglycemia Protocol Stop: 06/01/22 20:55 Glucose (Glucose 40% Gel 15 Gm Tube) 15 - 30 gm PO UD PRN; Protocol PRN Reason: Hypoglycemia Protocol Stop: 06/01/22 20:55 Guaifenesin (Guaifenesin 600 Mg Tabcr) 1,200 mg PO Q12 JULIA Stop: 06/15/22 10:34 Last Admin: 05/20/22 08:37 Dose: 1,200 mg Documented by: Heparin Sodium (Porcine) (Heparin Sod 5,000 Unit/0.5 Ml Vial) 5,000 units SQ Q8 JULIA Stop: 06/01/22 21:59 Last Admin: 05/20/22 14:50 Dose: 5,000 units Documented by: Insulin Aspart (Insulin Aspart Per Unit) 0 units SC ACHS JULIA Stop: 06/09/22 16:29 Last Admin: 05/20/22 11:57 Dose: 7 units Documented by: Lactobacillus Acidophilus (Advanced Probiotic 1250 Mg Capsule) 2 cap PO DAILY JULIA Stop: 06/10/22 16:44 Last Admin: 05/20/22 08:36 Dose: 2 cap Documented by: Magnesium Oxide (Magnesium Oxide 400 Mg Tab) 400 mg PO BID JULIA Stop: 06/16/22 20:59 Last Admin: 05/20/22 08:36 Dose: 400 mg Documented by: Metoprolol Succinate (Metoprolol Succ 25mg Ext Rel Tab) 12.5 mg PO BID JULIA Stop: 06/17/22 08:59 Last Admin: 05/20/22 08:37 Dose: Not Given Documented by: Miscellaneous (Carbohydrates For Hypoglycemia ) 15 - 30 gm PO UD PRN PRN Reason: Hypoglycemia Protocol Stop: 06/01/22 20:55 Multivitamins/Minerals (Cerovite Adv Formula Tab) 1 tab PO QAM JULIA Stop: 06/10/22 08:59 Last Admin: 05/20/22 08:37 Dose: 1 tab Documented by: Ondansetron HCl (Ondansetron Inj 2 Mg/Ml 2 Ml Vial) 4 mg IV Q6H PRN PRN Reason: Nausea Stop: 06/01/22 20:55 Pantoprazole Sodium (Pantoprazole 40 Mg Tab) 40 mg PO DAILY [facility]; Protocol Stop: 06/10/22 08:59 Last Admin: 05/20/22 08:36 Dose: 40 mg Documented by: Potassium Chloride (Potassium Chloride Crtab 20 Meq Tabcr) 20 meq PO DAILY [facility] Stop: 06/17/22 08:59 Last Admin: 05/20/22 08:36 Dose: 20 meq Documented by: Prednisone (Prednisone 10 Mg Tablet) 10 mg PO DAILY [facility] Stop: 06/19/22 08:59 Last Admin: 05/20/22 08:36 Dose: 10 mg Documented by: Ropinirole HCl (Ropinirole Hcl 2 Mg Tablet) 4 mg PO BID [facility] Stop: 06/01/22 20:59 Last Admin: 05/20/22 08:36 Dose: 4 mg Documented by: Sacubitril/Valsartan (Valsartan/Sacubitril 26/24mg Tab) 1 tab PO BID [facility] Stop: 06/10/22 11:29 Last Admin: 05/20/22 08:37 Dose: 1 tab Documented by: Umeclidinium/Vilanterol (Umeclidinium/Vilanterol 62.5/25mcg 7 Puffs/Inhaler) 1 puffs INH DAILY [facility] Stop: 06/14/22 08:59 Last Admin: 05/20/22 08:37 Dose: 1 puffs Documented by:
[2022-05-20] MEDS: ATORVASTATIN 40 MG TAB PO SCH (20:56)
[2022-05-21] MEDS: HEPARIN SOD 5,000 UNIT/0.5 ML VIAL SQ SCH (06:01)
[2022-05-21 07:33] LABS: Hematocrit (blood only) 39.4 % (40.1-51.0); Hemoglobin 12.5 g/dl (14.0-18.0); Mean Corpuscular Hemoglobin 29.7 pg (25.0-34.0); Mean Corpuscular Hgb Conc 31.7 g/dL (32.0-36.0); Mean Corpuscular Volume 93.6 fL (80.0-100.0); Mean Platelet Volume 11.2 fL (9.4-12.4); Platelet Count 146 K/uL (130-400); RDW Coefficient of Variation 14.1 % (11.5-14.5); RDW Standard Deviation 47.8 fL (36.4-46.3); Red Blood Count 4.21 M/uL (4.63-6.08); White Blood Count 8.26 K/ul (4.8-10.8)
[2022-05-21 08:01] LABS: C Reactive Protein 7.14 mg/dl (0-0.5); Creatinine Clr Calc Pharmacy 114.8 ml/min; Est GFR (African American) 114.8 ml/min; Est GFR (Non-African American) 99.1 ml/min; Magnesium 1.6 mg/dl (1.7-2.4); Potassium 4.2 mmol/L (3.5-5.1)
[2022-05-21] MEDS: INSULIN ASPART PER UNIT SC SCH ×2 (09:00→11:52)
[2022-05-21] MEDS: ASPIRIN 81 MG CHEW PO SCH (09:01)
[2022-05-21] MEDS: FUROSEMIDE 20 MG TAB PO SCH (09:01)
[2022-05-21] MEDS: guaiFENesin 600 MG TABCR PO SCH (09:01)
[2022-05-21] MEDS: METOPROLOL SUCC 25MG EXT REL TAB PO SCH (09:02)
[2022-05-21] MEDS: ADVANCED PROBIOTIC 1250 MG CAPSULE PO SCH (09:02)
[2022-05-21] MEDS: MAGNESIUM OXIDE 400 MG TAB PO SCH (09:02)
[2022-05-21] MEDS: CEROVITE ADV FORMULA TAB PO SCH (09:03)
[2022-05-21] MEDS: PANTOprazole 40 MG TAB PO SCH (09:03)
[2022-05-21] MEDS: POTASSIUM CHLORIDE CRTAB 20 MEQ TABCR PO SCH (09:03)
[2022-05-21] MEDS: rOPINIRole HCL 2 MG TABLET PO SCH (09:03)
[2022-05-21] MEDS: predniSONE 10 MG TABLET PO SCH (09:03)
[2022-05-21] MEDS: UMECLIDINIUM/VILANTEROL 62.5/25MCG 7 PUFFS/INHALER INH SCH (09:04)
[2022-05-21] MEDS: FLUTICASONE FUROATE 100MCG 14 PUFFS/INHALER INH SCH (09:04)
[2022-05-21] MEDS: MAGNESIUM SULFATE / D5W 1 GM/100 ML BAG IV SCH ×2 (09:21→11:29)
--- NOTE | 2022-05-21 09:40 | Discharge Summary ---
Date of Service May 21, 2022 Admission HPI Per Admitting Provider 72 yo incarcerated man with diabetes on glipizide and Otezla presents with hypotension, hypoglycemia and SOB with hypoxia. He cannot accurately tell me when his breathing became worse and reports coughing with respiratory symptoms for the past 12 years. He denies any fevers/chills, chest pain. He reports not eating anything for the past couple of days 2/2 low appetite. He denies any blood per rectum, diarrhea, urinary symptoms, abdominal pain etc. He was having difficulty giving me responses to questions but was able to answer orientation questions accurately. He was just recently treated for severe hypoglycemia and may be having some difficulty because of this. Per field notes his BSG was 43 nd he was given 4 glucose tabs. BP was 82/60. He appears to have become worse over the past 3-4 days with symptoms above. Admission Exam Per Admitting Provider CONSTITUTIONAL: obese, vitals as above, BIPAP in place and appears comfortable. EYES: PERRL, normal conjunctivae, no scleral icterus, ENT: external ear and nose normal, NECK: trachea midline, RESPIRATORY: clear to auscultation bilaterally, no crackles, rales or wheezes, normal respiratory effort CARDIOVASCULAR: tachy rate and rhythm, S1 and 2 heard without murmurs, gallops or rubs, no JVD, no peripheral edema, CHEST: inspection of chest was normal GASTROINTESTINAL: soft, nontender, ND, no guarding MUSCULOSKELETAL: strength 5/5 throughout, difficulty bending knees bilaterally 2/2 pain, also has difficulty moving his left arm 2/2 pain. head is normocephalic and atraumatic, SKIN: warm and dry, dark purple chronic coloration to lower extremities. Nails with fungal destruction, toes are red. Extremities are warm and DP pulses are palpable bilaterally. No open wounds noted on feet. PAtient reports sensation intact to soles of feet bilaterally. NEUROLOGIC: patellar DTRs 2+ bilat. CN 2-12 grossly intact, no sensory deficit, normal cognition, normal speech, PSYCHIATRIC: alert cooperative and oriented to person, place and time. Principal Diagnosis Acute hypoxic hypercapnic respiratory failure, PNA, COPD exacerbation, left heel hemorrhagic bulla, Systolic cardiomyopathy, NSVT Discharge Exam General: Lying comfortably in bed, not in distress, on NC HEENT: EOMI, ROSA, MMM Chest: Fair breath sounds bilaterally CVS: Regular rate and rhythm, normal heart sounds, no murmur Abdomen: Soft, non tender, not distended, normal bowel sounds Neuro: Awake, alert, oriented, conversing well, non focal Extremities: Left heel wound covered with dressing- clean dry and intact. Chronic LE skin changes. Discharge Data Allergies Allergy/AdvReac Type Severity Reaction Status Date / Time Penicillins Allergy Unknown Verified 05/02/22 19:11 Consultations 05/02/22 17:11 ED Decision to Admit Stat 05/02/22 20:56 Consult Pulmonology Routine 05/05/22 18:00 Consult Sap Sd Analyst Routine 05/07/22 14:18 Consult Cardiology Routine 05/18/22 15:59 Consult Orthopedic Surgery Routine Ordered Studies 05/02/22 16:48 CT angio chest PE protocol Stat 05/03/22 10:41 CT head/brain wo con Stat 05/06/22 10:03 US arterial duplex LE RT Urgent 05/07/22 13:00 FL chest 1V frontal Routine 05/16/22 12:27 US arterial duplex LE LT Routine Laboratory Results WBC 8.26 K/ul (4.8-10.8) 05/21/22 06:41 RBC 4.21 M/uL (4.63-6.08) L 05/21/22 06:41 Hgb 12.5 g/dl (14.0-18.0) L 05/21/22 06:41 POC Hgb 15.6 g/dl (14.0-18.0) 05/09/22 05:18 Hct 39.4 % (40.1-51.0) L 05/21/22 06:41 POC Hct 46 % (42-52) 05/09/22 05:18 MCV 93.6 fL (80.0-100.0) 05/21/22 06:41 MCH 29.7 pg (25.0-34.0) 05/21/22 06:41 MCHC 31.7 g/dL (32.0-36.0) L 05/21/22 06:41 RDW Std Deviation 47.8 fL (36.4-46.3) H 05/21/22 06:41 RDW Coeff of Cedric 14.1 % (11.5-14.5) 05/21/22 06:41 Plt Count 146 K/uL (130-400) 05/21/22 06:41 MPV 11.2 fL (9.4-12.4) 05/21/22 06:41 Immature Gran % (Auto) 0.9 % 05/19/22 06:52 Neut % (Auto) 84.0 % 05/19/22 06:52 Lymph % (Auto) 8.6 % 05/19/22 06:52 [place] % (Auto) 5.5 % 05/19/22 06:52 Eos % (Auto) 0.9 % 05/19/22 06:52 Baso % (Auto) 0.1 % 05/19/22 06:52 Neut # (Auto) 7.73 K/uL (1.4-6.5) H 05/19/22 06:52 Lymph # (Auto) 0.79 K/uL (1.2-3.4) L 05/19/22 06:52 [place] # (Auto) 0.51 K/uL (0.11-0.59) 05/19/22 06:52 Eos # (Auto) 0.08 K/uL (0-0.5) 05/19/22 06:52 Baso # (Auto) 0.01 K/uL (0-0.2) 05/19/22 06:52 Immature Gran # (Auto) 0.08 K/uL (0.00-0.02) H 05/19/22 06:52 ESR 93 mm/hr (0-20) H 05/02/22 15:55 PT 13.2 Seconds (9.0-12.0) H 05/06/22 04:30 INR 1.3 (0.9-1.1) H 05/06/22 04:30 APTT 30.5 Seconds (21.0-31.0) 05/02/22 15:55 PTT Ratio 1.1 05/02/22 15:55 Sample Site L Radial 05/09/22 05:18 POC pH 7.42 (7.35-7.45) 05/09/22 05:18 POC pCO2 66 mmHg (35-46) H 05/09/22 05:18 POC pO2 88 mmHg (80-95) 05/09/22 05:18 POC HCO3 43 becky/L (19-24) H 05/09/22 05:18 POC Total CO2 > 40 mmol/L (24-31) H* 05/09/22 05:18 POC Base Excess 18.0 becky/L (-9-1.8) H 05/09/22 05:18 ABG pH 7.25 (7.35-7.45) L 05/05/22 15:05 ABG pH (Temp Correct) 7.410 (7.35-7.45) 05/09/22 05:18 ABG pCO2 81 mmHg (35-46) H 05/05/22 15:05 ABG pCO2 (Temp Corrct 68 mmHg (35-46) H 05/09/22 05:18 ABG pO2 108 mmHg (80-95) H 05/05/22 15:05 POC ABG pO2 at Pt Temp 93 05/09/22 05:18 ABG HCO3 36 mmol/L (19-24) H 05/05/22 15:05 POC ABG O2 Sat 96.0 % (90-95) H 05/09/22 05:18 ABG O2 Saturation > 100.0 % (90-95) H 05/05/22 15:05 ABG Base Excess 5.4 mEq/L (-9-1.8) H 05/05/22 15:05 Chetan Test Pass 05/09/22 05:18 VBG pH 7.26 (7.36-7.41) L 05/02/22 15:55 VBG pCO2 75 mmHg (38-50) H 05/02/22 15:55 VBG pO2 53 mmHg 05/02/22 15:55 VBG HCO3 33 mmol/L 05/02/22 15:55 VBG O2 Saturation 74.9 % 05/02/22 15:55 VBG Base Excess 3.0 mEq/L 05/02/22 15:55 Barometric Pressure 733.5 mm/Hg 05/02/22 15:55 Oxygen Given 40% 05/05/22 15:05 O2 Delivery Device Ventilator 05/09/22 05:18 POC O2 Rate 16 05/09/22 05:18 Minute Ventilation 6.4 05/09/22 05:18 POC FiO2 45 % 05/09/22 05:18 Tidal Volume 400 05/09/22 05:18 PEEP 5 05/09/22 05:18 POC Sodium 141 mmol/L (135-144) 05/09/22 05:18 Sodium 139 mmol/L (136-145) 05/21/22 06:41 POC Potassium 4.8 mmol/L (3.3-5.0) 05/09/22 05:18 Potassium 4.2 mmol/L (3.5-5.1) 05/21/22 06:41 Chloride 95 mmol/L (98-107) L 05/21/22 06:41 Carbon Dioxide 40 mmol/L (21-32) H 05/21/22 06:41 Anion Gap 4 (3-11) 05/21/22 06:41 BUN 24 mg/dl (6-23) H 05/21/22 06:41 Creatinine 0.60 mg/dl (0.6-1.4) 05/21/22 06:41 Est Cr Clr Drug Dosing 114.8 ml/min 05/21/22 06:41 Est GFR ( Amer) 114.8 ml/min 05/21/22 06:41 Est GFR (Non-Af Amer) 99.1 ml/min 05/21/22 06:41 BUN/Creatinine Ratio 40.0 (10-20) H 05/21/22 06:41 Glucose 119 mg/dl (70-99(Fasting)) H 05/21/22 06:41 POC Glucose 119 mg/dl (70-99) H 05/21/22 07:13 Estimat Average Glucose 223 mg/dl 05/03/22 03:23 Hemoglobin A1c 9.4 % (4.5-5.6) H 05/03/22 03:23 Lactate 2.0 mmol/L (0.4-2.0) 05/02/22 15:55 Calcium 9.0 mg/dl (8.5-10.1) 05/21/22 06:41 Phosphorus 3.2 mg/dl (2.5-4.9) 05/17/22 08:25 Magnesium 1.6 mg/dl (1.7-2.4) L 05/21/22 06:41 Transferrin 134 mg/dl (200-360) L 05/09/22 05:37 Ferritin 593.1 ng/ml (8-388) H 05/09/22 05:37 Total Bilirubin 0.9 mg/dl (0.2-1.0) 05/05/22 20:46 AST 39 U/L (13-39) 05/05/22 20:46 ALT 22 U/L (7-52) 05/05/22 20:46 Alkaline Phosphatase 195 U/L (34-104) H 05/05/22 20:46 Total Creatine Kinase 34 U/L (30-223) 05/05/22 09:37 Troponin I High Sens 26.7 pg/ml (0-20) H 05/17/22 08:25 C-Reactive Protein 7.14 mg/dl (0-0.5) H 05/21/22 06:41 Total Protein 6.3 gm/dl (6.0-8.3) 05/05/22 20:46 Albumin 2.9 gm/dl (3.4-5.0) L 05/05/22 20:46 Globulin 3.4 gm/dl (2.5-4.0) 05/05/22 20:46 Albumin/Globulin Ratio 0.9 (0.9-2) 05/05/22 20:46 Procalcitonin 0.29 ng/ml (0-0.5) 05/19/22 06:52 TSH 0.700 uIu/ml (0.300-4.500) 05/06/22 04:30 Random Cortisol 30.79 mcg/dl 05/02/22 19:07 Urine Color [place] 05/09/22 04:00 Urine Appearance Turbid (Clear) A 05/09/22 04:00 Urine pH 5.5 (4.5-7.5) 05/09/22 04:00 Ur Specific [place] 1.021 (1.000-1.030) 05/09/22 04:00 Urine Protein 1+ (Negative) H 05/09/22 04:00 Urine Glucose (UA) Negative (Negative) 05/09/22 04:00 Urine Ketones Negative (Negative) 05/09/22 04:00 Urine Blood 3+ (Negative) H 05/09/22 04:00 Urine Nitrite Negative (Negative) 05/09/22 04:00 Urine Bilirubin Negative (Negative) 05/09/22 04:00 Urine Urobilinogen Negative (Negative) 05/09/22 04:00 Ur Leukocyte Esterase 2+ (Negative) H 05/09/22 04:00 Urine WBC (Auto) >30 /hpf (0-5) H 05/09/22 04:00 Urine RBC (Auto) 10-30 /hpf (0-4) H 05/09/22 04:00 U Hyaline Cast (Auto) 0 /lpf (0-5) 05/09/22 04:00 U Epithel Cells (Auto) 10-20 /lpf (0-5) H 05/09/22 04:00 Urine Bacteria (Auto) Negative (Negative) 05/09/22 04:00 Uric Acid Crystals Present (None Prsent) A 05/09/22 04:00 Urine Mucus Present (None Prsent) A 05/09/22 04:00 Urine Yeast Not Reportable 05/09/22 04:00 Fluid Neutrophils % 27 % 05/07/22 14:00 Fluid Lymphocytes % 2 % 05/07/22 14:00 Fluid Eosinophils % 1 % 05/07/22 14:00 Fluid Basophils % 1 % 05/07/22 14:00 Fl Monocyt/Macrophag % 69 % 05/07/22 14:00 Fluid Comment 05/07/22 14:00 Nasal Screen MRSA (PCR) Negative (Negative) 05/02/22 20:15 Serum Immunofixation SEE NOTE 05/09/22 05:37 SARS-CoV-2 (PCR) NEGATIVE (Negative) 05/02/22 16:20 Hepatitis C Ab (EIA) NON-REACTIVE (NON-REACTIVE) 05/02/22 19:07 Hep C Ab Signal/Cutoff 0.03 (<1.00) 05/02/22 19:07 Influenza Type A (PCR) Negative (Neg) 05/02/22 16:20 Influenza Type B (PCR) Negative (Neg) 05/02/22 16:20 Legionella Source RUL 05/07/22 14:00 Legionella Culture see note 05/07/22 14:00 RSV (RT-PCR) Negative (Neg) 05/02/22 16:20 TB Test (QFT) Gold Plus NEGATIVE (NEGATIVE) 05/07/22 09:26 TB Test (QFT) Nil 0.03 IU/mL 05/07/22 09:26 TB Test Mitogen - Nil 8.79 IU/mL 05/07/22 09:26 TB Test Ag - Nil 1 <0.00 IU/mL 05/07/22 09:26 TB Test Ag - Nil 2 0.00 IU/mL 05/07/22 09:26 Impressions Chest CTA 05/02/22 16:48 CT angio chest PE protocol CLINICAL HISTORY: Shortness of breath COMPARISON STUDY: Portable chest from 05/02/2022 CT DOSE: 1050.00 mGy.cm TECHNIQUE: CT Angio of the chest was performed.followed by image post processing with coronal, and sagittal MIP reformats. Contrast Volume: Optiray 320, 119 ml FINDINGS: Vasculature: There is homogeneous perfusion of the pulmonary vasculature bilaterally. No intraluminal filling defects or evidence for pulmonary embolus is seen. Airway: The airway is clear. No endobronchial lesion is identified. Lungs: CT confirms the presence of a large confluent alveolar opacity within the right upper lobe which extends centrally to the right hilum. It is indistinct with the right hilum and the presence of a right hilar mass with postobstructive atelectasis/collapse is suggested. Additionally, there are 3 subcentimeter pulmonary nodules within the right lung. Only a few air bronchograms are present and standard pneumonia is considered less likely. However, follow-up will be necessary for further evaluation. The right hemithorax is clear. No pulmonary nodules or alveolar opacities are identified. Pleura: There is no evidence for pleural effusion. There is no evidence for pneumothorax. Mediastinum: There is evidence for paratracheal adenopathy on the right as well with largest measuring 1.7 x 1.3 cm. There is also right hilar adenopathy measuring 2.1 x 1.7 cm. The heart is enlarged. There is coronary artery calcification The thoracic aorta is within normal limits. There is no evidence for pericardial effusion. Upper abdomen:The adrenal glands are normal bilaterally. Osseous structures: There is no acute osseous pathology. Impression: 1. No CTA evidence for pulmonary embolus. 2. CT confirms a confluent alveolar opacity involving the right upper lobe extending to the right hilum and indistinct from the right hilum. The findings are more characteristic of right hilar mass with postobstructive atelectasis/collapse rather than pneumonia as described above. 3. 3 subcentimeter pulmonary nodules are also seen within the right lung. 4. Right paratracheal and right hilar adenopathy is present. ACT 112: Negative or not required by law. Electronically signed by: Antwan Meadows M.D. 05/02/2022 6:[address] 05/03/22 10:41 CT OF THE HEAD WITHOUT CONTRAST CLINICAL HISTORY: Altered mental status. COMPARISON STUDY: No previous studies for comparison. CT DOSE: 906.34 mGycm TECHNIQUE: Helical axial images of the head were obtained without IV contrast. Automated exposure control was utilized for the study. A dose lowering technique was utilized adhering to the principles of ALARA. FINDINGS: This study is mildly compromised by motion artifact. No acute intracranial hemorrhage, midline shift or mass effect is present. The ventricular system is unremarkable. The basal cisterns are patent. No extra- axial collections are present. There are no findings to suggest acute dural sinus thrombosis or acute territorial infarct. No significant calvarial abnormalities are present. 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 IMPRESSION: No acute intracranial findings. ACT 112: Negative or not required by law. Electronically signed by: Rito Chatterjee M.D. 05/03/2022 11:21 AM Duplex Scan Lower Extremity Artery 05/16/22 12:27 LEFT LOWER EXTREMITY ARTERIAL DOPPLER ULTRASOUND CLINICAL HISTORY: left heel wound COMPARISON STUDY: No previous studies for comparison. TECHNIQUE: Color and duplex Doppler sonography of the arterial system of the left lower extremity was performed. Ankle to brachial indices could not be performed in this patient. FINDINGS: Note is made of an elevated peak systolic velocity of 237 cm/s within the left common femoral artery. No additional elevated velocities within the left lower extremity are noted. There is moderate plaque within the left lower extremity. There is biphasic flow within left common femoral, superficial femoral, posterior tibial and anterior tibial arteries. There is predominantly monophasic flow within the left posterior tibial, peroneal and dorsalis pedis vessels. IMPRESSION: 1. Moderate atherosclerotic plaque within left lower extremity. Patent vessels. 2. Mildly elevated peak systolic velocity within the left common femoral artery which may reflect a stenosis. 3. Predominantly monophasic flow within the left posterior tibial, peroneal and dorsalis pedis vessels. ACT 112: Negative or not required by law. Electronically signed by: Rito Chatterjee M.D. 05/16/2022 2:15 PM Chest X-Ray 05/18/22 16:48 XR chest 2V PA/lateral CLINICAL HISTORY: follow up right upper lobe consolidation/pneumonia. COMPARISON STUDY: CTA chest from 05/02/2022 and portable chest from 05/09/2022 TECHNIQUE: 2 views of the chest FINDINGS: Frontal and lateral radiographs of the chest demonstrate the cardiomediastinal silhouette to be within normal limits. Compared to the previous examinations, there is no change in right upper lobe consolidation. The findings are again most suspicious for right hilar mass with postobstructive atelectasis/pneumonitis of the right upper lobe.. The remainder of the lungs are clear. There is evidence for very small bilateral pleural effusions on the lateral radiograph. There is no evidence for vascular congestion. There is no acute osseous pathology. IMPRESSION: 1. Persistent consolidation of the right upper lobe again most characteristic of postobstructive atelectasis/pneumonitis as seen on previous CT. 2. The remainder of the lungs are clear. 3. Very small bilateral pleural effusions are now present posteriorly on the lateral radiograph. ACT 112: Negative or not required by law. Electronically signed by: Antwan Meadows M.D. 05/18/2022 8:48 PM Diabetes Follow up Diabetes Follow-up Needed for HgbA1c >9% Hospital Course (1) Consolidation of right upper lobe: 72 yo incarcerated man with diabetes on glipizide and Otezla presented 05/02 with hypotension, hypoglycemia and SOB with hypoxia. He denied any fevers/chills, chest pain. Per field notes his BSG was 43 nd he was given 4 glucose tabs. BP was 82/60.He was being managed for the following: # Acute hypoxemic hypercarbic respiratory failure likely related to right hilar mass with postobstructive collapse in setting of possible COPD exacerbation - s/p extubation 05/09 AM to BiPAP. 2 step O2 eval performed. Supplemental NC as need to keep saturation around 90-92%. Continue bipap hs and with sleep. BIPAP machine has been arranged at the residential # Left heel wound with hemorrhagic bulla- unclear etiology. - s/p debridement at bedside by ortho 05/20. Ortho and [facility] following- dressing changed today - Offload left heel- continue wound care- WBAT - Spoke to [facility]OC[facility] and ortho prior to discharge- wound care instructions per [facility], OP follow up with wound care clinic 06/01 and ortho. Might need skin grafting if does not heal in follow up # Acute COPD exacerbation- resolved, no wheezing. Continue prednisone taper to stop- 10 mg for a week, then 5 mg for a week and then stop, continue inhalers daily (LABA, LAMA, ICS), albuterol prn - Evaluated by pulm 05/11: Trelegy Ellipata 1 puff daily w/ prn rescue inhaler, BPAP (10/19, r = 14) at DC w/ rec for OP PSG, f/u CT scan in 3 months to f/u RUL lesion to resolution # RUL PNA- S/p empiric ABx course. - CTA chest: No evidence for PE, suggestive of right hilar mass with postobstructive atelectasis/collapse rather than pneumonia. 3 subcentimeter pulmonary nodules within the right lung. Right paratracheal and right hilar adenopathy. - Elevated Pro-Miguel and WBC at presentation. Admitting blood culture 05/02 negative. - S/p emergent bronchoscopy on 05/05, results were unrevealing. Concern for the sample being inadequate. - S/p bronchoscopy 05/07- cultures negative but negative for malignancy. - Repeat CT in 3 months # NSVT- seen in tele 05/17- asymptomatic- Keep electrolytes to keep K >4 and Mg>2. Echo reviewed. Seen by cardiology # Dilated Cardiomyopathy- EF 20-25%. Not in clinical HF. Euvolemic. - Echo 05/07 with ejection fraction 20 to 25%, severely reduced LV systolic function. - On GDMT with Juan [facility] Mina. Might benefit from addition of aldactone down the road if her renal function and electrolytes can be monitored and if allowed by BP - Discussed with cardio- unable to have AICD placed with the open wound of left heel as very high risk of infection - [facility]- f/u with [facility] - Recommend repeat echo in 3 months of GDMT #. HOMA- resolved. #. DM-2 with labile blood sugar and steroid associated hyperglycemia- hypoglycemia on presentation (BG 37) is resolved. Now with post prandial hyperglycemia likely from steroids, no fasting hyperglycemia. Expect improvement with tapering steroids. Resume metformin, glipizide at discharge. Consider holding glipizide in future if poor oral intake. #. Hypomagnesemia- repleted IV prior to discharge. Discharged on oral supplementation. #. Chronic steroid use: Chronically placed on a steroid by [facility] several years ago. Now on pred taper- 10 mg for a week, then 5 mg for a week and then discontinue He feels fine. Denies any issues. Vitals stable, clinically stable. He is comfortable and stable for discharge back to residential. I signed out to Dr Ramirez from [facility] in detail. Total Time Total Time Spent Total Time Spent (In Minutes): 50 Discharge Plan Discharge Items [facility] Disposition[facility] Reason For Visit: ACUTE RESPIRATORY FAILURE Discharge Diagnosis: Acute hypoxic hypercapnic respiratory failure, PNA, COPD exacerbation, left heel hemorrhagic bulla, Systolic cardiomyopathy, NSVT, DM-2 Activity: Resume your previous activity Non-emergency contact: Primary Care Provider Call non-emergency contact if: you have any medication questions, your symptoms worsen, your pain is not controlled, you have a fever, your wound has increased redness, your wound has increased drainage and your wound pain has increased Follow-up/Referrals: Sherry PRICE [Primary Care Provider] - Diet: Carb Consistent or DM2, Heart Healthy and Low Sodium (2gm) Addtl Attending Provider Instructions: Continue local wound care daily as per wound care nurse instructions. Offload the left heel but you can bear weight as tolerated. Follow up with the wound care clinic on 06/01. Follow up with orthopedics Dr Conway in 7-10 days for evaluation of the heel wound. You might need skin graft if the wound does not close completely. For your COPD, continue to taper the prednisone- 10 mg daily for 1 week, then 5 mg daily for 1 week and then stop. Continue inhaler daily Continue oxygen as needed to keep the oxygen saturation around 90-92%. Use BIPAP at night and during sleep. Recommend outpatient PFT and sleep study Your heart has low pumping function- your echocardiogram shows ejection fraction of 20-25%. Ideally ICD is indicated but currently precluded because of ongoing left heel wound. Continue toprol, entresto and repeat echocardiogram in 3 months. Stop your lisinopril, Follow up with the [facility] cardiology clinic upon discharge. They might consider ICD placement once the heel wound is healed. Consider addition of aldactone if the ejection fractions remains low and the labs (Creatinine, potassium) can be regularly monitored. Hold glipizide if not eating. Your blood sugar should continue to improve with the tapering of the prednisone Recommend repeat CT chest in 3 months to follow up on the pneumonia, lymphadenopathy and the lung nodules and to rule out underlying mass. Follow up with cardiology, pulmonology, wound care clinic, orthopedics and family doctor upon discharge. Pending Studies at Discharge: No Stand-Alone Forms: My [facility] Skilled Items Patient informed of condition?: Yes Discharge Level of Care: Other Communicable Disease: No Discharge Prognosis: Stable Lines: None Urinary Catheter: No Medications and DC Order Prescriptions: New potassium chloride 20 mEq Tablet,Er Particles/Crystals 20 meq PO DAILY Qty: 30 RF: 0 magnesium oxide 400 mg (241.3 mg magnesium) Tablet 400 mg PO BID 60 Days Qty: 120 RF: 0 pantoprazole 40 mg Tablet,Delayed Release (Dr/Ec) 40 mg PO DAILY Qty: 30 RF: 0 metoprolol succinate 25 mg Tablet Extended Release 24 Hr 12.5 mg PO BID Qty: 60 RF: 0 Anoro Ellipta 62.5-25 mcg/actuation Blister With Device 1 puff inhalation DAILY Qty: 30 RF: 0 Arnuity Ellipta 100 mcg/actuation Blister With Device 1 puff inhalation DAILY Qty: 30 RF: 0 Entresto 24-26 mg Tablet 1 tab PO BID Qty: 60 RF: 0 prednisone 5 mg tablet 5 mg PO UD Qty: 21 RF: 0 Continued atorvastatin 40 mg Tablet 40 mg PO HS RF: 0 ipratropium-albuterol 0.5 mg-3 mg(2.5 mg base)/3 mL Solution For Nebulization 0 ml INHALATION QID RF: 0 ropinirole 2 mg Tablet 4 mg PO BID RF: 0 metformin 1,000 mg Tablet 1,000 mg PO BID RF: 0 aspirin [Children's Aspirin] 81 mg Tablet,Chewable 81 mg PO DAILY RF: 0 simethicone [Gas-X Extra Strength] 125 mg Tablet,Chewable 125 mg PO QID PRN (Reason: gas/bloating) RF: 0 furosemide [Lasix] 20 mg Tablet 20 mg PO DAILY RF: 0 albuterol sulfate 90 mcg/actuation Hfa Aerosol Inhaler 1 puff INHALATION QID PRN (Reason: Shortness Of Breath Or Wheezing) RF: 0 glipizide 5 mg Tablet 5 mg PO BID RF: 0 guaifenesin [Mucinex] 600 mg Tablet Extended Release 12hr 600 mg PO Q12H RF: 0 Otezla 30 mg Tablet 30 mg PO BID RF: 0 Discontinued lisinopril 20 mg Tablet 20 mg PO DAILY RF: 0 fluticasone propion-salmeterol [Wixela Inhub] 500-50 mcg/dose Blister With Device 1 inh INHALATION BID RF: 0 levofloxacin [Levaquin] 750 mg Tablet 750 mg PO DAILY RF: 0 Millipred 5 mg Tablet 15 mg PO DAILY RF: 0 metoprolol tartrate 25 mg Tablet 25 mg PO BID RF: 0 Normal Saline Flush 0.9% 1,000 ml IV DAILY PRN (Reason: Hypotension) RF: 0 Discharge Orders: Discharge Order (Routine); Ordered 05/21/22 Ordered By: Wali Seymour/Other Patient Handouts: Hypoglycemia (Low Blood Sugar), Managing Type 2 Diabetes Admission Data Admit Date/Time: 05/02/22 17:43 Attending Provider: Wali Holloway Admit Provider: Keyanna Rodriguez Primary Care Provider: Sherry PRICE Other Providers: Keyanna Rodriguez ; Denae Schneider ; Lb Plasencia ; Viet Handy ; Uriel Michelle ; Rubén Staton ; Micky Perez ; David Cruz ; Benoit Roe ; Rufina Haley ; Khushboo Barba ; Shilpi Silva ; Silvio Dowd ; Judson Rodriguez
[2022-05-21] MEDS: VALSARTAN/SACUBITRIL 26/24MG TAB PO SCH (10:21)
--- NOTE | 2022-07-22 06:25 | Coding Query ---
Lobar pneumonia was likely present. CODING QUERY To promote full compliance with coding requirements relating to patient care, provider participation is requested in all cases of dish machine operator uncertainty. Please assist us with the question(s) below: Coding Question(s): Please clarify the type of pneumonia or if pneumonia was present. Per documentation suggestive of right hilar mass with postobstructive atelectgasis/collapse rather than pneumonia consolidation of right upper lobe codes to Pnuemonia lobar J18.1 Physician's Response(s): Thank you Korina Cortez Principal Diagnosis: "that condition established after study, to be chiefly responsible for occasioning the admission of the patient to the hospital for care." Co-Existing Principal Diagnosis: "when two or more diagnoses equally meet the criteria for principal diagnosis as determined by the circumstances of admission, diagnostic work up, and/or therapy provided, and the Alphabetic Index, Tabular List, or another coding guideline does not provide sequencing direction, any one of the diagnoses may be sequenced first." "When the physician has documented what appears to be a current diagnosis in the body of the record, but has not included the diagnosis in the final diagnostic statement, the physician should be asked whether the diagnosis should be added." (Source [facility] 2 QTR90. p3-4) KERRY
== END 2022-05-21 15:50 | DRG 166 ==
LOC: ED 15:22 → EDINP 17:43 → SUATTDRO 17:43 → 1E 19:47 → 2E 05-03 17:59 → 1E 05-05 18:24 → 2S 05-11 19:48

== ENCOUNTER 2022-05-25 10:21 | Inpatient (IN) ==
[2022-05-25] MEDS ORDERED: ALBUT/IPRATROP 3MG/0.5MG NEB 3 ML VIAL NEB STA (10:32)
--- NOTE | 2022-05-25 11:03 | XRay Report ---
XR chest 1V portable CLINICAL HISTORY: sob TECHNIQUE: Single frontal radiograph of the chest was obtained. Comparison: Comparison is made to chest radiograph 05/18/2022 and CTA chest 05/02/2022 FINDINGS: No lines and tubes are seen. The cardiomediastinal silhouette is normal. Right upper lobe airspace op acity is seen. It is mildly improved from prior exam. No evidence of pleural effusion or pneumothorax . IMPRESSION: Interval mild improvement in right upper lobe airspace opacity, compatible with slowly improving pneu monia or atelectasis. ACT 112: Negative or not required by law. Electronically signed by: Jude English M.D. 05/25/2022 11:02 AM
[2022-05-25 11:08] LABS: Base Excess VBG 11.5 mEq/L; Basophils # (auto) 0.01 K/uL (0-0.2); Basophils % (auto) 0.1 %; Eosinophils # (auto) 0.01 K/uL (0-0.50); Eosinophils % (auto) 0.1 %; HCO3 VBG 39 mmol/L; Hematocrit (blood only) 44.3 % (40.1-51.0); Hemoglobin 14.7 g/dl (14.0-18.0); Immature Granulocytes # (auto) 0.06 K/uL (0.00-0.02); Immature Granulocytes % (auto) 0.5 %; Lymphocytes # (auto) 0.34 K/uL (1.2-3.4); Lymphocytes % (auto) 2.8 %; Mean Corpuscular Hemoglobin 30.3 pg (25.0-34.0); Mean Corpuscular Hgb Conc 33.2 g/dL (32.0-36.0); Mean Corpuscular Volume 91.3 fL (80.0-100.0); Mean Platelet Volume 10.3 fL (9.4-12.4); Monocytes # (auto) 0.87 K/uL (0.24-0.82); Monocytes % (auto) 7.1 %; Neutrophils # (auto) 10.97 K/uL (1.4-6.5); Neutrophils % (auto) 89.4 %; Oxygen Saturation VBG < 60.0 %; PCO2 VBG 61 mmHg (38-50); PO2 VBG 14 mmHg; Platelet Count 192 K/uL (130-400); RDW Standard Deviation 49.7 fL (36.4-46.3); Red Blood Count 4.85 M/uL (4.63-6.08); White Blood Count 12.26 K/ul (4.8-10.8); pH VBG 7.41 (7.36-7.41)
--- NOTE | 2022-05-25 11:10 | Emergency Department Note ---
History of Present Illness General Chief Complaint: Shortness of Breath/Dyspnea Stated Complaint: HYPOXIA Time Seen by Provider: 05/25/22 10:28 Source: EMS and RN notes reviewed History of Present Illness Provider Complaint: shortness of breath and cough Onset (ago): day(s) (1) Severity: severe Consistency/Duration: + progressively worsening Relieved By: + nothing Exacerbated By: + coughing Context: + recent illness Known history of: COPD, congestive heart failure and recurrent pneumonia Associated symptoms: + cough, + wheezing and + sputum production Treatment prior to arrival: oxygen, bronchodilator and NIPPV Related Data Home oxygen amount: 2 liters Home Medications Medication Instructions Recorded Confirmed Type albuterol sulfate 90 mcg/actuation 1 puff INHALATION QID PRN 05/02/22 05/25/22 History aerosol inhaler apremilast 30 mg tablet (Otezla) 30 mg PO BID 05/02/22 05/25/22 History aspirin 81 mg chewable tablet 81 mg PO QAM 05/02/22 05/25/22 History (Children's Aspirin) atorvastatin 40 mg tablet 40 mg PO HS 05/02/22 05/25/22 History furosemide 20 mg tablet (Lasix) 20 mg PO QAM 05/02/22 05/25/22 History glipizide 5 mg tablet 5 mg PO BID 05/02/22 05/25/22 History guaifenesin 600 mg tablet, 600 mg PO Q12H 05/02/22 05/25/22 History extended release 12 hr (Mucinex) ipratropium 0.5 mg-albuterol 3 mg 0 ml INHALATION QID 05/02/22 05/25/22 History (2.5 mg base)/3 mL nebulization soln metformin 1,000 mg tablet 1,000 mg PO BID 05/02/22 05/25/22 History ropinirole 2 mg tablet 4 mg PO BID 05/02/22 05/25/22 History simethicone 125 mg chewable tablet 125 mg PO QID PRN 05/02/22 05/25/22 History (Gas-X Extra Strength) metoprolol succinate 25 mg 12.5 mg PO BID #60 tab 05/21/22 05/25/22 Rx tablet,extended release 24 hr pantoprazole 40 mg tablet,delayed 40 mg PO DAILY #30 tab 05/21/22 05/25/22 Rx release sacubitril 24 mg-valsartan 26 mg 1 tab PO BID #60 tab 05/21/22 05/25/22 Rx tablet (Entresto) magnesium oxide 400 mg PO BID 05/25/22 05/25/22 History potassium chloride 20 mEq 20 meq PO QAM 05/25/22 05/25/22 History tablet,extended release(part/cryst) prednisone 5 mg tablet 5 mg PO QAM 05/25/22 05/25/22 History Allergies Allergy/AdvReac Type Severity Reaction Status Date / Time Penicillins Allergy Unknown Verified 05/25/22 12:27 Past Med/Surg History Medical History Acute hypercapnic respiratory failure Acute systolic CHF (congestive heart failure) Allergic rhinitis Altered mental status Atherosclerosis Chronic obstructive pulmonary disease Consolidation of right upper lobe COPD with acute exacerbation DMII (diabetes mellitus, type 2) Dry mouth Dyspnea on exertion History of tobacco abuse HTN (hypertension) Hyperkalemia Mass of upper lobe of right lung Neuropathy Obesity Obstructive sleep apnea Osteoarthrosis Psoriasis RLS (restless legs syndrome) Weakness generalized Surgical History No history of previous surgery Family History Mother Lung cancer Father CHF (congestive heart failure) Social History Smoking Status: Former smoker Years Smoked: 30; Number of Years Since Quit: 20; Second Hand Exposure: No; Hx Alcohol Use: No Hx Substance Use: No Preferred Language: Swazi Seat Pack Inspector Required: No Beliefs That Will Affect Care: None Current Living Situation: Other Current Living Situation Comment: [facility] Feels Safe at Home: Yes Assistive Devices: Wheelchair Review of Systems unable to attain due to patinet respiratory distress on bipap Physical Exam Vital Signs: Vital Signs - 24 hr 05/25/22 10:11 05/25/22 10:25 05/25/22 10:29 Temperature 37.3 C Temperature Source Oral Pulse Rate 126 H 122 H Pulse Rate [Radial ] Pulse Rate from Sp O2 Sensor 121 H Respiratory Rate 23 31 H Respiratory Effort / Characteristics Non-Labored Sponta neous Respiratory Depth Normal Respiratory Patter n Regular Blood Pressure 110/71 Blood Pressure Nery n 84 Pulse Oximetry 98 100 Oxygen Delivery Me thod BiPAP BiPAP BiPAP Fraction of Inspir ed Oxygen 40 SaO2/FiO2 Ratio 245 Sepsis Recent Feve r Within 48 Hours No Sepsis New/Unexpla ined Change in Men bruno Status N/A Sepsis Action Take n by Nursing No Action Required 05/25/22 10:30 05/25/22 10:32 05/25/22 10:54 Temperature Temperature Source Pulse Rate 125 H 126 H Pulse Rate [Radial ] 116 H Pulse Rate from Sp O2 Sensor 128 H Respiratory Rate 30 H 16 20 Respiratory Effort / Characteristics Short of Breath Short of Breath Respiratory Depth Normal Respiratory Patter n Regular Blood Pressure 128/82 Blood Pressure Nery n 97 Pulse Oximetry 100 100 100 Oxygen Delivery Me thod BiPAP BiPAP BiPAP Fraction of Inspir ed Oxygen 50 40 SaO2/FiO2 Ratio Sepsis Recent Feve r Within 48 Hours Sepsis New/Unexpla ined Change in Men bruno Status Sepsis Action Take n by Nursing 05/25/22 11:00 05/25/22 11:01 05/25/22 11:03 Temperature Temperature Source Pulse Rate 124 H 126 H 124 H Pulse Rate [Radial ] Pulse Rate from Sp O2 Sensor 121 H 125 H 117 H Respiratory Rate 24 24 25 H Respiratory Effort / Characteristics Respiratory Depth Respiratory Patter n Blood Pressure 93/74 L 103/52 L Blood Pressure Nery n 80 69 Pulse Oximetry 100 100 100 Oxygen Delivery Me thod BiPAP BiPAP BiPAP Fraction of Inspir ed Oxygen SaO2/FiO2 Ratio Sepsis Recent Feve r Within 48 Hours Sepsis New/Unexpla ined Change in Men bruno Status Sepsis Action Take n by Nursing 05/25/22 11:15 05/25/22 11:30 05/25/22 11:45 Temperature Temperature Source Pulse Rate 122 H 119 H 115 H Pulse Rate [Radial ] Pulse Rate from Sp O2 Sensor 109 H 102 H 113 H Respiratory Rate 25 H 24 25 H Respiratory Effort / Characteristics Respiratory Depth Respiratory Patter n Blood Pressure 97/62 L 110/72 118/62 Blood Pressure Nery n 73 84 80 Pulse Oximetry 100 100 100 Oxygen Delivery Me thod BiPAP BiPAP BiPAP Fraction of Inspir ed Oxygen SaO2/FiO2 Ratio Sepsis Recent Feve r Within 48 Hours Sepsis New/Unexpla ined Change in Men bruno Status Sepsis Action Take n by Nursing 05/25/22 12:00 05/25/22 12:15 05/25/22 12:30 Temperature Temperature Source Pulse Rate 116 H 114 H 113 H Pulse Rate [Radial ] Pulse Rate from Sp O2 Sensor 105 H 115 H Respiratory Rate 15 30 H 21 Respiratory Effort / Characteristics Respiratory Depth Respiratory Patter n Blood Pressure 95/62 L Blood Pressure Nery n 73 Pulse Oximetry 100 98 Oxygen Delivery Me thod BiPAP BiPAP Fraction of Inspir ed Oxygen SaO2/FiO2 Ratio Sepsis Recent Feve r Within 48 Hours Sepsis New/Unexpla ined Change in Men bruno Status Sepsis Action Take n by Nursing 05/25/22 12:45 05/25/22 13:00 Temperature Temperature Source Pulse Rate 108 H 112 H Pulse Rate [Radial ] Pulse Rate from Sp O2 Sensor 105 H 97 H Respiratory Rate 22 25 H Respiratory Effort / Characteristics Respiratory Depth Respiratory Patter n Blood Pressure 101/64 104/71 Blood Pressure Nery n 76 82 Pulse Oximetry 96 97 Oxygen Delivery Me thod BiPAP BiPAP Fraction of Inspir ed Oxygen SaO2/FiO2 Ratio Sepsis Recent Feve r Within 48 Hours Sepsis New/Unexpla ined Change in Men bruno Status Sepsis Action Take n by Nursing Physical Exam: Physical Exam GENERAL: Distressed. EYES: Conjunctivae and EOM are normal. Pupils are equal, round, and reactive to light. Right eye exhibits no discharge. Left eye exhibits no discharge. No scleral icterus. CV: Tachycardic rate, regular rhythm, normal heart sounds and intact distal pulses. There is no peripheral edema. Palpable radial pulses bue. PULM/CHEST: Tachypneic. Rhonchi bilaterally. ABD: The abdomen is soft. MUSC/SKEL: Normal range of motion. There is no peripheral edema, tenderness or deformity. LYMPH: No cervical adenopathy. NEURO: Motor and sensation grossly intact. Course Course 1028: The patient was evaluated in room A10. A complete history and physical exam was performed Cardiac monitoring: An order was placed for continuous cardiac monitoring. The monitor shows a rate of 120 with sinus tachycardia rhythm EMS reports that the place the patient on CPAP due to his oxygen saturation being 84% on his normal 2 L. They gave 1 DuoNeb. On arrival emergency department patient is tachypneic and patient was transitioned from CPAP to BiPAP. EMR reviewed. Patient had a recent discharged from the hospital. Patient was admitted to this facility from May 02, 2022 until May 21, 2022. During that time the patient was a rate initially admitted to the floor and then developed respiratory distress and had to be intubated and sent to the ICU. Patient had a right upper lobe pneumonia which was negative for TB. Patient had a bronchoscopy performed which was also essentially negative. The discharge summary does state though that there was concerned that there were inadequate samples on the bronchoscopy on May 05 and then on May 07 with a repeat bronchoscopy was done and the cultures were negative. 1135: Patient with a glucose of 48. 1 amp D50 ordered for the patient. 1210: Vital signs stable on BiPAP. Status post 1 DuoNeb in the emergency department the patient states he feels better. Repeat lung auscultation shows rales bilaterally. Patient be given additional DuoNeb and Lasix 40 mg IV push. Labs show low magnesium elevated troponin and elevated proBNP. Chest x-ray shows improvement of the infiltrate. [facility] with Britany cutler who states admit to Dr. Odom Administered Medications Discontinued Medications Albuterol (Albut/Ipratrop 3mg/0.5mg Neb 3 Ml Vial) 3 ml NEB NOW STA; Protocol Stop: 05/25/22 10:33 Last Admin: 05/25/22 10:53 Dose: 3 ml Documented by: [id number] Dextrose (Dextrose 50% 50 Ml Syringe) 50 ml IV NOW ONE Stop: 05/25/22 11:34 Last Admin: 05/25/22 11:38 Dose: 50 ml Documented by: [id number] Magnesium Sulfate/Dextrose (Magnesium Sulfate / D5w) 1 gm in 100 mls @ 200 mls/hr IV Q30M JULIA Stop: 05/25/22 12:32 Last Infusion: 05/25/22 12:59 Dose: 0 mls/hr Documented by: [id number] Admin: 05/25/22 12:19 Dose: 200 mls/hr Documented by: [id number] Infusion: 05/25/22 12:11 Dose: 200 mls/hr Documented by: [id number] Admin: 05/25/22 11:41 Dose: 200 mls/hr Documented by: [id number] Methylprednisolone (Methylprednisolone 125 Mg/2 Ml Vial) 125 mg IV NOW STA Stop: 05/25/22 11:53 Last Admin: 05/25/22 12:07 Dose: 125 mg Documented by: [id number] Medical Decision Making Laboratory Data Result diagrams: 05/25/22 10:51 05/25/22 10:51 Lab Results 05/25/22 05/25/22 05/25/22 Range/Units 10:51 10:51 10:51 WBC 12.26 H (4.8-10.8) K/ul RBC 4.85 (4.63-6.08) M/uL Hgb 14.7 (14.0-18.0) g/dl Hct 44.3 (40.1-51.0) % MCV 91.3 (80.0-100.0) fL MCH 30.3 (25.0-34.0) pg MCHC 33.2 (32.0-36.0) g/dL RDW Std Deviation 49.7 H (36.4-46.3) fL RDW Coeff of Cedric 15.0 H (11.5-14.5) % Plt Count 192 (130-400) K/uL MPV 10.3 (9.4-12.4) fL Immature Gran % (Auto) 0.5 % Neut % (Auto) 89.4 % Lymph % (Auto) 2.8 % Toole % (Auto) 7.1 % Eos % (Auto) 0.1 % Baso % (Auto) 0.1 % Neut # (Auto) 10.97 H (1.4-6.5) K/uL Lymph # (Auto) 0.34 L (1.2-3.4) K/uL Toole # (Auto) 0.87 H (0.24-0.82) K/uL Eos # (Auto) 0.01 (0-0.50) K/uL Baso # (Auto) 0.01 (0-0.2) K/uL Immature Gran # (Auto) 0.06 H (0.00-0.02) K/uL PT 12.4 H (9.0-12.0) Seconds INR 1.2 H (0.9-1.1) APTT 26.9 (21.0-31.0) Seconds PTT Ratio 1.0 VBG pH (7.36-7.41) VBG pCO2 (38-50) mmHg VBG pO2 mmHg VBG HCO3 mmol/L VBG O2 Saturation % VBG Base Excess mEq/L Sodium 138 (136-145) mmol/L Potassium 4.8 (3.5-5.1) mmol/L Chloride 93 L (98-107) mmol/L Carbon Dioxide 36 H (21-32) mmol/L Anion Gap 9 (3-11) BUN 31 H (6-23) mg/dl Creatinine 1.09 (0.6-1.4) mg/dl Est Cr Clr Drug Dosing 62.7 ml/min Est GFR ( Amer) 77.1 ml/min Est GFR (Non-Af Amer) 66.5 ml/min BUN/Creatinine Ratio 28.4 H (10-20) Glucose 48 L* (70-99(Fasting)) mg/dl Calcium 9.8 (8.5-10.1) mg/dl Magnesium 1.5 L (1.7-2.4) mg/dl Troponin I High Sens (0-20) pg/ml B-Natriuretic Peptide (0-100) pg/ml SARS-CoV-2 (PCR) (Negative) 05/25/22 05/25/22 05/25/22 Range/Units 10:51 10:51 10:51 WBC (4.8-10.8) K/ul RBC (4.63-6.08) M/uL Hgb (14.0-18.0) g/dl Hct (40.1-51.0) % MCV (80.0-100.0) fL MCH (25.0-34.0) pg MCHC (32.0-36.0) g/dL RDW Std Deviation (36.4-46.3) fL RDW Coeff of Cedric (11.5-14.5) % Plt Count (130-400) K/uL MPV (9.4-12.4) fL Immature Gran % (Auto) % Neut % (Auto) % Lymph % (Auto) % Toole % (Auto) % Eos % (Auto) % Baso % (Auto) % Neut # (Auto) (1.4-6.5) K/uL Lymph # (Auto) (1.2-3.4) K/uL Toole # (Auto) (0.24-0.82) K/uL Eos # (Auto) (0-0.50) K/uL Baso # (Auto) (0-0.2) K/uL Immature Gran # (Auto) (0.00-0.02) K/uL PT (9.0-12.0) Seconds INR (0.9-1.1) APTT (21.0-31.0) Seconds PTT Ratio VBG pH 7.41 (7.36-7.41) VBG pCO2 61 H (38-50) mmHg VBG pO2 14 mmHg VBG HCO3 39 mmol/L VBG O2 Saturation < 60.0 % VBG Base Excess 11.5 mEq/L Sodium (136-145) mmol/L Potassium (3.5-5.1) mmol/L Chloride (98-107) mmol/L Carbon Dioxide (21-32) mmol/L Anion Gap (3-11) BUN (6-23) mg/dl Creatinine (0.6-1.4) mg/dl Est Cr Clr Drug Dosing ml/min Est GFR ( Amer) ml/min Est GFR (Non-Af Amer) ml/min BUN/Creatinine Ratio (10-20) Glucose (70-99(Fasting)) mg/dl Calcium (8.5-10.1) mg/dl Magnesium (1.7-2.4) mg/dl Troponin I High Sens 34.9 H (0-20) pg/ml B-Natriuretic Peptide 172 H (0-100) pg/ml SARS-CoV-2 (PCR) (Negative) 05/25/22 Range/Units 11:25 WBC (4.8-10.8) K/ul RBC (4.63-6.08) M/uL Hgb (14.0-18.0) g/dl Hct (40.1-51.0) % MCV (80.0-100.0) fL MCH (25.0-34.0) pg MCHC (32.0-36.0) g/dL RDW Std Deviation (36.4-46.3) fL RDW Coeff of Cedric (11.5-14.5) % Plt Count (130-400) K/uL MPV (9.4-12.4) fL Immature Gran % (Auto) % Neut % (Auto) % Lymph % (Auto) % Toole % (Auto) % Eos % (Auto) % Baso % (Auto) % Neut # (Auto) (1.4-6.5) K/uL Lymph # (Auto) (1.2-3.4) K/uL Toole # (Auto) (0.24-0.82) K/uL Eos # (Auto) (0-0.50) K/uL Baso # (Auto) (0-0.2) K/uL Immature Gran # (Auto) (0.00-0.02) K/uL PT (9.0-12.0) Seconds INR (0.9-1.1) APTT (21.0-31.0) Seconds PTT Ratio VBG pH (7.36-7.41) VBG pCO2 (38-50) mmHg VBG pO2 mmHg VBG HCO3 mmol/L VBG O2 Saturation % VBG Base Excess mEq/L Sodium (136-145) mmol/L Potassium (3.5-5.1) mmol/L Chloride (98-107) mmol/L Carbon Dioxide (21-32) mmol/L Anion Gap (3-11) BUN (6-23) mg/dl Creatinine (0.6-1.4) mg/dl Est Cr Clr Drug Dosing ml/min Est GFR ( Amer) ml/min Est GFR (Non-Af Amer) ml/min BUN/Creatinine Ratio (10-20) Glucose (70-99(Fasting)) mg/dl Calcium (8.5-10.1) mg/dl Magnesium (1.7-2.4) mg/dl Troponin I High Sens (0-20) pg/ml B-Natriuretic Peptide (0-100) pg/ml SARS-CoV-2 (PCR) NEGATIVE (Negative) Imaging Data Radiologist's Impression: Chest X-Ray 05/25/22 10:33 XR chest 1V portable CLINICAL HISTORY: sob TECHNIQUE: Single frontal radiograph of the chest was obtained. Comparison: Comparison is made to chest radiograph 05/18/2022 and CTA chest 05/02/2022 FINDINGS: No lines and tubes are seen. The cardiomediastinal silhouette is normal. Right upper lobe airspace opacity is seen. It is mildly improved from prior exam. No evidence of pleural effusion or pneumothorax. IMPRESSION: Interval mild improvement in right upper lobe airspace opacity, compatible with slowly improving pneumonia or atelectasis. ACT 112: Negative or not required by law. Electronically signed by: Jude English M.D. 05/25/2022 11:02 AM ECG Data Interpretation: Sinus rhythm with a rate of 121. SD 126 QRS 134 QTC 497. Left bundle branch block present. Sgarbosa negative. PVCs present MDM Narrative 1028: The patient was evaluated in room A10. A complete history and physical exam was performed Cardiac monitoring: An order was placed for continuous cardiac monitoring. The monitor shows a rate of 120 with sinus tachycardia rhythm EMS reports that the place the patient on CPAP due to his oxygen saturation being 84% on his normal 2 L. They gave 1 DuoNeb. On arrival emergency department patient is tachypneic and patient was transitioned from CPAP to BiPAP. EMR reviewed. Patient had a recent discharged from the hospital. Patient was admitted to this facility from May 02, 2022 until May 21, 2022. During that time the patient was a rate initially admitted to the floor and then developed respiratory distress and had to be intubated and sent to the ICU. Patient had a right upper lobe pneumonia which was negative for TB. Patient had a bronchoscopy performed which was also essentially negative. The discharge summary does state though that there was concerned that there were inadequate samples on the bronchoscopy on May 05 and then on May 07 with a repeat bronchoscopy was done and the cultures were negative. 1135: Patient with a glucose of 48. 1 amp D50 ordered for the patient. 1210: Vital signs stable on BiPAP. Status post 1 DuoNeb in the emergency department the patient states he feels better. Repeat lung auscultation shows rales bilaterally. Patient be given additional DuoNeb and Lasix 40 mg IV push. Labs show low magnesium elevated troponin and elevated proBNP. Chest x-ray shows improvement of the infiltrate. [facility] with Britany cutler who states admit to Dr. Odom Impression & Plan Chronic obstructive pulmonary disease, Hypomagnesemia, Acute systolic CHF (congestive heart failure), Hypoglycemia Critical Care Time Critical Care Time: Yes Total Critical Care Time: 47 I have personally spent greater than 47 minutes of critical care time in the direct management of this patient. This includes bedside care, interpretation of diagnostic studies, and testing, discussion with consultants, patient, and family members, and other required patient management activities. This 47 minutes is in excess of all separately billable procedures. Discharge Plan Visit Data Chief Complaint: Shortness of Breath/Dyspnea Stated Complaint: HYPOXIA ED Provider: Blue,J Luis Discharge Problem: Chronic obstructive pulmonary disease, Hypomagnesemia, Acute systolic CHF (congestive heart failure), Hypoglycemia Patient Disposition: Admitted As Inpatient Forms Stand Alone Forms: My [facility] Prescriptions Prescriptions: No Action atorvastatin 40 mg Tablet 40 mg PO HS RF: 0 ipratropium-albuterol 0.5 mg-3 mg(2.5 mg base)/3 mL Solution For Nebulization 0 ml INHALATION QID RF: 0 ropinirole 2 mg Tablet 4 mg PO BID RF: 0 metformin 1,000 mg Tablet 1,000 mg PO BID RF: 0 aspirin [Children's Aspirin] 81 mg Tablet,Chewable 81 mg PO QAM RF: 0 simethicone [Gas-X Extra Strength] 125 mg Tablet,Chewable 125 mg PO QID PRN (Reason: gas/bloating) RF: 0 furosemide [Lasix] 20 mg Tablet 20 mg PO QAM RF: 0 albuterol sulfate 90 mcg/actuation Hfa Aerosol Inhaler 1 puff INHALATION QID PRN (Reason: Shortness Of Breath Or Wheezing) RF: 0 glipizide 5 mg Tablet 5 mg PO BID RF: 0 guaifenesin [Mucinex] 600 mg Tablet Extended Release 12hr 600 mg PO Q12H RF: 0 Otezla 30 mg Tablet 30 mg PO BID RF: 0 pantoprazole 40 mg Tablet,Delayed Release (Dr/Ec) 40 mg PO DAILY Qty: 30 RF: 0 metoprolol succinate 25 mg Tablet Extended Release 24 Hr 12.5 mg PO BID Qty: 60 RF: 0 Entresto 24-26 mg Tablet 1 tab PO BID Qty: 60 RF: 0 magnesium oxide 400 mg magnesium Tablet 400 mg PO BID RF: 0 prednisone 5 mg tablet 5 mg PO QAM RF: 0 potassium chloride 20 mEq tablet,ER particles/crystals 20 meq PO QAM RF: 0 Referrals Referrals: Sherry PRICE [Primary Care Provider] -
[2022-05-25 11:19] LABS: INR 1.2 (0.9-1.1); Partial Thromboplastin Time 26.9 Seconds (21.0-31.0); Prothrombin Time 12.4 Seconds (9.0-12.0)
[2022-05-25 11:31] LABS: BUN Creatinine Ratio 28.4 (10-20); Calcium 9.8 mg/dl (8.5-10.1); Creatinine Clr Calc Pharmacy 62.7 ml/min; Est GFR (African American) 77.1 ml/min; Est GFR (Non-African American) 66.5 ml/min; Magnesium 1.5 mg/dl (1.7-2.4); Potassium 4.8 mmol/L (3.5-5.1)
[2022-05-25] MEDS ORDERED: DEXTROSE 50% 50 ML SYRINGE IV ONE (11:33)
[2022-05-25] MEDS: MAGNESIUM SULFATE / D5W 1 GM/100 ML BAG IV SCH ×2 (11:41→12:19)
[2022-05-25] MEDS ORDERED: methylPREDNISolone 125 MG/2 ML VIAL IV STA (11:52)
[2022-05-25] MEDS ORDERED: FUROSEMIDE 40 MG/4 ML VIAL IV ONE (11:58)
--- NOTE | 2022-05-25 12:13 | Electrocardiogram Report ---
Test Reason : Blood Pressure : / mmHG Vent. Rate : 121 BPM Atrial Rate : 121 BPM P-R Int : 126 ms QRS Dur : 134 ms QT Int : 350 ms P-R-T Axes : 054 -24 122 degrees QTc Int : 497 ms Sinus tachycardia with occasional Premature ventricular complexes Possible Left atrial enlargement Left bundle branch block Abnormal ECG When compared with ECG of 07-MAY-2022 14:56, Premature ventricular complexes are now Present Confirmed by Rolly Brandt ([id number]) on 05/25/2022 12:12:48 PM Referred By: [facility] Confirmed By:Landen Brandt
[2022-05-25 12:55] LABS: Base Excess ABG 8.3 mEq/L (-9-1.8); HCO3 ABG 33 mmol/L (19-24); Oxygen Saturation ABG > 100.0 % (90-95); PCO2 ABG 47 mmHg (35-46); PO2 ABG 124 mmHg (80-95); pH ABG 7.46 (7.35-7.45)
[2022-05-25] MEDS ORDERED: MAGNESIUM SULFATE / D5W 1 GM/100 ML BAG IV ONE (13:24)
[2022-05-25] MEDS ORDERED: OPTIRAY 320 125ml IV ONE (13:54)
[2022-05-25 14:04] LABS: Allen Test Pos (Pos)
--- NOTE | 2022-05-25 14:27 | CT Scan Report ---
CT angio chest PE protocol CLINICAL HISTORY: Shortness of breath COMPARISON STUDY: Previous CTA chest from 05/02/2022 and portable chest from 05/25/2022 CT DOSE: 561.24 mGy.cm TECHNIQUE: CT Angio of the chest was performed.followed by image post processing with coronal, and s agittal MIP reformats. Contrast Volume: Optiray 320, 120 ml FINDINGS: Vasculature: There is homogeneous perfusion of the pulmonary vasculature bilaterally. No intraluminal filling defects or evidence for pulmonary embolus is seen. Airway: The airway is clear. No endobronchial lesion is identified. Lungs: Compared to the previous CT examination, there is no significant interval change in the large confluent alveolar opacity within the right upper lobe which extends centrally to the right hilum. It is again contiguous with the right hilum and the findings are again most characteristic of right hil ar mass with postobstructive atelectasis/collapse. No history was provided as to whether or not the p atient has had interval bronchoscopy. There are again 3 subcentimeter pulmonary nodules in the right lung. No new nodules or confluent alve olar opacities are identified. The remainder of the lungs are clear of acute alveolar opacities, air bronchograms or new pulmonary nodules. The left hemithorax is clear. Pleura: There is no evidence for pleural effusion. There is no evidence for pneumothorax. Mediastinum: There is again right paratracheal adenopathy. The largest lymph node now measures 2.0 x 1.8 cm. There is also again noted to be right hilar adenopathy with lymph node measuring approximatel y 2.2 x 1.5 cm. The heart is again enlarged. Coronary artery calcification is again seen. The thoracic aorta is with in normal limits. There is no evidence for pericardial effusion. Upper abdomen:The adrenal glands are normal bilaterally. Osseous structures: There is no acute osseous pathology. Impression: 1. No CTA evidence for pulmonary embolus. 2. Compared to the previous CTA, there is again evidence for confluent alveolar opacity within the ri ght upper lobe extending centrally to the right hilum and indistinct from the right hilum. 3. The findings are again most characteristic of a right hilar mass with postobstructive atelectasis. 4. There is again evidence for right paratracheal and right hilar adenopathy. 5. There are again 3 subcentimeter right lung pulmonary nodules as well. 6. No history was provided as to whether or not the patient has had interval bronchoscopy. ACT 112: Negative or not required by law. Electronically signed by: Antwan Meadows M.D. 05/25/2022 2:25 PM
[2022-05-25] MEDS ORDERED: guaiFENesin 600 MG TABCR PO SCH (15:52)
[2022-05-25] MEDS ORDERED: ACETAMINOPHEN 325 MG TAB PO PRN (15:52)
[2022-05-25] MEDS ORDERED: ENOXAPARIN INJ 40 MG/0.4 ML SYR SQ SCH (16:00)
[2022-05-25] MEDS ORDERED: predniSONE 10 MG TABLET PO SCH (16:30)
--- NOTE | 2022-05-25 17:05 | History & Physical Report ---
Date of Service May 25, 2022 Assessment & Plan (1) Chronic respiratory failure with hypoxia: (2) Chronic obstructive pulmonary disease: (3) Mass of upper lobe of right lung: Plan: Admit to telemetry Presenting from [facility] for evaluation of worsening shortness of breath and hypoxia Recently admitted to [facility] 05/02 through 05/21 for hypoxic and hypercarbic respiratory failure due to pneumonia and COPD exacerbation requiring intubation. Noted to have right upper lobe mass/consolidation with no evidence of malignancy on bronchoscopy on 05/07/2022. Patient was placed on BiPAP in route to the ED able to be weaned to chronic 2L O2 Suspect that episode of acute shortness of breath and hypoxia this morning was due to patient not wearing BiPAP overnight In the ED, CTA chest negative for pulmonary embolism and essentially unchanged from prior study For now, will continue previously prescribed steroid taper and inhalers. No indication to start antibiotics at this time. Pulmonary evaluation tomorrow (4) HFrEF (heart failure with reduced ejection fraction): (5) Dilated cardiomyopathy: Plan: EF 20 to 25% Not felt to be a candidate for AICD cardiac cath due to recent infection with pneumonia and left heel wound Does not appear to be volume overloaded Received Lasix 40 mg IV in the ED, resume home dose of Lasix tomorrow Continue ASA, atorvastatin, metoprolol, Entresto (6) DMII (diabetes mellitus, type 2): Plan: Monitor glucose ACTo be A1c 9.4 04/2022 Hypoglycemic on arrival with glucose 48, improved with IV D50 Monitor glucose AC at bedtime (7) Non healing left heel wound: Plan: Present on admission Signs of infection Wound care nurse consult (8) DVT prophylaxis: Plan: SQ Lovenox Admission and Anticipated Discharge Date Admission Date: May 25, 2022 History of Present Illness Chief Complaint: Shortness of Breath Primary Care Provider: ALBERT Powell 72 year old male inmate at [facility] with PMH dilated cardiomyopathy EF 25%, HTN, DM type II, COPD, chronic hypoxic respiratory failure on 2L O2, and other problems listed below who presents to the ED for evaluation of shortness of breath. Patient recently admitted to [facility] 05/02 through 05/21 for hypoxic and hypercarbic respiratory failure due to pneumonia and COPD exacerbation requiring intubation. Patient also diagnosed with dilated cardiomyopathy, EF 25%. Patient was not felt to be a candidate for AICD evaluation due to infection with pneumonia and left heel wound. He was started on guideline directed medical therapy. He was also discharged on a steroid taper for COPD exacerbation. He was also found to require 2L O2 continuous and BiPap HS. patient is somewhat a poor historian, some history obtained from provider at the [facility] [place] at [facility]. Per the physician, patient was wearing his BiPAP throughout the weekend however the BiPAP malfunctioned last evening and patient did not wear his BiPAP overnight. This morning, patient had acute onset of shortness of breath and was found to be hypoxic and was sent to the ED for further evaluation. Patient was placed on BiPAP by EMS and remained on BiPAP while in the ED and maintained oxygen saturation. During my exam, patient was transition to 2L NC and continued to maintain saturations. Labs show WBC 12K, glucose 48, HS trop 34.9, procalcitonin 0.69, Mg+ 1.5. CTA chest negative for pulmonary embolism and essentially unchanged from prior study. In the ED, patient received nebulizer treatment, IV D50 for hypoglycemia, IV Lasix 40 mg, magnesium replacement. Allergies Allergy/AdvReac Type Severity Reaction Status Date / Time Penicillins Allergy Unknown Verified 05/25/22 12:27 Home Medications Medication Instructions Recorded Confirmed Type albuterol sulfate 90 mcg/actuation 1 puff INHALATION QID PRN 05/02/22 05/25/22 History aerosol inhaler apremilast 30 mg tablet (Otezla) 30 mg PO BID 05/02/22 05/25/22 History aspirin 81 mg chewable tablet 81 mg PO QAM 05/02/22 05/25/22 History (Children's Aspirin) atorvastatin 40 mg tablet 40 mg PO HS 05/02/22 05/25/22 History furosemide 20 mg tablet (Lasix) 20 mg PO QAM 05/02/22 05/25/22 History guaifenesin 600 mg tablet, 600 mg PO Q12H 05/02/22 05/25/22 History extended release 12 hr (Mucinex) ipratropium 0.5 mg-albuterol 3 mg 3 ml INHALATION QID 05/02/22 05/25/22 History (2.5 mg base)/3 mL nebulization soln metformin 1,000 mg tablet 1,000 mg PO BID 05/02/22 05/25/22 History ropinirole 2 mg tablet 4 mg PO BID 05/02/22 05/25/22 History simethicone 125 mg chewable tablet 125 mg PO QID PRN 05/02/22 05/25/22 History (Gas-X Extra Strength) metoprolol succinate 25 mg 12.5 mg PO BID #60 tab 05/21/22 05/25/22 Rx tablet,extended release 24 hr pantoprazole 40 mg tablet,delayed 40 mg PO DAILY #30 tab 05/21/22 05/25/22 Rx release sacubitril 24 mg-valsartan 26 mg 1 tab PO BID #60 tab 05/21/22 05/25/22 Rx tablet (Entresto) fluticasone fur. 200 mcg-umeclid 1 inh INHALATION DAILY 05/25/22 05/25/22 History 62.5 mcg-vilant 25 mcg inhalat.powder (Trelegy Ellipta) magnesium oxide 400 mg PO BID 05/25/22 05/25/22 History potassium chloride 20 mEq 20 meq PO QAM 05/25/22 05/25/22 History tablet,extended release(part/cryst) prednisone 5 mg tablet See Rx Instructions .ROUTE .COMPLEX 05/25/22 05/25/22 History Past Med/Surg History Medical History Allergic rhinitis Atherosclerosis Chronic obstructive pulmonary disease Chronic respiratory failure with hypoxia Dilated cardiomyopathy DMII (diabetes mellitus, type 2) HFrEF (heart failure with reduced ejection fraction) History of tobacco abuse HTN (hypertension) Left bundle branch block Neuropathy Obstructive sleep apnea Osteoarthrosis Psoriasis RLS (restless legs syndrome) Surgical History No history of previous surgery Family History Mother Lung cancer Father CHF (congestive heart failure) Social History Smoking Status: Former smoker Years Smoked: 30; Number of Years Since Quit: 20; Second Hand Exposure: No; Hx Alcohol Use: No Hx Substance Use: No Preferred Language: Portuguese Communication Ability: Effective Wet Room Supervisor Required: No Beliefs That Will Affect Care: None Current Living Situation: Other Current Living Situation Comment: Prisoner Feels Safe at Home: Yes Safety Concerns: Feels Safe At This Time Assistive Devices: Wheelchair Review of Systems Review of Systems: Reviewed with patient however felt to be somewhat unreliable as patient is a poor historian Physical Exam Constitutional: WD/WN, vitals as above Eyes: PERRL, conjunctivae normal, anicteric sclerae ENMT: external ear and nose normal, oropharynx normal Respiratory: normal respiratory effort; no respiratory distress Auscultation: + diminished lung sounds Cardiovascular: Rate/Rhythm: regular rate and regular rhythm Vessels: normal peripheral pulses Extremities: no edema Gastrointestinal (Abdomen): normal bowel sounds, soft, nontender, no hepatosplenomegaly Musculoskeletal: no cyanosis or clubbing, extremities motor strength 5/5 Skin: no rashes, warm and dry Large left heel wound present without surrounding erythema or significant drainage Neurologic: PERRL, EOMI, accommodation nl, no face palsy, no dysarthria Psychiatric: A+Ox3, euthymic affect Results & Data Results & Data ([facility]) Vital Signs (Past 12 Hours) Vital Signs Temp Pulse Pulse Pulse Resp BP BP 05/25/22 16:01 36.7 C 108 H 22 98/67 L 05/25/22 15:04 121/70 05/25/22 15:03 05/25/22 13:30 105 H 24 107/53 L 05/25/22 13:15 106 H 23 109/59 L 05/25/22 13:00 112 H 25 H 104/71 05/25/22 12:45 108 H 22 101/64 05/25/22 12:30 113 H 21 05/25/22 12:15 114 H 30 H 95/62 L 05/25/22 12:00 116 H 15 05/25/22 11:45 115 H 25 H 118/62 05/25/22 11:30 119 H 24 110/72 05/25/22 11:15 122 H 25 H 97/62 L 05/25/22 11:03 124 H 25 H 103/52 L 05/25/22 11:01 126 H 24 93/74 L 05/25/22 11:00 124 H 24 05/25/22 10:54 116 H 20 05/25/22 10:32 126 H 16 05/25/22 10:30 125 H 30 H 128/82 05/25/22 10:29 122 H 31 H 05/25/22 10:25 37.3 C 126 H 23 110/71 Pulse Ox 05/25/22 16:01 94 05/25/22 15:04 94 05/25/22 15:03 95 05/25/22 13:30 93 05/25/22 13:15 93 05/25/22 13:00 97 05/25/22 12:45 96 05/25/22 12:30 98 05/25/22 12:15 05/25/22 12:00 100 05/25/22 11:45 100 05/25/22 11:30 100 05/25/22 11:15 100 05/25/22 11:03 100 05/25/22 11:01 100 05/25/22 11:00 100 05/25/22 10:54 100 05/25/22 10:32 100 05/25/22 10:30 100 05/25/22 10:29 100 05/25/22 10:25 98 Laboratory Results Short CBC 05/25/22 Range/Units 10:51 WBC 12.26 H (4.8-10.8) K/ul Hgb 14.7 (14.0-18.0) g/dl Hct 44.3 (40.1-51.0) % Plt Count 192 (130-400) K/uL BMP 05/25/22 10:51 Sodium 138 Potassium 4.8 Chloride 93 L Carbon Dioxide 36 H BUN 31 H Creatinine 1.09 Glucose 48 L* Calcium 9.8 Diagnostic Findings Chest X-Ray 05/25/22 10:33 XR chest 1V portable CLINICAL HISTORY: sob TECHNIQUE: Single frontal radiograph of the chest was obtained. Comparison: Comparison is made to chest radiograph 05/18/2022 and CTA chest 05/02/2022 FINDINGS: No lines and tubes are seen. The cardiomediastinal silhouette is normal. Right upper lobe airspace opacity is seen. It is mildly improved from prior exam. No evidence of pleural effusion or pneumothorax. IMPRESSION: Interval mild improvement in right upper lobe airspace opacity, compatible with slowly improving pneumonia or atelectasis. ACT 112: Negative or not required by law. Electronically signed by: Jude English M.D. 05/25/2022 11:02 AM Chest CTA 05/25/22 12:11 CT angio chest PE protocol CLINICAL HISTORY: Shortness of breath COMPARISON STUDY: Previous CTA chest from 05/02/2022 and portable chest from 05/25/2022 CT DOSE: 561.24 mGy.cm TECHNIQUE: CT Angio of the chest was performed.followed by image post processing with coronal, and sagittal MIP reformats. Contrast Volume: Optiray 320, 120 ml FINDINGS: Vasculature: There is homogeneous perfusion of the pulmonary vasculature bilaterally. No intraluminal filling defects or evidence for pulmonary embolus is seen. Airway: The airway is clear. No endobronchial lesion is identified. Lungs: Compared to the previous CT examination, there is no significant interval change in the large confluent alveolar opacity within the right upper lobe which extends centrally to the right hilum. It is again contiguous with the right hilum and the findings are again most characteristic of right hilar mass with postobstructive atelectasis/collapse. No history was provided as to whether or not the patient has had interval bronchoscopy. There are again 3 subcentimeter pulmonary nodules in the right lung. No new nodules or confluent alveolar opacities are identified. The remainder of the lungs are clear of acute alveolar opacities, air bronchograms or new pulmonary nodules. The left hemithorax is clear. Pleura: There is no evidence for pleural effusion. There is no evidence for pneumothorax. Mediastinum: There is again right paratracheal adenopathy. The largest lymph node now measures 2.0 x 1.8 cm. There is also again noted to be right hilar adenopathy with lymph node measuring approximately 2.2 x 1.5 cm. The heart is again enlarged. Coronary artery calcification is again seen. The thoracic aorta is within normal limits. There is no evidence for pericardial effusion. Upper abdomen:The adrenal glands are normal bilaterally. Osseous structures: There is no acute osseous pathology. Impression: 1. No CTA evidence for pulmonary embolus. 2. Compared to the previous CTA, there is again evidence for confluent alveolar opacity within the right upper lobe extending centrally to the right hilum and indistinct from the right hilum. 3. The findings are again most characteristic of a right hilar mass with postobstructive atelectasis. 4. There is again evidence for right paratracheal and right hilar adenopathy. 5. There are again 3 subcentimeter right lung pulmonary nodules as well. 6. No history was provided as to whether or not the patient has had interval bronchoscopy. ACT 112: Negative or not required by law. Electronically signed by: Antwan Meadows M.D. 05/25/2022 2:25 PM Code Status & VTE Plan Code Status Patient is a full code as per my discussion with him. VTE Prophylaxis Plan VTE Prophylaxis will be ordered: Yes Supervising Physician Co-Signing Physician Notes Patient was seen and evaluated independently. Chart was reviewed. Case was discussed with RUI. Agree with assessment and plan as outlined above (1) Chronic obstructive pulmonary disease COPD type: unspecified COPD Qualified Code(s): J44.9 - Chronic obstructive pulmonary disease, unspecified
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
[2022-05-25] MEDS ORDERED: ALBUT/IPRATROP 3MG/0.5MG NEB 3 ML VIAL INH SCH (19:00)
[2022-05-25] MEDS ORDERED: rOPINIRole HCL 2 MG TABLET PO SCH (21:00)
[2022-05-25] MEDS ORDERED: MAGNESIUM OXIDE 400 MG TAB PO SCH (21:00)
[2022-05-25] MEDS ORDERED: ATORVASTATIN 40 MG TAB PO SCH (21:00)
[2022-05-25] MEDS ORDERED: VALSARTAN/SACUBITRIL 26/24MG TAB PO SCH (21:00)
[2022-05-25] MEDS ORDERED: METOPROLOL SUCC 25MG EXT REL TAB PO SCH (21:00)
[2022-05-26] MEDS ORDERED: POTASSIUM CHLORIDE CRTAB 20 MEQ TABCR PO SCH (09:00)
[2022-05-26] MEDS ORDERED: FLUTICASONE FUROATE 200MCG 14 PUFFS/INHALER INH SCH (09:00)
[2022-05-26] MEDS ORDERED: FUROSEMIDE 20 MG TAB PO SCH (09:00)
[2022-05-26] MEDS ORDERED: PANTOprazole 40 MG TAB PO SCH (09:00)
[2022-05-26] MEDS ORDERED: ASPIRIN 81 MG CHEW PO SCH (09:00)
[2022-05-26] MEDS ORDERED: UMECLIDINIUM/VILANTEROL 62.5/25MCG 7 PUFFS/INHALER INH SCH (09:00)
--- NOTE | 2022-05-26 09:36 | Pulmonary Consultation ---
Date of Consultation May 26, 2022 History of Present Illness Attending Physician: Harvey Odom MD History of Present Illness Attending: Dr. Donnelly Pulmonary consult was placed on 05/25/2022 in the afternoon. We look to see the patient this morning in-house and he had been discharged back to [facility]. Please do not charge for this consult as patient was not seen. No orders were placed on this patient. Thank you Allergies Allergy/AdvReac Type Severity Reaction Status Date / Time Penicillins Allergy Unknown Verified 05/25/22 12:27 Home Medications Medication Instructions Recorded Confirmed Type albuterol sulfate 90 mcg/actuation 1 puff inhalation QID PRN 05/02/22 05/25/22 History aerosol inhaler Shortness Of Breath Or Wheezing apremilast 30 mg tablet (Otezla) 30 mg PO BID 05/02/22 05/25/22 History aspirin 81 mg chewable tablet 81 mg PO QAM 05/02/22 05/25/22 History (Children's Aspirin) atorvastatin 40 mg tablet 40 mg PO HS 05/02/22 05/25/22 History furosemide 20 mg tablet (Lasix) 20 mg PO QAM 05/02/22 05/25/22 History guaifenesin 600 mg tablet, 600 mg PO Q12H 05/02/22 05/25/22 History extended release 12 hr (Mucinex) ipratropium 0.5 mg-albuterol 3 mg 3 ml inhalation QID 05/02/22 05/25/22 History (2.5 mg base)/3 mL nebulization soln metformin 1,000 mg tablet 1,000 mg PO BID 05/02/22 05/25/22 History ropinirole 2 mg tablet 4 mg PO BID 05/02/22 05/25/22 History simethicone 125 mg chewable tablet 125 mg PO QID PRN gas/bloating 05/02/22 05/25/22 History (Gas-X Extra Strength) metoprolol succinate 25 mg 12.5 mg PO BID #60 tabs 05/21/22 05/25/22 Rx tablet,extended release 24 hr pantoprazole 40 mg tablet,delayed 40 mg PO DAILY #30 tabs 05/21/22 05/25/22 Rx release sacubitril 24 mg-valsartan 26 mg 1 tab PO BID #60 tabs 05/21/22 05/25/22 Rx tablet (Entresto) fluticasone fur. 200 mcg-umeclid 1 inh inhalation DAILY 05/25/22 05/25/22 History 62.5 mcg-vilant 25 mcg inhalat.powder (Trelegy Ellipta) magnesium oxide 400 mg PO BID 05/25/22 05/25/22 History potassium chloride 20 mEq 20 meq PO QAM 05/25/22 05/25/22 History tablet,extended release(part/cryst) prednisone 5 mg tablet See Rx Instructions .Route .COMPLEX 05/25/22 05/25/22 History Patient History Medical History Allergic rhinitis Atherosclerosis Chronic obstructive pulmonary disease Chronic respiratory failure with hypoxia Dilated cardiomyopathy DMII (diabetes mellitus, type 2) HFrEF (heart failure with reduced ejection fraction) History of tobacco abuse HTN (hypertension) Left bundle branch block Neuropathy Obstructive sleep apnea Osteoarthrosis Psoriasis RLS (restless legs syndrome) Surgical History No history of previous surgery Family History Mother Lung cancer Father CHF (congestive heart failure) Social History Smoking Status: Former smoker Years Smoked: 30; Number of Years Since Quit: 20; Second Hand Exposure: No; Hx Alcohol Use: No Hx Substance Use: No Preferred Language: Frisian Communication Ability: Effective Multimedia Instructional Designer Required: No Beliefs That Will Affect Care: None Current Living Situation: Other Current Living Situation Comment: Prisoner Feels Safe at Home: Yes Safety Concerns: Feels Safe At This Time Assistive Devices: Wheelchair PG Care Time/CCT Total # of Minutes Spent Total Time Spent with Patient: Total time spent is greater than 50% in coordination of care (as documented) at patient's floor/unit and/or counseling patient: Coding Level of Care Code None
[2022-05-29] MEDS ORDERED: predniSONE 5 MG TAB PO SCH (09:00)
== END 2022-05-25 18:47 | DRG 190 ==
LOC: ED 10:21 → 2E 14:43